=== PATIENT | female | born 1940 | race Caucasian/White ===

== ENCOUNTER 2017-03-21 08:52 | Outpatient (POV) | payer MEDICARE, MEDICAID, SELFPAY | END 2017-03-21 13:49 | disposition home or self-care (01) | PROVIDERS: Visit Provider Podiatrist | DX: E11.42 Type 2 diabetes mellitus with diabetic polyneuropathy (principal); L84 Corns and callosities; B35.1 Tinea unguium | CPT/HCPCS: 11056; 99213; G0127 ==

== ENCOUNTER 2017-06-22 16:00 | Emergency (ER) | payer MEDICARE, MEDICAID, SELFPAY ==
[2017-06-22 16:08] VITALS: BP 180/89; PULSE 103; RESP 26; TEMP 36.7; O2SAT 98; BMI 41.8
--- NOTE | 2017-06-22 16:33 | HMH.EDSOB ---
ED Disposition Clinical Impression: Bronchitis, Dehydration, Hypertension, Diabetes, Cough, Reactive airway disease Disposition: Home, Self-Care Condition on Discharge: Fair Additional Instructions: 1- avoid smoke and smokers. 2- use a vicks humidifier. 3- start po abx, steroid pack and albuterol mdi with a spacer. 4- follow up with Dr mcguire on final CXR report. 5- to return if not better. Prescriptions: levoFLOXacin [Levaquin 250mg tab] 250 mg PO DAILY #7 tab methylPREDNISolone [Medrol] 16 mg PO UD DOSE PK #1 tab Referrals: Amanuel Mcguire MD [Primary Care Provider] - - Critical Care Critical Care Time: No Attestation: On 06/22/17, the high probability of a clinically significant, sudden or life threatening deterioration of the following system(s) required my full and direct attention, intervention and personal management. The time I documented below is in addition to time spent performing reported procedures but includes the following listed in this critical care notation. Medical Decision Making - Tye Inquiry Pt receiving controlled substance: No Tye was queried for this patient: No Vital Signs: 06/22/17 16:08 06/22/17 17:30 06/22/17 17:40 Temperature 98.1 F Temperature Source Oral Pulse Rate 87 87 Pulse Rate [Right Radial] 103 H Respiratory Rate 26 H Blood Pressure [Right Arm] 180/89 Blood Pressure Mean [Right Arm] 119 Blood Pressure Source [Right Arm] Automatic Cuff Blood Pressure Position [Right Arm] Supine 02 Sat by Pulse Oximetry 98 Oxygen Delivery Method Room Air - Lab Data Lab Results 06/22/17 16:45: WBC 11.8 H, RBC 4.39, Hgb 12.6, Hct 39.4, MCV 89.6, MCH 28.7, MCHC 32.0, RDW 12.9, Plt Count 337, MPV 7.6, Neut % (Auto) 87.9 H, Lymph % (Auto) 9.3 L, Petroleum % (Auto) 2.5, Eos % (Auto) 0.1, Baso % (Auto) 0.2, Neut # (Auto) 10.4 H, Lymph # (Auto) 1.1, Petroleum # (Auto) 0.3, Eos # (Auto) 0.0, Baso # (Auto) 0.0, Total Counted 100, Neutrophils % (Manual) 85 H, Band Neutrophils % 1.0, Lymphocytes % (Manual) 9 L, Monocytes % (Manual) 5, Platelet Estimate Normal, RBC Morphology Normal 06/22/17 16:45: Sodium 136, Potassium 4.2, Chloride 99, Carbon Dioxide 26, Anion Gap 15.2 H, BUN 17, Creatinine 0.81, Estimated Creat Clear 33, Estimated GFR 68, Est GFR ( Amer) 83, Glucose 226 H, Calcium 8.6, Total Bilirubin 0.2, AST 21, ALT 40, Alkaline Phosphatase 96, Total Creatine Kinase 90, CK-MB (CK-2) 1.3, CK-MB (CK-2) Rel Index 1.4, Troponin I < 0.02, Total Protein 7.4, Albumin 3.6, Globulin 3.8 H, Albumin/Globulin Ratio 0.9 L 06/22/17 16:45: Lactic Acid 2.7 H 06/22/17 16:45: Influenza Type A Ag Negative, Influenza Type B Ag Negative Result diagrams: 06/22/17 16:45 06/22/17 16:45 Orders (Tests/Meds): ED MEDICATIONS Generic Name Dose Route Start Last Admin Trade Name Freq PRN Reason Stop Dose Admin Famotidine 20 mg 06/22/17 21:00 06/22/17 17:05 Pepcid 20mg/2ml Vial IV 07/22/17 20:59 20 mg BID LAMIN Administration Levofloxacin/Dextrose 750 mg in 150 mls @ 100 mls/hr 06/22/17 17:45 06/22/17 17:47 Levofloxacin 750mg/150ml Premix IV 07/06/17 17:44 100 mls/hr Q24H LAMIN Administration Protocol Sodium Chloride 1,000 mls @ 999 mls/hr 06/22/17 18:15 06/22/17 17:48 Sod Chlor 0.9% 1000ml Bag IV 06/22/17 19:15 999 mls/hr .Q1H1M LAMIN Administration Levalbuterol HCl 0.63 mg 06/22/17 20:00 Xopenex 0.63mg/3ml Neb IH 07/22/17 19:59 QIDRT LAMIN Discontinued Medications Generic Name Dose Route Start Last Admin Trade Name Freq PRN Reason Stop Dose Admin Albuterol/Ipratropium 3 ml 06/22/17 16:37 Duoneb 3ml Neb IH 07/22/17 16:36 Q4HP PRN Shortness Of Breath Dexamethasone Sodium Phosphate 4 mg 06/22/17 16:42 06/22/17 17:12 Decadron 4mg/Ml 1ml Vial IV 06/22/17 16:43 4 mg ONCE ONE Administration Guaifenesin 100 mg 06/22/17 17:02 06/22/17 17:07 Robitussin 200mg/10ml Syrup Udc PO 06/22/17
--- NOTE | 2017-06-22 16:36 | ED_ITS ---
ED Disposition Clinical Impression: Bronchitis, Dehydration, Hypertension, Diabetes, Cough, Reactive airway disease Disposition: Home, Self-Care Condition on Discharge: Fair Additional Instructions: 1- avoid smoke and smokers. 2- use a vicks humidifier. 3- start po abx, steroid pack and albuterol mdi with a spacer. 4- follow up with Dr mcguire on final CXR report. 5- to return if not better. Prescriptions: levoFLOXacin [Levaquin 250mg tab] 250 mg PO DAILY #7 tab methylPREDNISolone [Medrol] 16 mg PO UD DOSE PK #1 tab Referrals: Amanuel Mcguire MD [Primary Care Provider] - - Critical Care Critical Care Time: No Attestation: On 06/22/17, the high probability of a clinically significant, sudden or life threatening deterioration of the following system(s) required my full and direct attention, intervention and personal management. The time I documented below is in addition to time spent performing reported procedures but includes the following listed in this critical care notation. Medical Decision Making - Tye Inquiry Pt receiving controlled substance: No Tye was queried for this patient: No Vital Signs: 06/22/17 16:08 06/22/17 17:30 06/22/17 17:40 Temperature 98.1 F Temperature Source Oral Pulse Rate 87 87 Pulse Rate [Right Radial] 103 H Respiratory Rate 26 H Blood Pressure [Right Arm] 180/89 Blood Pressure Mean [Right Arm] 119 Blood Pressure Source [Right Arm] Automatic Cuff Blood Pressure Position [Right Arm] Supine 02 Sat by Pulse Oximetry 98 Oxygen Delivery Method Room Air - Lab Data Lab Results 06/22/17 16:45: WBC 11.8 H, RBC 4.39, Hgb 12.6, Hct 39.4, MCV 89.6, MCH 28.7, MCHC 32.0, RDW 12.9, Plt Count 337, MPV 7.6, Neut % (Auto) 87.9 H, Lymph % (Auto ) 9.3 L, Gordon % (Auto) 2.5, Eos % (Auto) 0.1, Baso % (Auto) 0.2, Neut # (Auto) 10.4 H, Lymph # (Auto) 1.1, Gordon # (Auto) 0.3, Eos # (Auto) 0.0, Baso # (Auto) 0.0, Total Counted 100, Neutrophils % (Manual) 85 H, Band Neutrophils % 1.0, Lymphocytes % (Manual) 9 L, Monocytes % (Manual) 5, Platelet Estimate Normal, RBC Morphology Normal 06/22/17 16:45: Sodium 136, Potassium 4.2, Chloride 99, Carbon Dioxide 26, Anion Gap 15.2 H, BUN 17, Creatinine 0.81, Estimated Creat Clear 33, Estimated GFR 68, Est GFR ( Amer) 83, Glucose 226 H, Calcium 8.6, Total Bilirubin 0.2, AST 21, ALT 40, Alkaline Phosphatase 96, Total Creatine Kinase 90, CK-MB ( CK-2) 1.3, CK-MB (CK-2) Rel Index 1.4, Troponin I < 0.02, Total Protein 7.4, Albumin 3.6, Globulin 3.8 H, Albumin/Globulin Ratio 0.9 L 06/22/17 16:45: Lactic Acid 2.7 H 06/22/17 16:45: Influenza Type A Ag Negative, Influenza Type B Ag Negative Result diagrams: 06/22/17 16:45 06/22/17 16:45 Orders (Tests/Meds): ED MEDICATIONS Generic Name Dose Route Start Last Admin Trade Name Freq PRN Reason Stop Dose Admin Famotidine 20 mg 06/22/17 21:00 06/22/17 17:05 Pepcid 20mg/2ml Vial IV 07/22/17 20:59 20 mg BID LAMIN Administration Levofloxacin/Dextrose 750 mg in 150 mls @ 100 mls/hr 06/22/17 17:45 06/22/17 17:47 Levofloxacin 750mg/150ml Premix IV 07/06/17 17:44 100 mls/hr Q24H LAMIN Administration Protocol Sodium Chloride 1,000 mls @ 999 mls/hr 06/22/17 18:15 06/22/17 17:48 Sod Chlor 0.9% 1000ml Bag IV 06/22/17 19:15 999 mls/hr .Q1H1M LAMIN Administration Levalbuterol HCl
--- NOTE | 2017-06-22 16:37 | XR_ITS ---
XR chest 2V COMPARISON: PA and lateral chest 07/25/2016 HISTORY: Cough TECHNIQUE: PA and lateral chest FINDINGS: The lung greco are well expanded and appear clear of infiltrate. The cardiac silhouette and vascularity are normal. There are sternal wire sutures and surgical clips from previous bypass procedure. There is a cardiac pacemaker with dual chamber electrodes both in good position. There is generalized osteopenia with mild multilevel degenerative changes of the thoracic spine. There are surgical clips overlying left humeral head and left humeral head is somewhat high riding suggesting rotator cuff pathology. IMPRESSION: Nonacute chest findings
[2017-06-22 17:01] LABS: Basophils % 0.2 % (0.1-2.0); Eosinophils % 0.1 % (0.1-12.0); Hematocrit 39.4 % (37.0-47.0); Hemoglobin 12.6 g/dL (12.2-16.2); Lymphocytes # 1.1 K/mm3 (0.7-4.5); Lymphocytes % 9.3 K/mm3 (10-50); Mean Corpuscular Hemoglobin 28.7 pg (27.0-31.2); Mean Corpuscular Volume 89.6 fl (81-99); Mean Platelet Volume 7.6 fl (7.4-10.4); Monocytes # 0.3 K/mm3 (0.1-1.0); Monocytes % 2.5 % (1.7-9.3); Neutrophils # 10.4 K/mm3 (1.8-7.8); Neutrophils % 87.9 % (37.0-80.0); Platelet Count 337 K/mm3 (142-424); Red Blood Count 4.39 M/mm3 (4.20-5.40); Red Cell Distribution Width 12.9 % (11.5-17.5); White Blood Count 11.8 K/mm3 (4.8-10.8)
[2017-06-22 17:03] LABS: MANUAL DIFFERENTIAL MANUAL DIFFERENTIAL (MANUAL DIFF)
[2017-06-22 17:20] LABS: Lymphocytes % 9 % (10-50); Monocytes % 5 % (2-9); Neutrophils % 85 % (42-76); Platelet Estimate Normal; RBC Morphology Normal; Total Cells Counted 100
[2017-06-22 17:22] LABS: Lactic Acid 2.7 mmol/L (0.4-2.0); Reflex Lactic Add Lactic Reflex
[2017-06-22 17:25] LABS: Alanine Aminotransferase 40 U/L (12-78); Albumin Level 3.6 gm/dL (3.4-5.0); Albumin/Globulin Ratio 0.9 (1.1-1.8); Alkaline Phosphatase 96 U/L (46-116); Anion Gap 15.2 mEq/L (5-15); Aspartate Amino Transferase 21 U/L (15-37); Bilirubin,Total 0.2 mg/dL (0.2-1.0); Blood Urea Nitrogen 17 mg/dL (7-18); CKMB Relative Index 1.4 U/L (0-4.0); Calcium 8.6 mg/dL (8.5-10.1); Carbon Dioxide 26 mmol/L (21.0-32.0); Chloride 99 mmol/L (98-107); Creatine Kinase 90 U/L (26-192); Creatine Kinase MB 1.3 mg/ml (0.0-3.6); Creatinine Clearance Estimated 33 mL/min (0-300); Creatinine,Serum 0.81 mg/dL (0.55-1.02); Estimated Glomerular Filt Rate 68 ml/min (>60); GFR (African American) 83 ML/MIN (>60); Globulin 3.8 gm/dl (1.3-3.2); Glucose 226 mg/dL (74-106); Potassium 4.2 mmoL/L (3.5-5.1); Sodium 136 mmol/L (136-145); Total Protein,Serum 7.4 gm/dL (6.4-8.2); Troponin I < 0.02 ng/ml (0.00-0.06)
[2017-06-22 17:30] VITALS: PULSE 87
[2017-06-22 17:40] VITALS: PULSE 87
[2017-06-22 19:21] VITALS: BP 168/80; PULSE 88; RESP 18; TEMP 36.7; O2SAT 98
== END 2017-06-22 19:25 | disposition home or self-care (01) ==
PROVIDERS: Emergency Provider Emergency Medicine; PCP Family Medicine
DX: J20.9 Acute bronchitis, unspecified (principal); I10 Essential (primary) hypertension; E11.65 Type 2 diabetes mellitus with hyperglycemia; Z79.84 Long term (current) use of oral hypoglycemic drugs; J45.909 Unspecified asthma, uncomplicated; Z95.0 Presence of cardiac pacemaker; I25.10 Atherosclerotic heart disease of native coronary artery without angina pectoris; Z88.0 Allergy status to penicillin; Z88.2 Allergy status to sulfonamides; Z88.8 Allergy status to other drugs, medicaments and biological substances
CPT/HCPCS: 71046; 80053; 82550; 82553; 83605; 84484; 85007; 85025; 87040; 87070; 87077; 87186; 87205; 87275; 87276; 93005; 96365; 96366; 96367; 96375; 99282; J1956

== ENCOUNTER → 2017-07-16 10:15 | Outpatient (CLI) | payer MEDICARE, MEDICAID, SELFPAY ==
--- NOTE | 2017-07-16 10:36 | XR_ITS ---
XR chest 2V HISTORY: ITS.REASON: CHRONIC COUGH ORDERING PHYSICIAN: Amanuel Steinberg MD PATIENT AGE: 76 years COMPARISON: 06/22/2017 FINDINGS: There is been a prior CABG. Bipolar pacemaker is present. Normal heart size. Lungs are clear bilaterally. There are degenerative changes in the left shoulder and thoracic spine. IMPRESSION: No change with no acute finding
== END ==
PROVIDERS: PCP Family Medicine; Visit Provider Family Medicine
DX: R05 Cough (principal)
CPT/HCPCS: 71046

== ENCOUNTER → 2017-07-19 10:10 | Outpatient (POV) | payer MEDICARE, MEDICAID, SELFPAY | PROVIDERS: PCP Family Medicine; Visit Provider Podiatrist | DX: Z00.00 Encounter for general adult medical examination without abnormal findings (principal) ==

== ENCOUNTER → 2017-08-16 11:57 | Outpatient (POV) | payer MEDICARE, MEDICAID, SELFPAY | PROVIDERS: PCP Family Medicine; Visit Provider Podiatrist | DX: Z00.00 Encounter for general adult medical examination without abnormal findings (principal) ==

== ENCOUNTER → 2017-10-30 10:13 | Outpatient (CLI) | payer MEDICARE, MEDICAID, SELFPAY ==
--- NOTE | 2017-10-30 10:29 | XR_ITS ---
XR shoulder RT min 2V, XR shoulder LT min 2V Ordering Physician: Brianna Parikh Patient Age: 76 years: Female HISTORY: ITS.REASON: RT SHOULDR PAIN Previous rotator cuff surgery left shoulder TECHNIQUE: Right shoulder 3 views Left shoulder 3 views COMPARISON :CXR June (2017 partially images the shoulders ====== RIGHT SHOULDER 3 VIEWS Arthritic changes at right shoulder. Roughening at the cap of the greater tuberosity and base of the humeral head likely reflect degenerative, impingement sequela with likely some subchondral insertion erosions I suspect at the posterior humeral head is well. There is a curious ill-defined ossification/calcification projected over the glenohumeral joint. On the AP projections. This is generous in size measuring up to 2.8 cm height. 1.8 cm transverse Difficult to localize on these views I suspect is related to the glenoid or joint capsule.. A transaxillary view may be of benefit to further evaluate. If severe pain MR, or CT to exclude a glenoid abnormality or even fracture be suggested. CT would be appropriate Has there been recent trauma? noting the patient has a pacemaker CT would be appropriate. Moderately pronounced Degenerative changes are seen at the AC joint. [place] right lung is clear. Upper right ribs unremarkable. IMPRESSION I would arthritic changes at the glenohumeral joint. These may account for the prominent 3 cm height 1.6 cm wide vague calcification/ossification projected over the inferior glenohumeral joint. This may reflect the hypertrophic bone arising from glenohumeral joint, with this plain film appearance I cannot exclude a more significant injury or deformity of the glenoid. Consider transaxillary view. If severe shoulder pain would further evaluation with encourage CT,-would provide most definitive evaluation of glenohumeral joint LEFT SHOULDER 3 VIEWS . Evidence of previous rotator cuff repair with 2 metallic anchor seen applied to the proximal humerus towards greater trochanter region. There is very roughened irregular but stable appearance is seen at the top of the greater tuberosity reflecting postsurgical changes and degenerative changes. Mild sclerotic changes seen here. The distal clavicle is eroded or has been resected this long-standing appearance is been present since at least 2014. Glenohumeral degenerative arthritic changes with hypertrophic bony spurring from the inferior aspect of the humeral head more so than glenoid noted. Pacemaker. Upper left ribs and apex clear IMPRESSION. ------- No acute findings. Previous rotator cuff repair tear . Degenerative changes at glenohumeral joint with hypertrophic changes inferior humeral head more so the glenoid Resection distal clavicle towards AC joint. Long-standing since at least 2014.
[2017-10-30 10:33] LABS: Basophils % 0.5 % (0.1-2.0); Eosinophils # 0.1 K/mm3 (0.0-0.4); Eosinophils % 1.9 % (0.1-12.0); Hematocrit 40.1 % (37.0-47.0); Hemoglobin 12.9 g/dL (12.2-16.2); Lymphocytes # 1.5 K/mm3 (0.7-4.5); Lymphocytes % 21.6 K/mm3 (10-50); Mean Corpuscular HGB Conc 32.3 g/dL (31.8-35.4); Mean Corpuscular Hemoglobin 28.4 pg (27.0-31.2); Mean Corpuscular Volume 87.9 fl (81-99); Monocytes # 0.4 K/mm3 (0.1-1.0); Platelet Count 329 K/mm3 (142-424); Red Blood Count 4.56 M/mm3 (4.20-5.40); Red Cell Distribution Width 13.1 % (11.5-17.5); White Blood Count 7.1 K/mm3 (4.8-10.8)
[2017-10-30 11:36] LABS: Alanine Aminotransferase 31 U/L (12-78); Albumin Level 3.5 gm/dL (3.4-5.0); Albumin/Globulin Ratio 1.1 (1.1-1.8); Alkaline Phosphatase 98 U/L (46-116); Anion Gap 13.9 mEq/L (5-15); Aspartate Amino Transferase 16 U/L (15-37); Bilirubin,Total 0.5 mg/dL (0.2-1.0); Blood Urea Nitrogen 14 mg/dL (7-18); Calcium 8.9 mg/dL (8.5-10.1); Carbon Dioxide 27 mmol/L (21.0-32.0); Chloride 103 mmol/L (98-107); Creatinine,Serum 0.81 mg/dL (0.55-1.02); Estimated Glomerular Filt Rate 68 ml/min (>60); GFR (African American) 83 ML/MIN (>60); Globulin 3.3 gm/dl (1.3-3.2); Glucose 157 mg/dL (74-106); Potassium 4.9 mmoL/L (3.5-5.1); Sodium 139 mmol/L (136-145); Thyroid Stimulating Hormone 3.78 uIU/ml (0.358-3.740); Total Protein,Serum 6.8 gm/dL (6.4-8.2)
== END ==
PROVIDERS: Visit Provider Nurse Practitioner Family
DX: R06.02 Shortness of breath (principal); R05 Cough; R07.9 Chest pain, unspecified; M25.512 Pain in left shoulder; M25.511 Pain in right shoulder; Z79.899 Other long term (current) drug therapy
CPT/HCPCS: 36415; 73030; 80053; 83880; 84443; 85025

== ENCOUNTER → 2017-11-13 13:41 | Outpatient (CLI) | payer MEDICARE, MEDICAID, SELFPAY ==
--- NOTE | 2017-11-13 14:55 | CT_ITS ---
CT chest wo con HISTORY: Persistent cough, shortness of air, chest pain on the right ITS.REASON: COUGH,CHEST PAIN,SHORTNESS OF BREATH ORDERING PHYSICIAN: Brianna Parikh PATIENT AGE: 77 years COMPARISON: None Technique: Axial images obtained with sagittal and coronal reformats. All CT scans at the facility use one or more dose reduction, viz: automated exposure control, ma/kV adjustment per patient size (including targeted exams where dose is matched to indication, i.e. head), or iterative reconstruction technique. FINDINGS: There has been a prior median sternotomy/CABG. Cardiac pacemaker is present. Normal heart size. No mediastinal or hilar mass or adenopathy. There are some small mediastinal lymph nodes present. No lobar consolidation or collapse. There are few scattered fibrotic regions. A 4 mm noncalcified nodules present in the left lower lobe posteriorly nonspecific. No effusions or infiltrates. Upper abdominal images show a small hiatal hernia. There are mild degenerative changes in the thoracic spine. IMPRESSION: 1. No acute finding. 2. Scattered fibrotic changes with a nonspecific 4 mm left lower lobe nodule.
[2017-11-13 15:03] VITALS: PULSE 80; PULSE 85
== END ==
PROVIDERS: PCP Family Medicine; Visit Provider Nurse Practitioner Family
DX: R05 Cough (principal); R07.9 Chest pain, unspecified; R06.02 Shortness of breath
CPT/HCPCS: 71250; 94060; 94640

== ENCOUNTER 2018-05-19 09:00 | Outpatient (RCR) | payer MEDICARE, MEDICAID, SELFPAY ==
--- NOTE | 2018-04-03 15:00 | HMH.PTOPEV ---
PT Outpatient Evaluation Rehab PT Outpatient Evaluation Start: 04/03/18 14:49 Freq: Status: Active Protocol: Document 04/03/18 14:49 JACKSON (Rec: 04/03/18 15:00 JACKSON [id number]) Electronically Signed By Federico Craven, PT 04/03/18 14:49 Outpatient Therapy Subjective History Subjective History Pt reports h/o chronic L SH pain since RTC injury ~20-30 yrs ago. Pt reports most recent exacerbation started ~6 months, insidious onset. Pt reports global L SH pain, constant, w/referred pain into L scapular area, and limited ROM reported. Chief Complaint Pain Stiff Swelling Weakness Symptom Type Ache Symptoms Relieved By Nothing Symptoms Aggravated By Physical Activity Lifting Prior Functional Limitations Reaching Lifting Housework Current Functional Limitations Reaching Lifting Housework Symptom Description Constant but Variable Level of pain today (0-10) 8 Pain scale - at its best (0-10) 6 Pain scale - at its worst (0-10) 10 Shoulder/Elbow Eval Shoulder Objective Measurements Palpation Tenderness tenderness shoulder exam standard left tenderness over the bicipital tendon left shoulder exam standard tenderness over the SA bursa shoulder left exam standard Shoulder Palpation Findings Tenderness Trigger Point Muscle Guarding Shoulder Palpation Overall Comment 3/4 Posture Shoulder Posture Sitting Position (L) Rounded (R) Rounded Shoulder Posture Standing Position (L) Rounded (R) Rounded Scapula Posture Sitting Position (L) Protracted (R) Protracted Scapular Posture Standing Position (L) Protracted (R) Protracted Flexibilty Deficits Pectoralis Major Muscle Length (R) Moderate Tightness (L) Moderate Tightness Upper Trapezius Muscle Length (R) Moderate Tightness (L) Moderate Tightness Shoulder ROM Right Shoulder Abduction Active Range of 0-110 Motion (degrees) Shoulder Flexion Active Range of Motion 0-110 (degrees) Query Text: Left Shoulder RO
== END 2018-05-19 09:10 | disposition home or self-care (01) ==
LOC: PT 09:00
PROVIDERS: Visit Provider Nurse Practitioner Family
DX: M25.512 Pain in left shoulder (principal)
CPT/HCPCS: 97010; 97014; 97033; 97035; 97110; 97140; 97163; G0283

== ENCOUNTER → 2018-06-05 10:01 | Outpatient (CLI) | payer MEDICARE, MEDICAID, SELFPAY ==
--- NOTE | 2018-06-05 10:04 | US_ITS ---
US Arterial Ankle Brachial Ind History: ITS.REASON: skin changes skin changes, claudication, hypertension ORDERING PHYSICIAN: Milagro Estrella DPM PATIENT AGE: 77 years TECHNIQUE: Segmental pressures obtained of both right and left leg. These are compared to brachial blood pressure to yield index at each level sampled including summary KASHIF. The data sheets from the procedure are available in PACS FINDINGS Rest study only performed today No prior studies available for comparison. Blood pressures reported are in millimeters mercury. RIGHT LEG KASHIF = .5. RIGHT LEG TBI=.4 Brachial BP: 159 Thigh BP: 147 Calf BP: 121 Ankle PT: 74 Ankle DP : 109 Digit =62 LEFT LEG KASHIF = .6 LEFT LEG TBI= .5 Brachial BPD: 154 Thigh BP: 154 Calf BP: 119 Ankle PT:Unable to locate Ankle DP: 94 Digit = 74 Pulses and waveforms: Depressed pulses and waveforms IMPRESSION: Low ABIs bilaterally consistent with moderate peripheral arterial disease
== END ==
PROVIDERS: PCP Family Medicine; Visit Provider Podiatrist
DX: R09.89 Other specified symptoms and signs involving the circulatory and respiratory systems (principal)
CPT/HCPCS: 93922

== ENCOUNTER → 2019-01-12 14:27 | Outpatient (CLI) | payer MEDICARE, OTHER, SELFPAY ==
--- NOTE | 2019-01-12 14:34 | XR_ITS ---
PROCEDURE: XR LUMBAR SPINE MIN 4V CLINICAL INDICATION: RT LOW BACK PAIN WITH SCIATICA, HIP PAIN Low back pain COMPARISON: No exams were available for comparison FINDINGS: There are postsurgical changes with inter pedicular screws at L3 and L4. Multilevel degenerative disc disease from T12-S1. No acute fracture or dislocation evident. There is generalized osteopenia. Facet arthritic changes are present at L4-L5 and S1 and there is sclerosis of the SI joints inferiorly on both sides. Atherosclerotic calcification involves the abdominal aorta of. Bilateral renal calculi are present measuring up to 8 mm in the mid upper pole on the left and 4 mm in the mid upper pole on the right. IMPRESSION: 1. No acute finding. 2. Postsurgical change at L3-L4 with degenerative changes of the lumbar spine and SI joints. 3. Bilateral nephrolithiasis Dictated by: Ned Lira MD 01/12/2019 16:22 Electronically signed by Ned Lira MD in [place] 01/12/2019 16:22
--- NOTE | 2019-01-12 14:34 | XR_ITS ---
PROCEDURE: XR HIP RT 2-3V W/PELVIS CLINICAL INDICATION: RT LOW BACK PAIN WITH SCIATICA, HIP PAIN Right hip pain COMPARISON: LSWO CT LUMBAR SPINE W/O CONTRAST from 03/07/2016 FINDINGS: There are mild osteoarthritic changes of the right hip. No fracture or dislocation is evident. There is an os acetabulum posteriorly. There is some sclerosis of the SI joints inferiorly of well as degenerative changes in the lumbar spine and lumbosacral junction IMPRESSION: Degenerative changes, no acute finding. Dictated by: Ned Lira MD 01/12/2019 16:18 Electronically signed by Ned Lira MD in [place] 01/12/2019 16:18
== END ==
PROVIDERS: PCP Nurse Practitioner Family; Visit Provider Nurse Practitioner Family
DX: M54.41 Lumbago with sciatica, right side (principal); M25.551 Pain in right hip
CPT/HCPCS: 72110; 73502

== ENCOUNTER → 2019-02-16 13:21 | Outpatient (POV) | payer MEDICARE, OTHER, SELFPAY ==
[2019-02-16 13:38] VITALS: BP 177/83; PULSE 102; RESP 18; O2SAT 98; BMI 41.0
--- NOTE | 2019-02-17 08:49 | HMH.PMCON ---
Assessment and Plan (1) Sacroiliitis Current visit: Yes Status: Chronic Category: Medical Code(s): M46.1 - Sacroiliitis, not elsewhere classified - Assessment and plan all Dx Assessment and Plan for all problems:: We will plan a right SI joint injection for the patient as soon as possible. Patient is in quite a lot of discomfort. I will follow-up with the patient after her injection reassess her symptoms at that time she is been instructed to call the office if she has any issues prior to her next appointment. Dr. Joshi has reviewed this note and agrees with this plan of care. This note was dictated using voice recognition software and may contain errors or omissions HPI - Data of Consult Patient: new to practice Consult date: 02/16/19 Requesting Physician: Misti Moss APRN Primary Care Provider: Amanuel Steinberg MD - Consult Narrative Reason for consult: Sacroiliitis History of present illness: Ms. Ahmadi is a 78 year old female who presents today with a complaint of SI joint pain. Patient has had this pain for several weeks and it is continually getting worse. Starting to affect her daily life. Patient states most the pain is on the right side. She does have a positive SI joint compression test positive Suki test positive Juancarlos's test. She is on anti-inflammatories which have not been that beneficial. Patient states that she would like to explore injective therapy to help with this issue. Patient is continuing a home stretching program. CC: Misti Moss APRN [facility] History I have reviewed the patient's past medical history: Yes Medical History: Reports:: Cancer, Congestive Heart Failure, Coronary Artery Disease, Diabetes Mellitus Type 2, Hypertension, Internal Pacemaker, Lung Disease (nodual on lung, chronic cough/ allergies) Denies:: Diabetes Mellitus Type 1, MRSA, Seizures *Have you ever received a pneumonia vaccine?: Yes *Have you received a flu vaccine this season?: Yes Other Medical History: Reports: Arthritis, Cataracts. Denies: Blood Transfusion Reaction Laterality Cases: Left: Arthroscopy Shoulder, Other, Bilateral: Carpal Tunnel Release Other Surgeries: Yes: No Previous Surgery, CABG, Coronary Stent, Pacemaker Amputation: No Fractures: Yes - *Social History Smoking Status: Never smoker Alcohol Intake: never Substance Use Type: denies use *Occupational Status:: other Housing: house Household Members: other *Travel in the last 8 weeks: None Family Hx:: Diabetes, Hypertension, Hyperlipidemia Review of Systems - Review of Systems ROS General: no recent weight change, no fever, no sleep disturbances Respiratory: no cough, no shortness of air, no recurring pulmonary infections Cardiovascular/Peripheral Vascular: No chest pain, No palpitations, no edema, no shortness of breath. Gastrointestinal: no new onset incontinence, normal bowel movements reported Genitourinary: no new onset incontinence Musculoskeletal: Back pain, SI joint pain on the right side Psychiatric: normal mood/ affect, Neurological: [denies new onset weakness in extremities], [denies new onset balance issues] Meds Home Medications Medication Instructions Recorded Confirmed Type aspirin 81 mg tablet,delayed 81 mg PO ONCE 06/14/17 12/30/18 History release atenolol 50 mg tablet 50 mg PO Q12H 06/14/17 12/30/18 History furosemide 80 mg tablet 80 mg PO DAILY 06/14/17 12/30/18 History B2/Vits A,C,E/Lut/Zeaxanth/Min 1 each PO DAILY 06/22/17 12/30/18 History [Icaps Tablet] albuterol sulfate HFA 90 1 puff INHALATION NEEDED PRN 25 10/01/17 12/30/18 History mcg/actuation aerosol inhaler Days #18 Metoprolol Succinate 25 mg PO DAILY 30 Days #30 01/24/19 Rx tab.er.24h Metoprolol Succinate 25 mg PO DAILY 30 Days #30 01/24/19 Rx tab.er.24h Allergies Allergy/AdvReac Type Severity Reaction Status Date / Time adenosine [ADENOSINE] Allergy Unknown S-ANAPHYLAX Verified 12/30/18 15:35
== END ==
PROVIDERS: PCP Family Medicine; Visit Provider Clinical Nurse Specialist Family Health
DX: M46.1 Sacroiliitis, not elsewhere classified (principal)
CPT/HCPCS: 99202

== ENCOUNTER → 2019-03-09 11:13 | Outpatient (POV) | payer MEDICARE, OTHER, SELFPAY ==
[2019-03-09 11:32] VITALS: BP 177/82; PULSE 100; RESP 18; O2SAT 99; BMI 39.6
--- NOTE | 2019-03-09 12:33 | HMH.PAINSOAP ---
[facility] Pain Management SOAP Note Subjective:: Patient is a pleasant 78-year-old white female who presents to day for follow-up after right SI joint injection. Patient is not as uncomfortable as she was previously. She does still rates her pain 8 out of 10 however this change slightly more radiating into her right knee. Patient has had multiple back surgeries. Patient I discussed epidural injection she is comfortable with moving forward. Patient states that she is in pain management at one point where they wanted to burn her nerves . Patient states that this will never happen because she is worried they will hit her hardware in her back. I discussed epidural injection with her in depth and also provided information in regards to it for her to take home and read. Patient denies any anticoagulation therapy. ROS General: no recent weight change, no fever, no sleep disturbances Respiratory: no cough, no shortness of air, no recurring pulmonary infections Cardiovascular/Peripheral Vascular: No chest pain, No palpitations, no edema, no shortness of breath. Gastrointestinal: no new onset incontinence, normal bowel movements reported Genitourinary: no new onset incontinence Musculoskeletal: Back pain, right leg pain Psychiatric: normal mood/ affect, Neurological: [denies new onset weakness in extremities], [denies new onset balance issues] Objective:: Physical Exam General: Alert and oriented x3, no acute distress, pleasant and cooperative, [on room air] Lungs: Resps E/U, Symmetrical chest expansion, Eyes: PERRL Musculoskeletal: Flexion and extension of lumbar spine somewhat guarded secondary to pain, deep tendon reflexes normal, strength in upper and lower extremities [5/5], [abnormal gait noted] Neurological: speech clear, water filterer equal, no gross sensory deficits Assessment:: Degenerative disc disease lumbar spine with lumbar radiculopathy, post laminectomy syndrome lumbar spine Plan:: We will set her up for an L4-L5 lumbar epidural steroid injection. I believe it would be beneficial given her symptomology. Patient's been instructed to call the office if she has any issues prior to her next appointment. Dr. Joshi has reviewed this note and agrees with this plan of care. This note was dictated using voice recognition software and may contain errors or omissions [facility] History Medical History: Reports:: Cancer (skin), Congestive Heart Failure, Coronary Artery Disease, Diabetes Mellitus Type 2, Hypertension, Internal Pacemaker, Lung Disease (nodual on lung, chronic cough/ allergies) Denies:: Diabetes Mellitus Type 1, MRSA, Seizures *Have you ever received a pneumonia vaccine?: Yes *Have you received a flu vaccine this season?: Yes Other Medical History: Reports: Arthritis, Cataracts, Hypothyroidism. Denies: Blood Transfusion Reaction Laterality Cases: Left: Arthroscopy Shoulder, Other, Bilateral: Carpal Tunnel Release Other Surgeries: Yes: No Previous Surgery, CABG, Cholecystectomy, Coronary Stent, Hernia Repair, Hysterectomy-Total, Pacemaker Amputation: No Fractures: Yes - *Social History Smoking Status: Never smoker Alcohol Intake: never Substance Use Type: denies use *Occupational Status:: other Housing: house Household Members: other *Travel in the last 8 weeks: None Family Hx:: Unable to obtain
--- NOTE | 2019-03-09 12:37 | P.CONS_ITS ---
[facility] Pain Management SOAP Note Subjective:: Patient is a pleasant 78-year-old white female who presents to day for follow-up after right SI joint injection. Patient is not as uncomfortable as she was previously. She does still rates her pain 8 out of 10 however this change slightly more radiating into her right knee. Patient has had multiple back surgeries. Patient I discussed epidural injection she is comfortable with moving forward. Patient states that she is in pain management at one point where they wanted to burn her nerves . Patient states that this will never happen because she is worried they will hit her hardware in her back. I discussed epidural injection with her in depth and also provided information in regards to it for her to take home and read. Patient denies any anticoagulation therapy. ROS General: no recent weight change, no fever, no sleep disturbances Respiratory: no cough, no shortness of air, no recurring pulmonary infections Cardiovascular/Peripheral Vascular: No chest pain, No palpitations, no edema, no shortness of breath. Gastrointestinal: no new onset incontinence, normal bowel movements reported Genitourinary: no new onset incontinence Musculoskeletal: Back pain, right leg pain Psychiatric: normal mood/ affect, Neurological: [denies new onset weakness in extremities], [denies new onset balance issues] Objective:: Physical Exam General: Alert and oriented x3, no acute distress, pleasant and cooperative, [on room air] Lungs: Resps E/U, Symmetrical chest expansion, Eyes: PERRL Musculoskeletal: Flexion and extension of lumbar spine somewhat guarded secondary to pain, deep tendon reflexes normal, strength in upper and lower extremities [5/5], [abnormal gait noted] Neurological: speech clear, 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 I believe it would be beneficial given her symptomology. Patient's been instructed to call the office if she has any issues prior to her next appointment. Dr. Joshi has reviewed this note and agrees with this plan of care. This note was dictated using voice recognition software and may contain errors or omissions [facility] History Medical History: Reports:: Cancer (skin), Congestive Heart Failure, Coronary Artery Disease, Diabetes Mellitus Type 2, Hypertension, Internal Pacemaker, Lung Disease (nodual on lung, chronic cough/ allergies) Denies:: Diabetes Mellitus Type 1, MRSA, Seizures *Have you ever received a pneumonia vaccine?: Yes *Have you received a flu vaccine this season?: Yes Other Medical History: Reports: Arthritis, Cataracts, Hypothyroidism. Denies: Blood Transfusion Reaction Laterality Cases: Left: Arthroscopy Shoulder, Other, Bilateral: Carpal Tunnel Release Other Surgeries: Yes: No Previous Surgery, CABG, Cholecystectomy, Coronary Stent, Hernia Repair, Hysterectomy-Total, Pacemaker Amputation: No Fractures: Yes - *Social History Smoking Status: Never smoker Alcohol Intake: never Substance Use Type: denies use *Occupational Status:: other Housing: house Household Members: other *Travel in the last 8 weeks: None Family Hx:: Unable to obtain
== END ==
PROVIDERS: PCP Family Medicine; Visit Provider Clinical Nurse Specialist Family Health
DX: M51.16 Intervertebral disc disorders with radiculopathy, lumbar region (principal); M96.1 Postlaminectomy syndrome, not elsewhere classified
CPT/HCPCS: 99212

== ENCOUNTER → 2019-04-13 10:23 | Outpatient (POV) | payer MEDICARE, OTHER, SELFPAY ==
[2019-04-13 11:09] VITALS: BP 150/67; PULSE 79; RESP 18; O2SAT 98; BMI 41.0
--- NOTE | 2019-04-13 11:15 | P.CONS_ITS ---
[facility] Pain Management SOAP Note Subjective:: Patient is a pleasant 78-year-old white female who presents today for follow-up after lumbar epidural steroid injection. Patient rates her pain 8 out of 10 mostly in her piriformis muscle and her right knee. Patient states her right knee is on fire. Patient states she has had burning that is worsened since the replacement of her knee. Patient is tried gabapentin however she states that it made her lose her hair . Patient and I discussed potentially Lyrica to help with the burning pain. Since her last visit she fell and broke 2 ribs. She is having pain from this as well. ROS General: no recent weight change, no fever, no sleep disturbances Respiratory: no cough, no shortness of air, no recurring pulmonary infections Cardiovascular/Peripheral Vascular: No chest pain, No palpitations, no edema, no shortness of breath. Gastrointestinal: no new onset incontinence, normal bowel movements reported Genitourinary: no new onset incontinence Musculoskeletal: Right knee pain Psychiatric: normal mood/ affect Neurological: [denies new onset weakness in extremities], [denies new onset balance issues] Objective:: Physical Exam General: Alert and oriented x3, no acute distress, pleasant and cooperative, Lungs: Resps E/U, Symmetrical chest expansion, Eyes: PERRL Musculoskeletal: Flexion and extension of lumbar spine somewhat guarded secondary to pain, deep tendon reflexes normal, strength in upper and lower extremities [5/5], [abnormal gait noted] Neurological: speech clear, 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 nightly for a week and then increase it to twice a day I will see her back in 4 weeks reassess her symptoms at that time she is been instructed to call the office if she has any issues prior to her next appointment. Dr. Joshi has reviewed this note and agrees with this plan of care. This note was dictated using voice recognition software and may contain errors or omissions [facility] History I have reviewed the patient's past medical history: Yes Medical History: Reports:: Cancer (skin), Congestive Heart Failure, Coronary Artery Disease, Diabetes Mellitus Type 2, Hypertension, Internal Pacemaker, Lung Disease (nodual on lung, chronic cough/ allergies) Denies:: Diabetes Mellitus Type 1, MRSA, Seizures *Have you ever received a pneumonia vaccine?: Yes *Have you received a flu vaccine this season?: Yes Other Medical History: Reports: Arthritis, Cataracts, Hypothyroidism. Denies: Blood Transfusion Reaction Laterality Cases: Left: Arthroscopy Shoulder, Other, Bilateral: Carpal Tunnel Release Other Surgeries: Yes: No Previous Surgery, CABG, Cholecystectomy, Coronary Stent, Hernia Repair, Hysterectomy-Total, Pacemaker Amputation: No Fractures: Yes - *Social History Smoking Status: Never smoker Alcohol Intake: never Substance Use Type: denies use *Occupational Status:: other Housing: house Household Members: other *Travel in the last 8 weeks: None Family Hx:: Unable to obtain
== END ==
PROVIDERS: PCP Family Medicine; Visit Provider Clinical Nurse Specialist Family Health
DX: M51.16 Intervertebral disc disorders with radiculopathy, lumbar region (principal); M96.1 Postlaminectomy syndrome, not elsewhere classified; M46.1 Sacroiliitis, not elsewhere classified; G62.9 Polyneuropathy, unspecified
CPT/HCPCS: 99212

== ENCOUNTER → 2019-04-13 14:40 | Outpatient (CLI) | payer MEDICARE, OTHER, SELFPAY ==
--- NOTE | 2019-04-13 14:45 | XR_ITS ---
PROCEDURE: XR RIBS LT MIN 3V W CXR1V CLINICAL INDICATION: MULTIPLE RIB FX Posttraumatic pain, fall with injury and pain with rib fractures noted on previous CT scan COMPARISON: CXR2V XR chest 2V from 06/22/2017 CXR2V XR chest 2V from 07/16/2017 XR CHEST 2V from 03/23/2019 CT CHEST WO CON from 03/24/2019 FINDINGS: Prior CABG with bipolar pacemaker present from left subclavian approach. Borderline cardiomegaly without failure. No evidence of pneumothorax. There are displaced fractures involving the posterior aspect of the left 10th and 11th ribs. The displacement has developed since the previous exam. There has been prior posterior fusion at L3-L4. There is an nondisplaced left 6th rib fracture which appears old IMPRESSION: The left 10th and 11th rib fractures now show some displacement. There is an old left 6th rib fracture. No acute cardiac or pulmonary findings. Dictated by: Ned Lira MD 04/13/2019 16:11 Electronically signed by Ned Lira MD in [place] 04/13/2019 16:11
--- NOTE | 2019-04-13 14:45 | XR_ITS ---
PROCEDURE: XR SHOULDER LT MIN 2V CLINICAL INDICATION: LT SHOULDER PAIN Recent fall with injury and pain COMPARISON: SHOULDCMRT XR shoulder RT min 2V from 10/30/2017 SHOULDCMLT XR shoulder LT min 2V from 10/30/2017 FINDINGS: There are postsurgical changes with 2 anchors along the proximal humerus. Moderate to severe osteoarthritic changes are present at the glenohumeral joint. Postsurgical changes of the distal acromion with severe subacromial stenosis which may indicate rotator cuff tear. The osteoarthritis may be slightly worse compared to the previous study. IMPRESSION: Postsurgical change with osteoarthritis and subacromial stenosis Dictated by: Ned Lira MD 04/13/2019 15:39 Electronically signed by Ned Lira MD in [place] 04/13/2019 15:39
== END ==
PROVIDERS: PCP Family Medicine; Visit Provider Nurse Practitioner Family
DX: S22.42XK Multiple fractures of ribs, left side, subsequent encounter for fracture with nonunion (principal); S49.92XA Unspecified injury of left shoulder and upper arm, initial encounter
CPT/HCPCS: 71101; 73030; 99212

== ENCOUNTER → 2019-05-11 10:28 | Outpatient (POV) | payer MEDICARE, OTHER, SELFPAY ==
[2019-05-11 11:36] VITALS: BP 146/60; PULSE 103; RESP 18; O2SAT 99; BMI 39.2
--- NOTE | 2019-05-11 12:27 | P.CONS_ITS ---
[facility] Pain Management SOAP Note Subjective:: Patient is a pleasant 78-year-old white female who presents today for follow-up. At her last visit we had changed her medication to Lyrica instead of gabapentin. Patient states she took 1 pill which was very helpful she was able to rest well after this. However the patient states them she read the potential side effects of the pill and decided not to take anymore. She also states her daughter told her not to take any more of them. Patient rates her pain today a 5 out of 10 mostly in her right SI area and she has a positive Suki test Juancarlos sign SI joint compression test on the right side. She has radiation of pain into her groin we will set her up for an SI joint injection. ROS General: no recent weight change, no fever, no sleep disturbances Respiratory: no cough, no shortness of air, no recurring pulmonary infections Cardiovascular/Peripheral Vascular: No chest pain, No palpitations, no edema, no shortness of breath. Gastrointestinal: no new onset incontinence, normal bowel movements reported Genitourinary: no new onset incontinence Musculoskeletal: SI joint pain Psychiatric: normal mood/ affect Neurological: [denies new onset weakness in extremities], [denies new onset balance issues] Objective:: Physical Exam General: Alert and oriented x3, no acute distress, pleasant and cooperative, [on room air] Lungs: Resps E/U, Symmetrical chest expansion, Eyes: PERRL Musculoskeletal: Flexion and extension of lumbar spine somewhat guarded secondary to pain, deep tendon reflexes normal, strength in upper and lower extremities [5/5], [abnormal gait noted] Neurological: speech clear, 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 I will follow-up with the patient after her injection reassess her symptoms at that time she has been instructed to call the office if she has any issues prior to her next appointment. Dr. Joshi has reviewed this note and agrees with this plan of care. This note was dictated using voice recognition software and may contain errors or omissions [facility] History I have reviewed the patient's past medical history: Yes Medical History: Reports:: Cancer, Congestive Heart Failure, Coronary Artery Disease, Diabetes Mellitus Type 2, Hypertension, Internal Pacemaker, Lung Disease (nodual on lung, chronic cough/ allergies), Supraventricular Tachycardia Denies:: Diabetes Mellitus Type 1, MRSA, Seizures *Have you ever received a pneumonia vaccine?: Yes *Have you received a flu vaccine this season?: Yes Other Medical History: Reports: Arthritis, Cataracts, Hypothyroidism. Denies: Blood Transfusion Reaction Laterality Cases: Left: Arthroscopy Shoulder, Other, Bilateral: Carpal Tunnel Release Other Surgeries: Yes: No Previous Surgery, Appendectomy, CABG, Cardiac Catheterization, Cholecystectomy, Colonoscopy, Coronary Stent, EGD, Hernia Repair, Hysterectomy-Total, Open Heart Surgery, Pacemaker Amputation: No Fractures: Yes - *Social History Smoking Status: Never smoker Alcohol Intake: never Substance Use Type: denies use *Occupational Status:: other Housing: house Household Members: other *Travel in the last 8 weeks: None Family Hx:: Unable to obtain
== END ==
PROVIDERS: PCP Family Medicine; Visit Provider Clinical Nurse Specialist Family Health
DX: M46.1 Sacroiliitis, not elsewhere classified (principal); M51.16 Intervertebral disc disorders with radiculopathy, lumbar region
CPT/HCPCS: 99212

== ENCOUNTER → 2019-05-20 08:30 | Outpatient (CLI) | payer MEDICARE, OTHER, SELFPAY ==
--- NOTE | 2019-05-20 08:33 | XR_ITS ---
PROCEDURE: XR SHOULDER RT MIN 2V CLINICAL INDICATION: right shoulder pain COMPARISON: SHOULDCMRT XR shoulder RT min 2V from 10/30/2017 SHOULDCMLT XR shoulder LT min 2V from 10/30/2017 XR SHOULDER LT MIN 2V from 04/13/2019 FINDINGS: Are severe osteoarthritic changes of the acromioclavicular joint and glenohumeral joint with subacromial stenosis. No fracture or dislocation. The IMPRESSION: Severe osteoarthritic change with subacromial stenosis. The osteoarthritis has slightly progressed. Dictated by: Ned Lira MD 05/20/2019 16:36 Electronically signed by Ned Lira MD in [place] 05/20/2019 16:36
== END ==
PROVIDERS: PCP Family Medicine; Visit Provider Orthopaedic Surgery
DX: M25.511 Pain in right shoulder (principal)
CPT/HCPCS: 73030

== ENCOUNTER → 2019-06-02 11:19 | Outpatient (CLI) | payer MEDICARE, OTHER, MEDICAID, SELFPAY ==
--- NOTE | 2019-06-02 11:26 | XR_ITS ---
PROCEDURE: XR FOOT WT BEARING LT 3V CLINICAL INDICATION: Foot Pain Burning and pain COMPARISON: XR FOOT WT BEARING RT 3V from 06/02/2019 FINDINGS: Mild hallux valgus with mild osteoarthritic changes of the 1st MTP joint with bunion formation of the distal aspect of the 1st metatarsal. There is minimal prominence of the space between the base of the 1st and 2nd metatarsals. Osteoarthritic changes are present at the talonavicular, navicular cuneiform, and tarsal metatarsal junction with prominent bony hypertrophy along the dorsal aspect of the tarsal metatarsal junction as seen on the lateral view. There is mild pes planus. There is a mildly prominent calcaneal spur. IMPRESSION: Osteoarthritic changes with mild hallux valgus, bunion formation, and mild widening of the 1st intermetatarsal space Dictated by: Ned Lira MD 06/02/2019 12:26 Electronically signed by Ned Lira MD in [place] 06/02/2019 12:26
--- NOTE | 2019-06-02 11:26 | XR_ITS ---
PROCEDURE: XR FOOT WT BEARING RT 3V CLINICAL INDICATION: foot pain Pain and burning COMPARISON: No exams were available for comparison FINDINGS: No fracture or dislocation. No lytic or blastic change. There is normal mineralization. There are mild osteoarthritic changes of the 1st metatarsophalangeal joint with bunion formation along the distal aspect of the 1st metatarsal. Mild osteoarthritis also noted at the talonavicular, navicular cuneiform, and tarsal metatarsal junction. A bony spurs present along the plantar surface of the calcaneus. Other findings:None. IMPRESSION: Osteoarthritic changes Dictated by: Ned Lira MD 06/02/2019 12:24 Electronically signed by Ned Lira MD in [place] 06/02/2019 12:24
[2019-06-02 14:18] LABS: Alanine Aminotransferase 14 U/L (12-78); Albumin Level 3.8 g/dl (3.5-5.0); Albumin/Globulin Ratio 1.5 (1.1-1.8); Alkaline Phosphatase 83 U/L (38-126); Anion Gap 11.5 mEq/L (5-15); Aspartate Amino Transferase 19 U/L (14-36); Bilirubin,Total 0.3 mg/dl (0.2-1.3); Blood Urea Nitrogen 22 mg/dl (7-17); Calcium 9.4 mg/dl (8.4-10.2); Carbon Dioxide 27 mmol/L (22.0-30.0); Chloride 96 mmol/L (98-107); Estimated Glomerular Filt Rate 119 ml/min (>60); GFR (African American) 144 ML/MIN (>60); Globulin 2.6 g/dL (1.3-3.2); Glucose 97 mg/dl (74-100); Potassium 4.5 mmoL/L (3.5-5.1); Sodium 130 mmol/L (136-145); Total Protein,Serum 6.4 g/dl (6.3-8.2)
[2019-06-02 15:50] LABS: Basophils # 0.1 K/mm3 (0-0.2); Basophils % 0.6 % (0.1-2.0); Eosinophils # 0.2 K/mm3 (0.0-0.4); Eosinophils % 1.7 % (0.1-12.0); Hematocrit 36.8 % (37.0-47.0); Hemoglobin 11.6 g/dL (12.2-16.2); Lymphocytes # 1.8 K/mm3 (0.7-4.5); Lymphocytes % 18.5 % (10-50); Mean Corpuscular HGB Conc 31.6 g/dL (31.8-35.4); Mean Corpuscular Hemoglobin 28.5 pg (27.0-31.2); Mean Corpuscular Volume 90.2 fl (81-99); Mean Platelet Volume 9.3 fl (7.4-10.4); Monocytes # 0.5 K/mm3 (0.1-1.0); Monocytes % 5.2 % (1.7-9.3); Neutrophils # 7.3 K/mm3 (1.8-7.8); Platelet Count 335 K/mm3 (142-424); Red Blood Count 4.08 M/mm3 (4.20-5.40); Red Cell Distribution Width 14.6 % (11.5-17.5); White Blood Count 9.9 K/mm3 (4.8-10.8)
[2019-06-04 06:40] LABS: Vitamin D 25 Hydroxy 22.1 ng/mL (30.0-100.0)
== END ==
PROVIDERS: PCP Family Medicine; Visit Provider Podiatrist
DX: I73.9 Peripheral vascular disease, unspecified (principal); R53.83 Other fatigue; E11.42 Type 2 diabetes mellitus with diabetic polyneuropathy; D72.829 Elevated white blood cell count, unspecified; E55.9 Vitamin D deficiency, unspecified
CPT/HCPCS: 36415; 73630; 80053; 82652; 83036; 85025

== ENCOUNTER → 2019-09-16 11:50 | Outpatient (CLI) | payer MEDICARE, OTHER, SELFPAY ==
[2019-09-16 12:46] LABS: Blood Urea Nitrogen 17 mg/dl (7-17); Estimated Glomerular Filt Rate 96 ml/min (>60); GFR (African American) 116 ML/MIN (>60)
== END ==
PROVIDERS: Visit Provider Family Medicine
DX: R41.82 Altered mental status, unspecified (principal)
CPT/HCPCS: 36415; 82565; 84520

== ENCOUNTER → 2019-09-24 09:54 | Outpatient (CLI) | payer MEDICARE, OTHER, SELFPAY ==
--- NOTE | 2019-09-24 10:00 | CT_ITS ---
PROCEDURE: CT HEAD/BRAIN WO/W CON CLINICAL INDICATION: AMS COMPARISON: HEADWO CT head/brain wo con from 01/22/2018 TECHNIQUE: IV Contrast: 100ML OPITRAY 320 Axial images obtained. All CT scans at the facility use one or more dose reduction, viz: automated exposure control, ma/kV adjustment per patient size (including targeted exams where dose is matched to indication, i.e. head), or iterative reconstruction technique. FINDINGS: No midline shift, mass effect, intracranial hemorrhage, hydrocephalus, or extra-axial fluid collection is evident. Following injection of contrast there is excellent vascular opacification and the [id number] appears normal. There is no abnormal vascular enhancement. There are subtle periventricular hypodensities consistent with chronic ischemic white matter changes. The sylvian fissures and cortical sulci are mildly prominent. The calvarium has an unremarkable appearance. The mastoids appear clear bilaterally, the internal auditory canals are normal bilaterally. There is minimal mucoperiosteal thickening in the posterior aspect of the sphenoid sinus. IMPRESSION: Findings of age-appropriate cortical atrophy and mild chronic ischemic white matter changes, no acute intracranial pathology noted Dictated by: Dr. Anton Cantrell MD 09/24/2019 11:[address] Anton Cantrell MD in [place] 09/24/2019 11:27
== END ==
PROVIDERS: PCP Family Medicine; Visit Provider Family Medicine
DX: R41.82 Altered mental status, unspecified (principal)
CPT/HCPCS: 70470; Q9967

== ENCOUNTER → 2019-09-25 12:10 | Outpatient (CLI) | payer MEDICARE, OTHER, SELFPAY ==
--- NOTE | 2019-09-25 12:22 | XR_ITS ---
PROCEDURE: XR RIBS LT MIN 3V W CXR1V CLINICAL INDICATION: LEFT SIDE CHEST PAIN. CLOSED FX OF MULTIPLE LEFT RIBS COMPARISON: CXR2V XR chest 2V from 07/16/2017 XR CHEST 2V from 03/23/2019 CT CHEST WO CON from 03/24/2019 XR RIBS LT MIN 3V W CXR1V from 04/13/2019 FINDINGS: The lung greco are well-expanded and appear clear of infiltrate. Cardiac size is normal and vascularity is normal and there is no pleural fluid. Sternal wire sutures are noted. There is a left-sided cardiac pacemaker with dual chamber electrodes both in good position. Surgical anchors are seen overlying the left humeral head. Left rib films show healed left rib fractures. I see no definite acute left rib fracture and there is no pneumothorax. There is no subcutaneous air. There are metallic brackets and pedicle screws fusing L3 and L4. IMPRESSION: No acute findings. Dictated by: Dr. Anton Cantrell MD 09/25/2019 12:[address] Anton Cantrell MD in [place] 09/25/2019 12:59
[2019-09-25 15:48] LABS: Basophils % 0.4 % (0.1-2.0); Eosinophils # 0.2 K/mm3 (0.0-0.4); Eosinophils % 1.8 % (0.1-12.0); Hematocrit 37.9 % (37.0-47.0); Hemoglobin 12.6 g/dL (12.2-16.2); Lymphocytes % 23.3 % (10-50); Mean Corpuscular HGB Conc 33.4 g/dL (31.8-35.4); Mean Corpuscular Hemoglobin 28.5 pg (27.0-31.2); Mean Corpuscular Volume 85.5 fl (81-99); Mean Platelet Volume 7.5 fl (7.4-10.4); Monocytes # 0.4 K/mm3 (0.1-1.0); Monocytes % 4.6 % (1.7-9.3); Neutrophils # 5.9 K/mm3 (1.8-7.8); Neutrophils % 69.9 % (37.0-80.0); Platelet Count 332 K/mm3 (142-424); Red Blood Count 4.43 M/mm3 (4.20-5.40); Red Cell Distribution Width 13.7 % (11.5-17.5); White Blood Count 8.5 K/mm3 (4.8-10.8)
[2019-09-25 16:15] LABS: D-Dimer 550 ng/mL (0-400)
[2019-09-25 16:16] LABS: Chloride 96 mmol/L (98-107); Sodium 132 mmol/L (136-145)
[2019-09-25 16:17] LABS: Potassium 4.4 mmoL/L (3.5-5.1)
[2019-09-25 16:19] LABS: Alanine Aminotransferase 15 U/L (12-78); Albumin Level 3.9 g/dl (3.5-5.0); Albumin/Globulin Ratio 1.4 (1.1-1.8); Alkaline Phosphatase 95 U/L (38-126); Anion Gap 11.4 mEq/L (5-15); Aspartate Amino Transferase 20 U/L (14-36); Bilirubin,Total 0.6 mg/dl (0.2-1.3); Blood Urea Nitrogen 14 mg/dl (7-17); Calcium 8.8 mg/dl (8.4-10.2); Carbon Dioxide 29 mmol/L (22.0-30.0); Estimated Glomerular Filt Rate 81 ml/min (>60); GFR (African American) 97 ML/MIN (>60); Globulin 2.7 g/dL (1.3-3.2); Glucose 137 mg/dl (74-100); Magnesium 1.2 mg/dl (1.6-2.3); Total Protein,Serum 6.6 g/dl (6.3-8.2)
[2019-09-25 16:33] LABS: Troponin I < 0.01 ng/ml (0.00-0.034)
[2019-09-25 16:50] LABS: Thyroid Stimulating Hormone 1.94 uIU/mL (0.465-4.68)
== END ==
PROVIDERS: PCP Family Medicine; Visit Provider Nurse Practitioner Family
DX: S22.42XG Multiple fractures of ribs, left side, subsequent encounter for fracture with delayed healing (principal); R07.9 Chest pain, unspecified; R42 Dizziness and giddiness; R06.02 Shortness of breath; Z79.899 Other long term (current) drug therapy
CPT/HCPCS: 36415; 71101; 80053; 83735; 84443; 84484; 85025; 85378

== ENCOUNTER → 2019-11-11 12:19 | Outpatient (CLI) | payer MEDICARE, OTHER, SELFPAY ==
--- NOTE | 2019-11-11 12:25 | CT_ITS ---
PROCEDURE: CT ABDOMEN PELVIS WO CON CLINICAL INDICATION: back pain/history of stones Kidney stones, flank pain COMPARISON: No exams were available for comparison TECHNIQUE: Axial images obtained with sagittal and coronal reformats. All CT scans at the facility use one or more dose reduction, viz: automated exposure control, ma/kV adjustment per patient size (including targeted exams where dose is matched to indication, i.e. head), or iterative reconstruction technique. FINDINGS: LOWER THORAX: Cardiac pacemaker device is present. There are coronary artery calcifications. There are post median sternotomy changes. There is a small hiatal hernia ABDOMEN & PELVIS: The liver, spleen, adrenal glands, has an unremarkable appearance. There has been a prior cholecystectomy. There is some calcification noted in the region of the right upper quadrant possibly vascular lateral to the head of the pancreas. Small lymph node is present in the periportal region at 1.1 cm. There are small retroperitoneal lymph nodes. Renal calcifications are present and are felt to be vascular. No definite renal or ureteral calculus is apparent. No hydronephrosis. There is a mild amount of retained colonic feces. No intestinal obstruction or free air. There is given history of prior appendectomy and hysterectomy. No evidence of diverticulitis. There are postsurgical changes of the lumbar spine with prior fusion of L3 and L4 posteriorly. Scattered small nodes are present in the inguinal region. There are osteoarthritic changes of the right hip with subarticular cystic changes with minimal flattening of the right femoral head. There is mild sclerosis of the SI joints on both sides. IMPRESSION: 1. No acute abdominal or pelvic findings. 2. Multiple nonacute/incidental findings as detailed above Dictated b Ned Lira MD 11/12/2019 10:41 Ned Lira MD in [place] 11/12/2019 10:41
== END ==
PROVIDERS: PCP Nurse Practitioner Family; Visit Provider Urology
DX: Z87.442 Personal history of urinary calculi; M54.5 Low back pain
CPT/HCPCS: 74176

== ENCOUNTER → 2020-01-21 16:13 | Outpatient (CLI) | payer MEDICARE, OTHER, SELFPAY ==
[2020-01-21 16:42] LABS: Adenovirus,PCR Not Detected (NotDetected); Bordetella Pertussis Not Detected (NotDetected); Chlamydophila Pneumoniae, PCR Not Detected (NotDetected); Coronavirus 19, PCR Not Detected (NotDetected); Coronavirus 229E Not Detected (NotDetected); Coronavirus NL63 Not Detected (NotDetected); Coronavirus OC43 Not Detected (NotDetected); Coronovirus HKU1,PCR Not Detected (NotDetected); Human Metapneumovirus Not Detected (NotDetected); Influenza A, PCR Not Detected (NotDetected); Influenza AH1, 2009 Not Detected (NotDetected); Influenza AH1, PCR Not Detected (NotDetected); Influenza AH3,PCR Not Detected (NotDetected); Influenza B, PCR Not Detected (NotDetected); Mycoplasma Pneumoniae, PCR Not Detected (NotDetected); Parainfluenza 1, PCR Not Detected (NotDetected); Parainfluenza 2, PCR Not Detected (NotDetected); Parainfluenza 3, PCR Not Detected (NotDetected); Parainfluenza 4, PCR Not Detected (NotDetected); Respiratory Syncytial Virus Not Detected (NotDetected); Rhinovirus/Enterovirus Not Detected (NotDetected)
== END ==
PROVIDERS: PCP Nurse Practitioner Family; Visit Provider Nurse Practitioner Family
DX: Z03.818 Encounter for observation for suspected exposure to other biological agents ruled out (principal)
CPT/HCPCS: 87581; 87633; 87798; U0003

== ENCOUNTER → 2020-07-11 12:51 | Outpatient (CLI) | payer MEDICARE, OTHER, SELFPAY ==
--- NOTE | 2020-07-11 12:54 | US_ITS ---
APPROVED REPORT Exam Type: Ankle to Brachial Index Au Pair: Shona Bradford RCS, RVS Indications Rest Pain: Bilaterally CAD Risk Factors History of PAD: Bilaterally Hyperlipidemia Diabetes Pressures/Indices Right Indices Left Indices Brachial 165.00 mmHg Brachial 160.00 mmHg Low Thigh 172.00 mmHg 1.04 Low Thigh 193.00 mmHg 1.17 Calf 86.00 mmHg 0.52 Calf 127.00 mmHg 0.77 Ankle(PT) 88.00 mmHg 0.53 Ankle(PT) 120.00 mmHg 0.73 Ankle(DP) 99.00 mmHg 0.60 Ankle(DP) 121.00 mmHg 0.73 Digit 71.00 mmHg 0.43 Digit 50.00 mmHg 0.30 Findings RT KASHIF=0.60 LT KASHIF=0.73 RT TPI=0.43 LT KASHIF=0.30 Abnormal indicies Dampened waveforms Moderate bilateral arterial disease Conclusion RT KASHIF=0.60 LT KASHIF=0.73 RT TPI=0.43 LT KASHIF=0.30 Abnormal indicies Dampened waveforms Moderate bilateral arterial disease Electronically signed by : Ned Lira MD 07/11/2020 15:52:16
== END ==
PROVIDERS: PCP Nurse Practitioner Family; Visit Provider Nurse Practitioner Family
DX: M79.662 Pain in left lower leg (principal); M79.661 Pain in right lower leg; I25.10 Atherosclerotic heart disease of native coronary artery without angina pectoris; I73.9 Peripheral vascular disease, unspecified
CPT/HCPCS: 93923

== ENCOUNTER → 2020-08-12 15:29 | Outpatient (CLI) | payer MEDICARE, OTHER, SELFPAY ==
--- NOTE | 2020-08-12 15:35 | XR_ITS ---
PROCEDURE: XR RIBS LT MIN 3V W CXR1V CLINICAL INDICATION: RIB PAIN ON LT SIDE, HX OF FRACTURE OF RIB COMPARISON: CR XR CHEST 2V from 03/23/[address] CHEST WO CON from 03/24/2019 CR XR RIBS LT MIN 3V W CXR1V from 04/13/2019 CR XR RIBS LT MIN 3V W CXR1V from 09/25/2019 FINDINGS: Mild cardiomegaly. Prior CABG. Bipolar pacemaker is present from left subclavian approach. Minimal atelectatic or fibrotic change present in the left lung base. Moderate osteoarthritic changes are present in the glenohumeral joints. Biscoe screws are present in the left humeral head region. Multiple views of the left ribs are obtained. There are old fractures of the left 9th, 10th, and 11th ribs old left 7th and 8th rib fractures also noted. No acute displaced fracture apparent. Postsurgical changes are present in the lumbar spine. IMPRESSION: Old left-sided rib fractures. No acute finding. Dictated by: Ned Lira MD 08/12/2020 15:57 Ned Lira MD in [place] 08/12/2020 15:57
== END ==
PROVIDERS: PCP Nurse Practitioner Family; Visit Provider Nurse Practitioner Family
DX: R07.81 Pleurodynia (principal); Z87.81 Personal history of (healed) traumatic fracture
CPT/HCPCS: 71101

== ENCOUNTER → 2021-01-03 14:54 | Outpatient (CLI) | payer MEDICARE, OTHER, SELFPAY | PROVIDERS: PCP Family Medicine; Visit Provider Nurse Practitioner | DX: Z20.822 Contact with and (suspected) exposure to COVID-19 (principal) | CPT/HCPCS: C9803; U0003; U0005 ==

== ENCOUNTER → 2021-04-10 12:39 | Outpatient (CLI) | payer MEDICARE, OTHER, SELFPAY ==
[2021-04-10 13:50] VITALS: PULSE 92; PULSE 99
== END ==
PROVIDERS: PCP Family Medicine; Visit Provider Family Medicine
DX: R05.3 Chronic cough (principal)
CPT/HCPCS: 94060; 94640; 94727; 94729

== ENCOUNTER → 2021-05-04 13:52 | Outpatient (CLI) | payer MEDICARE, OTHER, MEDICAID, SELFPAY ==
[2021-05-04 13:55] LABS: Adenovirus F 40/41, stool Not Detected (NotDetected); Astrovirus Not Detected (NotDetected); Campylobacter Not Detected (NotDetected); Clostridium Difficile A/B, PCR Not Detected (NotDetected); Cryptosporidium Not Detected (NotDetected); Cyclospora Cayetanesis Not Detected (NotDetected); Entamoeba histolytica Not Detected (NotDetected); Enteroaggregative E coli Not Detected (NotDetected); Enteropathogenic E coli Not Detected (NotDetected); Enterotoxigenic E coli Not Detected (NotDetected); Giardia lamblia Not Detected (NotDetected); Norovirus Not Detected (NotDetected); Plesimonas Shigalloides, PCR Not Detected (NotDetected); Rotavirus A Not Detected (NotDetected); Salmonella, PCR Not Detected (NotDetected); Sapovirus Not Detected (NotDetected); Shiga-like toxin E coli Not Detected (NotDetected); Shigella Enterovasive E coli Not Detected (NotDetected); Vibrio Cholerae Not Detected (NotDetected); Vibrio, PCR Not Detected (NotDetected); Yersinia Entercolitica, PCR Not Detected (NotDetected)
== END ==
PROVIDERS: Visit Provider Family Medicine
DX: R19.7 Diarrhea, unspecified (principal)
CPT/HCPCS: 87045; 87506

== ENCOUNTER → 2021-05-09 09:46 | Outpatient (CLI) | payer MEDICARE, OTHER, MEDICAID, SELFPAY ==
[2021-05-09 11:42] LABS: Blood Urea Nitrogen 19 mg/dl (7-17); Estimated Glomerular Filt Rate 96 ml/min (>60); GFR (African American) 116 ML/MIN (>60)
== END ==
PROVIDERS: PCP Family Medicine; Visit Provider Family Medicine
DX: R10.84 Generalized abdominal pain (principal); R19.7 Diarrhea, unspecified
CPT/HCPCS: 36415; 82565; 84520

== ENCOUNTER → 2021-05-10 09:32 | Outpatient (CLI) | payer MEDICARE, OTHER, MEDICAID, SELFPAY ==
--- NOTE | 2021-05-10 09:37 | CT_ITS ---
FINAL REPORT CLINICAL HISTORY: GENERALIZED ABD PAIN, LOOSE BOWEL MOVEMENTS COMPARISON: 11/11/2019 FINDINGS: CT OF THE ABDOMEN AND PELVIS WITH AND WITHOUT CONTRAST: The patient was injected with IV contrast. Oral contrast was also administered. Axial images were obtained from the lung bases to the pubic symphysis by computed tomography. Precontrast images were also obtained. ABDOMEN: There is mild bibasilar scarring. There is mild left posterior pleural thickening. The heart is normal in size. The liver is normal. The patient is status post cholecystectomy. The spleen is unremarkable. No adrenal masses present. The pancreas is normal. There is a hyperdense small left renal cyst. There is a 16 mm mass in the anterior right mid kidney which shows contrast enhancement most worrisome for a renal neoplasm, likely renal cell carcinoma. The aorta is normal in caliber. There is no free fluid or adenopathy. Note is made of moderate vascular calcification. PELVIS: The appendix is not identified, likely consistent with prior appendectomy. There is a small umbilical hernia containing fat only, stable. The urinary bladder is unremarkable. There is no free fluid or adenopathy identified. There are postoperative changes in the lower lumbar spine. IMPRESSION: Right renal mass most worrisome for renal neoplasm, likely renal cell carcinoma. No acute intra-abdominal abnormality. Reviewed, Interpreted and Dictated by Yazan Ching III, MD Transcribed by Taina Diaz Authenticated by Yazan Ching III, MD on 05/10/2021 12:38:02 PM [facility]
[2021-05-10 10:43] LABS: POC Glucose,Bedside 126 (70-110)
== END ==
PROVIDERS: PCP Family Medicine; Visit Provider Family Medicine
DX: R10.84 Generalized abdominal pain (principal); R19.5 Other fecal abnormalities; R19.7 Diarrhea, unspecified
CPT/HCPCS: 74170; 82962; Q9967

== ENCOUNTER → 2021-05-24 10:07 | Outpatient (CLI) | payer MEDICARE, OTHER, SELFPAY ==
--- NOTE | 2021-05-24 10:11 | XR_ITS ---
FINAL REPORT CLINICAL HISTORY: BILATERAL FOOT PAIN FINDINGS: RIGHT FOOT: Three views of the right foot were obtained. There is no acute fracture or dislocation. There is mild hallux valgus deformity. There are mild degenerative changes. There is a small calcification medial to the head of the 1st metatarsal. There is a chronic calcification adjacent to the 4th metatarsal. There is a plantar calcaneal spur. IMPRESSION: Chronic and degenerative changes as above. Reviewed, Interpreted and Dictated by Yazan Ching III, MD Transcribed by Timothy aMrroquin Authenticated by Yazan Ching III, MD on 05/24/2021 11:39:26 AM [facility]
--- NOTE | 2021-05-24 10:11 | XR_ITS ---
FINAL REPORT CLINICAL HISTORY: BILATERAL FOOT PAIN FINDINGS: LEFT FOOT: Three views of the left foot were obtained. There is no acute fracture or dislocation. There is mild hallux valgus deformity. There are mild degenerative changes. There are calcaneal spurs. IMPRESSION: Chronic and degenerative changes as above. Reviewed, Interpreted and Dictated by Yazan Ching III, MD Transcribed by Timothy Marroquin Authenticated by Yazan Ching III, MD on 05/24/2021 11:39:12 AM [facility]
== END ==
PROVIDERS: PCP Family Medicine; Visit Provider Podiatrist
DX: E11.42 Type 2 diabetes mellitus with diabetic polyneuropathy (principal); M79.672 Pain in left foot; M79.671 Pain in right foot; Z79.84 Long term (current) use of oral hypoglycemic drugs
CPT/HCPCS: 73630

== ENCOUNTER → 2021-07-15 01:13 | Outpatient (REF) | payer MEDICARE, OTHER, SELFPAY ==
[2021-07-15 01:27] LABS: Microscopic, Urine URINE MICROSCOPIC (MICROSCOPIC)
[2021-07-15 01:44] LABS: Appearance,Urine SL CLOUDY (Clear); Bilirubin,Urine Negative (Negative); Blood, Urine 1+ (Negative); Color,Urine YELLOW (Yellow); Glucose,Urine (UA) Negative (Negative); Ketones,Urine Negative (Negative); Leukocyte Esterase,Urine 1+ (Negative); Nitrate,Urine Negative (Negative); Protein,Urine Negative (Negative); Urobilinogen,Urine 0.2 EU/dl (0.2)
[2021-07-15 02:13] LABS: WBC,Urine 20-50 #/hpf (0-3)
== END ==
LOC: LAB.DROPOF 01:13
PROVIDERS: Visit Provider Family Medicine
DX: N39.0 Urinary tract infection, site not specified (principal); B96.20 Unspecified Escherichia coli [E. coli] as the cause of diseases classified elsewhere
CPT/HCPCS: 81001; 87086; 87088; 87186

== ENCOUNTER → 2021-12-18 14:27 | Outpatient (CLI) | payer MEDICARE, OTHER, MEDICAID, SELFPAY ==
--- NOTE | 2021-12-18 14:36 | XR_ITS ---
FINAL REPORT CLINICAL HISTORY: Pt fell x 2 wks ago, pain since in Rt hip FINDINGS: RIGHT HIP Two views of the right hip demonstrate no acute fracture or dislocation. There are severe degenerative changes of the right hip. The visualized bony structures are well aligned. Vascular calcifications are noted. There is no acute soft tissue abnormality. IMPRESSION: There degenerative changes of the right hip without acute bony abnormality. Consider CT or MRI if clinical concern persists. Reviewed, Interpreted and Dictated by Yazan Ching III, MD Transcribed by Suzan Solorio Authenticated and [facility]
--- NOTE | 2021-12-18 14:36 | XR_ITS ---
FINAL REPORT CLINICAL HISTORY: Pt fell x 2 wks ago, pain @ radial head and lateral aspect of forearm FINDINGS: LEFT WRIST Three views demonstrate no acute fracture or dislocation. There are moderate to severe degenerative changes at the radial aspect of the wrist. Bones are osteopenic. The soft tissues are unremarkable. IMPRESSION: Moderate to severe degenerative changes without acute bony abnormality. Reviewed, Interpreted and Dictated by Yazan Ching III, MD Transcribed by Suzan Solorio Authenticated and [facility]
== END ==
PROVIDERS: PCP Nurse Practitioner Family; Visit Provider Nurse Practitioner Family
DX: M25.532 Pain in left wrist (principal); S69.92XA Unspecified injury of left wrist, hand and finger(s), initial encounter; M25.551 Pain in right hip
CPT/HCPCS: 73110; 73502

== ENCOUNTER → 2022-05-24 09:39 | Outpatient (CLI) | payer MEDICARE, OTHER, SELFPAY ==
--- NOTE | 2022-05-24 09:48 | CT_ITS ---
FINAL REPORT TECHNIQUE: Thin section axial images were obtained through the lumbar spine without contrast. Sagittal and coronal reconstruction images were obtained from the axial data. Exam was performed using dose reduction techniques. CLINICAL HISTORY: LOW BACK PAIN COMPARISON: 03/07/2016 FINDINGS: Postoperative changes from posterior fusion of L3-4. There is grade 1 anterior spondylolisthesis of L5 on S1 which is stable. No acute fracture. No acute paraspinous abnormality. L1-2: Broad-based disc osteophyte complex. No central stenosis. Mild bilateral foraminal narrowing. L2-3: Broad-based disc osteophyte complex. Mild canal stenosis. Bilateral foraminal narrowing asymmetric to the left. L3-4: Fused. No canal stenosis. Probable mild bilateral foraminal narrowing. L4-5: Broad-based disc osteophyte complex. No canal stenosis. [id number] bilateral foraminal narrowing. L5-S1: Mild disc osteophyte complex. No canal stenosis. Mild bilateral foraminal narrowing. IMPRESSION: Postsurgical and degenerative changes without acute abnormality. Reviewed, Interpreted and Dictated by Naila Gilmore MD Transcribed by Yareli Wall Authenticated and [facility]
--- NOTE | 2022-05-24 10:04 | US_ITS ---
FINAL REPORT TECHNIQUE: Sonographic images of the thyroid gland were obtained in the longitudinal and transverse planes. CLINICAL HISTORY: hypothyroidism COMPARISON: none FINDINGS: The right lobe measures 1.8 x 3.0 x 1.0 cm. The right lobe is homogeneous. There are no cystic or solid nodules. The left lobe measures 1.3 x 3.2 x 1.2 cm. The left lobe is homogeneous. There are no cystic or solid nodules. The isthmus measures 4 mm. This is normal. IMPRESSION: Unremarkable ultrasound of the thyroid. No cystic or solid nodules. Reviewed, Interpreted and Dictated by Naila Gilmore MD Transcribed by aYreli Wall Authenticated and [facility] [place] [place]
== END ==
PROVIDERS: PCP Family Medicine; Visit Provider Family Medicine
DX: E03.9 Hypothyroidism, unspecified (principal); M54.50 Low back pain, unspecified
CPT/HCPCS: 72131; 76536

== ENCOUNTER → 2022-06-04 12:53 | Outpatient (CLI) | payer MEDICARE, OTHER, SELFPAY ==
--- NOTE | 2022-06-04 12:58 | XR_ITS ---
FINAL REPORT CLINICAL HISTORY: right hip pain FINDINGS: RIGHT HIP Two views of the right hip demonstrate no acute fracture or dislocation. There is advanced degenerative disease with subchondral cysts in the femoral head. There is complete loss of the right hip joint space. IMPRESSION: Advanced degenerative disease with subchondral cysts in the femoral head and complete loss of right hip joint space. Reviewed, Interpreted and Dictated by Naila Gilmore MD Transcribed by Suzan Solorio Authenticated and [facility] [place]
== END ==
PROVIDERS: PCP Family Medicine; Visit Provider Family Medicine
DX: M25.551 Pain in right hip (principal)
CPT/HCPCS: 73502

== ENCOUNTER 2022-06-07 08:43 | Day surgery (SDC) | payer MEDICARE, OTHER, SELFPAY ==
[2022-05-30 13:22] VITALS: BMI 40.8
[2022-06-07 09:02] VITALS: BP 189/83; PULSE 107; RESP 18; TEMP 37.2; O2SAT 95
[2022-06-07 09:27] VITALS: O2SAT 95
--- NOTE | 2022-06-07 09:27 | P.PN_ITS ---
[facility] Disclaimer: The information contained in this section may have been updated after the patient was seen, as this information can be updated by other users. Medical History Bronchitis Chest wall contusion CHF (congestive heart failure) Coronary artery disease Cough GERD (gastroesophageal reflux disease) Headache HTN (hypertension), benign Hx of fall Kidney stones Lung disease Pacemaker PAD (peripheral artery disease) PVD (peripheral vascular disease) Supraventricular tachycardia Type 2 diabetes mellitus without complications Surgical History H/O arthroscopy of shoulder History of appendectomy History of bilateral carpal tunnel release History of cholecystectomy History of hysterectomy Hx of CABG Status post biopsy of kidney Family History Other Diabetes Hyperlipidemia Hypertension Social History Smoking Status: Never smoker second hand exposure: No alcohol intake: never substance use type: denies use current occupational status: retired Travel in the last 8 weeks: None household members: other housing: house lives independently: Yes marital status: education level: high school current occupational exposures/hazards: No caffeine: Yes special seymour needs: No agree to transfusion: No do you feel safe at home: Yes victim of physical abuse: No victim of emotional abuse: No victim of sexual abuse: No would you like helpful sources: No [facility] Anesthesia Checklist Patient Identification Patient Identification: Verbal (Name & ) Structural Data Admitted From: Home Planned Operative Procedure/s: egd Consent for Planned Operative Procedure(s) Verified: Yes Additional verifications Anesthesia Reactions: No Hx Blood Transfusions: Yes Blood Transfusion Reaction: No Airway Assessment C-Spine Mobility Assessed: Yes TMJ Mobility Assessed: Yes Dentition: Edentulous Neurological Assessment Level of Consciousness: Awake, Alert and Appropriate Anesthesia Plan Anesthesia Risk discussed: Yes Anesthesia Plan: Verified ASA Class: III Anesthesia Type: MAC
--- NOTE | 2022-06-07 09:41 | HMH.SCOPE ---
Procedure: Date: 06/07/22 Patient Date of :: 1940 Procedure Performed:: EGD with polypectomy & esophageal dilation Indications:: GERD, Dysphagia Performing Provider:: Fercho Snow MD Referring Provider:: Leidy Farris Sedation:: Propofol Procedure:: The gastroscope was gently passed through the incisoral orifice into the oral cavity and under direct visualization the esophagus was intubated. The endoscope was passed down the esophagus, through the stomach, and into the duodenum. Color, texture, mucosa, and anatomy of the esophagus, stomach, and duodenum were carefully examined with the scope. Findings:: Oropharynx: normal Esophagus: normal,bougie dilation with 56F bougie for treatment of dysphagia EG Junction: intact at 40 cm Cardia: normal Fundus: normal Body: normal Antrum: normal Duodenal bulb: 1 cm adenomatous polyp identified and removed with hot snare Duodenum (second and third portion): normal Impression: Large duodenal polyp Dysphagia treated with bougie dilation Specimens:: Duodenal pooyp Recommendations:: Repeat EGD in 2-3 years, sooner if clinially indicated. Complications:: None Estimated blood obtained (mL): 0
[2022-06-07 09:43] VITALS: BP 135/78; PULSE 105; RESP 15; TEMP 36.6; O2SAT 96
[2022-06-07 09:53] VITALS: BP 127/69; PULSE 99; RESP 17; O2SAT 97
[2022-06-07 10:03] VITALS: BP 117/70; PULSE 107; RESP 16; O2SAT 97
[2022-06-07 10:13] VITALS: BP 123/69; PULSE 109; RESP 16; O2SAT 95
[2022-06-08 09:04] LABS: POC Glucose,Bedside 148 (70-110)
== END 2022-06-07 10:15 | disposition home or self-care (01) ==
PROVIDERS: PCP Family Medicine; Visit Provider Internal Medicine Gastroenterology
PROC: 0DJ08ZZ Inspection of Upper Intestinal Tract, Via Natural or Artificial Opening Endoscopic (ICD-10-PCS; CPT 43235; principal; 2022-06-07 10:00)
DX: K21.9 Gastro-esophageal reflux disease without esophagitis (principal); R13.10 Dysphagia, unspecified; K31.7 Polyp of stomach and duodenum; Z79.899 Other long term (current) drug therapy; E11.9 Type 2 diabetes mellitus without complications
CPT/HCPCS: 43248; 43251; 82962; 88305

== ENCOUNTER → 2022-06-28 10:31 | Outpatient (CLI) | payer MEDICARE, OTHER, SELFPAY ==
--- NOTE | 2022-06-28 10:48 | ECG_ITS ---
APPROVED REPORT Exam: Resting ECG HR:93 bpm ECG Measurements Heart Rate 93 AXES QRSd 90 QRS 92 QT 315 T -70 QTc 366 Conclusion ATRIAL FLUTTER/TACHYCARDIA BORDERLINE RIGHT AXIS DEVIATION [QRS AXIS > 90] ST DEVIATION AND MODERATE T-WAVE ABNORMALITY, CONSIDER LATERAL ISCHEMIA [-0.1+ mV T-WAVE IN I/aVL/V5/V6] ST DEVIATION AND MODERATE T-WAVE ABNORMALITY, CONSIDER INFERIOR ISCHEMIA [-0.1+ mV T-WAVE IN II/aVF] ABNORMAL ECG UNCONFIRMED REPORT Electronically signed by : Tyrone Alonso MD 06/28/2022 16:42:43
--- NOTE | 2022-06-28 11:02 | XR_ITS ---
FINAL REPORT TECHNIQUE: Chest PA & Lateral CLINICAL HISTORY: pre op, SOB/SOA COMPARISON: 08/12/2020 FINDINGS: 2 views of the chest were performed. Sternotomy wires are present. There is a left subclavian pacemaker. There is mild cardiomegaly. The mediastinum is within normal limits. The lungs are clear. There are no pleural effusions. There is no pneumothorax. The bony thorax appears intact. IMPRESSION: No acute cardiopulmonary process. Reviewed, Interpreted and Dictated by Corona Rodrigez MD Transcribed by Larissa Oliveros Authenticated and [facility]
[2022-06-28 11:31] LABS: Basophils # 0.1 K/mm3 (0-0.2); Basophils % 0.7 % (0.1-2.0); Eosinophils # 0.3 K/mm3 (0.0-0.4); Eosinophils % 2.3 % (0.1-12.0); Hematocrit 38.2 % (37.0-47.0); Hemoglobin 12.5 g/dL (12.2-16.2); Lymphocytes # 1.7 K/mm3 (0.7-4.5); Lymphocytes % 15.5 % (10-50); Mean Corpuscular HGB Conc 32.7 g/dL (31.8-35.4); Mean Corpuscular Hemoglobin 28.8 pg (27.0-31.2); Mean Corpuscular Volume 87.9 fl (81-99); Mean Platelet Volume 7.6 fl (7.4-10.4); Monocytes # 0.5 K/mm3 (0.1-1.0); Monocytes % 4.9 % (1.7-9.3); Neutrophils # 8.4 K/mm3 (1.8-7.8); Neutrophils % 76.7 % (37.0-80.0); Platelet Count 357 K/mm3 (142-424); Red Blood Count 4.35 M/mm3 (4.20-5.40); Red Cell Distribution Width 14.8 % (11.5-17.5); White Blood Count 10.9 K/mm3 (4.8-10.8)
[2022-06-28 12:11] LABS: Anion Gap 13.5 mEq/L (5-15); Blood Urea Nitrogen 25 mg/dl (7-17); Calcium 8.7 mg/dl (8.4-10.2); Carbon Dioxide 27 mmol/L (22.0-30.0); Chloride 96 mmol/L (98-107); Estimated Glomerular Filt Rate 80 ml/min (>60); GFR (African American) 97 ML/MIN (>60); Glucose 122 mg/dl (74-100); Potassium 4.5 mmoL/L (3.5-5.1); Sodium 132 mmol/L (136-145)
== END ==
PROVIDERS: PCP Family Medicine; Visit Provider Orthopaedic Surgery
DX: M25.551 Pain in right hip (principal); R00.0 Tachycardia, unspecified; Z01.818 Encounter for other preprocedural examination
CPT/HCPCS: 36415; 71046; 80048; 85025; 93005

== ENCOUNTER → 2022-07-30 14:00 | Outpatient (CLI) | payer MEDICARE, OTHER, SELFPAY ==
[2022-07-30 15:16] LABS: Alanine Aminotransferase 18 U/L (12-78); Albumin/Globulin Ratio 1.4 (1.1-1.8); Alkaline Phosphatase 110 U/L (38-126); Anion Gap 10.9 mEq/L (5-15); Aspartate Amino Transferase 23 U/L (14-36); Bilirubin,Total 0.5 mg/dl (0.2-1.3); Blood Urea Nitrogen 20 mg/dl (7-17); Calcium 8.7 mg/dl (8.4-10.2); Carbon Dioxide 29 mmol/L (22.0-30.0); Chloride 97 mmol/L (98-107); Estimated Glomerular Filt Rate 95 ml/min (>60); GFR (African American) 116 ML/MIN (>60); Globulin 2.9 g/dL (1.3-3.2); Glucose 89 mg/dl (74-100); Potassium 4.9 mmoL/L (3.5-5.1); Sodium 132 mmol/L (136-145); Total Protein,Serum 6.9 g/dl (6.3-8.2)
[2022-07-30 15:47] LABS: Thyroid Stimulating Hormone 7.93 uIU/mL (0.465-4.68)
[2022-07-30 15:54] LABS: Hemoglobin A1C 6.8 % (4.0-6.0)
== END ==
PROVIDERS: PCP Family Medicine; Visit Provider Family Medicine
DX: E11.42 Type 2 diabetes mellitus with diabetic polyneuropathy (principal); R53.83 Other fatigue; E03.9 Hypothyroidism, unspecified; Z79.84 Long term (current) use of oral hypoglycemic drugs
CPT/HCPCS: 36415; 80053; 83036; 84443

== ENCOUNTER 2022-08-20 10:34 | Day surgery (SDC) | payer MEDICARE, OTHER, SELFPAY ==
[2022-07-16 10:55] VITALS: BMI 39.8
[2022-08-17 10:54] VITALS: BMI 39.0
[2022-08-20 10:58] VITALS: BP 187/102; PULSE 89; RESP 18; TEMP 36.3; O2SAT 98
[2022-08-20 11:03] LABS: POC Glucose,Bedside 130 (70-110)
--- NOTE | 2022-08-20 11:42 | P.OP_ITS ---
Date of procedure: 08/20/22 Pre-op Diagnosis:: Right hip osteoarthritis Post-op Diagnosis:: Same Procedure performed:: Right hip injection with arthrogram x-ray guidance for needle placement Surgeon:: Darin España DO Anesthesia: MAC Estimated blood loss (mL): 0 Operative findings:: Severe osteoarthritis right hip Operative note:: Patient is identified preoperatively. Right hip marked with yes my initials transported operative suite. Placed upon the radiolucent bed. Sedation given. Right hip prepped and draped normal sterile fashion. Once prepped and draped final operative timeout performed to identify proper patient procedure and extremity. Everyone involved the case agreed. There were no counter indications beginning. Right hip was identified on the x-ray. There was evidence of severe osteoarthritis of the right hip. Using x-ray proper trajectory of 18-gauge spinal needle was directed into the hip capsule. Contrast was used to inject to confirm placement within the hip capsule. Once confirmed injection of 80 mg D epo-Medrol 3 cc 1% lidocaine plain were injected into the hip capsule. Needle was removed. Band-Aid was placed. Patient tolerated procedure well without complication. Condition: stable Disposition: PACU Complications:: None apparent
[2022-08-20 11:46] VITALS: BP 153/85; PULSE 104; RESP 17; TEMP 36.4; O2SAT 98
--- NOTE | 2022-08-20 11:50 | EXP.ANES.CKL ---
[facility] Disclaimer: The information contained in this section may have been updated after the patient was seen, as this information can be updated by other users. Medical History Bronchitis Chest wall contusion CHF (congestive heart failure) Closed rib fracture Coronary artery disease Cough GERD (gastroesophageal reflux disease) Headache History of pacemaker HTN (hypertension), benign Hx of fall Kidney stones Lung disease Migraine Pacemaker PAD (peripheral artery disease) PVD (peripheral vascular disease) Supraventricular tachycardia Type 2 diabetes mellitus without complications Surgical History H/O arthroscopy of shoulder History of appendectomy History of bilateral carpal tunnel release History of cholecystectomy History of hysterectomy Hx of CABG Status post biopsy of kidney Family History Other Diabetes Hyperlipidemia Hypertension Social History (Updated 08/20/22 @ 11:11 by Viri Cody RN) Smoking Status: Never smoker second hand exposure: No alcohol intake: never substance use type: denies use current occupational status: retired Travel in the last 8 weeks: None household members: other housing: house lives independently: Yes marital status: education level: high school current occupational exposures/hazards: No caffeine: Yes special seymour needs: No agree to transfusion: No do you feel safe at home: Yes victim of physical abuse: No victim of emotional abuse: No victim of sexual abuse: No would you like helpful sources: No [facility] Anesthesia Checklist Patient Identification Patient Identification: Arm Band and Family Structural Data Admitted From: Home Planned Operative Procedure/s: Injection right hip with Arthrogram Consent for Planned Operative Procedure(s) Verified: Yes Verified Documents: Surgical Consent and History and Physical NPO Status Verified Time NPO: 00:00 Additional verifications Patient : No Anesthesia Reactions: No Hx Blood Transfusions: Yes Blood Transfusion Reaction: No Cephalosporin Allergy: No Previous Colonoscopy: Yes Airway Assessment C-Spine Mobility Assessed: Yes TMJ Mobility Assessed: Yes Dentition: Edentulous Neurological Assessment Level of Consciousness: Awake, Alert and Appropriate Hx Seizures: No Numbness or tingling in extremities: No Anesthesia Plan Anesthesia Risk discussed: Yes ASA Class: III Anesthesia Type: MAC Preoperative Comments Pre-Operative Comments: Pacemaker. Cardiac stent. CABG 4 vessel. Type II Diabetes. Hypertension. Advanced age.
[2022-08-20 11:56] VITALS: BP 147/98; PULSE 17; RESP 98; O2SAT 98
--- NOTE | 2022-08-20 12:00 | XR_ITS ---
FINAL REPORT CLINICAL HISTORY: OR right hip injection fluoro time 1.02 FINDINGS: FLUOROSCOPY LESS THAN 1 HOUR HISTORY: Fluoroscopy guided injection. FINDINGS: Fluoroscopic guidance was provided for right hip injection. A single spot film was obtained. 1.02 minutes of fluoroscopy time were used. IMPRESSION: As above. Reviewed, Interpreted and Dictated by Yazan Ching III, MD Transcribed by Yareil Wall Authenticated and . [facility]
[2022-08-20 12:12] VITALS: BP 138/88; PULSE 78; RESP 17; O2SAT 98
== END 2022-08-20 12:15 | disposition home or self-care (01) ==
PROVIDERS: PCP Family Medicine; Visit Provider Orthopaedic Surgery
PROC: (CPT 20610; principal; 2022-08-20 11:00)
DX: M16.11 Unilateral primary osteoarthritis, right hip (principal); M25.551 Pain in right hip; Z79.899 Other long term (current) drug therapy
CPT/HCPCS: 20610; 73502; 76000; 82962; 96374

== ENCOUNTER → 2022-10-29 15:55 | Outpatient (CLI) | payer MEDICARE, OTHER, SELFPAY ==
[2022-10-29 17:08] LABS: Chol/HDL Ratio 2.8 (1-3.5); Cholesterol 146 mg/dl (140-200); HDL Cholesterol 52 mg/dl (40-60); Triglycerides 105 mg/dl (30-150); VLDL Cholesterol 21 mg/dL (0-40)
[2022-10-29 17:19] LABS: Direct LDL Cholesterol 71.09 mg/dL (100-129)
[2022-10-29 17:38] LABS: Thyroid Stimulating Hormone 2.61 uIU/mL (0.465-4.68)
[2022-10-29 18:44] LABS: Hemoglobin A1C 6.8 % (4.0-6.0)
== END ==
PROVIDERS: PCP Nurse Practitioner Family; Visit Provider Nurse Practitioner Family
DX: E03.9 Hypothyroidism, unspecified (principal); I10 Essential (primary) hypertension; Z79.84 Long term (current) use of oral hypoglycemic drugs; E11.42 Type 2 diabetes mellitus with diabetic polyneuropathy
CPT/HCPCS: 80061; 83036; 84443

== ENCOUNTER 2022-12-20 15:47 | Emergency (ER) | payer MEDICARE, OTHER, SELFPAY ==
--- NOTE | 2022-12-20 15:59 | CT_ITS ---
PROCEDURE INFORMATION: Exam: CT Lumbar Spine Without Contrast Exam date and time: 12/20/2022 4:22 PM Age: 82 years old Clinical indication: Low back pain; Prior surgery; Surgery date: 6+ months; Surgery type: Back surgery; Additional info: Flank pain/back pain TECHNIQUE: Imaging protocol: Computed tomography of the lumbar spine without contrast. Radiation optimization: All CT scans at this facility use at least one of these dose optimization techniques: automated exposure control; mA and/or kV adjustment per patient size (includes targeted exams where dose is matched to clinical indication); or iterative reconstruction. REPORTING DATA: Count of CT and Cardiac NM exams in prior 12 months: This patient has received [address] and 0 known cardiac nuclear medicine studies in the 12 months prior to the current study. COMPARISON: CT LUMBAR SPINE WO CON 05/24/2022 9:52 AM FINDINGS: Tubes, catheters and devices: Photon starvation and streaky artifact from surgical hardware slightly obscures the assessment of the surrounding structures. Bones/joints: Diffuse osteopenia. Advanced right hip osteoarthritis. Status post L3-L4 posterior interbody fusion. Transpedicular rods are intact. No hardware-related complication noted. Minimal anterolisthesis of L5 over S1 is unchanged. Otherwise, there is preservation of vertebral alignment. There is preservation of vertebral body heights. No acute fracture. Combination of diffuse disc bulge and facet arthropathy contribute to varying degrees of neural foraminal narrowing at multiple levels more pronounced at L2-L3 and L5-S1 level. Kidneys and ureters: Nonobstructive right nephrolithiasis noted. Soft tissues: Unremarkable. IMPRESSION: 1. No acute fracture. No traumatic subluxation. Multilevel degenerative changes as above. Status post L3-L4 posterior interbody fusion 2. Nonobstructive right nephrolithiasis
--- NOTE | 2022-12-20 15:59 | CT_ITS ---
PROCEDURE INFORMATION: Exam: CT Abdomen And Pelvis Without Contrast Exam date and time: 12/20/2022 4:19 PM Age: 82 years old Clinical indication: Abdominal pain; Generalized; Additional info: Flank pain TECHNIQUE: Imaging protocol: Computed tomography of the abdomen and pelvis without contrast. Radiation optimization: All CT scans at this facility use at least one of these dose optimization techniques: automated exposure control; mA and/or kV adjustment per patient size (includes targeted exams where dose is matched to clinical indication); or iterative reconstruction. REPORTING DATA: Count of CT and Cardiac NM exams in prior 12 months: This patient has received [address] and 0 known cardiac nuclear medicine studies in the 12 months prior to the current study. COMPARISON: CT ABDOMEN WO/W CON 05/10/2021 9:55 AM FINDINGS: Limitations: The absence of intravenous contrast limits the assessment of vascular structures, lesions and lymphadenopathy. Heart: Cardiomegaly attributable to multi cardiac chamber enlargement. Liver: No focal hepatic lesions within the limits of noncontrast examination. Gallbladder and bile ducts: Normal. No calcified stones. No ductal dilation. Pancreas: No peripancreatic fluid stranding. No main pancreatic ductal dilation. Spleen: No splenomegaly. Adrenal glands: The adrenal glands are normal. Kidneys and ureters: No perinephric stranding. Bilateral punctate caliceal calculi. No hydroureteronephrosis on either side. Stomach and bowel: No bowel wall thickening or distention. Appendix: No evidence of appendicitis. Intraperitoneal space: There is no evidence of free intraperitoneal or pelvic fluid. Vasculature: The aorta demonstrates moderate atherosclerotic calcification. Lymph nodes: No lymphadenopathy. Urinary bladder: Urinary bladder is unremarkable. Reproductive: Status post hysterectomy. Bones/joints: For findings in the lumbar spine, please refer to the separately dictated lumbar spine CT report under a separate accession number. Advanced right hip osteoarthritis Soft tissues: Unremarkable. IMPRESSION: No perinephric stranding. Bilateral punctate caliceal calculi. No hydroureteronephrosis on either side.
--- NOTE | 2022-12-20 16:06 | PC.NURSE ---
UA sent to lab
--- NOTE | 2022-12-20 16:07 | HMH.EDGENADL ---
Discharge Plan Disposition Patient Disposition: Home, Self-Care Condition: Good Prescriptions Prescriptions: New cefdinir 300 mg capsule 300 mg PO BID 10 Days Qty: 20 0RF ondansetron 4 mg tablet,disintegrating 4 mg PO Q8H PRN (Reason: nausea and vomiting) 4 Days Qty: 12 0RF fluconazole 150 mg tablet 150 mg PO Q3D Qty: 2 0RF Rx Instructions: You were given your first dose today in the ER (12/20). Please do not take this medication until 12/23/22. No Action aspirin [Adult Low Dose Aspirin] 81 mg tablet,delayed release (DR/EC) 81 mg PO DAILY multivitamin [Daily Multi-Vitamin] Tablet 1 tab PO DAILY metformin 500 mg tablet 500 mg PO BID Qty: 180 0RF potassium chloride 20 mEq tablet extended release 20 meq PO DAILY Qty: 90 0RF furosemide 80 mg tablet 80 mg PO DAILY metoprolol succinate 25 mg tablet extended release 24 hr See Rx Instructions PO BID Rx Instructions: takes 1.5 tabs 37.5mg orally twice a day; albuterol sulfate 90 mcg/actuation HFA aerosol inhaler 2 puff INHALATION NEEDED PRN (Reason: soa) 30 Days Qty: 8.5 5RF pravastatin 10 mg tablet 10 mg PO DAILY Patient Comments: TAKE 1 TABLET BY MOUTH ONCE DAILY FOR CHOLESTEROL apixaban 5 mg tablet 5 mg PO BID Hold Instructions: Resume on 06/10/22. Hold for 3 days losartan 50 mg tablet 75 mg PO DAILY omeprazole 40 mg capsule,delayed release(DR/EC) 40 mg PO BID Qty: 30 3RF fluticasone furoate-vilanterol [Breo Ellipta] 100-25 mcg/dose blister with device 1 inh inhalation DAILY ketoconazole 2 % shampoo 1 applic topical Q2W amitriptyline 50 mg tablet 50 mg PO DAILY levothyroxine 125 mcg tablet 125 mcg PO DAILY nystatin 100,000 unit/gram cream 1 applic topical BID nystatin 100,000 unit/gram powder 1 applic topical DAILY clobetasol 0.05 % solution 1 applic topical DAILY acetaminophen 500 mg tablet 500 mg PO BID PRN (Reason: ALVAREZ) Referrals Follow up/Referrals: Joseph Acuna DO [Primary Care Provider] - See instructions Activity Restrictions/Add. Instructions Additional Instructions/Restrictions: You were evaluated in the emergency department today. Please chart picker your prescriptions at the pharmacy and take them as prescribed. You were given a dose of fluconazole today, so you will not take your first dose of that until 12/23/2022. Follow-up with your primary care provider over the next 3 days. Return to the emergency department for new or worsening symptoms. Clinical Impressions Clinical Impression: Pyelonephritis, Candidiasis of vagina Instructions Patient Instructions: DI for Vaginal Yeast Infection, DI for Urinary Tract Infection (UTI) Discharge ED Provider: [facility] HPI General Chief complaint: Urogenital-Female Stated complaint: Back pain Time Seen by Provider: 12/20/22 15:59 History of Present Illness HPI narrative: This patient is an 82-year-old female with a history of diabetes, CHF, CAD, hypertension, hyperlipidemia, and obesity presenting to the emergency department for evaluation with concern that she may have a kidney infection. She states that for several days now, she has had bilateral flank pain, dysuria, urinary frequency, and urinary urgency. She states that it almost kills her every time she goes to pee because it hurts so bad. She states that she came in today because she could not take any more of the pain at home. Nothing seems to make it better or worse. She denies any fevers, chills, chest pain, shortness of breath, cough, congestion, nausea, vomiting, changes in bowel movements, or other concerns. Related Data Home Medications Medication Instructions Recorded Confirmed pravastatin 10 mg tablet 10 mg PO DAILY Cholesterol 06/02/19 10/29/22 apixaban 5 mg tablet 5 mg PO BID thinner 05/07/22 10/29/22 losartan 50 mg tablet 75 mg PO DAILY htn 05/07/22
[2022-12-20 16:12] LABS: Microscopic, Urine URINE MICROSCOPIC (MICROSCOPIC)
[2022-12-20 16:16] VITALS: BP 157/104; PULSE 98; RESP 16; TEMP 36.7; O2SAT 98; BMI 39.0
[2022-12-20 16:34] LABS: Appearance,Urine CLEAR (Clear); Bilirubin,Urine Negative (Negative); Blood, Urine Negative (Negative); Color,Urine YELLOW (Yellow); Glucose,Urine (UA) Negative (Negative); Ketones,Urine Negative (Negative); Leukocyte Esterase,Urine Negative (Negative); Nitrate,Urine Negative (Negative); PH,Urine 7.5 (5.0-8.5); Protein,Urine 2+ (Negative)
[2022-12-20 16:49] LABS: Alanine Aminotransferase 20 U/L (12-78); Albumin Level 4.2 g/dl (3.5-5.0); Albumin/Globulin Ratio 1.2 (1.1-1.8); Alkaline Phosphatase 103 U/L (38-126); Anion Gap 12.8 mEq/L (5-15); Aspartate Amino Transferase 29 U/L (14-36); Bilirubin,Total 0.2 mg/dl (0.2-1.3); Blood Urea Nitrogen 21 mg/dl (7-17); Calcium 8.7 mg/dl (8.4-10.2); Carbon Dioxide 29 mmol/L (22.0-30.0); Chloride 99 mmol/L (98-107); Creatinine Clearance Estimated 60 mL/min (50-200); Estimated Glomerular Filt Rate 80 ml/min (>60); GFR (African American) 96 ML/MIN (>60); Globulin 3.6 g/dL (1.3-3.2); Glucose 147 mg/dl (74-100); Potassium 4.8 mmoL/L (3.5-5.1); Sodium 136 mmol/L (136-145); Total Protein,Serum 7.8 g/dl (6.3-8.2)
[2022-12-20 16:49] LABS: Bacteria,Urine Trace /lpf; WBC,Urine Occasional #/hpf (0-3)
[2022-12-20 16:57] LABS: Basophils # 0.1 K/mm3 (0-0.2); Basophils % 0.6 % (0.1-2.0); Eosinophils # 0.2 K/mm3 (0.0-0.4); Eosinophils % 1.8 % (0.1-12.0); Hematocrit 38.8 % (37.0-47.0); Hemoglobin 12.2 g/dL (12.2-16.2); Lymphocytes # 1.8 K/mm3 (0.7-4.5); Lymphocytes % 18.2 % (10-50); Mean Corpuscular HGB Conc 31.5 g/dL (31.8-35.4); Mean Platelet Volume 7.9 fl (7.4-10.4); Monocytes # 0.7 K/mm3 (0.1-1.0); Monocytes % 7.2 % (1.7-9.3); Neutrophils # 6.9 K/mm3 (1.8-7.8); Neutrophils % 72.2 % (37.0-80.0); Platelet Count 304 K/mm3 (142-424); Red Blood Count 4.36 M/mm3 (4.20-5.40); Red Cell Distribution Width 14.5 % (11.5-17.5); White Blood Count 9.6 K/mm3 (4.8-10.8)
[2022-12-20 17:01] VITALS: BP 154/64; PULSE 86; O2SAT 97
[2022-12-20 17:31] VITALS: BP 158/62; PULSE 78; O2SAT 99
[2022-12-20 18:01] VITALS: BP 161/72; PULSE 61; O2SAT 98
[2022-12-20 18:31] VITALS: BP 155/79; PULSE 60; O2SAT 100
[2022-12-20 19:02] VITALS: BP 155/79; PULSE 60; RESP 16; TEMP 36.7
== END 2022-12-20 19:03 | disposition home or self-care (01) ==
PROVIDERS: Emergency Provider Emergency Medicine; PCP Internal Medicine
DX: N12 Tubulo-interstitial nephritis, not specified as acute or chronic (principal); B37.31 Acute candidiasis of vulva and vagina; I11.0 Hypertensive heart disease with heart failure; I50.9 Heart failure, unspecified; I25.10 Atherosclerotic heart disease of native coronary artery without angina pectoris; K21.9 Gastro-esophageal reflux disease without esophagitis; E11.51 Type 2 diabetes mellitus with diabetic peripheral angiopathy without gangrene; I47.1 Supraventricular tachycardia; Z95.0 Presence of cardiac pacemaker
CPT/HCPCS: 72131; 74176; 80053; 81001; 85025; 87086; 96365; 96375; 99285; J0131; J0696; J2405

== ENCOUNTER → 2023-01-29 13:34 | Outpatient (CLI) | payer MEDICARE, OTHER, SELFPAY ==
[2023-01-29 15:02] LABS: Hemoglobin A1C 6.6 % (4.0-6.0)
[2023-01-29 15:37] LABS: Free T4 (Free Thyroxine) 1.48 ng/dl (0.78-2.19)
[2023-01-29 15:51] LABS: Thyroid Stimulating Hormone 3.13 uIU/mL (0.465-4.68)
== END ==
PROVIDERS: PCP Nurse Practitioner Family; Visit Provider Nurse Practitioner Family
DX: I10 Essential (primary) hypertension; E11.42 Type 2 diabetes mellitus with diabetic polyneuropathy; Z79.84 Long term (current) use of oral hypoglycemic drugs
CPT/HCPCS: 83036; 84439; 84443

== ENCOUNTER → 2023-02-19 09:36 | Outpatient (CLI) | payer MEDICARE, OTHER, SELFPAY ==
--- NOTE | 2023-02-19 09:41 | XR_ITS ---
FINAL REPORT CLINICAL HISTORY: right hip pain and groin no surgery FINDINGS: Right hip Three views were obtained. There is no acute fracture or dislocation. There are advanced hypertrophic changes of osteoarthritis. There is subchondral sclerosis and degenerative cyst formation. Posterior fusion hardware is seen bridging the L3-4 level. No soft tissue abnormality is identified. IMPRESSION: Advanced changes of osteoarthritis. Reviewed, Interpreted and Dictated by Corona Rodrigez MD Transcribed by Taina Diaz Authenticated and [facility]
== END ==
PROVIDERS: Visit Provider Orthopaedic Surgery
DX: M25.551 Pain in right hip (principal)
CPT/HCPCS: 73502

== ENCOUNTER 2023-03-28 13:00 | Outpatient (RCR) | payer MEDICARE, OTHER, SELFPAY ==
--- NOTE | 2023-03-05 14:17 | HMH.PTOPEV ---
PT Outpatient Evaluation Rehab PT Outpatient Evaluation Start: 03/05/23 12:54 Freq: Status: Active Protocol: Document 03/05/23 12:54 LOPEZSINDI (Rec: 03/05/23 14:17 CARLOS [id number]) E-signed By Verona Keane, PT Outpatient Therapy Subjective History Subjective History Pt is an 82 y/o female who reports chronic right groin pain for ~ 3 years. Pt reports 3 years ago she was playing with grandkids and the next morning she woke up and could barely walk due to pain. Pt reports gradual worsening of pain overtime. Pt reports she had a gel injection in the back of her hip ~3 months ago which helped to ease pain and she plans on getting another injection in about one month during her follow-up visit. Pt had a R hip xray at [facility] on with impression of: There is no acute fracture or dislocation. There are advanced hypertrophic changes of osteoarthritis. There is subchondral sclerosis and degenerative cyst formation. Posterior fusion hardware is seen bridging the L3-4 level. No soft tissue abnormality is identified. Pt reports pain is aggravated by rolling, getting up from a chair, walking, and traversing stairs . Pt reports she has a tub she has to step into and she has difficulty/pain with this. Pt also reports pain/increased time with lower body dressing. Pt reports she sleeps in a recliner because it hurts bad when she lays in her bed. Pt reports intermittent numbness/tingling of the groin area and bilateral feet. Pt reports the groin is tender to touch. Pt reports intermittent sharp grabbing pain in the groin while walking that often lasts 4-5 minutes. Pt also reports chronic bilateral knee pain that kang like fire. Medical History: PACEMAKER, CHF, CAD, Hypertension, Type II Diabetes, PAD, PVD, macular degeneration, lung disease, GERD, hx of back surgery years ago, both knees replaced years ago New diagnosis of cancer in past 12 Yes: kidney cancer 1.5 years months? ago Chief Complaint Pain,Gives out/Unstable Symptom Type Ache,Dull,Numbness,Tingling Symptoms Relieved By Heat Symptoms Aggravated By Standing,Bending/Stooping, Physical Activity,Twisting, Walking,Lifting Prior Functional Limitations None Current Functional Limitations Dressing,Sleeping,Standing, Sitting,Squatting,Walking, Stairs Symptom Description Constant but Variable Level of pain today (0-10) 4 Pain scale - at its best (0-10) 4 Pain scale - at its worst (0-10) 10 Hip/Knee Eval Gait Observation General Gait Pattern Observation Wide Based Gait,Shuffling Step ,Decrease Weight Bear (R), Decrease Stride Lngth (R) Assistive Device Assistive Devices Rolling / Wheeled Walker Palpation Tenderness right Knee Palpation Overall Comment 4/4 TTP hip flexor, adductor mm Hip Palpation Findings Tenderness MMT Hip Flexion Strength Grade 3+ Fair+ Hip Abduction Strength Grade 4- Good- Hip Adduction Strength Grade 4- Good- Knee Extension Strength Grade 5 Normal Knee Flexion Strength Grade 4 Good ROM Hip Flexion w/Knee Extended Active Range 40 of Motion (degrees) Hip Flexion w/Knee Extended Passive 100 Range of Motion (degrees) Hip External Rotation Active Range of 25 Motion (degrees) Hip Internal Rotation Active Range of 15 Motion (degrees) Special Tests Sciatic Nerve Tension Test Negative Left,Negative Right Hip Scouring (Quadrant) Test Positive Right Outpatient Therapy Assessment Impairments Problems/Impairmments Palpation Tenderness,Impaired Range of Motion,Impaired Strength,Impaired Gait Pattern ,Impaired Walking,Impaired Standing,Impaired Sitting, Impaired Dressing,Impaired Shower/Bathing,Impaired Household Care,Impaired Stair Climbing,Impaired Stepping on Uneven Surface,Impaired Squatting,Impaired Balance, Subjective C/O Pain,Impaired Self Care/Self Management Prognosis Rehab Potential Good Clinical Impression Consistent with Diagnosis Yes Short Term Goals Number of Weeks 3 Improve Ability to Dress Self Yes: report ability to perform LE dressing with pain 8/10 or less Decrease Subjective C/O Pain Yes: Improve pain at worst to 8/10 to improve overall QOL Patient to be Ind w/ HEP Yes Long-Term Goals Number of Weeks 6 Decreased Palpation Tenderness Yes: 1-2/4 TTP of the right hip flexors & adductors Increase Range of Motion Yes: Hip IR to 25, ER to 30, flex to at least 60 Increase Strength Yes: RLE MMT to 4-4+/5 grossly Improve Gait Pattern with Assistive Yes: improved gait mechanics Device to decrease fall risk Increase Ability to Walk Yes Improve Ability to Shower/Bathe Self Yes: pt will report ability to step into bath tub with p! 6/ 10 or less Decrease Subjective C/O Pain Yes: Improve pain at worst to 6/10 to improve overall QOL Improve Self Care/Self Management Yes Outpatient Therapy Plan of Care Treatment Plan May Include Therapeutic Exercise Including Home Yes Exercise Program Manual Therapy Techniques Yes Neuromuscular Re-education Yes Therapeutic Activities to Return to Yes Previous Functional/Work Level Gait Training Yes ADL/Self Care Education Yes Dry Needling Yes Thermal Modalities Yes Electrical Stimulation Yes Ultrasound/Phonophoresis Yes Iontophoresis Yes Vasopneumatic Compression Pump Yes Massage Yes Group Therapy for Medicare Yes Eval/Re-Eval Yes Frequency Times per week 2 Duration Number of Weeks 4-6 Addendums This patient is a candidate for social No or vocational rehab? Patient/Guardian verbally acknowledges Yes understanding of treatment program and consents to further treatment? Patient/Guardian verbally acknowledges Yes understanding of diagnosis, prognosis and goals for treatment? Eval Complexity PT Charges 77259 - Moderate Complexity Shoulder/Elbow Eval Shoulder Objective Measurements Elbow Objective Measurements PHYSICIAN CERTIFICATION: I certify the specified therapy services for Paula Ahmadi are required, authorized, and reviewed every 30 days.
== END 2023-03-28 14:00 | disposition home or self-care (01) ==
LOC: PT 13:00
PROVIDERS: PCP Orthopaedic Surgery; Visit Provider Orthopaedic Surgery
DX: M25.551 Pain in right hip (principal)
CPT/HCPCS: 97010; 97110; 97163

== ENCOUNTER 2023-05-02 21:15 | Outpatient (CLI) | payer MEDICARE, OTHER, SELFPAY ==
[2023-05-02 19:21] LABS: Chloride 95 mmol/L (98-107); Potassium 4.1 mmoL/L (3.5-5.1); Sodium 131 mmol/L (136-145)
[2023-05-02 19:24] LABS: Alanine Aminotransferase 21 U/L (12-78); Albumin Level 3.6 g/dl (3.5-5.0); Albumin/Globulin Ratio 1.4 (1.1-1.8); Alkaline Phosphatase 112 U/L (38-126); Anion Gap 10.1 mEq/L (5-15); Aspartate Amino Transferase 26 U/L (14-36); Bilirubin,Total 0.4 mg/dl (0.2-1.3); Blood Urea Nitrogen 25 mg/dl (7-17); Calcium 8.4 mg/dl (8.4-10.2); Carbon Dioxide 30 mmol/L (22.0-30.0); Estimated Glomerular Filt Rate 80 ml/min (>60); GFR (African American) 96 ML/MIN (>60); Globulin 2.6 g/dL (1.3-3.2); Glucose 94 mg/dl (74-100); Total Protein,Serum 6.2 g/dl (6.3-8.2)
== END 2023-05-02 23:59 ==
LOC: LAB.DROPOF 21:16
PROVIDERS: PCP Nurse Practitioner Family; Visit Provider Nurse Practitioner Family
DX: E11.9 Type 2 diabetes mellitus without complications (principal); I50.9 Heart failure, unspecified; R60.0 Localized edema; Z79.84 Long term (current) use of oral hypoglycemic drugs
CPT/HCPCS: 80053; 83036

== ENCOUNTER 2023-05-10 19:41 | Emergency (ER) | payer MEDICARE, OTHER, SELFPAY ==
[2023-05-10 19:43] VITALS: BP 192/88; PULSE 98; RESP 18; TEMP 36.6; O2SAT 99; BMI 42.3
--- NOTE | 2023-05-10 20:12 | ED_ITS ---
Discharge Plan Disposition Patient Disposition: Home, Self-Care Chief Complaint: Weakness Prescriptions Prescriptions: No Action aspirin [Adult Low Dose Aspirin] 81 mg tablet,delayed release (DR/EC) 81 mg PO DAILY multivitamin [Daily Multi-Vitamin] Tablet 1 tab PO DAILY albuterol sulfate 90 mcg/actuation HFA aerosol inhaler 2 puff INHALATION NEEDED PRN (Reason: soa) 30 Days Qty: 8.5 5RF metoprolol succinate 25 mg tablet extended release 24 hr 37.5 mg PO BID amitriptyline 50 mg tablet 50 mg PO DAILY Qty: 90 3RF fluticasone furoate-vilanterol [Breo Ellipta] 100-25 mcg/dose blister with device 1 inh inhalation DAILY Qty: 60 5RF furosemide 80 mg tablet 80 mg PO DAILY Qty: 90 3RF losartan 50 mg tablet 75 mg PO DAILY Qty: 90 3RF metformin 500 mg tablet 500 mg PO BID Qty: 180 3RF omeprazole 40 mg capsule,delayed release(DR/EC) 40 mg PO BID Qty: 180 3RF potassium chloride 20 mEq tablet extended release 20 meq PO DAILY Qty: 90 3RF diclofenac sodium [Voltaren Arthritis Pain] 1 % gel 2 g topical QID PRN (Reason: arthritis pain) Qty: 100 2RF apixaban 5 mg tablet 5 mg PO BID Qty: 180 1RF Hold Instructions: Resume on 06/10/22. Hold for 3 days levothyroxine 125 mcg tablet 125 mcg PO DAILY Qty: 90 1RF pravastatin 10 mg tablet 10 mg PO DAILY Qty: 90 1RF mupirocin 2 % ointment 1 applic topical BID Qty: 15 0RF nystatin 100,000 unit/gram powder See Rx Instructions .ROUTE .COMPLEX Qty: 60 2RF Dose Instruction: APPLY TO AFFECTED AREA DAILY Rx Instructions: APPLY TO AFFECTED AREA DAILY ketoconazole 2 % shampoo 1 applic topical Q2W nystatin 100,000 unit/gram cream 1 applic topical BID clobetasol 0.05 % solution 1 applic topical DAILY ondansetron 4 mg tablet,disintegrating 4 mg PO Q8H PRN (Reason: nausea and vomiting) 4 Days Qty: 12 0RF acetaminophen 500 mg tablet 500 mg PO BID PRN (Reason: ALVAREZ) Referrals Follow up/Referrals: Larisa Banuelos APRN [Primary Care Provider] - See instructions Activity Restrictions/Add. Instructions Additional Instructions/Restrictions: Call your family doctor to establish care for this visit to the emergency department and schedule follow-up within 48 hours to ensure improvement. If you have any worsening of your condition or any other concerning signs or symptoms, return to the emergency department or your primary care doctor for further evaluation. Take medications as prescribed. Clinical Impressions Clinical Impression: Hallucination, Hypertension without cardiac signs or symptoms Discharge ED Provider: Orlando Handley General Adult HPI General Chief complaint: Weakness Stated complaint: dizziness blurry vision Time Seen by Provider: 05/10/23 19:43 Mode of Arrival: Ambulatory Source of Information: Patient Limitations: No Limitations Description of Symptoms (Recalled from ER Triage Doc. by RN): pt has been having hallucinations and weakness since yesterday. pt has had high bp before with same s/s and BP is elevated today History of Present Illness HPI narrative: 82-year-old female history of hypertension, hyperlipidemia, CHF, CAD status post stenting, A-fib on Eliquis, aspirin, with pacemaker in place, type 2 diabetes presenting with hallucinations. Patient states that she is seeing things including fences, trees, fish in her living room, amongst a host of other things. No auditory hallucinations. She states this happens when her blood pressure gets high. No chest pain, shortness of breath, nausea or vomiting, worsening lower extremity swelling. Patient states that she has not taken her m edications today. Related Data Home Medications Medication Instructions Recorded Confirmed acetaminophen 500 mg tablet 500 mg PO BID PRN ALVAREZ 06/04/22 05/02/23 multivitamin (Daily Multi-Vitamin 1 tab PO DAILY Skin condition 07/30/22 05/02/23 tablet) clobetasol 0.05 % scalp solution 1 applic topical DAILY Skin 08/17/22 05/02/23 condition ketoconazole 2 % shampoo 1 applic topical Q2W Skin condition 08/17/22 05/02/23 nystatin 100,000 unit/gram topical 1 applic topical BID Skin condition 08/17/22 05/02/23 cream aspirin 81 mg tablet,delayed 81 mg PO DAILY prevention 10/29/22 05/02/23 release (Adult Low Dose Aspirin) metoprolol succinate 25 mg 37.5 mg PO BID blood pressure 05/02/23 05/02/23 tablet,extended release 24 hr Previous Rx's Medication Instructions Recorded albuterol sulfate 90 mcg/actuation 2 puff inhalation NEEDED PRN 10/29/22 aerosol inhaler soa 30 days #8.5 grams ondansetron 4 mg disintegrating 4 mg PO Q8H PRN nausea and 12/20/22 tablet vomiting 4 days #12 tabs diclofenac sodium 1 % topical gel 2 g topical QID PRN arthritis pain 12/24/22 (Voltaren Arthritis Pain) #100 grams apixaban 5 mg tablet 5 mg PO BID thinner #180 tabs 12/31/22 levothyroxine 125 mcg tablet 125 mcg PO DAILY thyroid #90 tabs 12/31/22 pravastatin 10 mg tablet 10 mg PO DAILY Cholesterol #90 tabs 12/31/22 amitriptyline 50 mg tablet 50 mg PO DAILY #90 tabs 01/29/23 fluticasone furoate 100 1 inh inhalation DAILY Breathing 01/29/23 mcg-vilanterol 25 mcg/dose problems #60 ea inhalation powder (Breo Ellipta) furosemide 80 mg tablet 80 mg PO DAILY #90 tabs 01/29/23 losartan 50 mg tablet 75 mg PO DAILY htn #90 tabs 01/29/23 metformin 500 mg tablet 500 mg PO BID Diabetes #180 tabs 01/29/23 omeprazole 40 mg capsule,delayed 40 mg PO BID #180 caps 01/29/23 release potassium chloride 20 mEq 20 meq PO DAILY Supplement #90 tabs 01/29/23 tablet,extended release mupirocin 2 % topical ointment 1 applic topical BID #15 grams 05/03/23 nystatin 100,000 unit/gram topical See Rx Instructions .Route 05/03/23 powder .COMPLEX #60 grams Allergies Allergy/AdvReac Type Severity Reaction Status Date / Time adenosine [ADENOSINE] Allergy Unknown S-ANAPHYLAX Verified 05/02/23 13:01 IS benzonatate Allergy Unknown Verified 05/02/23 13:01 [From DAYA SMITH] morphine [MORPHINE] Allergy Unknown KNOCKS Verified 05/02/23 13:01 OUT Penicillins [PENICILLINS] Allergy Unknown I-RASH Verified 05/02/23 13:01 Sulfa (Sulfonamide Allergy Unknown I-RASH Verified 05/02/23 13:01 Antibiotics) [SULFA (SULFONAMIDE ANTIBIOTICS)] albuterol Allergy Blurry Verified 05/02/23 13:01 [facility] Disclaimer: The information contained in this section may have been updated after the patient was seen, as this information can be updated by other users. Medical History Bronchitis Candidiasis Candidiasis of vagina Chest wall contusion CHF (congestive heart failure) Closed rib fracture Coronary artery disease Cough Dysphonia Pt was informed to rinse and gargle salt water after using her inhalers. GERD (gastroesophageal reflux disease) Headache History of pacemaker HTN (hypertension), benign Hx of fall Kidney stones Lung disease Migraine Pacemaker PAD (peripheral artery disease) PVD (peripheral vascular disease) Pyelonephritis Supraventricular tachycardia Type 2 diabetes mellitus without complications Surgical History H/O arthroscopy of shoulder History of appendectomy History of bilateral carpal tunnel release History of cholecystectomy History of hysterectomy Hx of CABG Status post biopsy of kidney Family History Other Diabetes Hyperlipidemia Hypertension Social History Smoking Status: Never smoker second hand exposure: No alcohol intake: never substance use type: denies use current occupational status: retired Travel in the last 8 weeks: None household members: other housing: house lives independently: Yes marital status: education level: high school current occupational exposures/hazards: No caffeine: Yes special seymour needs: No agree to transfusion: No do you feel safe at home: Yes victim of physical abuse: No victim of emotional abuse: No victim of sexual abuse: No would you like helpful sources: No ROS Obtained: Yes All systems reviewed & no additional complaints except as documented Physical Exam General General appearance: alert and in no apparent distress Head Head exam: atraumatic and normocephalic Eye Eye exam: Present normal appearance, PERRL and EOMI ENT ENT exam: Present mucous membranes moist Neck Neck exam: Present normal inspection, full ROM and trachea midline Respiratory Respiratory exam: Absent respiratory distress, wheezes, stridor, accessory muscle use or prolonged expiratory phase Cardiovascular Cardiovascular exam: Present normal rhythm Abdominal Exam Abdominal exam: Present soft; Absent distention, tenderness, guarding, rebound or rigidity Extremities Exam Extremities exam: Present edema Neurological Exam Neurological exam: Present alert, oriented X3, CN II-XII intact and normal gait; Absent motor sensory deficit Skin Skin exam: Present warm and dry; Absent diaphoresis or erythema Medical Decision Making Medical Records Medical records reviewed: Yes I reviewed the patient's medical records. Tye Inquiry Pt receiving controlled substance: No Tye was queried for this patient: No Vital Signs: 05/10/23 19:43 05/10/23 21:25 Temperature 97.9 F Temperature Source Oral Pulse Rate [Right Radial] 98 H Respiratory Rate 18 Blood Pressure 145/85 H Blood Pressure [Right Arm] 192/88 H Blood Pressure Mean [Right Arm] 122 02 Sat by Pulse Oximetry 99 Oxygen Delivery Method Room Air Lab Data Lab Results 05/10/23 19:58: WBC 8.6, RBC 4.00 L, Hgb 11.8 L, Hct 34.9 L, MCV 87.2, MCH 29.5, MCHC 33.8, RDW 15.8, Plt Count 312, MPV 7.7, Neut % (Auto) 66.5, Lymph % (Auto) 24.4, [place] % (Auto) 6.7, Eos % (Auto) 1.5, Baso % (Auto) 0.9, Neut # (Auto) 5.7, Lymph # (Auto) 2.1, [place] # (Auto) 0.6, Eos # (Auto) 0.1, Baso # (Auto) 0.1, Sodium 132 L, Potassium 4.8, Chloride 98, Carbon Dioxide 30, Anion Gap 8.8, BUN 17, Creatinine 0.70, Estimated Creat Clear 30, Estimated GFR 80, Est GFR ( Amer) 96, Glucose 115 H, Calcium 8.9, Total Bilirubin 0.3, AST 24, ALT 22, Alkaline Phosphatase 107, Troponin I 0.03, NT-Pro-B Natriuret Pep 758 H, Total Protein 6.8, Albumin 3.8, Globulin 3.0, Albumin/Globulin Ratio 1.3 05/10/23 21:30: Urine Color Yellow, Urine Appearance Clear, Urine pH 7.0, Ur Specific [place] <= 1.005, Urine Protein Trace, Urine Glucose (UA) Negative, Urine Ketones Negative, Urine Blood Negative, Urine Nitrate Negative, Urine Bilirubin Negative, Urine Urobilinogen 0.2, Ur Leukocyte Esterase Negative, Urine RBC None, Urine WBC Occasional, Ur Squamous Epith Cells 5-10, Urine Karli teria None 05/10/23 19:58 05/10/23 19:58 Orders (Tests/Meds): ED MEDICATIONS Discontinued Medications Generic Name Dose Route Start Last Admin Trade Name Serenity PRN Reason Stop Dose Admin Furosemide 40 mg 05/10/23 20:59 05/10/23 21:26 Furosemide 40mg/4ml Vial IV 05/10/23 21:00 40 mg ONCE ONE Administration Labetalol HCl 10 mg 05/10/23 20:59 05/10/23 21:25 Labetalol 20mg/4ml Syringe IV 05/10/23 21:00 10 mg ONCE ONE Administration ORDERS Category Date Time Status Brain Natriuretic Peptide Stat Lab 05/10/23 19:58 Completed Complete Blood Count Auto Diff Stat Lab 05/10/23 19:58 Completed Comprehensive Metabolic Panel Stat Lab 05/10/23 19:58 Completed Troponin I Q3H Lab 05/10/23 23:15 Ordered Troponin I Q3H Lab 05/11/23 02:15 Ordered Troponin I Stat Lab 05/10/23 19:58 Completed Urinalysis and Microscopic Stat Lab 05/10/23 21:30 Completed ECG initial Besson Routine Y 05/10/23 20:22 Completed Medical Decision Narrative: 82-year-old female history of hypertension, hyperlipidemia, CHF, CAD status post stenting, A-fib on Eliquis, aspirin, with pacemaker in place, type 2 diabetes presenting with hallucinations. Patient states that she is seeing things including fences, trees, fish in her living room, amongst a host of other things. No auditory hallucinations. She states this happens when her blood pressure gets high. No chest pain, shortness of breath, nausea or vomiting, worsening lower extremity swelling. Patient states that she has not taken her medications today. History was obtained via conversation with patient. On arrival, patient hemodynamically stable, alert, oriented x4, appropriate, GCS 15, moving all extremities spontaneously, pupils equal and reactive to light. Full physical exam performed and significant for well-appearing woman in no acute distress. Cardiopulmonary exam unremarkable intrathoracically, but she does have 2+ lower extremity pitting edema. Pulses equal and symmetric. Not responding to internal stimuli, does not appear to be responding to anything not physically present in the room. Patient denying current hallucinations. She is hypertensive and mildly tachycardic. Differential includes urinary tract infection, pneumonia, bronchitis, CHF exacerbation, ACS, [place], among others. Patient was given 40 mg IV Lasix for symptomatic management and correction of underlying abnormalities. Workup independently interpreted and significant for nonactionable CBC or chemistry. Nonactionable troponin or BNP. Because patient did not take. See radiology read for full review of final results. Independent interpretation of EKG shows sinus rhythm 73 beats a minute without ST or T wave changes concerning for acute ischemia. [place], QRS, QT intervals within normal limits. On reevaluation, patient still not having hallucinations, blood pressure and heart rate controlled. Given patient presentation, workup, history, this most likely represents symptomatic hypertension. Because patient at baseline without signs or symptoms of clinical decompensation, deemed appropriate for discharge. Results were relayed to patient who voiced understanding and were agreeable to outpatient management and follow up. At the time of discharge the patient was hemodynamically stable, tolerating PO, and mobilizing appropriately. Critical Care Critical Care Time Critical Care Time: No
--- NOTE | 2023-05-10 20:22 | ECG_ITS ---
APPROVED REPORT Exam: Resting ECG HR:88 bpm ECG Measurements Heart Rate 88 AXES QRSd 77 QRS 55 QT 344 T 27 QTc 390 Conclusion ATRIAL FIBRILLATION NONSPECIFIC T-WAVE ABNORMALITY ABNORMAL RHYTHM ECG UNCONFIRMED REPORT Electronically signed by : Tyrone Alonso MD 05/11/2023 21:17:37
[2023-05-10 20:32] LABS: Basophils # 0.1 K/mm3 (0-0.2); Basophils % 0.9 % (0.1-2.0); Eosinophils # 0.1 K/mm3 (0.0-0.4); Eosinophils % 1.5 % (0.1-12.0); Hematocrit 34.9 % (37.0-47.0); Hemoglobin 11.8 g/dL (12.2-16.2); Lymphocytes # 2.1 K/mm3 (0.7-4.5); Lymphocytes % 24.4 % (10-50); Mean Corpuscular HGB Conc 33.8 g/dL (31.8-35.4); Mean Corpuscular Hemoglobin 29.5 pg (27.0-31.2); Mean Corpuscular Volume 87.2 fl (81-99); Mean Platelet Volume 7.7 fl (7.4-10.4); Monocytes # 0.6 K/mm3 (0.1-1.0); Monocytes % 6.7 % (1.7-9.3); Neutrophils # 5.7 K/mm3 (1.8-7.8); Neutrophils % 66.5 % (37.0-80.0); Platelet Count 312 K/mm3 (142-424); Red Cell Distribution Width 15.8 % (11.5-17.5); White Blood Count 8.6 K/mm3 (4.8-10.8)
[2023-05-10 20:40] LABS: Alanine Aminotransferase 22 U/L (12-78); Albumin Level 3.8 g/dl (3.5-5.0); Albumin/Globulin Ratio 1.3 (1.1-1.8); Alkaline Phosphatase 107 U/L (38-126); Anion Gap 8.8 mEq/L (5-15); Aspartate Amino Transferase 24 U/L (14-36); Bilirubin,Total 0.3 mg/dl (0.2-1.3); Blood Urea Nitrogen 17 mg/dl (7-17); Calcium 8.9 mg/dl (8.4-10.2); Carbon Dioxide 30 mmol/L (22.0-30.0); Chloride 98 mmol/L (98-107); Creatinine Clearance Estimated 30 mL/min (50-200); Estimated Glomerular Filt Rate 80 ml/min (>60); GFR (African American) 96 ML/MIN (>60); Glucose 115 mg/dl (74-100); Potassium 4.8 mmoL/L (3.5-5.1); Sodium 132 mmol/L (136-145); Total Protein,Serum 6.8 g/dl (6.3-8.2)
[2023-05-10 20:52] LABS: NT Pro Brain Natriuretic Pep. 758 pg/mL (0-450); Troponin I 0.03 ng/ml (0.00-0.034)
[2023-05-10 21:25] VITALS: BP 145/85
[2023-05-10] MEDS: LABETALOL 20MG/4ML SYRINGE 10 MG IV (21:25)
[2023-05-10] MEDS: FUROSEMIDE 40MG/4ML VIAL 40 MG IV (21:26)
[2023-05-10 22:04] LABS: Microscopic, Urine URINE MICROSCOPIC (MICROSCOPIC)
[2023-05-10 22:07] LABS: Appearance,Urine CLEAR (Clear); Bilirubin,Urine Negative (Negative); Blood, Urine Negative (Negative); Color,Urine YELLOW (Yellow); Glucose,Urine (UA) Negative (Negative); Ketones,Urine Negative (Negative); Leukocyte Esterase,Urine Negative (Negative); Nitrate,Urine Negative (Negative); Protein,Urine TRACE (Negative); Specific Gravity, Urine <= 1.005 (1.005-1.030); Urobilinogen,Urine 0.2 EU/dl (0.2)
[2023-05-10 22:15] LABS: WBC,Urine Occasional #/hpf (0-3)
[2023-05-10 22:28] VITALS: BP 127/61; PULSE 75; RESP 18; TEMP 36.8; O2SAT 97
== END 2023-05-10 22:36 | disposition home or self-care (01) ==
PROVIDERS: Emergency Provider Emergency Medicine; PCP Nurse Practitioner Family
DX: R44.1 Visual hallucinations (principal); I11.0 Hypertensive heart disease with heart failure; I50.9 Heart failure, unspecified; E78.5 Hyperlipidemia, unspecified; I25.10 Atherosclerotic heart disease of native coronary artery without angina pectoris; E11.51 Type 2 diabetes mellitus with diabetic peripheral angiopathy without gangrene; I48.91 Unspecified atrial fibrillation; Z79.82 Long term (current) use of aspirin; Z95.0 Presence of cardiac pacemaker
CPT/HCPCS: 80053; 81001; 83880; 84484; 85025; 93005; 96374; 96375; 99285

== ENCOUNTER 2023-05-13 11:58 | Day surgery (SDC) | payer MEDICARE, OTHER, SELFPAY ==
--- NOTE | 2023-05-13 12:15 | SUR.PREOP ---
PT DOES NOT KNOW NAMES OF MEDICINE SHE TAKES AT HOME, UNABLE TO VERIFY MEDICATIONS AT THIS TIME. sAID DID NOT TAKE ANY MEDICATIONS THIS MORNING. ALSO SAID THAT SHE HAD A TABLESPOON OF PEANUT BUTTER AND 2 OZ OF ORANGE JUICE AT 0530 THIS MORNING.
[2023-05-13 12:18] VITALS: BP 208/93; PULSE 107; RESP 18; TEMP 36.6; O2SAT 98; BMI 38.5
[2023-05-13] MEDS: LACTATED RINGERS 1000ML 1,000 ML 25 ML IV (12:28)
--- NOTE | 2023-05-13 12:40 | SUR.PREOP ---
SPOKE WITH ANESTHESIA PROVIDER, SARINA MAX CRNA, UPDATED ON HIGH BP, ABNORMAL EKG, AND EATING AT 0530 THIS MORNING.VERBALIZED WAS OKAY WITH ALL.
--- NOTE | 2023-05-13 12:53 | P.PNANES_ITS ---
[facility] Disclaimer: The information contained in this section may have been updated after the patient was seen, as this information can be updated by other users. Medical History Bronchitis Candidiasis Candidiasis of vagina Chest wall contusion CHF (congestive heart failure) Closed rib fracture Coronary artery disease Cough Dysphonia GERD (gastroesophageal reflux disease) Headache History of pacemaker HTN (hypertension), benign Hx of fall Kidney stones Lung disease Migraine Pacemaker PAD (peripheral artery disease) PVD (peripheral vascular disease) Pyelonephritis Supraventricular tachycardia Type 2 diabetes mellitus without complications Surgical History H/O arthroscopy of shoulder History of appendectomy History of bilateral carpal tunnel release History of cholecystectomy History of hysterectomy Hx of CABG Status post biopsy of kidney Family History Other Diabetes Hyperlipidemia Hypertension Social History Smoking Status: Never smoker second hand exposure: No alcohol intake: never substance use type: denies use current occupational status: retired Travel in the last 8 weeks: None household members: other housing: house lives independently: Yes marital status: education level: high school current occupational exposures/hazards: No caffeine: Yes special seymour needs: No agree to transfusion: No do you feel safe at home: Yes victim of physical abuse: No victim of emotional abuse: No victim of sexual abuse: No would you like helpful sources: No [facility] Anesthesia Checklist Patient Identification Patient Identification: Arm Band and Verbal (Name & ) Structural Data Admitted From: Home Planned Operative Procedure/s: Hip injection NPO Status Verified Time NPO: 05:30 Additional verifications Anesthesia Reactions: No Hx Blood Transfusions: Yes Blood Transfusion Reaction: No Airway Assessment Mallampati Score:: Class IV C-Spine Mobility Assessed: Yes TMJ Mobility Assessed: Yes Dentition: Edentulous Neurological Assessment Level of Consciousness: Awake Hx Seizures: No Numbness or tingling in extremities: No Anesthesia Plan Anesthesia Risk discussed: Yes Anesthesia Plan: Verified ASA Class: IV Anesthesia Type: General
[2023-05-13] MEDS: LIDOCAINE 1% 20ML MDV 20 ML (13:46)
[2023-05-13] MEDS: TRIAMCINOLONE ACET 40MG/ML VIAL 80 MG (13:47)
[2023-05-13 13:55] VITALS: BP 157/77; PULSE 107; RESP 17; TEMP 36.3; O2SAT 90
--- NOTE | 2023-05-13 13:57 | EXP.OP.NOTE ---
Date of procedure: 05/13/23 Pre-op Diagnosis:: Right side severe osteoarthritis hip Post-op Diagnosis:: Same Procedure performed:: Right hip injection with arthrogram and x-ray guidance for needle placement Surgeon:: Darin España DO [employer] FORMULATOR:: Julian Hernandez Anesthesia: MAC Estimated blood loss (mL): 0 Operative findings:: Severe degenerative end-stage changes of the right femoral head Operative note:: Patient is identified preoperatively. Right hip marked with yes my initials. Transported operative suite placed upon the radiolucent bed given sedation right hip was then prepped and draped normal sterile fashion. Once prepped and draped final operative timeout performed to identify proper patient procedure and extremity. Everyone involved the case agreed there were no counter indications to beginning. X-ray was brought into identify the hip joint. There was evidence of severe end-stage degenerative changes of the right hip joint using x-ray guidance the needle was placed in proper trajectory into the hip capsule arthrogram was performed with contrast to confirm needle placement within the hip capsule and then the hip was injected with 80 mg Kenalog 3 cc 1% lidocaine plain. Needle removed Band-Aid placed patient waken sedation taken recovery in stable condition. Condition: stable Disposition: PACU Complications:: None apparent
[2023-05-13 14:05] VITALS: BP 158/95; PULSE 91; RESP 16; O2SAT 99
--- NOTE | 2023-05-13 14:14 | XR_ITS ---
FINAL REPORT CLINICAL HISTORY: HIP INJECTION IN OR 0.1 fluoro time 2.66mgy FINDINGS: FLUOROSCOPY LESS THAN 1 HOUR HISTORY: Hip pain, right FINDINGS: Fluoroscopic guidance was provided for right hip injection. A single spot film was obtained. 0.1 minutes of fluoroscopy time were used, with a resultant dosage of 2.66 mGy IMPRESSION: As above. Reviewed, Interpreted and Dictated by Yazan Ching III, MD Transcribed by Domenica Seals Authenticated and . [facility]
[2023-05-13 14:15] VITALS: BP 160/83; PULSE 82; RESP 17; O2SAT 96
[2023-05-13 14:25] VITALS: BP 152/76; PULSE 83; RESP 17; O2SAT 97
== END 2023-05-13 14:35 | disposition home or self-care (01) ==
PROVIDERS: PCP Nurse Practitioner Family; Visit Provider Orthopaedic Surgery
PROC: (CPT 20610; principal; 2023-05-13 12:30)
DX: M16.11 Unilateral primary osteoarthritis, right hip (principal)
CPT/HCPCS: 20610; 73502; 76000

== ENCOUNTER 2023-06-27 11:52 | Inpatient (IN) | payer MEDICARE, OTHER, SELFPAY ==
[2023-06-27] VITALS (7 sets, daily range): BP systolic 135–182; BP diastolic 68–105; PULSE 82–111; RESP 18–20; TEMP 36.3–36.7; O2SAT 97–100; BMI 38.4; BMI 42.3
--- NOTE | 2023-06-27 12:14 | XR_ITS ---
FINAL REPORT CLINICAL HISTORY: soa, BL LE swelling COMPARISON: 06/28/2022 FINDINGS: SINGLE-VIEW CHEST There is cardiomegaly with mild pulmonary vascular congestion, worse. The patient is status post median sternotomy. Left subclavian pacer is identified. There is mild right base atelectasis versus pneumonia. There are degenerative changes in the shoulders. There is no pneumothorax. IMPRESSION: Right base atelectasis versus pneumonia. Worsening pulmonary vascular congestion. Reviewed, Interpreted and Dictated by Yazan Ching III, MD Transcribed by Taina Diaz Authenticated and [facility]
--- NOTE | 2023-06-27 12:18 | ED_ITS ---
Discharge Plan Disposition Patient Disposition: Admitted Chief Complaint: Extremity Problem,Nontraumatic Clinical Impressions Clinical Impression: CHF exacerbation, Declining functional status, Multiple falls Discharge ED Provider: Orlando Handley General Adult HPI General Chief complaint: Extremity Problem,Nontraumatic Stated complaint: pain in legs Time Seen by Provider: 06/27/23 12:01 Mode of Arrival: Wheelchair Source of Information: Patient Limitations: Physical Limitations Description of Symptoms (Recalled from ER Triage Doc. by RN): edema and redness to ble. History of Present Illness HPI narrative: This is a an 82-year-old female history of hypertension, hyperlipidemia, type 2 diabetes, CAD, CHF, CABG, A-fib on Eliquis, cholecystectomy, appendectomy, hysterectomy at her daughter presenting with lower extremity swelling. Patient states she would not have come to the emergency department if it was not for her daughter convincing her to come. Patient's daughter came to visit her today, noticed that her lower extremities were red, swollen, weeping. Took her shoes off of her feet and they appeared to have been there for so long that part of the lining on the inside of the shoe remained on her feet. Patient denies fevers, chills, nausea, vomiting, cough, chest pain, shortness of breath, or any other concerns. She sits and sleeps in recliner, so unable to comment on PND or orthopnea. States that she has been taking her medications as prescribed, but may have run out of some of them, including her diuretic. Please note that above description of symptoms, in this electronic medical record under categorization of recalled from ER triage doctor by RN are reflective of an initial nursing assessment, however, is not reflective of my full history and physical exam that was personally taken and clarified. Consequentially, this preceding description of symptoms, which may include the patient's categorized chief complaint in the EMR, do not reflect my personal clinical impression, and the ultimate description of history of present illness and patient stated complaints should be deferred to this section of the note. Unless stated otherwise or congruent with this section of the note, additional signs, symptoms, or incongruence should be interpreted as inaccurate with my clinical impression. Related Data Home Medications Medication Instructions Recorded Confirmed acetaminophen 500 mg tablet 500 mg PO BID PRN ALVAREZ 06/04/22 05/28/23 multivitamin (Daily Multi-Vitamin 1 tab PO DAILY Skin condition 07/30/22 05/28/23 tablet) clobetasol 0.05 % scalp solution 1 applic topical DAILY Skin 08/17/22 05/28/23 condition ketoconazole 2 % shampoo 1 applic topical Q2W Skin condition 08/17/22 05/28/23 nystatin 100,000 unit/gram topical 1 applic topical BID Skin condition 08/17/22 05/28/23 cream aspirin 81 mg tablet,delayed 81 mg PO DAILY prevention 10/29/22 05/28/23 release (Adult Low Dose Aspirin) metoprolol succinate 25 mg 37.5 mg PO BID blood pressure 05/02/23 05/28/23 tablet,extended release 24 hr Previous Rx's Medication Instructions Recorded albuterol sulfate 90 mcg/actuation 2 puff inhalation NEEDED PRN 10/29/22 aerosol inhaler soa 30 days #8.5 grams ondansetron 4 mg disintegrating 4 mg PO Q8H PRN nausea and 12/20/22 tablet vomiting 4 days #12 tabs diclofenac sodium 1 % topical gel 2 g topical QID PRN arthritis pain 12/24/22 (Voltaren Arthritis Pain) #100 grams apixaban 5 mg tablet 5 mg PO BID thinner #180 tabs 12/31/22 levothyroxine 125 mcg tablet 125 mcg PO DAILY thyroid #90 tabs 12/31/22 pravastatin 10 mg tablet 10 mg PO DAILY Cholesterol #90 tabs 12/31/22 amitriptyline 50 mg tablet 50 mg PO DAILY #90 tabs 01/29/23 fluticasone furoate 100 1 inh inhalation DAILY Breathing 01/29/23 mcg-vilanterol 25 mcg/dose problems #60 ea inhalation powder (Breo Ellipta) furosemide 80 mg tablet 80 mg PO DAILY #90 tabs 01/29/23 losartan 50 mg tablet 75 mg (1.5 x 50 mg) PO DAILY htn 01/29/23 #90 tabs metformin 500 mg tablet 500 mg PO BID Diabetes #180 tabs 01/29/23 omeprazole 40 mg capsule,delayed 40 mg PO BID #180 caps 01/29/23 release potassium chloride 20 mEq 20 meq PO DAILY Supplement #90 tabs 01/29/23 tablet,extended release mupirocin 2 % topical ointment 1 applic topical BID #15 grams 05/03/23 nystatin 100,000 unit/gram topical See Rx Instructions .Route 05/03/23 powder .COMPLEX #60 grams Allergies Allergy/AdvReac Type Severity Reaction Status Date / Time adenosine [ADENOSINE] Allergy Unknown S-ANAPHYLAX Verified 06/27/23 10:58 IS benzonatate Allergy Unknown Verified 06/27/23 10:58 [From TESSALON PERLES] morphine [MORPHINE] Allergy Unknown KNOCKS Verified 06/27/23 10:58 OUT Penicillins [PENICILLINS] Allergy Unknown I-RASH Verified 06/27/23 10:58 Sulfa (Sulfonamide Allergy Unknown I-RASH Verified 06/27/23 10:58 Antibiotics) [SULFA (SULFONAMIDE ANTIBIOTICS)] albuterol Allergy Blurry Verified 06/27/23 10:58 Vision PFSH PFS Disclaimer: The information contained in this section may have been updated after the patient was seen, as this information can be updated by other users. Medical History Bronchitis Candidiasis Candidiasis of vagina Chest wall contusion CHF (congestive heart failure) Dr. Martinez Closed rib fracture Coronary artery disease Cough Dysphonia Pt was informed to rinse and gargle salt water after using her inhalers. GERD (gastroesophageal reflux disease) Headache History of pacemaker HTN (hypertension), benign Hx of fall Kidney stones Lung disease Migraine Pacemaker PAD (peripheral artery disease) PVD (peripheral vascular disease) Pyelonephritis Supraventricular tachycardia Type 2 diabetes mellitus without complications Surgical History H/O arthroscopy of shoulder History of appendectomy History of bilateral carpal tunnel release History of cholecystectomy History of hysterectomy Hx of CABG Status post biopsy of kidney Family History Other Diabetes Hyperlipidemia Hypertension Social History Smoking Status: Never smoker second hand exposure: No alcohol intake: never substance use type: denies use current occupational status: retired Travel in the last 8 weeks: None household members: other housing: house lives independently: Yes marital status: education level: high school current occupational exposures/hazards: No caffeine: Yes special seymour needs: No agree to transfusion: No do you feel safe at home: Yes victim of physical abuse: No victim of emotional abuse: No victim of sexual abuse: No would you like helpful sources: No ROS Obtained: Yes All systems reviewed & no additional complaints except as documented Physical Exam General General appearance: alert and in no apparent distress Head Head exam: atraumatic and normocephalic Eye Eye exam: Present normal appearance, PERRL and EOMI ENT ENT exam: Present mucous membranes moist Neck Neck exam: Present normal inspection, full ROM and trachea midline Respiratory Respiratory exam: Present normal lung sounds bilaterally; Absent respiratory distress, wheezes, stridor, accessory muscle use or prolonged expiratory phase Cardiovascular Cardiovascular exam: Present regular rate and irregular rhythm Abdominal Exam Abdominal exam: Present soft; Absent distention, tenderness, guarding, rebound or rigidity Extremities Exam Extremities exam: Present edema (Erythema, chronic skin changes and weeping. No warmth or concern for cellulitis) Neurological Exam Neurological exam: Present alert, oriented X3, CN II-XII intact and normal gait; Absent motor sensory deficit Skin Skin exam: Present warm and dry; Absent diaphoresis or erythema Medical Decision Making Medical Records Medical records reviewed: Yes I reviewed the patient's medical records. Tye Inquiry Pt receiving controlled substance: No Tye was queried for this patient: No Vital Signs: 06/27/23 12:02 06/27/23 12:31 06/27/23 13:01 Temperature 97.4 F L Temperature Source Oral Pulse Rate 97 H 82 Pulse Rate [Right Radial] 102 H Respiratory Rate 20 Blood Pressure 142/78 H 135/93 H Blood Pressure [Right Arm] 182/92 H Blood Pressure Mean [Right Arm] 122 02 Sat by Pulse Oximetry 97 100 99 Oxygen Delivery Method Room Air Room Air 06/27/23 14:00 Temperature Temperature Source Pulse Rate 95 H Pulse Rate [Right Radial] Respiratory Rate Blood Pressure 157/68 H Blood Pressure [Right Arm] Blood Pressure Mean [Right Arm] 02 Sat by Pulse Oximetry 98 Oxygen Delivery Method Room Air Lab Data Lab Results 06/27/23 12:06: WBC 11.7 H, RBC 3.72 L, Hgb 12.4, Hct 35.5 L, MCV 95.4, MCH 33.2 H, MCHC 34.8, RDW 16.1, Plt Count 306, MPV 7.6, Neut % (Auto) 82.6 H, Lymph % (Auto) 11.4, [place] % (Auto) 4.7, Eos % (Auto) 0.8, Baso % (Auto) 0.6, Neut # (Auto) 9.7 H, Lymph # (Auto) 1.3, [place] # (Auto) 0.6, Eos # (Auto) 0.1, Baso # (Auto) 0.1, Sodium 133 L, Potassium 3.6, Chloride 96 L, Carbon Dioxide 33 H, Anion Gap 7.6, BUN 18 H, Creatinine 0.70, Estimated Creat Clear 63, Estimated GFR 80, Est GFR ( Amer) 96, Glucose 152 H, Hemoglobin A1c 7.4 H, Calcium 9.1, Total Bilirubin 0.4, AST 30, ALT 27, Alkaline Phosphatase 125, Troponin I < 0.01, NT-Pro-B Natriuret Pep 747 H, Total Protein 7.3, Albumin 4.2, Globulin 3.1, Albumin/Globulin Ratio 1.4, TSH 4.57, Thyroxine (T4) 11.5 H 06/27/23 12:06 06/27/23 12:06 Orders (Tests/Meds): ED MEDICATIONS Discontinued Medications Generic Name Dose Route Start Last Admin Trade Name Freq PRN Reason Stop Dose Admin Furosemide 40 mg 06/27/23 13:46 06/27/23 14:10 Furosemide 40mg/4ml Vial IV 06/27/23 13:47 40 mg ONCE ONE Administration ORDERS Category Date Time Status CT cervical spine wo con Stat Cat Scan 06/27/23 12:[address] head/brain wo con Stat Cat Scan 06/27/23 12:46 Taken Consult to Case Management [CONS] Routine Cons 06/27/23 13:49 Active XR chest portable Stat Exams 06/27/23 12:14 Completed Brain Natriuretic Peptide Stat Lab 06/27/23 12:06 Completed Complete Blood Count Auto Diff AMLAB Lab 06/28/23 06:00 Ordered Complete Blood Count Auto Diff Stat Lab 06/27/23 12:06 Completed Comprehensive Metabolic Panel AMLAB Lab 06/28/23 06:00 Ordered Comprehensive Metabolic Panel Stat Lab 06/27/23 12:06 Completed Hemoglobin A1C Stat Lab 06/27/23 12:06 Completed Magnesium AMLAB Lab 06/28/23 06:00 Ordered T4 (Thyroxine) Stat Lab 06/27/23 12:06 Completed TSH [Thyroid Stimulating Hormone] Stat Lab 06/27/23 12:06 Completed Troponin I Q3H Lab 06/27/23 15:15 Ordered Troponin I Q3H Lab 06/27/23 18:15 Ordered Troponin I Stat Lab 06/27/23 12:06 Completed Blood Culture Stat Micro 06/27/23 12:08 Received Medical Decision Narrative: This is a an 82-year-old female history of hypertension, hyperlipidemia, type 2 diabetes, CAD, CHF, CABG, A-fib on Eliquis, cholecystectomy, appendectomy, hysterectomy at her daughter presenting with lower extremity swelling. Patient states she would not have come to the emergency department if it was not for her daughter convincing her to come. Patient's daughter came to visit her today, noticed that her lower extremities were red, swollen, weeping. Took her shoes off of her feet and they appeared to have been there for so long that part of the lining on the inside of the shoe remained on her feet. Patient denies fevers, chills, nausea, vomiting, cough, chest pain, shortness of breath, or any other concerns. She sits and sleeps in recliner, so unable to comment on PND or orthopnea. States that she has been taking her medications as prescribed, but may have run out of some of them, including her diuretic. It should be noted that patient is medically noncompliant which is currently complicating care. History was obtained via conversation with patient and daughter who is medical provider. On arrival, patient hemodynamically stable, alert, oriented x4, appropriate, GCS 15, moving all extremities spontaneously, pupils equal and reactive to light. Full physical exam performed and significant for chronically ill-appearing woman in no acute distress. Lungs are clear to auscultation, cardiac exam significant for A-fib without tachycardia. Lower extremities with 2+ pitting edema weeping. Chronic skin changes, no evidence of cellulitis or tenderness. No evidence of wounds on the feet. Differential includes dependent edema, deconditioning, CHF, medication noncompliance, cellulitis, among others. Patient was given 40 mg Lasix IV for symptomatic management and correction of underlying abnormalities. Workup independently interpreted and significant for nonactionable CBC or chemistry. BNP elevated at 750. Chest x-ray with cephalization of vessels and edematous fissure. See radiology read for full review of final results. On reevaluation, patient resting comfortably bed. Lasix administered. Given patient presentation, workup, history, this most likely represents mild CHF exacerbation, chronic deconditioning, multiple falls and functional decline. Hospital medicine was contacted and interactive discussion had, ultimately patient to be admitted for diuresis and rehabilitation. Because patient high risk for clinical decompensation, deemed appropriate for inpatient admission. Results were relayed to patient who voiced understanding and patient was agreeable to inpatient admission and management. Patient was admitted to the hospital for further definitive management. Critical Care Critical Care Time Critical Care Time: No
[2023-06-27 12:24] LABS: Basophils # 0.1 K/mm3 (0-0.2); Basophils % 0.6 % (0.1-2.0); Chloride 96 mmol/L (98-107); Eosinophils # 0.1 K/mm3 (0.0-0.4); Eosinophils % 0.8 % (0.1-12.0); Hematocrit 35.5 % (37.0-47.0); Hemoglobin 12.4 g/dL (12.2-16.2); Lymphocytes # 1.3 K/mm3 (0.7-4.5); Lymphocytes % 11.4 % (10-50); Mean Corpuscular HGB Conc 34.8 g/dL (31.8-35.4); Mean Corpuscular Hemoglobin 33.2 pg (27.0-31.2); Mean Corpuscular Volume 95.4 fl (81-99); Mean Platelet Volume 7.6 fl (7.4-10.4); Monocytes # 0.6 K/mm3 (0.1-1.0); Monocytes % 4.7 % (1.7-9.3); Neutrophils # 9.7 K/mm3 (1.8-7.8); Neutrophils % 82.6 % (37.0-80.0); Platelet Count 306 K/mm3 (142-424); Red Blood Count 3.72 M/mm3 (4.20-5.40); Red Cell Distribution Width 16.1 % (11.5-17.5); White Blood Count 11.7 K/mm3 (4.8-10.8)
[2023-06-27 12:25] LABS: Potassium 3.6 mmoL/L (3.5-5.1); Sodium 133 mmol/L (136-145)
[2023-06-27 12:27] LABS: Alanine Aminotransferase 27 U/L (12-78); Albumin Level 4.2 g/dl (3.5-5.0); Albumin/Globulin Ratio 1.4 (1.1-1.8); Alkaline Phosphatase 125 U/L (38-126); Anion Gap 7.6 mEq/L (5-15); Aspartate Amino Transferase 30 U/L (14-36); Bilirubin,Total 0.4 mg/dl (0.2-1.3); Blood Urea Nitrogen 18 mg/dl (7-17); Carbon Dioxide 33 mmol/L (22.0-30.0); Creatinine Clearance Estimated 63 mL/min (50-200); Estimated Glomerular Filt Rate 80 ml/min (>60); GFR (African American) 96 ML/MIN (>60); Globulin 3.1 g/dL (1.3-3.2); Total Protein,Serum 7.3 g/dl (6.3-8.2)
[2023-06-27 12:28] LABS: Calcium 9.1 mg/dl (8.4-10.2); Glucose 152 mg/dl (74-100)
[2023-06-27 12:37] LABS: NT Pro Brain Natriuretic Pep. 747 pg/mL (0-450)
--- NOTE | 2023-06-27 12:40 | PC.NURSE ---
portable xray at bedside
[2023-06-27 12:45] LABS: T4 (Thyroxine) 11.5 ug/dl (5.53-11.0); Troponin I < 0.01 ng/ml (0.00-0.034)
--- NOTE | 2023-06-27 12:46 | CT_ITS ---
FINAL REPORT CLINICAL HISTORY: fall, struck head, on eliquis COMPARISON: None FINDINGS: Axial CT images of the cervical spine were obtained without contrast. Sagittal and coronal reformatted images were also obtained. This study was performed with techniques to keep radiation doses as low as reasonably achievable (ALARA). Individualized dose reduction techniques using automated exposure control or adjustment of mA and/or kV according to the patient's size were employed. There is no evidence of fracture or dislocation. The bony alignment is normal. Mild and moderate degenerative changes present. There is no evidence of canal stenosis. No paraspinous soft tissue abnormality is seen. Limited images of the upper thorax are unremarkable. IMPRESSION: No fracture or acute bony abnormality identified. Mild and moderate degenerative changes are present with bilateral neural foraminal narrowing at the C5-6 level. Reviewed, Interpreted and Dictated by Yazan Ching III, MD Transcribed by Domenica Seals Authenticated and [facility]
--- NOTE | 2023-06-27 12:46 | CT_ITS ---
FINAL REPORT CLINICAL HISTORY: fall, struck head, on eliquis COMPARISON: 09/24/2019 FINDINGS: Axial images of the head were obtained without contrast. Coronal and sagittal reformatted images were also obtained. This study was performed with techniques to keep radiation doses as low as reasonably achievable (ALARA). Individualized dose reduction techniques using automated exposure control or adjustment of mA and/or kV according to the patient's size were employed. There is generalized age-appropriate atrophy. Periventricular low-attenuation areas are seen consistent with moderate chronic ischemic changes. There is no evidence of intracranial hemorrhage or mass. There is no evidence of acute infarct. There is no evidence of shift of the midline structures. No skull abnormality is seen on the bone window images. IMPRESSION: Atrophy and moderate periventricular chronic ischemic changes. No acute intracranial abnormality identified. Reviewed, Interpreted and Dictated by Yazan Ching III, MD Transcribed by Domenica Seals Authenticated and [facility]
[2023-06-27 12:47] LABS: Hemoglobin A1C 7.4 % (4.0-6.0)
[2023-06-27 12:58] LABS: Thyroid Stimulating Hormone 4.57 uIU/mL (0.465-4.68)
[2023-06-27] MEDS: FUROSEMIDE 40MG/4ML VIAL 40 MG IV ×2 (14:10→17:25)
--- NOTE | 2023-06-27 14:14 | PC.NURSE ---
Admissions notified of admit to room 204 for CHF and Deconditioning to . OBS
--- NOTE | 2023-06-27 14:28 | PC.NURSE ---
report called to Latonya IZAGUIRRE
[2023-06-27 15:52] LABS: Troponin I < 0.01 ng/ml (0.00-0.034)
--- NOTE | 2023-06-27 15:58 | HMH.PHAINT1 ---
Pharmacy Intervention Comments: Patient home medication list verified via outside pharmacy and patient
--- NOTE | 2023-06-27 16:12 | P.HP_ITS ---
History of Present Illness *Admission Date: 06/27/23 *Reason for visit:: leg swelling, falls *History of present illness: Ms. Ahmadi is an 82-year-old female with history of hypertension, hyperlipidemia, diabetes, CAD, CHF, CABG, A-fib on Eliquis. Multiple surgeries in the past per history as well. She presented to the ER with her daughter at the referral of her PCP because of worsening lower extremity swelling. There was some initial concern for cellulitis, heart failure, failure to thrive and worsening debility as patient has been having falls at home and weeping from her legs. She lives by herself and has macular degeneration and has been having a harder time caring for herself. On arrival to the ER, patient is on room air. Does have worsening swelling in her legs and some redness. When her shoes were taken off, they appear to have been on for quite some time and the lining of the inside of the shoe had stuck to her feet. Patient denies fever, chills, nausea, vomiting, diarrhea, chest pain, cough, dizziness or headache. Satting in the mid to high 90s on room air. Sleeps in a recliner. Reports she falls because her hip catches as she has bad arthritis and when this happens her leg gives out. Usually ambulates with a walker. Has no desire to go to a long term and is very adamant to state this multiple times that we cannot make her. I informed her that we do not make people go to nursing homes but we want what is best for her and want her to be safe when she is stable to discharge from the hospital. Son and daughter at bedside. Workup with elevation of BNP and chest imaging showing some volume overload. Medicine was consulted for admission, further dispo planning, diuresis, and therapy eval's. On my evaluation, patient is comfortable in bed. Appears alert and oriented able to make her own decisions at this time. Significant edema in her legs consistent with heart failure and stasis dermatitis. In the setting of normal white count, no fever, no warmth in legs, low concern for cellulitis [facility] Disclaimer: The information contained in this section may have been updated after the patient was seen, as this information can be updated by other users. Medical History Candidiasis of vagina Pyelonephritis Dysphonia Candidiasis Migraine History of pacemaker Supraventricular tachycardia PVD (peripheral vascular disease) PAD (peripheral artery disease) Kidney stones Lung disease Pacemaker HTN (hypertension), benign GERD (gastroesophageal reflux disease) Type 2 diabetes mellitus without complications Coronary artery disease CHF (congestive heart failure) Chest wall contusion Hx of fall Closed rib fracture Headache Cough Bronchitis Surgical History History of cholecystectomy History of appendectomy Status post biopsy of kidney History of hysterectomy Hx of CABG History of bilateral carpal tunnel release H/O arthroscopy of shoulder Family History Diabetes Hyperlipidemia Hypertension Social History Smoking Status: Never smoker second hand exposure: No alcohol intake: never substance use type: denies use current occupational status: retired Travel in the last 8 weeks: None household members: other housing: house lives independently: Yes marital status: education level: high school current occupational exposures/hazards: No caffeine: Yes special seymour needs: No agree to transfusion: No do you feel safe at home: Yes victim of physical abuse: No victim of emotional abuse: No victim of sexual abuse: No would you like helpful sources: No Review of Systems Review of Systems Review of systems (narrative): 14 point review of systems performed, pertinent positives and negatives as per HPI Meds Home Medications and Allergies Home Medications Medication Instructions Recorded Confirmed Type acetaminophen 500 mg tablet 500 mg PO BID PRN Pain 06/04/22 06/27/23 History multivitamin (Daily Multi-Vitamin 1 tab PO DAILY 07/30/22 06/27/23 History tablet) clobetasol 0.05 % scalp solution 1 applic topical DAILY 08/17/22 06/27/23 History ketoconazole 2 % shampoo 1 applic topical Q2W 08/17/22 06/27/23 History albuterol sulfate 90 mcg/actuation 2 puff inhalation NEEDED PRN 10/29/22 06/27/23 Rx aerosol inhaler soa 30 days #8.5 grams aspirin 81 mg tablet,delayed 81 mg PO DAILY 10/29/22 06/27/23 History release (Adult Low Dose Aspirin) levothyroxine 125 mcg tablet 125 mcg PO DAILY thyroid #90 tabs 12/31/22 06/27/23 Rx amitriptyline 50 mg tablet 50 mg PO DAILY #90 tabs 01/29/23 06/27/23 Rx fluticasone furoate 100 1 inh inhalation DAILY Breathing 01/29/23 06/27/23 Rx mcg-vilanterol 25 mcg/dose problems #60 ea inhalation powder (Breo Ellipta) furosemide 80 mg tablet 80 mg PO DAILY #90 tabs 01/29/23 06/27/23 Rx metformin 500 mg tablet 500 mg PO BID Diabetes #180 tabs 01/29/23 06/27/23 Rx potassium chloride 20 mEq 20 meq PO DAILY Supplement #90 tabs 01/29/23 06/27/23 Rx tablet,extended release mupirocin 2 % topical ointment 1 applic topical BID #15 grams 05/03/23 06/27/23 Rx nystatin 100,000 unit/gram topical See Rx Instructions .Route 05/03/23 06/27/23 Rx powder .COMPLEX #60 grams apixaban 5 mg tablet 5 mg PO BID 06/27/23 06/27/23 History diclofenac sodium 1 % topical gel 2 g topical QID PRN Pain 06/27/23 06/27/23 History (Voltaren Arthritis Pain) losartan 50 mg tablet 75 mg PO DAILY 06/27/23 06/27/23 History metoprolol succinate 25 mg 25 mg PO DAILY 06/27/23 06/27/23 History tablet,extended release 24 hr [id number] 100 mcg-lut 1.66 1 tab PO BID 06/27/23 06/27/23 History mg-zeaxanth 0.83 mg tablet,delay rel. (Icaps MV) omeprazole 40 mg capsule,delayed 40 mg PO DAILY 06/27/23 06/27/23 History release ondansetron 4 mg disintegrating 4 mg PO Q8H PRN Nausea 06/27/23 06/27/23 History tablet pravastatin 10 mg tablet 10 mg PO DAILY 06/27/23 06/27/23 History New Prescriptions to Start Prescriptions: Allergies Allergy/AdvReac Type Severity Reaction Status Date / Time adenosine [ADENOSINE] Allergy Unknown S-ANAPHYLAX Verified 06/27/23 10:58 IS benzonatate Allergy Unknown Verified 06/27/23 10:58 [From DAYA SMITH] morphine [MORPHINE] Allergy Unknown KNOCKS Verified 06/27/23 10:58 OUT Penicillins [PENICILLINS] Allergy Unknown I-RASH Verified 06/27/23 10:58 Sulfa (Sulfonamide Allergy Unknown I-RASH Verified 06/27/23 10:58 Antibiotics) [SULFA (SULFONAMIDE ANTIBIOTICS)] albuterol Allergy Blurry Verified 06/27/23 10:58 Vision Exam Data for Last 24 hours Vital signs and Labs for Last 24 Hours: Temp Pulse Resp BP Pulse Ox O2 Del Method 97.4 F L 82 18 177/105 H 97 Room Air 06/27/23 15:06 06/27/23 15:06 06/27/23 15:06 06/27/23 15:06 06/27/23 15:06 06/27/23 15:06 Laboratory Results - last 24 hr 06/27/23 12:06: WBC 11.7 H, RBC 3.72 L, Hgb 12.4, Hct 35.5 L, MCV 95.4, MCH 33.2 H, MCHC 34.8, RDW 16.1, Plt Count 306, MPV 7.6, Neut % (Auto) 82.6 H, Lymph % (Auto) 11.4, [place] % (Auto) 4.7, Eos % (Auto) 0.8, Baso % (Auto) 0.6, Neut # (Auto) 9.7 H, Lymph # (Auto) 1.3, [place] # (Auto) 0.6, Eos # (Auto) 0.1, Baso # (Auto) 0.1, Sodium 133 L, Potassium 3.6, Chloride 96 L, Carbon Dioxide 33 H, Anion Gap 7.6, BUN 18 H, Creatinine 0.70, Estimated Creat Clear 63, Estimated GFR 80, Est GFR ( Amer) 96, Glucose 152 H, Hemoglobin A1c 7.4 H, Calcium 9.1, Total Bilirubin 0.4, AST 30, ALT 27, Alkaline Phosphatase 125, Troponin I < 0.01, NT-Pro-B Natriuret Pep 747 H, Total Protein 7.3, Albumin 4.2, Globulin 3.1, Albumin/Globulin Ratio 1.4, TSH 4.57, Thyroxine (T4) 11.5 H 06/27/23 15:07: Troponin I < 0.01 I & O for Last 24 hours: Intake & Output 06/24/23 06/25/23 06/26/23/21/24 23:59 23:59 23:59 23:59 Output Total 0 / 0 Balance 0 / 0 Weight 98.4 kg Constitutional Constitutional: no acute distress, morbidly obese, chronically ill appearing and cooperative *Routine HEENT Exam Head: Present normocephalic Eye: Present EOMI and PERRL ENT: Present mucous membranes moist *Routine Neck Exam Neck: Present supple; Absent lymphadenopathy *Routine Respiratory Exam Respiratory: Present crackles (Bases); Absent rhonchi or wheezes *Routine Cardiovascular Exam Cardiovascular: Present irregularly irregular *Routine Abdominal Exam Abdominal: Present soft and normoactive bowel sounds; Absent tenderness *Routine Rectal Exam Rectal:: deferred *Routine Genitalia Exam Genitalia:: deferred *Routine Extremities Exam Extremities: Present edema (3+ to knees, stasis dermatitis of legs, no warmth); Absent cyanosis or clubbing *Routine Skin Exam Skin: Present intact and warm; Absent rash Comments: Stasis dermatitis, bruising across the bridge of her nose *Routine Neurological Exam Neurological: Present alert, oriented X3 and moving all extremities; Absent altered mental status Routine Psychiatric Exam Psychiatric: Present normal affect Assessment and Plan *Assessment and plan (1) CHF exacerbation: Status: Acute Category: Medical Code(s): I50.9 - Heart failure, unspecified (2) Afib: Status: Acute Category: Medical Code(s): I48.91 - Unspecified atrial fibrillation (3) Declining functional status: Status: Acute Category: Medical Code(s): R53.81 - Other malaise (4) Multiple falls: Status: Acute Category: Medical Code(s): R29.6 - Repeated falls (5) HLD (hyperlipidemia): Status: Acute Category: Medical Code(s): E78.5 - Hyperlipidemia, unspecified (6) Osteoarthritis (arthritis due to wear and tear of joints): Status: Acute Category: Medical Code(s): M19.90 - Unspecified osteoarthritis, unspecified site (7) Hypertension: Status: Acute Qualifiers: Hypertension type: unspecified Qualified Code(s): I10 - Essential (primary) hypertension Category: Medical Code(s): I10 - Essential (primary) hypertension (8) Type 2 diabetes mellitus with diabetic polyneuropathy, without long-term current use of insulin: Status: Acute Category: Medical Code(s): E11.42 - Type 2 diabetes mellitus with diabetic polyneuropathy (9) BMI greater than 40: Status: Acute Category: Medical (10) Hypothyroid: Status: Acute Category: Medical Code(s): E03.9 - Hypothyroidism, unspecified (11) CHF (congestive heart failure): Problem Comment: Dr. Martinez Status: Acute Category: Medical Code(s): I50.9 - Heart failure, unspecified Plan Ms. Ahmadi is an 82-year-old female with multiple comorbidities. Lives alone and has macular degeneration. Presents with concern for CHF exacerbation. Discussed case with ER physician, request admission for therapy eval, diuresis, further management for safe dispo planning. Medicine agreed to admit. Received dose of Lasix in the ER, minimal urine output so far. Will diurese again. PureWick placed. Monitor overnight and have therapy evaluate in the morning. Problems addressed as follows: History of CABG CAD CHF Hypertension Atrial fibrillation -Patient reports history of CHF, unclear if it is diastolic or systolic. Will obtain echocardiogram. -And volume overload and CHF exacerbation on admission. BNP elevated over 700. Signs of volume overload on chest imaging with cephalization on personal review and prominent fissures -Lasix 40 in the ER administered, will give second dose of Lasix 40 mg IV. Monitor for urine output, strict I's and O's. Goal -1 to 2 L in the next 24 hours. - Continue home metoprolol succinate 25 mg daily and close and 75 mg daily for hypertension. -On Lasix 80 mg [place] home, need to [facility] to [facility] - Low concern for CKD given normal creatinine of 0.7 and BUN of 18. Anticipate good response to diuretics. -Continue Eliquis during admission for DVT prophylaxis and A-fib. Will have further ongoing discussion given patient's falling at home, risk for intracranial hemorrhage or bleed with her falls. Concern risk outweighs benefit at this time. May benefit from transitioning to low-dose aspirin daily as monotherapy. Currently on aspirin 81 mg daily. Diabetes: Well-controlled with A1c of 7.4. Continue Samina 500 mg twice daily along with fingersticks ACHS and sliding scale insulin. continue meds for chronic conditions as follows: Hypothyroid: Continue levothyroxine 125 mcg daily. TSH 4.5, T4 11 Continue metoprolol succinate 25 mg daily and losartan 75 mg daily for hypertension Continue pantoprazole 40 mg nightly for GERD Continue pravastatin 10 mg daily for hyperlipidemia Continue amitriptyline 50 mg daily for mood Morbid obesity complicates all aspects of her care History of arthritis with bilateral knee replacements. Significant arthritis in right hip. Impacts her mobility, leads to falls. PT and OT evaluating. Wound care consult to evaluate lymphedema DNR Cardiac diet Jessi
--- NOTE | 2023-06-27 16:33 | ECG_ITS ---
APPROVED REPORT Exam: Resting ECG HR:91 bpm ECG Measurements Heart Rate 91 AXES QRSd 94 QRS 45 QT 366 T -78 QTc [address] DEVIATION AND MODERATE T-WAVE ABNORMALITY, CONSIDER LATERAL ISCHEMIA [-0.1+ mV T-WAVE IN I/aVL/V5/V6] ST DEVIATION AND MODERATE T-WAVE ABNORMALITY, CONSIDER INFERIOR ISCHEMIA [-0.1+ mV T-WAVE IN II/aVF] ABNORMAL ECG UNCONFIRMED REPORT Electronically signed by : Tyrone Alonso MD 06/27/2023 20:31:33
[2023-06-27] MEDS: METFORMIN 500MG TABLET 500 MG PO (17:26)
[2023-06-27 17:36] LABS: POC Glucose,Bedside 131 (70-110)
--- NOTE | 2023-06-27 18:42 | PC.NURSE ---
Patient new admit from the ER with CHF and weakness
[2023-06-27 19:30] LABS: Troponin I < 0.01 ng/ml (0.00-0.034)
[2023-06-27] MEDS: humaLOG 100 UNITS/ML 3ML VIAL (SSI) SQ (20:13)
[2023-06-27] MEDS: APIXABAN 5MG TABLET 5 MG PO (20:13)
[2023-06-27] MEDS: PANTOPRAZOLE 40MG TABLET 40 MG PO (20:14)
[2023-06-27] MEDS: ACETAMINOPHEN 500MG TAB 650 MG PO (20:15)
[2023-06-27 20:26] LABS: POC Glucose,Bedside 200 (70-110)
[2023-06-28] VITALS (7 sets, daily range): BP systolic 126–164; BP diastolic 65–95; PULSE 80–105; RESP 16–18; TEMP 36.7–37.1; O2SAT 96–98; BMI 42.3
--- NOTE | 2023-06-28 03:27 | PC.NURSE ---
patient complains of restless leg syndrome. WAS MEDICATED WITH TYLENOL 650 MG PO FOR LEGS ACHIONG EARLY IN THIS SHIFT. AFIB ON TELE. VITAL SIGNS STABLE.
[2023-06-28 06:13] LABS: Basophils # 0.1 K/mm3 (0-0.2); Basophils % 0.6 % (0.1-2.0); Eosinophils # 0.1 K/mm3 (0.0-0.4); Lymphocytes # 1.3 K/mm3 (0.7-4.5); Lymphocytes % 15.5 % (10-50); Mean Corpuscular HGB Conc 31.8 g/dL (31.8-35.4); Mean Corpuscular Volume 94.4 fl (81-99); Mean Platelet Volume 7.6 fl (7.4-10.4); Monocytes # 0.6 K/mm3 (0.1-1.0); Monocytes % 6.5 % (1.7-9.3); Neutrophils # 6.6 K/mm3 (1.8-7.8); Neutrophils % 76.5 % (37.0-80.0); Platelet Count 302 K/mm3 (142-424); Red Cell Distribution Width 16.1 % (11.5-17.5); White Blood Count 8.7 K/mm3 (4.8-10.8)
[2023-06-28 06:17] LABS: Albumin Level 3.3 g/dl (3.5-5.0); Albumin/Globulin Ratio 1.2 (1.1-1.8); Alkaline Phosphatase 90 U/L (38-126); Bilirubin,Total 0.6 mg/dl (0.2-1.3); Blood Urea Nitrogen 15 mg/dl (7-17); Calcium 8.4 mg/dl (8.4-10.2); Chloride 97 mmol/L (98-107); Creatinine Clearance Estimated 29 mL/min (50-200); Estimated Glomerular Filt Rate 80 ml/min (>60); GFR (African American) 96 ML/MIN (>60); Globulin 2.8 g/dL (1.3-3.2); Glucose 135 mg/dl (74-100); Magnesium 1.5 mg/dl (1.6-2.3); Potassium 3.3 mmoL/L (3.5-5.1); Sodium 134 mmol/L (136-145); Total Protein,Serum 6.1 g/dl (6.3-8.2)
[2023-06-28 06:18] LABS: Alanine Aminotransferase 20 U/L (12-78); Aspartate Amino Transferase 21 U/L (14-36)
[2023-06-28 06:22] LABS: Hemoglobin 10.8 g/dL (12.2-16.2)
[2023-06-28 06:23] LABS: Anion Gap 7.3 mEq/L (5-15); Carbon Dioxide 33 mmol/L (22.0-30.0)
[2023-06-28] MEDS: LEVOTHYROXINE 125MCG (0.125MG) TAB 125 MCG PO (06:23)
[2023-06-28] MEDS: humaLOG 100 UNITS/ML 3ML VIAL (SSI) SQ ×3 (06:23→20:26)
[2023-06-28 06:28] LABS: POC Glucose,Bedside 160 (70-110)
--- NOTE | 2023-06-28 06:37 | PC.NURSE ---
NEEDS SOMETHING FOR RESTLESS LEGS. BLOOD SUGARS THIS SHIFT 200 AND 160 REQUIRING 2 UNITS SLIDING SCALE EACH TIME. VITAL SIGNS STABLE. AFEBRILE. 97% 02 SAT ON ROOM AIR. . NO RESP DISTRESS.
[2023-06-28] MEDS: AMITRIPTYLINE 50MG TABLET 50 MG PO (08:11)
[2023-06-28] MEDS: METOPROLOL SUCCINATE XL 25MG TABLET 25 MG PO (08:11)
[2023-06-28] MEDS: PRAVASTATIN 20MG TAB 10 MG PO (08:12)
[2023-06-28] MEDS: IRBESARTAN 75MG TABLET 112.5 MG PO (08:12)
[2023-06-28] MEDS: METFORMIN 500MG TABLET 500 MG PO ×2 (08:13→16:32)
[2023-06-28] MEDS: MAGNESIUM OXIDE 400MG TABLET 400 MG PO (08:16)
[2023-06-28] MEDS: APIXABAN 5MG TABLET 5 MG PO ×2 (08:16→20:26)
[2023-06-28] MEDS: FUROSEMIDE 40MG/4ML VIAL 40 MG IV ×2 (08:17→16:33)
--- NOTE | 2023-06-28 09:18 | SW/DCPLANNER ---
Addendum entered by [facility] 07/01/23 12:24: Mitzi diop/ [facility] stated this patient has been approved SNF level of care. Addendum entered by [facility] 07/01/23 09:11: Mitzi diop/ [facility] is able to start a precert on this patient. I will update vicente, and other facilities. Addendum entered by [facility] 07/01/23 08:19: Updated information has been faxed to [facility] and [facility]. Addendum entered by [facility] 07/01/23 07:39: Per Anaya w/ [facility]: DON will review referral this AM. Addendum entered by Kamilah Valladares RN 06/28/23 17:06: Notified that patient does not have out of network benefits by Antonio this afternoon. Spoke with patient and daughter at bedside and [facility] I faxed referrals and notified Mina that I would be sending referral. She stated that she could possibly start auth today, but I have not heard back from her. Will continue to follow over the weekend. Addendum entered by Kamilah Valladares RN 06/28/23 11:56: Antonio is calling and daughter and plans to come see patient today. Addendum entered by Maddy Westport 06/28/23 10:26: Antonio stated that he is currently reviewing referral. Original Note: I received a consult on this patient regarding discharge planning. Patient does reside at home alone and has been having falls at home. PT/OT evaluated this patient and recommended SNF level at time of discharge. Patient is agreeable to placement and prefers [facility]. Patient stated that she went to [facility] in the past and liked it. I will send information to Mary/Antonio diop/ [facility] this AM. I will continue to follow up w/ MD vicente and [facility]. Discharge date is unknown at this time.
[2023-06-28] MEDS: MAGNESIUM SULFATE IN WATER 2 GM/50 ML PIGGYBACK IV (09:24)
--- NOTE | 2023-06-28 09:38 | HMH.PTEV ---
Physical Therapy Evaluation Rehab PT IP Evaluation Start: 06/27/23 13:52 Freq: ONCE Status: Active Protocol: Document 06/28/23 09:32 [facility] (Rec: 06/28/23 09:38 WING [id number]) Subjective/History History History Per H&P: Ms. Ahmadi is an 82-year-old female with history of hypertension, hyperlipidemia, diabetes, CAD, CHF, CABG, A- fib on Eliquis. Multiple surgeries in the past per history as well. She presented to the ER with her daughter at the referral of her PCP because of worsening lower extremity swelling. There was some initial concern for cellulitis, heart failure , failure to thrive and worsening debility as patient has been having falls at home and weeping from her legs. She lives by herself and has macular degeneration and has been having a harder time caring for herself. On arrival to the ER, patient is on room air. Does have worsening swelling in her legs and some redness. When her shoes were taken off, they appear to have been on for quite some time and the lining of the inside of the shoe had stuck to her feet. Patient denies fever, chills, nausea, vomiting, diarrhea, chest pain , cough, dizziness or headache . Satting in the mid to high 90s on room air. Sleeps in a recliner. Reports she falls because her hip catches as she has bad arthritis and when this happens her leg gives out . Usually ambulates with a walker. Has no desire to go to a long-term and is very adamant to state this multiple times that we cannot make her . I informed her that we do not make people go to nursing homes but we want what is best for her and want her to be safe when she is stable to discharge from the hospital. Son and daughter at bedside. Workup with elevation of BNP and chest imaging showing some volume overload. Medicine was consulted for admission, further dispo planning, diuresis, and therapy eval's. Subjective Subjective PLOF per pt report: Lives alone in a duplex. IND with ADLs and functional mobility with use of rollator. Driving prior to admission. [address] home . Multiple falls in last month (~10). New diagnosis of cancer in past 12 No months? Rehab PT IP Eval Objective Appearance Patient Behavior Appropriate,Cooperative Patient Orientation Person,Place,Birthday Difficulty following instructions none Speech Pattern Clear Ambulation Observation IP General Gait Pattern Observation Wide Based Gait Ambulation Distance (feet) 20 Ambulation Assistive Device Rolling Walker Ambulation Ability Contact Guard/Hand Hold Balance Ability to Arise Unable Sitting Balance Steady, safe Standing Balance Steady, wide stance Transfers Bed Transfer Ability Moderate x 1 (50% assist) Chair Transfer Ability Minimal x 1 (25% assist) Sit to Stand Bed Transfer Ability Minimal x 1 (25% assist) Rehab PT IP prob,goals,plan Problems Date of Evaluation: 06/28/23 PT IP Problems Bed Mobility,Transfers,Gait, Balance,Self care,Safety Rehab Potential Rehab Potential Good Equipment Needs Assistive Devices Rolling / Wheeled Walker Plan PT Intervention Plan Bed Mobility,Transfers,Gait, Balance,Safety,Therapeutic Exercise Other Intervention Plan 1-2 times PT Plan Frequency Daily Duration LOS Discharge Goals Bed Transfer Ability Minimal x 1 (25% assist) Sit to Stand Chair Transfer Ability Contact Guard/Hand Hold Ambulation Assistive Device Rolling Walker Ambulation Distance (feet) 30 Discharge Plan PT Discharge Plan Pt not safe to return home at this time d/t current level of functional mobility and frequent falls at home. PT recommending short-term rehabilitation stay upon d/c from [facility]. Pt would benefit from skilled PT while at [facility] to prevent further functional decline and maximize safety with mobility. Eval Complexity Eval Charge Codes 03618 - Moderate Complexity PHYSICIAN CERTIFICATION: I certify the specified therapy services for Paula Ahmadi are required, authorized, and reviewed every 30 days.
--- NOTE | 2023-06-28 09:39 | HMH.OTEV ---
OT Inpatient Evaluation Rehab OT IP Evaluation Start: 06/27/23 13:52 Freq: ONCE Status: Active Protocol: Document 06/28/23 09:32 [facility] (Rec: 06/28/23 09:39 [facility] [id number]) Rehab OT IP Assessment Subjective History Pt oriented x 3 on arrival. Pt agreeable to engage in therapy evaluation. Pt admitted on 06/27/23 due to legs swelling, CHF, and deconditioning. History and Physical: Ms. Ahmadi is an 82-year-old female with history of hypertension, hyperlipidemia, diabetes, CAD, CHF, CABG, A- fib on Eliquis. Multiple surgeries in the past per history as well. She presented to the ER with her daughter at the referral of her PCP because of worsening lower extremity swelling. There was some initial concern for cellulitis, heart failure , failure to thrive and worsening debility as patient has been having falls at home and weeping from her legs. She lives by herself and has macular degeneration and has been having a harder time caring for herself. On arrival to the ER, patient is on room air. Does have worsening swelling in her legs and some redness. When her shoes were taken off, they appear to have been on for quite some time and the lining of the inside of the shoe had stuck to her feet. Patient denies fever, chills, nausea, vomiting, diarrhea, chest pain , cough, dizziness or headache . Satting in the mid to high 90s on room air. Sleeps in a recliner. Reports she falls because her hip catches as she has bad arthritis and when this happens her leg gives out . Usually ambulates with a walker. Has no desire to go to a prison and is very adamant to state this multiple times that we cannot make her . I informed her that we do not make people go to nursing homes but we want what is best for her and want her to be safe when she is stable to discharge from the hospital. Son and daughter at bedside. Workup with elevation of BNP and chest imaging showing some volume overload. Medicine was consulted for admission, further dispo planning, diuresis, and therapy eval's. Subjective I am able to do for myself. Prior to being in the hospital , pt claims she was independent with all ADLs and IADLs. She still drove. Pt uses a rolling walker during functional mobility tasks. Pt has had 8-10 falls within the past week. Objective Patient Orientation Person,Place,Birthday Right Upper Extremity Gross ROM WFL Left Upper Extremity Gross ROM WFL Transfer Training Sit/Stand Transfer Assist Level Minimal x 1 (25% assist) Chair Transfer Ability Minimal x 1 (25% assist) Chair Transfer Technique Sit to/from Ambulatory Chair Transfer Assistive Devices Rolling Walker Lower Body Dressing Ability Unable/dependent Rehab OT IP prob,goals,plan Problems Date of Evaluation: 06/28/23 OT IP Problems Bed Mobility,Transfers,Balance ,Self care,Safety Rehab Potential Rehab Potential Good Equipment Needs Assistive Devices Rolling / Wheeled Walker Plan OT intervention Plan Bed Mobility,Transfers,Balance ,Self care,Safety,Therapeutic Exercise OT Plan Frequency Daily Duration LOS Discharge Goals Bed Mobility Ability Assistance x1 Sit to Stand Chair Transfer Ability Contact Guard/Hand Hold Chair Transfer Ability Contact Guard/Hand Hold Chair Transfer Technique Sit to/from Ambulatory Chair Transfer Assistive Devices Rolling Walker Feeding Ability Assist with Tray Set Up Lower Body Dressing Ability Moderate Assistance Upper Body Dressing Ability Standby Assistance Bathing Ability Moderate Assistance Overall Commode/Toilet Transfer Ability Moderate Assistance Commode/Toilet Transfer Technique Sit to/from Ambulatory Commode/Toilet Transfer Assistive Grab Bars Devices Oral Care Assist Minimal Assistance Decrease in Endurance Yes Discharge Plan OT Discharge Plan Pt will continue to be seen for OT services while at [facility]. Pt would benefit most from short term rehab at [facility] following hospital stay. Continued skilled therapy is important in order for patient to improve strength, safety, endurance, ADL independence, and functional transfers to reach PLOF. Eval Complexity Eval Charge Codes 39554 - Moderate Complexity PHYSICIAN CERTIFICATION: I certify the specified therapy services for Paula Ahmadi are required, authorized, and reviewed every 30 days.
--- NOTE | 2023-06-28 10:14 | HMH.PTWOUND ---
Rehab Inpt Wound Evaluation Rehab IP Wound Evaluation Start: 06/27/23 13:49 Freq: ONCE Status: Active Protocol: Document 06/28/23 10:06 KATELYN (Rec: 06/28/23 10:14 KATELYN [id number]) Rehab PT Wound Assessment Subjective Subjective 82 yowf adm to [facility] with CHF and deconditioning. SHe has PMH of hypertension, hyperlipidemia, diabetes, CAD, CHF, CABG, A-fib on Eliquis. She reports she lives alone, is independent with all mobility using her RW, and still drives despite stating that she can not see due to her macular degeneration. She presented with B LE redness, swelling, and a possible wound on her L heel upon admission. Plan/Recommendation Comment No open sores noted at this time, once cleansed L lateral heel has no wound to note at this time. Composite dressing placed on L heel to prevent pressure at this time. B LE cojntinue to show 2+ pitting edema in the lower legs with erythema, but no open sores or weeping noted. Current treatment is appropriate and no dressing needed to control edema at this time. Eval Complexity Eval Charge Codes [id number] - Low Complexity PHYSICIAN CERTIFICATION: I certify the specified therapy services for Paula Ahmadi are required, authorized, and reviewed every 30 days.
[2023-06-28 12:00] LABS: POC Glucose,Bedside 134 (70-110)
--- NOTE | 2023-06-28 15:10 | P.PN_ITS ---
Subjective *Date: 06/28/23 *Time: 15:10 Interval history: Patient feeling better this week. Agreeable to rehab for period of time. Improvement in swelling in legs. Complaining of some cramping in legs. Tolerating p.o. intake. Stable on room air. Responding to diuresis. Medical Exam Vital signs and Labs for Last 24 Hours: Vital Signs Temp Pulse Pulse Resp BP Pulse Ox O2 Del Method 06/28/23 12:00 95 H 06/28/23 11:00 Room Air 06/28/23 09:00 Room Air 06/28/23 08:00 Room Air 06/28/23 08:00 105 H 06/28/23 08:00 98.6 F 103 H 18 164/95 H 96 Room Air 06/28/23 06:40 Room Air 06/28/23 04:54 Room Air 06/28/23 04:00 94 H 06/28/23 04:00 98.1 F 93 H 16 160/88 H 97 Room Air 06/28/23 03:00 Room Air 06/28/23 01:00 Room Air 06/28/23 00:00 93 H 06/28/23 00:00 98.7 F 102 H 18 155/76 H 97 Room Air 06/27/23 23:00 Room Air 06/27/23 21:00 Room Air 06/27/23 20:00 101 H 06/27/23 20:00 98 Room Air 06/27/23 20:00 98.1 F 111 H 18 164/76 H 98 Room Air Intake and Output 06/27/23 06/28/23 06/28/23 23:59 07:59 15:59 Intake Total 240 / 480 240 / 720 480 / 720 Output Total 1200 / 1200 0 / 0 Balance -960 / -720 240 / 720 480 / 720 Intake: Intake, Oral Amount 240 / 480 240 / 720 480 / 720 Output: Output, Urine Amount 1200 / 1200 0 / 0 Other: Number of Unmeasured Voids 0 1 Weight 97.795 kg 97.79 kg Patient Weight 06/28/23 23:59 Weight 97.79 kg Laboratory Results - last 24 hr 06/27/23 15:07: Troponin I < 0.01 06/27/23 17:24: POC Glucose 131 H 06/27/23 18:25: Troponin I < 0.01 06/27/23 20:12: POC Glucose 200 H 06/28/23 05:37: WBC 8.7 D, RBC 3.60 L, Hgb 10.8 L D, Hct 34.0 L, MCV 94.4, MCH 30.0, MCHC 31.8, RDW 16.1, Plt Count 302, MPV 7.6, Neut % (Auto) 76.5, Lymph % (Auto) 15.5, [place] % (Auto) 6.5, Eos % (Auto) 1.0, Baso % (Auto) 0.6, Neut # (Auto) 6.6, Lymph # (Auto) 1.3, [place] # (Auto) 0.6, Eos # (Auto) 0.1, Baso # (Auto) 0.1, Sodium 134 L, Potassium 3.3 L, Chloride 97 L, Carbon Dioxide 33 H, Anion Gap 7.3, BUN 15, Creatinine 0.70, Estimated Creat Clear 29, Estimated GFR 80, Est GFR ( Amer) 96, Glucose 135 H, Calcium 8.4, Magnesium 1.5 L, Total Bilirubin 0.6, AST 21 D, ALT 20 D, Alkaline Phosphatase 90, Total Protein 6.1 L, Albumin 3.3 L D, Globulin 2.8, Albumin/Globulin Ratio 1.2 06/28/23 06:21: POC Glucose 160 H 06/28/23 11:53: POC Glucose 134 H I & O for Labs for Last 24 Hours: Intake & Output 06/25/23 06/26/23 06/27/23 06/28/23 23:59 23:59 23:59 23:59 Intake Total 240 / 480 720 / 720 Output Total 1200 / 1200 0 / 0 Balance -960 / -720 720 / 720 Weight 98.4 kg 97.79 kg Constitutional: Present no acute distress, morbidly obese, chronically ill appearing and cooperative Head: Present atraumatic and normocephalic ENT: Present normal exam Neck: Present normal inspection Respiratory: Present crackles (bases) and normal respiratory effort; Absent rhonchi or wheezes Comment:: Irregularly irregular, rate controlled GI: Present soft and normal bowel sounds; Absent distention or tenderness Extremities: Present normal inspection, full ROM and edema (1+ BLE) Skin: Present intact and erythema (Stasis dermatitis of the legs. No warmth) Neuro: Present Grossly Intact, alert, awake, oriented x 3 and moves all extremities Assessment and Plan *Assessment and plan (1) CHF exacerbation: Status: Chronic Qualifiers: Heart failure type: diastolic Qualified Code(s): I50.33 - Acute on chronic diastolic (congestive) heart failure Category: Medical Code(s): I50.9 - Heart failure, unspecified (2) Afib: Status: Acute Category: Medical Code(s): I48.91 - Unspecified atrial fibrillation (3) Declining functional status: Status: Acute Category: Medical Code(s): R53.81 - Other malaise (4) Multiple falls: Status: Acute Category: Medical Code(s): R29.6 - Repeated falls (5) HLD (hyperlipidemia): Status: Acute Category: Medical Code(s): E78.5 - Hyperlipidemia, unspecified (6) Osteoarthritis (arthritis due to wear and tear of joints): Status: Acute Category: Medical Code(s): M19.90 - Unspecified osteoarthritis, unspecified site (7) Hypertension: Status: Acute Qualifiers: Hypertension type: unspecified Qualified Code(s): I10 - Essential (primary) hypertension Category: Medical Code(s): I10 - Essential (primary) hypertension (8) Type 2 diabetes mellitus with diabetic polyneuropathy, without long-term current use of insulin: Status: Acute Category: Medical Code(s): E11.42 - Type 2 diabetes mellitus with diabetic polyneuropathy (9) BMI greater than 40: Status: Acute Category: Medical (10) Hypothyroid: Status: Acute Category: Medical Code(s): E03.9 - Hypothyroidism, unspecified Plan Ms. Ahmadi is an 82-year-old female with multiple comorbidities. Lives alone and has macular degeneration. Presents with concern for CHF exacerbation. Discussed case with ER physician, request admission for therapy eval, diuresis, further management for safe dispo planning. Medicine agreed to admit. Responding to diuresis. Edema better this morning. Needs placement. Anticipate discharge the beginning of the week. On room air. Problems addressed as follows: History of CABG CAD Acute on chronic heart failure with preserved ejection fraction Hypertension Atrial fibrillation -Patient reports history of CHF, unclear if it is diastolic or systolic. Echo obtained, preliminary read shows elevated RVSP concerning for diastolic failure. EF preserved. Awaiting formal read --700 cc since admission. Will continue Lasix 40 mg IV daily with additional dose this afternoon; strict I's and O's. Goal -1 to 2 L in the next 24 hours. - Continue home metoprolol succinate 25 mg daily and close and 75 mg daily for hypertension. -Kidney function stable, monitoring with diuresis. BUN 15, creatinine 0.7. Potassium magnesium low however, potassium 3.3 and magnesium 1.5, replacing today both oral and IV -Continue Eliquis during admission for DVT prophylaxis and A-fib. Will have further ongoing discussion given patient's falling at home, risk for intracranial hemorrhage or bleed with her falls. Concern risk outweighs benefit at this time. May benefit from transitioning to low-dose aspirin daily as monotherapy. Currently on aspirin 81 mg daily. -CBC, CMP, magnesium ordered for the morning Diabetes: Well-controlled with A1c of 7.4. Continue metformin 500 mg twice daily along with fingersticks ACHS and sliding scale insulin. continue meds for chronic conditions as follows: Hypothyroid: Continue levothyroxine 125 mcg daily. Continue metoprolol succinate 25 mg daily and losartan 75 mg daily for hypertension Continue pantoprazole 40 mg nightly for GERD Continue pravastatin 10 mg daily for hyperlipidemia Continue amitriptyline 50 mg daily for mood Morbid obesity complicates all aspects of her care History of arthritis with bilateral knee replacements. Significant arthritis in right hip. Impacts her mobility, leads to falls. PT and OT evaluating, recommend placement. Case management assisting with placement. Wound care consulted, assisting with legs. No significant wounds at this time. Given improvement in edema, no Unna boots. DNR Cardiac diet C[place]eligio
--- NOTE | 2023-06-28 16:15 | CA_ITS ---
APPROVED REPORT EXAM: Comprehensive 2D, Doppler, and color-flow Echocardiogram Drum Tender: [place] CRT Ht: 5 ft 0 in Wt: 216lbs BSA: 1.93 BP: 177/106 mmHg Indications: Congestive Heart Failure, Atrial Fibrillation, Peripheral Edema, CAD, Hyperlipidemia, Hypertension/HDD, CABG, PACEMAKER, Falls 2D Dimensions LA Volume 80.80 mL LA Volume Index 40.80 mL/m2 (M/F) 16-34 M-Mode Dimensions RVDd 2.50 cm (0.9-2.6) LA Diam 4.84 cm (1.9-4.0) LVDd 5.53 cm (3.5-5.7) LVDs 3.93 cm (3.5-5.7) IVSd 1.61 cm (0.6-1.1) PWd 0.57 cm (0.6-1.1) EF (Teich) 55.10% FS 28.90% EDV (Teich) 149.30 mL TAPSE 1.11 (<1.7) ESV (Teich) 67.10 mL LV Diastology E Decel Time 210 (160-240 msec) E/A Ratio 3.47 LAT A' 9.50 cm/s Aortic Valve AI PHT 396.00 ms AO Peak GR. 7.80 mmHg Mitral Valve MV E Max Nolan. 124.0 (40-130 cm/s) MV A Velocity 36.0 (40-130 cm/s) E/A Ratio 3.47 MV PHT 62.0 ms Pulmonary Valve PV Peak Velocity 111.0 (50-150 cm/s) Tricuspid Valve TR P. Velocity 291.00 cm/s RAP Estimate 10.00 mmHg RVSP 44.00 mmHg Left Ventricle The left ventricle is normal size. The left ventricular systolic function is normal. The left ventricular ejection fraction is within the normal range. There is increased LV wall thickness. There is normal LV segmental wall motion. Diastolic function is indeterminate. LVEF is 55%. Right Ventricle Right ventricle is mild to moderately dilated. Right ventricle is mildly hypokinetic. Atria Left atrium is severely dilated. Right atrium is severely dilated. There is no Doppler evidence of interatrial shunt. Aortic Valve The aortic valve is mildly thickened. Mild aortic regurgitation. There is no aortic valvular stenosis. Mitral Valve The mitral valve leaflets are mildly thickened. No evidence of mitral valve stenosis. Mild to moderate mitral regurgitation. Tricuspid Valve The tricuspid valve leaflets are thin and pliable. Moderate to severe tricuspid regurgitation. RVSP is 45-50 mmHg. Pulmonic Valve The pulmonary valve is normal in structure. Mild pulmonic regurgitation. Great Vessels The aortic root is normal in size. The ascending aorta is normal in size. The IVC is dilated and collapses < 50% with respirophasic variation. The RA pressure is estimated at 15 mmHg. Pericardium There is no pericardial effusion. Other Information Study Quality: Technically Difficult Conclusion Technically difficult study due to poor acoustic windows. Normal LV systolic function. Mild to moderate RV dilation with mild reduction in RV function. Mild AI. Mild to moderate MR. Moderate to severe TR. Elevated RVSP 45-50 mmHg. Electronically signed by : Camelia Thomas MD 07/01/2023 21:55:08
[2023-06-28 16:43] LABS: POC Glucose,Bedside 154 (70-110)
[2023-06-28] MEDS: FLUTICASONE/SALMETEROL 250/50MCG DISKUS 1 PUFF IH (18:26)
--- NOTE | 2023-06-28 18:26 | PC.NURSE ---
AOX4, TOLERATING ROOM AIR WELL. SAT UP TO CHAIR FOR MOST OF SHIFT.
[2023-06-28] MEDS: PANTOPRAZOLE 40MG TABLET 40 MG PO (20:26)
[2023-06-28 20:28] LABS: POC Glucose,Bedside 163 (70-110)
[2023-06-29] VITALS (7 sets, daily range): BP systolic 141–150; BP diastolic 63–85; PULSE 90–110; RESP 16–18; TEMP 36.4–36.9; O2SAT 96–98; BMI 42.4
[2023-06-29] MEDS: ACETAMINOPHEN 500MG TAB 650 MG PO (04:30)
[2023-06-29 05:52] LABS: POC Glucose,Bedside 132 (70-110)
[2023-06-29] MEDS: FLUTICASONE/SALMETEROL 250/50MCG DISKUS 1 PUFF IH ×2 (05:59→18:14)
[2023-06-29] MEDS: LEVOTHYROXINE 125MCG (0.125MG) TAB 125 MCG PO (06:01)
[2023-06-29 07:31] LABS: Basophils # 0.1 K/mm3 (0-0.2); Basophils % 0.5 % (0.1-2.0); Eosinophils # 0.1 K/mm3 (0.0-0.4); Hematocrit 33.4 % (37.0-47.0); Hemoglobin 10.5 g/dL (12.2-16.2); Lymphocytes # 1.8 K/mm3 (0.7-4.5); Lymphocytes % 16.9 % (10-50); Mean Corpuscular HGB Conc 31.5 g/dL (31.8-35.4); Mean Corpuscular Hemoglobin 29.8 pg (27.0-31.2); Mean Corpuscular Volume 94.5 fl (81-99); Mean Platelet Volume 8.1 fl (7.4-10.4); Monocytes # 0.7 K/mm3 (0.1-1.0); Monocytes % 6.8 % (1.7-9.3); Neutrophils # 7.9 K/mm3 (1.8-7.8); Neutrophils % 74.8 % (37.0-80.0); Platelet Count 305 K/mm3 (142-424); Red Blood Count 3.53 M/mm3 (4.20-5.40); White Blood Count 10.5 K/mm3 (4.8-10.8)
[2023-06-29 07:41] LABS: Alanine Aminotransferase 20 U/L (12-78); Albumin Level 3.3 g/dl (3.5-5.0); Albumin/Globulin Ratio 1.2 (1.1-1.8); Alkaline Phosphatase 110 U/L (38-126); Anion Gap 5.8 mEq/L (5-15); Aspartate Amino Transferase 25 U/L (14-36); Bilirubin,Total 0.5 mg/dl (0.2-1.3); Blood Urea Nitrogen 19 mg/dl (7-17); Calcium 8.5 mg/dl (8.4-10.2); Carbon Dioxide 32 mmol/L (22.0-30.0); Chloride 95 mmol/L (98-107); Creatinine Clearance Estimated 29 mL/min (50-200); Estimated Glomerular Filt Rate 95 ml/min (>60); GFR (African American) 115 ML/MIN (>60); Globulin 2.7 g/dL (1.3-3.2); Glucose 132 mg/dl (74-100); Magnesium 1.8 mg/dl (1.6-2.3); Potassium 3.8 mmoL/L (3.5-5.1); Sodium 129 mmol/L (136-145)
[2023-06-29] MEDS: AMITRIPTYLINE 50MG TABLET 50 MG PO (08:08)
[2023-06-29] MEDS: APIXABAN 5MG TABLET 5 MG PO ×2 (08:08→20:45)
[2023-06-29] MEDS: METOPROLOL SUCCINATE XL 25MG TABLET 25 MG PO (08:08)
[2023-06-29] MEDS: PRAVASTATIN 20MG TAB 10 MG PO (08:09)
[2023-06-29] MEDS: IRBESARTAN 75MG TABLET 112.5 MG PO (08:09)
[2023-06-29] MEDS: METFORMIN 500MG TABLET 500 MG PO ×2 (08:09→16:48)
[2023-06-29] MEDS: MAGNESIUM OXIDE 400MG TABLET 400 MG PO (08:10)
[2023-06-29] MEDS: FUROSEMIDE 40MG/4ML VIAL 40 MG IV (08:12)
--- NOTE | 2023-06-29 09:16 | ECG_ITS ---
APPROVED REPORT Exam: Resting ECG HR:105 bpm ECG Measurements Heart Rate 105 AXES QRSd 93 QRS 39 QT 333 T 0 QTc 394 Conclusion ATRIAL FIBRILLATION WITH RAPID VENTRICULAR RESPONSE WITH ABERRANT CONDUCTION OR VENTRICULAR PREMATURE COMPLEXES NONSPECIFIC ST & T-WAVE ABNORMALITY ABNORMAL RHYTHM ECG UNCONFIRMED REPORT Electronically signed by : Tyrone Alonso MD 06/29/2023 17:49:44
[2023-06-29 09:59] LABS: Troponin I < 0.01 ng/ml (0.00-0.034)
[2023-06-29 11:46] LABS: POC Glucose,Bedside 145 (70-110)
--- NOTE | 2023-06-29 13:37 | P.PN_ITS ---
Subjective *Date: 06/29/23 *Time: 13:37 Interval history: seen at bedside, denied any acute events overnight, complains of some chest discomfort Exam Data for Last 24 hours Vital signs and Labs for Last 24 Hours: Temp Pulse Resp BP Pulse Ox O2 Del Method 98.4 F 106 H 17 147/74 H 97 Room Air 06/29/23 12:00 06/29/23 12:00 06/29/23 12:00 06/29/23 12:00 06/29/23 12:00 06/29/23 12:00 Laboratory Results - last 24 hr 06/28/23 16:29: POC Glucose 154 H 06/28/23 20:21: POC Glucose 163 H 06/29/23 05:45: POC Glucose 132 H 06/29/23 06:30: WBC 10.5, RBC 3.53 L, Hgb 10.5 L, Hct 33.4 L, MCV 94.5, MCH 29.8, MCHC 31.5 L, RDW 16.0, Plt Count 305, MPV 8.1, Neut % (Auto) 74.8, Lymph % (Auto) 16.9, [place] % (Auto) 6.8, Eos % (Auto) 1.0, Baso % (Auto) 0.5, Neut # (Auto) 7.9 H, Lymph # (Auto) 1.8, [place] # (Auto) 0.7, Eos # (Auto) 0.1, Baso # (Auto) 0.1, Sodium 129 L, Potassium 3.8, Chloride 95 L, Carbon Dioxide 32 H, Anion Gap 5.8, BUN 19 H D, Creatinine 0.60, Estimated Creat Clear 29, Estimated GFR 95, Est GFR ( Amer) 115, Glucose 132 H, Calcium 8.5, Magnesium 1.8 D , Total Bilirubin 0.5, AST 25, ALT 20, Alkaline Phosphatase 110, Total Protein 6.0 L, Albumin 3.3 L, Globulin 2.7, Albumin/Globulin Ratio 1.2 06/29/23 09:24: Troponin I < 0.01 06/29/23 11:36: POC Glucose 145 H I & O for Last 24 hours: Intake & Output 06/26/23 06/27/23 06/28/23 06/29/23 23:59 23:59 23:59 23:59 Intake Total 240 / 480 990 / 1230 1100 / 1100 Output Total 1200 / 1200 0 / 0 800 / 800 Balance -960 / -720 990 / 1230 300 / 300 Weight 98.4 kg 97.79 kg 98.033 kg Constitutional Constitutional: no acute distress *Routine HEENT Exam Head: Present normocephalic Eye: Present EOMI and PERRL ENT: Present mucous membranes moist *Routine Neck Exam Neck: Present supple; Absent lymphadenopathy *Routine Respiratory Exam Respiratory: Present CTA bilaterally *Routine Cardiovascular Exam Cardiovascular: Present RRR *Routine Abdominal Exam Abdominal: Present soft and normoactive bowel sounds; Absent tenderness *Routine Extremities Exam Extremities: Absent cyanosis, clubbing or edema *Routine Skin Exam Skin: Present warm; Absent rash *Routine Neurological Exam Neurological: Present alert and oriented X3 Assessment and Plan *Assessment and plan (1) CHF exacerbation: Status: Chronic Qualifiers: Heart failure type: diastolic Qualified Code(s): I50.33 - Acute on chronic diastolic (congestive) heart failure Category: Medical Code(s): I50.9 - Heart failure, unspecified (2) Afib: Status: Acute Category: Medical Code(s): I48.91 - Unspecified atrial fibrillation (3) Declining functional status: Status: Acute Category: Medical Code(s): R53.81 - Other malaise (4) Multiple falls: Status: Acute Category: Medical Code(s): R29.6 - Repeated falls (5) HLD (hyperlipidemia): Status: Acute Category: Medical Code(s): E78.5 - Hyperlipidemia, unspecified (6) Osteoarthritis (arthritis due to wear and tear of joints): Status: Acute Category: Medical Code(s): M19.90 - Unspecified osteoarthritis, unspecified site (7) Hypertension: Status: Acute Qualifiers: Hypertension type: unspecified Qualified Code(s): I10 - Essential (primary) hypertension Category: Medical Code(s): I10 - Essential (primary) hypertension (8) Type 2 diabetes mellitus with diabetic polyneuropathy, without long-term cu rrent use of insulin: Status: Acute Category: Medical Code(s): E11.42 - Type 2 diabetes mellitus with diabetic polyneuropathy (9) BMI greater than 40: Status: Acute Category: Medical (10) Hypothyroid: Status: Acute Category: Medical Code(s): E03.9 - Hypothyroidism, unspecified Plan Ms. Ahmadi is an 82-year-old female with multiple comorbidities. Lives alone and has macular degeneration. Presents with concern for CHF exacerbation. Discussed case with ER physician, request admission for therapy eval, diuresis, further management for safe dispo planning. Medicine agreed to admit. Responding to diuresis. Edema better this morning. Needs placement. Anticipate discharge the beginning of the week. On room air. Problems addressed as follows: History of CABG CAD Acute on chronic heart failure with preserved ejection fraction Hypertension Atrial fibrillation -Patient reports history of CHF, unclear if it is diastolic or systolic. Echo obtained, pending results strict I's and O's. Goal -1 to 2 L in the next 24 hours. - Continue home metoprolol succinate 25 mg daily -Continue Eliquis for A-fib. - on aspirin 81 mg daily. Diabetes: Well-controlled with A1c of 7.4. Continue metformin 500 mg twice daily along with fingersticks ACHS and sliding scale insulin. continue meds for chronic conditions as follows: Hypothyroid: Continue levothyroxine 125 mcg daily. Continue metoprolol succinate 25 mg daily and losartan 75 mg daily for hypertension Continue pantoprazole 40 mg nightly for GERD Continue pravastatin 10 mg daily for hyperlipidemia Continue amitriptyline 50 mg daily for mood Morbid obesity complicates all aspects of her care DNR Cardiac diet Eliquis pending placement
[2023-06-29 15:52] LABS: Troponin I < 0.01 ng/ml (0.00-0.034)
[2023-06-29 16:59] LABS: POC Glucose,Bedside 153 (70-110)
--- NOTE | 2023-06-29 17:14 | PC.NURSE ---
pt c/o chest discomfort at beginning of shift. ekg was obtained which showed afib rvr. dr ross was made aware and came to assess patient. pt had no other complaints. she is adamant that she does not want dr tabor from cardiology to care for her while she is admitted at [facility]. pt is aox4, sat up to chair for most of shift. tolerating room air well.
[2023-06-29] MEDS: IBUPROFEN 400 MG TABLET 200 MG PO (19:39)
[2023-06-29] MEDS: ACETAMINOPHEN 325MG TAB 650 MG PO (20:44)
[2023-06-29] MEDS: PANTOPRAZOLE 40MG TABLET 40 MG PO (20:45)
[2023-06-29 21:46] LABS: POC Glucose,Bedside 148 (70-110)
[2023-06-30] VITALS: BP 147/84; PULSE 102; PULSE 90; RESP 18; TEMP 36.7; O2SAT 98
--- NOTE | 2023-06-30 03:47 | PC.NURSE ---
Pt is alert and oriented x4, and currently tolerating RA well. Pt has not required insulin coverage this shift thus far. Pt C/O of severe pain and was treated per MAR. Pt has slept well since tylenol was given and has had no complaints. pt daughter told nurse that pt is falling alot at home. Alarm set to bed and education given to pt about requesting for help with needs.
[2023-06-30 04:00] VITALS: BP 146/85; PULSE 106; PULSE 90; RESP 18; TEMP 36.7; O2SAT 98; BMI 41.8
[2023-06-30 05:19] LABS: POC Glucose,Bedside 149 (70-110)
[2023-06-30] MEDS: FLUTICASONE/SALMETEROL 250/50MCG DISKUS 1 PUFF IH ×2 (06:10→19:22)
[2023-06-30] MEDS: LEVOTHYROXINE 125MCG (0.125MG) TAB 125 MCG PO (06:37)
[2023-06-30] MEDS: METFORMIN 500MG TABLET 500 MG PO ×2 (06:37→16:30)
[2023-06-30 07:50] LABS: Alanine Aminotransferase 19 U/L (12-78); Albumin Level 3.3 g/dl (3.5-5.0); Albumin/Globulin Ratio 1.1 (1.1-1.8); Alkaline Phosphatase 100 U/L (38-126); Anion Gap 6.2 mEq/L (5-15); Aspartate Amino Transferase 24 U/L (14-36); Bilirubin,Total 0.8 mg/dl (0.2-1.3); Blood Urea Nitrogen 20 mg/dl (7-17); Calcium 8.7 mg/dl (8.4-10.2); Carbon Dioxide 33 mmol/L (22.0-30.0); Chloride 95 mmol/L (98-107); Creatinine Clearance Estimated 29 mL/min (50-200); Estimated Glomerular Filt Rate 80 ml/min (>60); GFR (African American) 96 ML/MIN (>60); Globulin 2.9 g/dL (1.3-3.2); Glucose 139 mg/dl (74-100); Potassium 4.2 mmoL/L (3.5-5.1); Sodium 130 mmol/L (136-145); Total Protein,Serum 6.2 g/dl (6.3-8.2)
[2023-06-30 08:00] VITALS: BP 174/94; PULSE 110; PULSE 90; RESP 18; TEMP 36.7; O2SAT 98
[2023-06-30] MEDS: ACETAMINOPHEN 325MG TAB 650 MG PO ×2 (08:18→16:30)
[2023-06-30] MEDS: METOPROLOL SUCCINATE XL 25MG TABLET 25 MG PO (08:18)
[2023-06-30] MEDS: PRAVASTATIN 20MG TAB 10 MG PO (08:18)
[2023-06-30] MEDS: AMITRIPTYLINE 50MG TABLET 50 MG PO (08:19)
[2023-06-30] MEDS: MAGNESIUM OXIDE 400MG TABLET 400 MG PO (08:19)
[2023-06-30] MEDS: APIXABAN 5MG TABLET 5 MG PO ×2 (08:19→20:40)
[2023-06-30] MEDS: IRBESARTAN 75MG TABLET 112.5 MG PO (08:19)
[2023-06-30] MEDS: FUROSEMIDE 40MG/4ML VIAL 40 MG IV (08:20)
--- NOTE | 2023-06-30 10:55 | EXP.PN ---
Subjective *Date: 06/30/23 *Time: 10:55 Interval history: seen at bedside, denied any acute events overnight, complains of some chest discomfort Exam Data for Last 24 hours Vital signs and Labs for Last 24 Hours: Temp Pulse Resp BP Pulse Ox O2 Del Method 98.1 F 90 18 174/94 H 98 Room Air 06/30/23 08:00 06/30/23 08:00 06/30/23 08:00 06/30/23 08:00 06/30/23 08:00 06/30/23 09:00 Laboratory Results - last 24 hr 06/29/23 11:36: POC Glucose 145 H 06/29/23 15:11: Troponin I < 0.01 06/29/23 16:48: POC Glucose 153 H 06/29/23 20:44: POC Glucose 148 H 06/30/23 05:08: POC Glucose 149 H 06/30/23 06:25: Sodium 130 L, Potassium 4.2, Chloride 95 L, Carbon Dioxide 33 H, Anion Gap 6.2, BUN 20 H, Creatinine 0.70, Estimated Creat Clear 29, Estimated GFR 80, Est GFR ( Amer) 96, Glucose 139 H, Calcium 8.7, Total Bilirubin 0.8, AST 24, ALT 19, Alkaline Phosphatase 100, Total Protein 6.2 L, Albumin 3.3 L, Globulin 2.9, Albumin/Globulin Ratio 1.1 I & O for Last 24 hours: Intake & Output 06/27/23 06/28/23 06/29/23 06/30/23 23:59 23:59 23:59 23:59 Intake Total 240 / 480 990 / 1230 1370 / 1490 570 / 570 Output Total 1200 / 1200 0 / 0 800 / 800 Balance -960 / -720 990 / 1230 570 / 690 570 / 570 Weight 98.4 kg 97.79 kg 98.033 kg 96.797 kg Microbiology Reports for the Last 24 Hours: Microbiology 06/27/23 12:06 Blood Blood Culture - Preliminary 06/27/23 12:08 Blood Blood Culture - Preliminary Constitutional Constitutional: no acute distress *Routine HEENT Exam Head: Present normocephalic Eye: Present EOMI and PERRL ENT: Present mucous membranes moist *Routine Neck Exam Neck: Present supple; Absent lymphadenopathy *Routine Respiratory Exam Respiratory: Present CTA bilaterally *Routine Cardiovascular Exam Cardiovascular: Present RRR *Routine Abdominal Exam Abdominal: Present soft and normoactive bowel sounds; Absent tenderness *Routine Extremities Exam Extremities: Absent cyanosis, clubbing or edema *Routine Skin Exam Skin: Present warm; Absent rash *Routine Neurological Exam Neurological: Present alert and oriented X3 Assessment and Plan *Assessment and plan (1) CHF exacerbation: Status: Chronic Qualifiers: Heart failure type: diastolic Qualified Code(s): I50.33 - Acute on chronic diastolic (congestive) heart failure Category: Medical Code(s): I50.9 - Heart failure, unspecified (2) Afib: Status: Acute Category: Medical Code(s): I48.91 - Unspecified atrial fibrillation (3) Declining functional status: Status: Acute Category: Medical Code(s): R53.81 - Other malaise (4) Multiple falls: Status: Acute Category: Medical Code(s): R29.6 - Repeated falls (5) HLD (hyperlipidemia): Status: Acute Category: Medical Code(s): E78.5 - Hyperlipidemia, unspecified (6) Osteoarthritis (arthritis due to wear and tear of joints): Status: Acute Category: Medical Code(s): M19.90 - Unspecified osteoarthritis, unspecified site (7) Hypertension: Status: Acute Qualifiers: Hypertension type: unspecified Qualified Code(s): I10 - Essential (primary) hypertension Category: Medical Code(s): I10 - Essential (primary) hypertension (8) Type 2 diabetes mellitus with diabetic polyneuropathy, without long-term current use of insulin: Status: Acute Category: Medical Code(s): E11.42 - Type 2 diabetes mellitus with diabetic polyneuropathy (9) BMI greater than 40: Status: Acute Category: Medical (10) Hypothyroid: Status: Acute Category: Medical Code(s): E03.9 - Hypothyroidism, unspecified Plan Ms. Ahmadi is an 82-year-old female with multiple comorbidities. Lives alone and has macular degeneration. Presents with concern for CHF exacerbation. Discussed case with ER physician, request admission for therapy eval, diuresis, further management for safe dispo planning. Medicine agreed to admit. Responding to diuresis. Edema better this morning. Needs placement. Anticipate discharge the beginning of the week. On room air. Problems addressed as follows: History of CABG CAD Acute on chronic heart failure with preserved ejection fraction Hypertension Atrial fibrillation - Patient reports history of CHF, unclear if it is diastolic or systolic. Echo obtained, pending results strict I's and O's. Goal -1 to 2 L in the next 24 hours. - Continue home metoprolol succinate 25 mg daily - Continue Eliquis for A-fib. - on aspirin 81 mg daily. Diabetes: Well-controlled with A1c of 7.4. Continue metformin 500 mg twice daily along with fingersticks ACHS and sliding scale insulin. continue meds for chronic conditions as follows: Hypothyroid: Continue levothyroxine 125 mcg daily. Continue metoprolol succinate 25 mg daily and losartan 75 mg daily for hypertension Continue pantoprazole 40 mg nightly for GERD Continue pravastatin 10 mg daily for hyperlipidemia Continue amitriptyline 50 mg daily for mood Morbid obesity complicates all aspects of her care DNR Cardiac diet Jessi STAPLES/CLIFTON on board, awaiting placement
[2023-06-30 12:00] VITALS: BP 153/80; PULSE 100; PULSE 112; RESP 17; TEMP 36.9; O2SAT 96
[2023-06-30 12:00] LABS: POC Glucose,Bedside 141 (70-110)
[2023-06-30 12:21] LABS: Magnesium 1.7 mg/dl (1.6-2.3)
[2023-06-30 16:00] VITALS: BP 148/57; PULSE 100; PULSE 103; RESP 18; O2SAT 98
[2023-06-30] MEDS: humaLOG 100 UNITS/ML 3ML VIAL (SSI) SQ ×2 (16:33→20:39)
[2023-06-30 17:14] LABS: POC Glucose,Bedside 195 (70-110)
[2023-06-30 20:00] VITALS: BP 140/68; PULSE 102; PULSE 110; RESP 18; TEMP 36.6; O2SAT 97
[2023-06-30] MEDS: PANTOPRAZOLE 40MG TABLET 40 MG PO (20:40)
[2023-06-30 20:51] LABS: POC Glucose,Bedside 175 (70-110)
[2023-07-01] VITALS: BP 152/90; PULSE 100; PULSE 108; RESP 18; TEMP 36.9; O2SAT 97
--- NOTE | 2023-07-01 03:36 | PC.NURSE ---
Pt is alert and oriented x4 and currently tolerating RA well. Pt has denied pain this shift and remains a fall risk with alarm set. Pt has open area to left back side of heel this nurse dressed heel with foam dressing and applied heel protector and elevated heels. Pt has multiple blisters on lower extremities in various stages of healing some of which are actively seeping. Pt has slept well for the later part of the shift and denies needs.
[2023-07-01 04:00] VITALS: BP 160/79; PULSE 106; PULSE 110; RESP 24; TEMP 36.8; O2SAT 96; BMI 41.7
[2023-07-01 05:04] LABS: POC Glucose,Bedside 144 (70-110)
[2023-07-01] MEDS: FLUTICASONE/SALMETEROL 250/50MCG DISKUS 1 PUFF IH (06:15)
[2023-07-01] MEDS: LEVOTHYROXINE 125MCG (0.125MG) TAB 125 MCG PO (06:26)
[2023-07-01] MEDS: METFORMIN 500MG TABLET 500 MG PO (06:32)
[2023-07-01 06:48] LABS: Basophils # 0.1 K/mm3 (0-0.2); Basophils % 0.5 % (0.1-2.0); Eosinophils # 0.1 K/mm3 (0.0-0.4); Eosinophils % 1.2 % (0.1-12.0); Hematocrit 33.7 % (37.0-47.0); Hemoglobin 10.8 g/dL (12.2-16.2); Lymphocytes # 1.5 K/mm3 (0.7-4.5); Lymphocytes % 14.3 % (10-50); Mean Corpuscular HGB Conc 32.1 g/dL (31.8-35.4); Mean Corpuscular Hemoglobin 30.3 pg (27.0-31.2); Mean Corpuscular Volume 94.2 fl (81-99); Mean Platelet Volume 7.9 fl (7.4-10.4); Monocytes # 0.6 K/mm3 (0.1-1.0); Monocytes % 5.4 % (1.7-9.3); Neutrophils # 8.3 K/mm3 (1.8-7.8); Neutrophils % 78.5 % (37.0-80.0); Platelet Count 331 K/mm3 (142-424); Red Blood Count 3.58 M/mm3 (4.20-5.40); Red Cell Distribution Width 15.7 % (11.5-17.5); White Blood Count 10.6 K/mm3 (4.8-10.8)
[2023-07-01 07:03] LABS: Alanine Aminotransferase 23 U/L (12-78); Albumin Level 3.4 g/dl (3.5-5.0); Albumin/Globulin Ratio 1.1 (1.1-1.8); Alkaline Phosphatase 96 U/L (38-126); Anion Gap 7.3 mEq/L (5-15); Aspartate Amino Transferase 26 U/L (14-36); Bilirubin,Total 0.7 mg/dl (0.2-1.3); Blood Urea Nitrogen 19 mg/dl (7-17); Calcium 8.9 mg/dl (8.4-10.2); Carbon Dioxide 32 mmol/L (22.0-30.0); Chloride 95 mmol/L (98-107); Creatinine Clearance Estimated 29 mL/min (50-200); Estimated Glomerular Filt Rate 80 ml/min (>60); GFR (African American) 96 ML/MIN (>60); Globulin 3.1 g/dL (1.3-3.2); Glucose 136 mg/dl (74-100); Potassium 4.3 mmoL/L (3.5-5.1); Sodium 130 mmol/L (136-145); Total Protein,Serum 6.5 g/dl (6.3-8.2)
[2023-07-01 08:00] VITALS: BP 148/80; PULSE 113; PULSE 121; RESP 16; TEMP 36.7; O2SAT 96; O2SAT 98
[2023-07-01] MEDS: METOPROLOL SUCCINATE XL 25MG TABLET 25 MG PO (09:12)
[2023-07-01] MEDS: AMITRIPTYLINE 50MG TABLET 50 MG PO (09:12)
[2023-07-01] MEDS: APIXABAN 5MG TABLET 5 MG PO (09:13)
[2023-07-01] MEDS: PRAVASTATIN 20MG TAB 10 MG PO (09:13)
[2023-07-01] MEDS: IRBESARTAN 75MG TABLET 112.5 MG PO (09:15)
[2023-07-01] MEDS: MAGNESIUM OXIDE 400MG TABLET 400 MG PO (09:17)
[2023-07-01] MEDS: FUROSEMIDE 80 MG TABLET PO (11:51)
[2023-07-01 12:00] VITALS: BP 137/73; PULSE 103; PULSE 110; RESP 18; TEMP 36.6; O2SAT 98
[2023-07-01 12:04] LABS: POC Glucose,Bedside 121 (70-110)
--- NOTE | 2023-07-01 12:48 | P.DS_ITS ---
General Admission date:: 06/27/23 Discharge date: 07/01/23 HPI HPI HPI: Ms. Ahmadi is an 82-year-old female with history of hypertension, hyperlipidemia, diabetes, CAD, CHF, CABG, A-fib on Eliquis. Multiple surgeries in the past per history as well. She presented to the ER with her daughter at the referral of her PCP because of worsening lower extremity swelling. There was some initial concern for cellulitis, heart failure, failure to thrive and worsening debility as patient has been having falls at home and weeping from her legs. She lives by herself and has macular degeneration and has been having a harder time caring for herself. On arrival to the ER, patient is on room air. Does have worsening swelling in her legs and some redness. When her shoes were taken off, they appear to have been on for quite some time and the lining of the inside of the shoe had stuck to her feet. Patient denies fever, chills, nausea, vomiting, diarrhea, chest pain, cough, dizziness or headache. Satting in the mid to high 90s on room air. Sleeps in a recliner. Reports she falls because her hip catches as she has bad arthritis and when this happens her leg gives out. Usually ambulates with a walker. Has no desire to go to a retirement and is very adamant to state this multiple times that we cannot make her. I informed her that we do not make people go to nursing homes but we want what is best for her and want her to be safe when she is stable to discharge from the hospital. Son and daughter at bedside. Workup with elevation of BNP and chest imaging showing some volume overload. Medicine was consulted for admission, further dispo planning, diuresis, and therapy eval's. On my evaluation, patient is comfortable in bed. Appears alert and oriented able to make her own decisions at this time. Significant edema in her legs consistent with heart failure and stasis dermatitis. In the setting of normal white count, no fever, no warmth in legs, low concern for cellulitis Hospital Course Hospital Course Hospital Course: Ms. Ahmadi is an 82-year-old female with multiple comorbidities. Lives alone and has macular degeneration. Presents with concern for CHF exacerbation. Discussed case with ER physician, request admission for therapy eval, diuresis, further management for safe dispo planning. Medicine agreed to admit. Responding to diuresis. Edema better during admission. Evaluated by therapy, recommend placement. Stable for discharge to [facility]. Problems addressed as follows: History of CABG CAD Acute on chronic heart failure with preserved ejection fraction Hypertension Atrial fibrillation - Patient reports history of CHF, unclear if it is diastolic or systolic. Echo obtained, preliminary with preserved EF. Suspect diastolic dysfunction. Diuresed daily. Responding well to Lasix IV. Edema improving. Will resume Lasix 80 mg oral once daily at discharge. Continue home metoprolol succinate 25 mg daily, Eliquis for A-fib, and aspirin 81 mg daily. Given response to diuresis, clinical stability, stable on room air, stable to discharge for critical access hospital management as an outpatient. Diabetes: Well-controlled with A1c of 7.4. Continue metformin 500 mg twice daily. continue meds for chronic conditions as follows: Hypothyroid: Continue levothyroxine 125 mcg daily. Continue metoprolol succinate 25 mg daily and losartan 75 mg daily for hypertension Continue pantoprazole 40 mg nightly for GERD Continue pravastatin 10 mg daily for hyperlipidemia Continue amitriptyline 50 mg daily for mood Morbid obesity complicates all aspects of her care Stable for discharge to rehab. Exam Data for Last 24 hours Vital signs and Labs for Last 24 Hours: Temp Pulse Resp BP Pulse Ox O2 Del Method 97.8 F 103 H 18 137/73 98 Room Air 07/01/23 12:00 07/01/23 12:00 07/01/23 12:00 07/01/23 12:00 07/01/23 12:00 07/01/23 12:00 Laboratory Results - last 24 hr 06/30/23 16:31: POC Glucose 195 H 06/30/23 20:38: POC Glucose 175 H 07/01/23 04:57: POC Glucose 144 H 07/01/23 05:39: WBC 10.6, RBC 3.58 L, Hgb 10.8 L, Hct 33.7 L, MCV 94.2, MCH 30.3, MCHC 32.1, RDW 15.7, Plt Count 331, MPV 7.9, Neut % (Auto) 78.5, Lymph % (Auto) 14.3, [place] % (Auto) 5.4, Eos % (Auto) 1.2, Baso % (Auto) 0.5, Neut # (Auto) 8.3 H, Lymph # (Auto) 1.5, [place] # (Auto) 0.6, Eos # (Auto) 0.1, Baso # (Auto) 0.1, Sodium 130 L, Potassium 4.3, Chloride 95 L, Carbon Dioxide 32 H, Anion Gap 7.3, BUN 19 H, Creatinine 0.70, Estimated Creat Clear 29, Estimated GFR 80, Est GFR ( Amer) 96, Glucose 136 H, Calcium 8.9, Total Bilirubin 0.7, AST 26, ALT 23, Alkaline Phosphatase 96, Total Protein 6.5, Albumin 3.4 L, Globulin 3.1, Albumin/Globulin Ratio 1.1 07/01/23 11:56: POC Glucose 121 H I & O for Last 24 hours: Intake & Output 06/28/23 06/29/23 06/30/23 07/01/23 23:59 23:59 23:59 23:59 Intake Total 990 / 1230 1370 / 1490 1440 / 1560 895 / 895 Output Total 0 / 0 800 / 800 0 / 0 0 / 0 Balance 990 / 1230 570 / 690 1440 / 1560 895 / 895 Weight 97.79 kg 98.033 kg 96.797 kg 96.332 kg Microbiology Reports for the Last 24 Hours: Microbiology 06/27/23 12:06 Blood Blood Culture - Preliminary 06/27/23 12:08 Blood Blood Culture - Preliminary Constitutional Constitutional: no acute distress, morbidly obese, chronically ill appearing and cooperative *Routine HEENT Exam Head: Present normocephalic Eye: Present EOMI and PERRL ENT: Present mucous membranes moist *Routine Neck Exam Neck: Present supple; Absent lymphadenopathy *Routine Respiratory Exam Respiratory: Present CTA bilaterally; Absent rhonchi, wheezes or crackles *Routine Cardiovascular Exam Cardiovascular: Present irregularly irregular *Routine Abdominal Exam Abdominal: Present soft and normoactive bowel sounds; Absent tenderness *Routine Rectal Exam Patient deferred: visual exam *Routine Exam Patient deferred: external exam *Routine Extremities Exam Extremities: Present edema (1+ edema to knees); Absent cyanosis or clubbing Comments: chronic stasis dermatitis *Routine Skin Exam Skin: Present intact, erythema (bilateral shins, dermatitis on legs) and warm; Absent rash *Routine Neurological Exam Neurological: Present alert, oriented X3 and moving all extremities; Absent altered mental status Results Data Completed and Pending Labs on day of discharge: Labs from last 24 hours 07/01/23 07/01/23 07/01/23 11:56 05:39 04:57 WBC 10.6 RBC 3.58 L Hgb 10.8 L Hct 33.7 L MCV 94.2 MCH 30.3 MCHC 32.1 RDW 15.7 Plt Count 331 MPV 7.9 Neut % (Auto) 78.5 Lymph % (Auto) 14.3 [place] % (Auto) 5.4 Eos % (Auto) 1.2 Baso % (Auto) 0.5 Neut # (Auto) 8.3 H Lymph # (Auto) 1.5 [place] # (Auto) 0.6 Eos # (Auto) 0.1 Baso # (Auto) 0.1 Sodium 130 L Potassium 4.3 Chloride 95 L Carbon Dioxide 32 H Anion Gap 7.3 BUN 19 H Creatinine 0.70 Estimated Creat Clear 29 Estimated GFR 80 Est GFR ( Amer) 96 Glucose 136 H POC Glucose 121 H 144 H Calcium 8.9 Total Bilirubin 0.7 AST 26 ALT 23 Alkaline Phosphatase 96 Total Protein 6.5 Albumin 3.4 L Globulin 3.1 Albumin/Globulin Ratio 1.1 06/30/23 06/30/23 20:38 16:31 WBC RBC Hgb Hct MCV MCH MCHC RDW Plt Count MPV Neut % (Auto) Lymph % (Auto) [place] % (Auto) Eos % (Auto) Baso % (Auto) Neut # (Auto) Lymph # (Auto) [place] # (Auto) Eos # (Auto) Baso # (Auto) Sodium Potassium Chloride Carbon Dioxide Anion Gap BUN Creatinine Estimated Creat Clear Estimated GFR Est GFR ( Amer) Glucose POC Glucose 175 H 195 H Calcium Total Bilirubin AST ALT Alkaline Phosphatase Total Protein Albumin Globulin Albumin/Globulin Ratio Preliminary micro results at discharge 06/27/23 12:06 Blood Culture - Preliminary Blood 06/27/23 12:08 Blood Culture - Preliminary Blood DS: Diagnosis Discharge Diagnosis (1) CHF exacerbation: Status: Chronic Code(s): I50.9 - Heart failure, unspecified Qualifiers: Heart failure type: diastolic Qualified Code(s): I50.33 - Acute on chronic diastolic (congestive) heart failure (2) Afib: Status: Acute Code(s): I48.91 - Unspecified atrial fibrillation (3) Declining functional status: Status: Acute Code(s): R53.81 - Other malaise (4) Multiple falls: Status: Acute Code(s): R29.6 - Repeated falls (5) HLD (hyperlipidemia): Status: Acute Code(s): E78.5 - Hyperlipidemia, unspecified (6) Osteoarthritis (arthritis due to wear and tear of joints): Status: Acute Code(s): M19.90 - Unspecified osteoarthritis, unspecified site (7) Hypertension: Status: Acute Code(s): I10 - Essential (primary) hypertension Qualifiers: Hypertension type: unspecified Qualified Code(s): I10 - Essential (primary) hypertension (8) Type 2 diabetes mellitus with diabetic polyneuropathy, without long-term current use of insulin: Status: Acute Code(s): E11.42 - Type 2 diabetes mellitus with diabetic polyneuropathy (9) BMI greater than 40: Status: Acute (10) Hypothyroid: Status: Acute Code(s): E03.9 - Hypothyroidism, unspecified Meds Home Medications and Allergies Home Medications Medication Instructions Recorded Confirmed Type acetaminophen 500 mg tablet 500 mg PO BID PRN Pain 06/04/22 06/28/23 History multivitamin (Daily Multi-Vitamin 1 tab PO DAILY 07/30/22 06/28/23 History tablet) clobetasol 0.05 % scalp solution 1 applic topical DAILY 08/17/22 06/28/23 History ketoconazole 2 % shampoo 1 applic topical Q2W 08/17/22 06/28/23 History albuterol sulfate 90 mcg/actuation 2 puff inhalation NEEDED PRN 10/29/22 06/28/23 Rx aerosol inhaler soa 30 days #8.5 grams aspirin 81 mg tablet,delayed 81 mg PO DAILY 10/29/22 06/28/23 History release (Adult Low Dose Aspirin) levothyroxine 125 mcg tablet 125 mcg PO DAILY thyroid #90 tabs 12/31/22 06/28/23 Rx amitriptyline 50 mg tablet 50 mg PO DAILY #90 tabs 01/29/23 06/28/23 Rx fluticasone furoate 100 1 inh inhalation DAILY Breathing 01/29/23 06/28/23 Rx mcg-vilanterol 25 mcg/dose problems #60 ea inhalation powder (Breo Ellipta) furosemide 80 mg tablet 80 mg PO DAILY #90 tabs 01/29/23 06/28/23 Rx metformin 500 mg tablet 500 mg PO BID Diabetes #180 tabs 01/29/23 06/28/23 Rx potassium chloride 20 mEq 20 meq PO DAILY Supplement #90 tabs 01/29/23 06/28/23 Rx tablet,extended release mupirocin 2 % topical ointment 1 applic topical BID #15 grams 05/03/23 06/28/23 Rx nystatin 100,000 unit/gram topical See Rx Instructions .Route 05/03/23 06/28/23 Rx powder .COMPLEX #60 grams apixaban 5 mg tablet 5 mg PO BID 06/27/23 06/28/23 History diclofenac sodium 1 % topical gel 2 g topical QID PRN Pain 06/27/23 06/28/23 History (Voltaren Arthritis Pain) losartan 50 mg tablet 75 mg PO DAILY 06/27/23 06/28/23 History metoprolol succinate 25 mg 25 mg PO DAILY 06/27/23 06/28/23 History tablet,extended release 24 hr [id number] 100 mcg-lut 1.66 1 tab PO BID 06/27/23 06/28/23 History mg-zeaxanth 0.83 mg tablet,delay rel. (Icaps MV) omeprazole 40 mg capsule,delayed 40 mg PO DAILY 06/27/23 06/28/23 History release ondansetron 4 mg disintegrating 4 mg PO Q8H PRN Nausea 06/27/23 06/28/23 History tablet pravastatin 10 mg tablet 10 mg PO DAILY 06/27/23 06/28/23 History magnesium oxide 400 mg (241.3 mg 400 mg PO DAILY #0 tabs 07/01/23 Rx magnesium) tablet New Prescriptions to Start Prescriptions: Allergies Allergy/AdvReac Type Severity Reaction Status Date / Time adenosine [ADENOSINE] Allergy Unknown S-ANAPHYLAX Verified 06/27/23 10:58 IS benzonatate Allergy Unknown Verified 06/27/23 10:58 [From [facility] SMITH] morphine [MORPHINE] Allergy Unknown KNOCKS Verified 06/27/23 10:58 OUT Penicillins [PENICILLINS] Allergy Unknown I-RASH Verified 06/27/23 10:58 Sulfa (Sulfonamide Allergy Unknown I-RASH Verified 06/27/23 10:58 Antibiotics) [SULFA (SULFONAMIDE ANTIBIOTICS)] albuterol Allergy Blurry Verified 06/27/23 10:58 Vision Discharge Plan Disposition Patient Disposition: Xfer SNF Condition: Good Discharge Order Discharge Orders: Discharge Order (Routine); Ordered 07/01/23 Ordered By: lBaine Lepe Follow up Plan Follow up with: Larisa Banuelos APRN [Primary Care Provider] - Enter time for follow up Prescriptions/Medication Reconciliation: New magnesium oxide 400 mg (241.3 mg magnesium) Tablet 400 mg PO DAILY Qty: 0 0RF Continued aspirin [Adult Low Dose Aspirin] 81 mg tablet,delayed release (DR/EC) 81 mg PO DAILY multivitamin [Daily Multi-Vitamin] Tablet 1 tab PO DAILY albuterol sulfate 90 mcg/actuation HFA aerosol inhaler 2 puff INHALATION NEEDED PRN (Reason: soa) 30 Days Qty: 8.5 5RF amitriptyline 50 mg tablet 50 mg PO DAILY Qty: 90 3RF fluticasone furoate-vilanterol [Breo Ellipta] 100-25 mcg/dose blister with device 1 inh inhalation DAILY Qty: 60 5RF furosemide 80 mg tablet 80 mg PO DAILY Qty: 90 3RF metformin 500 mg tablet 500 mg PO BID Qty: 180 3RF potassium chloride 20 mEq tablet extended release 20 meq PO DAILY Qty: 90 3RF levothyroxine 125 mcg tablet 125 mcg PO DAILY Qty: 90 1RF mupirocin 2 % ointment 1 applic topical BID Qty: 15 0RF nystatin 100,000 unit/gram powder See Rx Instructions .ROUTE .COMPLEX Qty: 60 2RF Dose Instruction: APPLY TO AFFECTED AREA DAILY Rx Instructions: APPLY TO AFFECTED AREA DAILY ketoconazole 2 % shampoo 1 applic topical Q2W clobetasol 0.05 % solution 1 applic topical DAILY acetaminophen 500 mg tablet 500 mg PO BID PRN (Reason: Pain) metoprolol succinate 25 mg tablet extended release 24 hr 25 mg PO DAILY omeprazole 40 mg capsule,delayed release(DR/EC) 40 mg PO DAILY pravastatin 10 mg tablet 10 mg PO DAILY apixaban 5 mg tablet 5 mg PO BID Icaps MV 100-1.66-0.83 mcg-mg-mg Tablet,Delayed Release (Dr/Ec) 1 tab PO BID losartan 50 mg tablet 75 mg PO DAILY ondansetron 4 mg tablet,disintegrating 4 mg PO Q8H PRN (Reason: Nausea) diclofenac sodium [Voltaren Arthritis Pain] 1 % gel 2 g topical QID PRN (Reason: Pain) Problem Reconciliation Problems Reviewed?: Yes Patient Discharge Instructions ACTIVITY: Continue current activity and Up with assistance DIET: continue same diet Patient Instructions: DI for Heart Failure, How to Prevent Falls Providers Primary Care Provider: Larisa Banuelos Admit Provider: Blaine Lepe Attending Provider: Blaine Lepe
== END 2023-07-01 15:32 | DRG 291 ==
LOC: ER 12:12 → 2ND 14:20
PROVIDERS: Internal Medicine; Admitting Provider Internal Medicine Adolescent Medicine; Emergency Provider Emergency Medicine; PCP Nurse Practitioner Family; Visit Provider Internal Medicine Adolescent Medicine
DX: I11.0 Hypertensive heart disease with heart failure (principal); I50.33 Acute on chronic diastolic (congestive) heart failure; I48.91 Unspecified atrial fibrillation; R29.6 Repeated falls; E78.5 Hyperlipidemia, unspecified; M19.90 Unspecified osteoarthritis, unspecified site; E11.42 Type 2 diabetes mellitus with diabetic polyneuropathy; E03.9 Hypothyroidism, unspecified; E11.51 Type 2 diabetes mellitus with diabetic peripheral angiopathy without gangrene; Z95.0 Presence of cardiac pacemaker; K21.9 Gastro-esophageal reflux disease without esophagitis; Z96.653 Presence of artificial knee joint, bilateral; M16.11 Unilateral primary osteoarthritis, right hip; Z66 Do not resuscitate; E66.01 Morbid (severe) obesity due to excess calories
CPT/HCPCS: 36415; 70450; 71045; 72125; 80053; 82962; 83036; 83735; 83880; 84436; 84443; 84484; 85025; 87040; 93005; 93306; 94640; 97110; 97116; 97162; 97166; 97530; 99285; J3475

== ENCOUNTER 2023-08-06 14:51 | Inpatient (IN) | payer MEDICARE, OTHER, SELFPAY ==
[2023-08-06 14:53] VITALS: BP 215/115; PULSE 127; RESP 24; TEMP 36.9; O2SAT 96; BMI 41.8
--- NOTE | 2023-08-06 14:54 | ED_ITS ---
<Statement entered by Mary Nunez MD - 08/06/23 23:11> I was consulted by the KENJI, and we discussed the complexity of the problems being addressed. I approved the treatment and management plan for this patient's care in the emergency department, thus performing a substantive portion of the medical decision making. Mary Nunez MD, CECE, FACEP Discharge Plan Disposition Patient Disposition: Admitted Condition: Fair Prescriptions Prescriptions: No Action aspirin [Adult Low Dose Aspirin] 81 mg tablet,delayed release (DR/EC) 81 mg PO DAILY multivitamin [Daily Multi-Vitamin] Tablet 1 tab PO DAILY albuterol sulfate 90 mcg/actuation HFA aerosol inhaler 2 puff INHALATION NEEDED PRN (Reason: soa) 30 Days Qty: 8.5 5RF amitriptyline 50 mg tablet 50 mg PO DAILY Qty: 90 3RF fluticasone furoate-vilanterol [Breo Ellipta] 100-25 mcg/dose blister with device 1 inh inhalation DAILY Qty: 60 5RF furosemide 80 mg tablet 80 mg PO DAILY Qty: 90 3RF metformin 500 mg tablet 500 mg PO BID Qty: 180 3RF potassium chloride 20 mEq tablet extended release 20 meq PO DAILY Qty: 90 3RF levothyroxine 125 mcg tablet 125 mcg PO DAILY Qty: 90 1RF mupirocin 2 % ointment 1 applic topical BID Qty: 15 0RF nystatin 100,000 unit/gram powder See Rx Instructions .ROUTE .COMPLEX Qty: 60 2RF Dose Instruction: APPLY TO AFFECTED AREA DAILY Rx Instructions: APPLY TO AFFECTED AREA DAILY ketoconazole 2 % shampoo 1 applic topical Q2W clobetasol 0.05 % solution 1 applic topical DAILY acetaminophen 500 mg tablet 500 mg PO BID PRN (Reason: Pain) metoprolol succinate 25 mg tablet extended release 24 hr 25 mg PO DAILY omeprazole 40 mg capsule,delayed release(DR/EC) 40 mg PO DAILY pravastatin 10 mg tablet 10 mg PO DAILY apixaban 5 mg tablet 5 mg PO BID Icaps MV 100-1.66-0.83 mcg-mg-mg Tablet,Delayed Release (Dr/Ec) 1 tab PO BID losartan 50 mg tablet 75 mg PO DAILY ondansetron 4 mg tablet,disintegrating 4 mg PO Q8H PRN (Reason: Nausea) diclofenac sodium [Voltaren Arthritis Pain] 1 % gel 2 g topical QID PRN (Reason: Pain) magnesium oxide 400 mg (241.3 mg magnesium) Tablet 400 mg PO DAILY Qty: 0 0RF Referrals Follow up/Referrals: Larisa Banuelos APRN [Primary Care Provider] - See instructions Clinical Impressions Clinical Impression: Atrial fibrillation with rapid ventricular response, Elevated troponin I level, Volume overload Discharge ED Provider: Mary Nunez General Adult HPI <GABINO Herr - Last Filed: 08/06/23 16:30> General Chief complaint: Arrhythmia/Palpitations Stated complaint: high BP, pain in legs, soa Time Seen by Provider: 08/06/23 14:54 History of Present Illness HPI narrative: Patient presents for evaluation of elevated blood pressure shortness of breath on exertion and bilateral lower extremity pain. Patient has a past medical history of atherosclerotic cardiovascular disease status post coronary artery bypass graft, atrial fibrillation on chronic anticoagulation with apixaban and metoprolol, CHF with preserved EF on 80 of Lasix a day hypothyroidism, hypertension on losartan, type 2 diabetes mellitus metformin. Patient gives a several week history of increasing shortness of breath with exertion, a blood pressure that is been significantly elevated but she is not sure how long. Patient tells me that she cannot tell when her heart rate is fast. Patient presented with a heart rate greater than 120 sustained on arrival. Patient denies chest pain fever chills hemoptysis hematochezia melena nausea vomit diarrhea. Related Data Home Medications Medication Instructions Recorded Confirmed acetaminophen 500 mg tablet 500 mg PO BID PRN Pain 06/04/22 06/28/23 multivitamin (Daily Multi-Vitamin 1 tab PO DAILY 07/30/22 06/28/23 tablet) clobetasol 0.05 % scalp solution 1 applic topical DAILY 08/17/22 06/28/23 ketoconazole 2 % shampoo 1 applic topical Q2W 08/17/22 06/28/23 aspirin 81 mg tablet,delayed 81 mg PO DAILY 10/29/22 06/28/23 release (Adult Low Dose Aspirin) apixaban 5 mg tablet 5 mg PO BID 06/27/23 06/28/23 diclofenac sodium 1 % topical gel 2 g topical QID PRN Pain 06/27/23 06/28/23 (Voltaren Arthritis Pain) losartan 50 mg tablet 75 mg PO DAILY 06/27/23 06/28/23 metoprolol succinate 25 mg 25 mg PO DAILY 06/27/23 06/28/23 tablet,extended release 24 hr [id number] 100 mcg-lut 1.66 1 tab PO BID 06/27/23 06/28/23 mg-zeaxanth 0.83 mg tablet,delay rel. (Icaps MV) omeprazole 40 mg capsule,delayed 40 mg PO DAILY 06/27/23 06/28/23 release ondansetron 4 mg disintegrating 4 mg PO Q8H PRN Nausea 06/27/23 06/28/23 tablet pravastatin 10 mg tablet 10 mg PO DAILY 06/27/23 06/28/23 Previous Rx's Medication Instructions Recorded albuterol sulfate 90 mcg/actuation 2 puff inhalation NEEDED PRN 10/29/22 aerosol inhaler soa 30 days #8.5 grams levothyroxine 125 mcg tablet 125 mcg PO DAILY thyroid #90 tabs 12/31/22 amitriptyline 50 mg tablet 50 mg PO DAILY #90 tabs 01/29/23 fluticasone furoate 100 1 inh inhalation DAILY Breathing 01/29/23 mcg-vilanterol 25 mcg/dose problems #60 ea inhalation powder (Breo Ellipta) furosemide 80 mg tablet 80 mg PO DAILY #90 tabs 01/29/23 metformin 500 mg tablet 500 mg PO BID Diabetes #180 tabs 01/29/23 potassium chloride 20 mEq 20 meq PO DAILY Supplement #90 tabs 01/29/23 tablet,extended release mupirocin 2 % topical ointment 1 applic topical BID #15 grams 05/03/23 nystatin 100,000 unit/gram topical See Rx Instructions .Route 05/03/23 powder .COMPLEX #60 grams magnesium oxide 400 mg (241.3 mg 400 mg PO DAILY #0 tabs 07/01/23 magnesium) tablet Allergies Allergy/AdvReac Type Severity Reaction Status Date / Time adenosine [ADENOSINE] Allergy Unknown S-ANAPHYLAX Verified 06/27/23 10:58 IS benzonatate Allergy Unknown Verified 06/27/23 10:58 [From TESANABELA SMITH] morphine [MORPHINE] Allergy Unknown KNOCKS Verified 06/27/23 10:58 OUT Penicillins [PENICILLINS] Allergy Unknown I-RASH Verified 06/27/23 10:58 Sulfa (Sulfonamide Allergy Unknown I-RASH Verified 06/27/23 10:58 Antibiotics) [SULFA (SULFONAMIDE ANTIBIOTICS)] albuterol Allergy Blurry Verified 06/27/23 10:58 Vision [facility] <GABINO Herr - Last Filed: 08/06/23 16:30> [facility] Disclaimer: The information contained in this section may have been updated after the patient was seen, as this information can be updated by other users. Medical History Candidiasis of vagina Pyelonephritis Dysphonia Candidiasis Migraine History of pacemaker Supraventricular tachycardia PVD (peripheral vascular disease) PAD (peripheral artery disease) Kidney stones Lung disease Pacemaker HTN (hypertension), benign GERD (gastroesophageal reflux disease) Type 2 diabetes mellitus without complications Coronary artery disease CHF (congestive heart failure) Chest wall contusion Hx of fall Closed rib fracture Headache Cough Bronchitis Surgical History History of cholecystectomy History of appendectomy Status post biopsy of kidney History of hysterectomy Hx of CABG History of bilateral carpal tunnel release H/O arthroscopy of shoulder Family History Diabetes Hyperlipidemia Hypertension Social History Smoking Status: Never smoker second hand exposure: No alcohol intake: never substance use type: denies use current occupational status: retired Travel in the last 8 weeks: None household members: other housing: house lives independently: Yes marital status: education level: high school current occupational exposures/hazards: No caffeine: Yes special seymour needs: No agree to transfusion: No do you feel safe at home: Yes victim of physical abuse: No victim of emotional abuse: No victim of sexual abuse: No would you like helpful sources: No <GABINO Herr - Last Filed: 08/06/23 16:30> ROS Obtained: Yes Systems reviewed as appropriate & no additional complaints except as documented Physical Exam <GABINO Herr - Last Filed: 08/06/23 16:30> General General appearance: alert and in no apparent distress Head Head exam: atraumatic and normal inspection Eye Eye exam: Present normal appearance and EOMI ENT ENT exam: Present normal exam, normal oropharynx and mucous membranes moist Neck Neck exam: Present normal inspection and full ROM Chest Chest inspection: Present normal inspection and symmetric chest wall rise Respiratory Respiratory exam: Present normal lung sounds bilaterally; Absent respiratory distress, wheezes or accessory muscle use Cardiovascular Cardiovascular exam: Present irregular rhythm (Irregularly irregular rapid rate and rhythm) Abdominal Exam Abdominal exam: Present soft (Obese but soft) and normal bowel sounds; Absent tenderness, guarding or rebound Extremities Exam Extremities exam: Present normal inspection, full ROM and edema (Tense 3+ pitting edema bilateral lower extremities to the level of the thighs. Palpation is tender.) Back Exam Back exam: Present normal inspection and full ROM; Absent tenderness Neurological Exam Neurological exam: Present alert, oriented X3 and CN II-XII intact Psychiatric Psychiatric exam: Present normal affect and normal mood Skin Skin exam: Present warm, dry and normal color Medical Decision Making <GABINO Herr - Last Filed: 08/06/23 16:30> Medical Records Medical records reviewed: Yes I reviewed the patient's medical records. Tye Inquiry Pt receiving controlled substance: No Vital Signs: 08/06/23 14:53 08/06/23 15:31 08/06/23 15:56 Temperature 98.4 F Temperature Source Oral Pulse Rate 94 H 99 H Pulse Rate [Right] 127 H Respiratory Rate 24 15 20 Blood Pressure 156/63 H 139/61 Blood Pressure [Right Arm] 215/115 H Blood Pressure Mean [Right Arm] 148 02 Sat by Pulse Oximetry 96 95 98 Oxygen Delivery Method Room Air Room Air Room Air Lab Data Lab results reviewed: Yes I reviewed the patient's lab results. Lab Results 08/06/23 15:04: WBC 9.0, RBC 3.38 L, Hgb 10.6 L, Hct 31.9 L, MCV 94.5, MCH 31.2, MCHC 33.0, RDW 15.4, Plt Count 346, MPV 8.0, Neut % (Auto) 70.4, Lymph % (Auto) 21.4, [place] % (Auto) 5.5, Eos % (Auto) 2.2, Baso % (Auto) 0.6, Neut # (Auto) 6.3, Lymph # (Auto) 1.9, [place] # (Auto) 0.5, Eos # (Auto) 0.2, Baso # (Auto) 0.1, PT 10.7, INR 0.99, D-Dimer 0.76 H, Sodium 134 L, Potassium 5.0, Chloride 104, Carbon Dioxide 26, Anion Gap 9.0, BUN 11, Creatinine 0.50 L, Estimated Creat Clear 30, Estimated GFR 118, Est GFR ( Amer) 142, Glucose 120 H, Calcium 9.4, Magnesium 1.4 L, Total Bilirubin 1.0, AST 46 H, ALT 26, Alkaline Phosphatase 89, Troponin I 0.02, NT-Pro-B Natriuret Pep 1120 H, Total Protein 7.0, Albumin 4.0, Globulin 3.0, Albumin/Globulin Ratio 1.3, TSH 3.35 08/06/23 15:09: VBG pH 7.46 H, VBG pCO2 31.9 L, VBG pO2 123.5 H, VBG HCO3 22.2 L , VBG Total CO2 23.2, VBG O2 Saturation 98.5 H, VBG Base Excess -1.6, VBG Lactic Acid 2.7 H 08/06/23 15:04 08/06/23 15:04 Orders (Tests/Meds): ED MEDICATIONS Generic Name Dose Route Start Last Admin Trade Name Freq PRN Reason Stop Dose Admin Bumetanide 1 mg 08/07/23 09:00 Bumetanide 1mg/4ml Vial IV 09/06/23 08:59 BIDL LAMIN Discontinued Medications Generic Name Dose Route Start Last Admin Trade Name Freq PRN Reason Stop Dose Admin Bumetanide 1 mg 08/06/23 15:05 08/06/23 15:18 Bumetanide 1mg/4ml Vial IV 08/06/23 15:06 1 mg ONCE ONE Administration Metoprolol Tartrate 5 mg 08/06/23 15:05 08/06/23 15:19 Metoprolol Tartrate 5mg/5ml Vial IV 08/06/23 15:06 5 mg ONCE ONE Administration ORDERS Category Date Time Status Cardiology Consult [Consult to Cardiology] [CONS] Cons 08/06/23 16:12 Active Routine Chest XR -- portable [XR chest portable] Stat Exams 08/06/23 15:08 Taken BNP [NT Pro Brain Natriuretic Pep.] Stat Lab 08/06/23 15:04 Completed CBC w/Auto Diff [Complete Blood Count Auto Diff] Stat Lab 08/06/23 15:04 Completed CMP [Comprehensive Metabolic Panel] Stat Lab 08/06/23 15:04 Completed Complete Blood Count Auto Diff AMLAB Lab 08/07/23 06:00 Ordered Comprehensive Metabolic Panel AMLAB Lab 08/07/23 06:00 Ordered D-Dimer Stat Lab 08/06/23 15:04 Completed Full Resp Panel w/COVID ([facility]) Routine Lab 08/06/23 15:09 Ordered INR [Prothrombin Time INR] Stat Lab 08/06/23 15:04 Completed Lactic Acid Stat Lab 08/06/23 15:09 Ordered Magnesium AMLAB Lab 08/07/23 06:00 Ordered Magnesium Stat Lab 08/06/23 15:04 Completed TSH [Thyroid Stimulating Hormone] Stat Lab 08/06/23 15:04 Completed Trop I [Troponin I] Stat Lab 08/06/23 15:04 Completed Troponin I Q3H Lab 08/06/23 18:15 Ordered Troponin I Q3H Lab 08/06/23 21:15 Ordered UA [Urinalysis and Microscopic] Stat Lab 08/06/23 15:09 Ordered VBG [Venous Blood Gas] Stat RT 08/06/23 15:09 Completed Medical Decision Narrative: In summary patient is a 82-year-old female who presents to the emergency department for evaluation of dyspnea, elevated blood pressure and bilateral lower extremity pain. Patient is hypertensive on arrival with a systolic blood pressure of 215 and a heart rate of 127 but satting at 96% on room air with respiratory rate of 20 upon arrival, and afebrile. Physical exam is remarkable for a rapid irregularly irregular rate and rhythm that appears to be atrial fibrillation with rapid ventricular response on the bedside monitor, clear breath sounds with no increased work of breathing and a normal oxygen saturation. Patient has tense bilateral lower extremity 3+ pitting edema without evidence of cellulitis or skin breaks.. Differential diagnosis includes atrial fibrillation with rapid ventricular response versus CHF exacerbation versus ACS versus PE etc. Initial workup will be conducted with twelve-lead EKG hematologic labs plain film chest x-ray full respiratory panel. Initial interventions include milligram of Bumex, 5 mg metoprolol IV push x 3 doses over 15 minutes as needed with possibility of initiation of Cardizem drip if refractory. Initial workup reviewed by me shows an elevated NT proBNP, troponin initially of 0.02, my informal interpretation of her plain film chest x-ray shows no evidence of volume overload but does show cardiomegaly, and the remainder of her hematologic labs are nonactionable. I had an interactive discussion with the patient regarding her wishes and she is agreeable for admission here also had interactive discussion with hospital medicine about patient management. Hospital medicine was agreeable for admission for further evaluation and care. <Mary Nunez MD - Last Filed: 08/06/23 15:10> Vital Signs: 08/06/23 14:53 08/06/23 15:31 08/06/23 15:56 Temperature 98.4 F Temperature Source Oral Pulse Rate 94 H 99 H Pulse Rate [Right] 127 H Respiratory Rate 24 15 20 Blood Pressure 156/63 H 139/61 Blood Pressure [Right Arm] 215/115 H Blood Pressure Mean [Right Arm] 148 02 Sat by Pulse Oximetry 96 95 98 Oxygen Delivery Method Room Air Room Air Room Air Lab Data Lab Results 08/06/23 15:04: WBC 9.0, RBC 3.38 L, Hgb 10.6 L, Hct 31.9 L, MCV 94.5, MCH 31.2, MCHC 33.0, RDW 15.4, Plt Count 346, MPV 8.0, Neut % (Auto) 70.4, Lymph % (Auto) 21.4, [place] % (Auto) 5.5, Eos % (Auto) 2.2, Baso % (Auto) 0.6, Neut # (Auto) 6.3, Lymph # (Auto) 1.9, [place] # (Auto) 0.5, Eos # (Auto) 0.2, Baso # (Auto) 0.1, PT 10.7, INR 0.99, D-Dimer 0.76 H, Sodium 134 L, Potassium 5.0, Chloride 104, Carbon Dioxide 26, Anion Gap 9.0, BUN 11, Creatinine 0.50 L, Estimated Creat Clear 30, Estimated GFR 118, Est GFR ( Amer) 142, Glucose 120 H, Calcium 9.4, Magnesium 1.4 L, Total Bilirubin 1.0, AST 46 H, ALT 26, Alkaline Phosphatase 89, Troponin I 0.02, NT-Pro-B Natriuret Pep 1120 H, Total Protein 7.0, Albumin 4.0, Globulin 3.0, Albumin/Globulin Ratio 1.3, TSH 3.35 08/06/23 15:09: VBG pH 7.46 H, VBG pCO2 31.9 L, VBG pO2 123.5 H, VBG HCO3 22.2 L , VBG Total CO2 23.2, VBG O2 Saturation 98.5 H, VBG Base Excess -1.6, VBG Lactic Acid 2.7 H Orders (Tests/Meds): ED MEDICATIONS Generic Name Dose Route Start Last Admin Trade Name Freq PRN Reason Stop Dose Admin Bumetanide 1 mg 08/07/23 09:00 Bumetanide 1mg/4ml Vial IV 09/06/23 08:59 BIDL LAMIN Discontinued Medications Generic Name Dose Route Start Last Admin Trade Name Freq PRN Reason Stop Dose Admin Bumetanide 1 mg 08/06/23 15:05 08/06/23 15:18 Bumetanide 1mg/4ml Vial IV 08/06/23 15:06 1 mg ONCE ONE Administration Metoprolol Tartrate 5 mg 08/06/23 15:05 08/06/23 15:19 Metoprolol Tartrate 5mg/5ml Vial IV 08/06/23 15:06 5 mg ONCE ONE Administration ORDERS Category Date Time Status Cardiology Consult [Consult to Cardiology] [CONS] Cons 08/06/23 16:12 Active Routine Chest XR -- portable [XR chest portable] Stat Exams 08/06/23 15:08 Taken BNP [NT Pro Brain Natriuretic Pep.] Stat Lab 08/06/23 15:04 Completed CBC w/Auto Diff [Complete Blood Count Auto Diff] Stat Lab 08/06/23 15:04 Completed CMP [Comprehensive Metabolic Panel] Stat Lab 08/06/23 15:04 Completed Complete Blood Count Auto Diff AMLAB Lab 08/07/23 06:00 Ordered Comprehensive Metabolic Panel AMLAB Lab 08/07/23 06:00 Ordered D-Dimer Stat Lab 08/06/23 15:04 Completed Full Resp Panel w/COVID ([facility]) Routine Lab 08/06/23 15:09 Ordered INR [Prothrombin Time INR] Stat Lab 08/06/23 15:04 Completed Lactic Acid Stat Lab 08/06/23 15:09 Ordered Magnesium AMLAB Lab 08/07/23 06:00 Ordered Magnesium Stat Lab 08/06/23 15:04 Completed TSH [Thyroid Stimulating Hormone] Stat Lab 08/06/23 15:04 Completed Trop I [Troponin I] Stat Lab 08/06/23 15:04 Completed Troponin I Q3H Lab 08/06/23 18:15 Ordered Troponin I Q3H Lab 08/06/23 21:15 Ordered UA [Urinalysis and Microscopic] Stat Lab 08/06/23 15:09 Ordered VBG [Venous Blood Gas] Stat RT 08/06/23 15:09 Completed ECG Data Tracing #1: I reviewed this ECG and interpreted as documented below: Ventricular rate of 127 atrial fibrillation with rapid ventricular response no significant ST elevations or depressions to suggest acute ischemia there is a normal axis no other significant conduction abnormalities no Critical Care <GABINO Herr - Last Filed: 08/06/23 16:30> Critical Care Time Critical Care Time: No
--- NOTE | 2023-08-06 15:03 | ECG_ITS ---
APPROVED REPORT Exam: Resting ECG HR:127 bpm ECG Measurements Heart Rate 127 AXES QRSd 80 QRS 75 QT 286 T -44 QTc 361 Conclusion ATRIAL FIBRILLATION WITH RAPID VENTRICULAR RESPONSE NONSPECIFIC ST & T-WAVE ABNORMALITY ABNORMAL ECG UNCONFIRMED REPORT Electronically signed by : Blaine Nunez, 08/06/2023 23:13:50
--- NOTE | 2023-08-06 15:08 | XR_ITS ---
FINAL REPORT CLINICAL HISTORY: Shortness of breath, atrial fibrillation with rapid ventricula COMPARISON: 06/27/2023 FINDINGS: No acute pulmonary opacity is present. There is no evidence of effusion or pneumothorax. Status post CABG. Left-sided pacer is present. Mild cardiomegaly, stable. IMPRESSION: No acute findings. Reviewed, Interpreted and Dictated by Kayla Lewis MD Transcribed by Yareli Wall Authenticated and . [facility]
[2023-08-06] MEDS: BUMETANIDE 1MG/4ML VIAL 1 MG IV (15:18)
--- NOTE | 2023-08-06 15:18 | PC.NURSE ---
RAD at BS
[2023-08-06] MEDS: METOPROLOL TARTRATE 5MG/5ML VIAL 5 MG IV (15:19)
[2023-08-06 15:23] LABS: Basophils # 0.1 K/mm3 (0-0.2); Basophils % 0.6 % (0.1-2.0); Eosinophils # 0.2 K/mm3 (0.0-0.4); Eosinophils % 2.2 % (0.1-12.0); Hematocrit 31.9 % (37.0-47.0); Hemoglobin 10.6 g/dL (12.2-16.2); Lymphocytes # 1.9 K/mm3 (0.7-4.5); Lymphocytes % 21.4 % (10-50); Mean Corpuscular Hemoglobin 31.2 pg (27.0-31.2); Mean Corpuscular Volume 94.5 fl (81-99); Monocytes # 0.5 K/mm3 (0.1-1.0); Monocytes % 5.5 % (1.7-9.3); Neutrophils # 6.3 K/mm3 (1.8-7.8); Neutrophils % 70.4 % (37.0-80.0); Platelet Count 346 K/mm3 (142-424); Red Blood Count 3.38 M/mm3 (4.20-5.40); Red Cell Distribution Width 15.4 % (11.5-17.5)
[2023-08-06 15:24] LABS: VBG Base Excess -1.6 mmol/L (-2.4-2.3); VBG HCO3 22.2 mmol/L (23-30); VBG Oxygen Saturation 98.5 % (50-70); VBG PCO2 31.9 mmol/L (35-51); VBG PH 7.46 mmol/L (7.31-7.41); VBG PO2 123.5 mmol/L (28-40); VBG Total CO2 23.2 mmol/L (23-27)
[2023-08-06 15:25] LABS: Chloride 104 mmol/L (98-107)
[2023-08-06 15:26] LABS: Lactate Venous 2.7 mmol/L (0.4-2.0)
[2023-08-06 15:28] LABS: Alanine Aminotransferase 26 U/L (12-78); Albumin/Globulin Ratio 1.3 (1.1-1.8); Alkaline Phosphatase 89 U/L (38-126); Aspartate Amino Transferase 46 U/L (14-36); Blood Urea Nitrogen 11 mg/dl (7-17); Carbon Dioxide 26 mmol/L (22.0-30.0); Creatinine Clearance Estimated 30 mL/min (50-200); Estimated Glomerular Filt Rate 118 ml/min (>60); GFR (African American) 142 ML/MIN (>60)
[2023-08-06 15:29] LABS: Calcium 9.4 mg/dl (8.4-10.2); Glucose 120 mg/dl (74-100); INR 0.99 (0.9-1.1); Prothrombin Time 10.7 seconds (10.1-12.5)
[2023-08-06 15:31] VITALS: BP 156/63; PULSE 94; RESP 15; O2SAT 95
[2023-08-06 15:32] LABS: Sodium 134 mmol/L (136-145)
[2023-08-06 15:37] LABS: D-Dimer 0.76 ug/mL (0.0-0.5)
[2023-08-06 15:38] LABS: Magnesium 1.4 mg/dl (1.6-2.3)
[2023-08-06 15:41] LABS: Troponin I 0.02 ng/ml (0.00-0.034)
[2023-08-06 15:48] LABS: NT Pro Brain Natriuretic Pep. 1120 pg/mL (0-450)
[2023-08-06 15:56] VITALS: BP 139/61; PULSE 99; RESP 20; O2SAT 98
[2023-08-06 16:00] LABS: Thyroid Stimulating Hormone 3.35 uIU/mL (0.465-4.68)
--- NOTE | 2023-08-06 16:08 | PC.NURSE ---
NEDA VELAZCO SPEAKING WITH DR VAUGHN
--- NOTE | 2023-08-06 16:18 | P.HP_ITS ---
History of Present Illness *Admission Date: 08/06/23 *Reason for visit:: Swelling in legs, shortness of breath. *History of present illness: Ms. Ahmadi is an 82-year-old female with history of hypertension, hyperlipidemia, diabetes, CAD, CHF, CABG, A-fib on Eliquis. Multiple surgeries in the past per history as well. She presented to the ER with her daughter due to worsening lower extremity swelling and shortness of breath. Was seen a month ago for similar presentation. Was at rehab for 3 weeks and has been home for about a week. States she has been tolerant with her medications, taking her diuretics and rate controlling medications. On arrival to the ER however she was found to be hypertensive, tachycardic in A-fib with RVR, and frankly volume overloaded with significant edema in her lower extremities. She denied chest pain at that time, fever, chills, syncope, confusion, weakness. Labs in the ER show elevated BNP of 1120, higher than last visit. Initial blood pressure 215/105. She was given a dose of Bumex. Labs showed normal kidney function. Necessitating admi ssion for treatment of A-fib with RVR and volume overload/acute on chronic heart failure exacerbation. On arrival to the floor, patient is stable on room air. Adamant that she will see cardiology but refuses to see Dr. Kirkland. Has not been telling her family but occasionally will have some chest discomfort in her left chest near her pacemaker while at rest. Does not have any pain today. This been going on for some time over the past few months. Gets help with her medications from her daughter. Is adamant that she complies with her regimen. Participated with therapy while at rehab. Refuses to go back however she does not like being in nursing homes. [facility] Disclaimer: The information contained in this section may have been updated after the patient was seen, as this information can be updated by other users. Medical History Candidiasis of vagina Pyelonephritis Dysphonia Candidiasis Migraine History of pacemaker Supraventricular tachycardia PVD (peripheral vascular disease) PAD (peripheral artery disease) Kidney stones Lung disease Pacemaker HTN (hypertension), benign GERD (gastroesophageal reflux disease) Type 2 diabetes mellitus without complications Coronary artery disease CHF (congestive heart failure) Chest wall contusion Hx of fall Closed rib fracture Headache Cough Bronchitis Surgical History History of cholecystectomy History of appendectomy Status post biopsy of kidney History of hysterectomy Hx of CABG History of bilateral carpal tunnel release H/O arthroscopy of shoulder Family History Other Diabetes Hyperlipidemia Hypertension Social History Smoking Status: Never smoker second hand exposure: No alcohol intake: never substance use type: denies use current occupational status: retired Travel in the last 8 weeks: None household members: other housing: house lives independently: Yes marital status: education level: high school current occupational exposures/hazards: No caffeine: Yes special seymour needs: No agree to transfusion: No do you feel safe at home: Yes victim of physical abuse: No victim of emotional abuse: No victim of sexual abuse: No would you like helpful sources: No Review of Systems Review of Systems Review of systems (narrative): 14 point review of systems performed, pertinent positives and negatives as per HPI Meds Home Medications and Allergies Home Medications Medication Instructions Recorded Confirmed Type acetaminophen 500 mg tablet 500 mg PO BID PRN Pain 06/04/22 06/28/23 History multivitamin (Daily Multi-Vitamin 1 tab PO DAILY 07/30/22 06/28/23 History tablet) clobetasol 0.05 % scalp solution 1 applic topical DAILY 08/17/22 06/28/23 History ketoconazole 2 % shampoo 1 applic topical Q2W 08/17/22 06/28/23 History albuterol sulfate 90 mcg/actuation 2 puff inhalation NEEDED PRN 10/29/22 Rx aerosol inhaler soa 30 days #8.5 grams aspirin 81 mg tablet,delayed 81 mg PO DAILY 10/29/22 06/28/23 History release (Adult Low Dose Aspirin) levothyroxine 125 mcg tablet 125 mcg PO DAILY thyroid #90 tabs 12/31/22 06/28/23 Rx amitriptyline 50 mg tablet 50 mg PO DAILY #90 tabs 01/29/23 06/28/23 Rx fluticasone furoate 100 1 inh inhalation DAILY Breathing 01/29/23 06/28/23 Rx mcg-vilanterol 25 mcg/dose problems #60 ea inhalation powder (Breo Ellipta) furosemide 80 mg tablet 80 mg PO DAILY #90 tabs 01/29/23 06/28/23 Rx metformin 500 mg tablet 500 mg PO BID Diabetes #180 tabs 01/29/23 06/28/23 Rx potassium chloride 20 mEq 20 meq PO DAILY Supplement #90 tabs 01/29/23 06/28/23 Rx tablet,extended release mupirocin 2 % topical ointment 1 applic topical BID #15 grams 05/03/23 06/28/23 Rx nystatin 100,000 unit/gram topical See Rx Instructions .Route 05/03/23 06/28/23 Rx powder .COMPLEX #60 grams apixaban 5 mg tablet 5 mg PO BID 06/27/23 06/28/23 History diclofenac sodium 1 % topical gel 2 g topical QID PRN Pain 06/27/23 06/28/23 History (Voltaren Arthritis Pain) losartan 50 mg tablet 75 mg PO DAILY 06/27/23 06/28/23 History metoprolol succinate 25 mg 25 mg PO DAILY 06/27/23 06/28/23 History tablet,extended release 24 hr [id number] 100 mcg-lut 1.66 1 tab PO BID 06/27/23 06/28/23 History mg-zeaxanth 0.83 mg tablet,delay rel. (Icaps MV) omeprazole 40 mg capsule,delayed 40 mg PO DAILY 06/27/23 06/28/23 History release ondansetron 4 mg disintegrating 4 mg PO Q8H PRN Nausea 06/27/23 06/28/23 History tablet pravastatin 10 mg tablet 10 mg PO DAILY 06/27/23 06/28/23 History magnesium oxide 400 mg (241.3 mg 400 mg PO DAILY #0 tabs 07/01/23 Rx magnesium) tablet New Prescriptions to Start Prescriptions: Allergies Allergy/AdvReac Type Severity Reaction Status Date / Time adenosine [ADENOSINE] Allergy Unknown S-ANAPHYLAX Verified 06/27/23 10:58 IS benzonatate Allergy Unknown Verified 06/27/23 10:58 [From DAYA SMITH] morphine [MORPHINE] Allergy Unknown KNOCKS Verified 06/27/23 10:58 OUT Penicillins [PENICILLINS] Allergy Unknown I-RASH Verified 06/27/23 10:58 Sulfa (Sulfonamide Allergy Unknown I-RASH Verified 06/27/23 10:58 Antibiotics) [SULFA (SULFONAMIDE ANTIBIOTICS)] albuterol Allergy Blurry Verified 06/27/23 10:58 Vision Exam Data for Last 24 hours Vital signs and Labs for Last 24 Hours: Temp Pulse Resp BP Pulse Ox O2 Del Method 98.4 F 99 H 20 139/61 98 Room Air 08/06/23 14:53 08/06/23 15:56 08/06/23 15:56 08/06/23 15:56 08/06/23 15:56 08/06/23 15:56 Laboratory Results - last 24 hr 08/06/23 15:04: WBC 9.0, RBC 3.38 L, Hgb 10.6 L, Hct 31.9 L, MCV 94.5, MCH 31.2, MCHC 33.0, RDW 15.4, Plt Count 346, MPV 8.0, Neut % (Auto) 70.4, Lymph % (Auto) 21.4, [place] % (Auto) 5.5, Eos % (Auto) 2.2, Baso % (Auto) 0.6, Neut # (Auto) 6.3, Lymph # (Auto) 1.9, [place] # (Auto) 0.5, Eos # (Auto) 0.2, Baso # (Auto) 0.1, PT 10.7, INR 0.99, D-Dimer 0.76 H, Sodium 134 L, Potassium 5.0, Chloride 104, Carbon Dioxide 26, Anion Gap 9.0, BUN 11, Creatinine 0.50 L, Estimated Creat Clear 30, Estimated GFR 118, Est GFR ( Amer) 142, Glucose 120 H, Calcium 9.4, Magnesium 1.4 L, Total Bilirubin 1.0, AST 46 H, ALT 26, Alkaline Phosphatase 89, Troponin I 0.02, NT-Pro-B Natriuret Pep 1120 H, Total Protein 7.0, Albumin 4.0, Globulin 3.0, Albumin/Globulin Ratio 1.3, TSH 3.35 08/06/23 15:09: VBG pH 7.46 H, VBG pCO2 31.9 L, VBG pO2 123.5 H, VBG HCO3 22.2 L , VBG Total CO2 23.2, VBG O2 Saturation 98.5 H, VBG Base Excess -1.6, VBG Lactic Acid 2.7 H I & O for Last 24 hours: Intake & Output 08/03/23 08/04/23 08/05/23 08/06/23 23:59 23:59 23:59 23:59 Weight 97.069 kg Constitutional Constitutional: no acute distress, morbidly obese, chronically ill appearing and cooperative *Routine HEENT Exam Head: Present normocephalic Eye: Present EOMI and PERRL ENT: Present mucous membranes moist *Routine Neck Exam Neck: Present supple; Absent lymphadenopathy *Routine Respiratory Exam Respiratory: Present crackles (Minimal, bases); Absent rhonchi or wheezes *Routine Cardiovascular Exam Cardiovascular: Present tachycardia and irregularly irregular *Routine Abdominal Exam Abdominal: Present soft and normoactive bowel sounds; Absent tenderness *Routine Rectal Exam Rectal:: deferred *Routine Genitalia Exam Genitalia:: deferred *Routine Extremities Exam Extremities: Present edema (3+ to knees, stasis dermatitis of legs, no warmth); Absent cyanosis or clubbing *Routine Skin Exam Skin: Present intact and warm; Absent rash Comments: Stasis dermatitis *Routine Neurological Exam Neurological: Present alert, oriented X3 and moving all extremities; Absent altered mental status Routine Psychiatric Exam Psychiatric: Present normal affect Assessment and Plan *Assessment and plan (1) CHF exacerbation: Status: Chronic Qualifiers: Heart failure type: diastolic Qualified Code(s): I50.33 - Acute on chronic diastolic (congestive) heart failure Category: Medical Code(s): I50.9 - Heart failure, unspecified (2) Afib: Status: Acute Qualifiers: Atrial fibrillation type: longstanding persistent Qualified Code(s): I48.11 - Longstanding persistent atrial fibrillation Category: Medical Code(s): I48.91 - Unspecified atrial fibrillation (3) Declining functional status: Status: Acute Category: Medical Code(s): R53.81 - Other malaise (4) Multiple falls: Status: Acute Category: Medical Code(s): R29.6 - Repeated falls (5) HLD (hyperlipidemia): Status: Acute Category: Medical Code(s): E78.5 - Hyperlipidemia, unspecified (6) Osteoarthritis (arthritis due to wear and tear of joints): Status: Acute Category: Medical Code(s): M19.90 - Unspecified osteoarthritis, unspecified site (7) Hypertension: Status: Acute Qualifiers: Hypertension type: unspecified Qualified Code(s): I10 - Essential (primary) hypertension Category: Medical Code(s): I10 - Essential (primary) hypertension (8) Type 2 diabetes mellitus with diabetic polyneuropathy, without long-term current use of insulin: Status: Acute Category: Medical Code(s): E11.42 - Type 2 diabetes mellitus with diabetic polyneuropathy (9) BMI greater than 40: Status: Acute Category: Medical (10) Hypothyroid: Status: Acute Category: Medical Code(s): E03.9 - Hypothyroidism, unspecified Plan Ms. Ahmadi is an 82-year-old female with multiple comorbidities. Lives alone and has macular degeneration. Presents with concern for CHF exacerbation and A-fib with RVR. Frankly volume overloaded with worsening edema. On room air. Discussed case with ER physician, request admission for therapy eval, diuresis, further management for safe dispo planning. Medicine agreed to admit. Received dose of Bumex in the ER. Necessitating inpatient management. Problems addressed as follows: History of CABG CAD CHF Hypertension Atrial fibrillation -Findings consistent with acute on chronic heart failure with preserved ejection fraction. Echocardiogram obtained 1 month ago, EF preserved, has diastolic dysfunction. -Continue diuresis with Bumex 1 mg IV twice daily. Goal -1 to 2 L a day -BNP elevated at 1120, strict I's and O's -Cardiology consulted, appreciate their assistance in care - Chest x-ray personally reviewed, presence of cardiomegaly and cephalization of pulmonary vasculature. Sternotomy wires in place from previous CABG. - Low concern for CKD given normal creatinine of 0.5 and BUN of 11. Anticipate good response to diuretics. - Continue Eliquis during admission for DVT prophylaxis and A-fib. Will have further ongoing discussion given patient's falling at home, risk for intracranial hemorrhage or bleed with her falls. Concern risk outweighs benefit at this time. May benefit from transitioning to low-dose aspirin daily as monotherapy. Currently on aspirin 81 mg daily. Diabetes: Well-controlled with A1c of 7.4 1 month ago. Continue metformin 500 mg twice daily along with fingersticks ACHS and sliding scale insulin. continue meds for chronic conditions as follows: Hypothyroid: Continue levothyroxine 125 mcg daily. TSH 4.5, T4 11 Transition to irbesartan 75 daily. Given its longer half-life, should control blood pressure more consistently. Increase metoprolol succinate to 50 mg daily. Continue pantoprazole 40 mg nightly for GERD Continue pravastatin 10 mg daily for hyperlipidemia Continue amitriptyline 50 mg daily for mood Morbid obesity complicates all aspects of her care History of arthritis with bilateral knee replacements. Significant arthritis in right hip. Impacts her mobility, leads to falls. PT and OT evaluating. DNR Cardiac diet Jessi
--- NOTE | 2023-08-06 16:37 | PC.NURSE ---
[facility]N [facility] NOTIFIED OF ADMISSION
[2023-08-06 17:00] VITALS: BP 147/79; PULSE 100; RESP 18; TEMP 36.6; O2SAT 97
--- NOTE | 2023-08-06 17:03 | PC.NURSE ---
Pt arrived to the floor at this time via wheelchair
[2023-08-06] MEDS: METOPROLOL TARTRATE 50MG TABLET 25 MG PO (17:40)
[2023-08-06 18:05] VITALS: BP 142/79; PULSE 85; RESP 18; TEMP 36.7; O2SAT 97; BMI 42.0
[2023-08-06] MEDS: MAGNESIUM SULFATE IN WATER 2 GM/50 ML PIGGYBACK IV (18:39)
[2023-08-06 18:48] LABS: Lactic Acid 0.9 mmol/L (0.7-2.1)
--- NOTE | 2023-08-06 18:53 | PC.NURSE ---
A&OX4. TOLERATING RA WELL. HAS HAD NO C/O SINCE ARRIVAL TO FLOOR. TO BATHROOM WITH STANDBY ASSIST AND ROLLING WALKER. STILL NEEDS A URINE SAMPLE, PT AWARE. +2 PITTING EDEMA TO BLE, AND SORE PEELING SKIN NOTED TO LEFT HEEL. NO OTHER NEEDS AT THIS TIME, VSS. PT CONTINUES TO BE IN AFIB.
[2023-08-06 19:10] LABS: Troponin I < 0.01 ng/ml (0.00-0.034)
[2023-08-06 19:13] LABS: Adenovirus,PCR Not Detected (NotDetected); Coronavirus 19, PCR Not Detected (NotDetected); Coronavirus 229E Not Detected (NotDetected); Coronavirus NL63 Not Detected (NotDetected); Coronavirus OC43 Not Detected (NotDetected); Coronovirus HKU1,PCR Not Detected (NotDetected); Human Metapneumovirus Not Detected (NotDetected); Influenza A, PCR Not Detected (NotDetected); Influenza AH1, 2009 Not Detected (NotDetected); Influenza AH1, PCR Not Detected (NotDetected); Influenza AH3,PCR Not Detected (NotDetected); Influenza B, PCR Not Detected (NotDetected); Parainfluenza 1, PCR Not Detected (NotDetected); Parainfluenza 2, PCR Not Detected (NotDetected); Parainfluenza 3, PCR Not Detected (NotDetected); Parainfluenza 4, PCR Not Detected (NotDetected); Respiratory Syncytial Virus Not Detected (NotDetected); Rhinovirus/Enterovirus Not Detected (NotDetected)
[2023-08-06 19:28] LABS: Reflex Lactic Add Lactic Reflex
[2023-08-06 20:00] VITALS: BP 160/93; PULSE 84; PULSE 86; RESP 20; TEMP 36.8; O2SAT 97
[2023-08-06] MEDS: PANTOPRAZOLE 40MG TABLET 40 MG PO (21:14)
[2023-08-06] MEDS: APIXABAN 5MG TABLET 5 MG PO (21:14)
[2023-08-06 21:46] LABS: Troponin I < 0.01 ng/ml (0.00-0.034)
[2023-08-06] MEDS: NYSTATIN TOPICAL POWDER 30GM TP (23:22)
[2023-08-06 23:42] LABS: POC Glucose,Bedside 139 (70-110)
[2023-08-07] VITALS (7 sets, daily range): BP systolic 135–164; BP diastolic 69–83; PULSE 68–100; RESP 16–20; TEMP 36.6–36.9; O2SAT 95–98; BMI 42.5
[2023-08-07] MEDS: ACETAMINOPHEN 325MG TAB 650 MG PO ×2 (03:20→21:01)
[2023-08-07] MEDS: METFORMIN 500MG TABLET 500 MG PO ×2 (06:32→17:21)
[2023-08-07 06:36] LABS: Basophils % 0.6 % (0.1-2.0); Eosinophils # 0.1 K/mm3 (0.0-0.4); Eosinophils % 1.8 % (0.1-12.0); Hematocrit 30.7 % (37.0-47.0); Hemoglobin 9.9 g/dL (12.2-16.2); Lymphocytes # 1.6 K/mm3 (0.7-4.5); Lymphocytes % 20.4 % (10-50); Mean Corpuscular HGB Conc 32.2 g/dL (31.8-35.4); Mean Corpuscular Hemoglobin 30.8 pg (27.0-31.2); Mean Corpuscular Volume 95.6 fl (81-99); Mean Platelet Volume 7.5 fl (7.4-10.4); Monocytes # 0.5 K/mm3 (0.1-1.0); Monocytes % 5.9 % (1.7-9.3); Neutrophils # 5.6 K/mm3 (1.8-7.8); Neutrophils % 71.4 % (37.0-80.0); Platelet Count 316 K/mm3 (142-424); Red Blood Count 3.22 M/mm3 (4.20-5.40); Red Cell Distribution Width 15.5 % (11.5-17.5); White Blood Count 7.9 K/mm3 (4.8-10.8)
[2023-08-07 06:45] LABS: Alanine Aminotransferase 19 U/L (12-78); Albumin Level 3.4 g/dl (3.5-5.0); Albumin/Globulin Ratio 1.3 (1.1-1.8); Alkaline Phosphatase 91 U/L (38-126); Anion Gap 7.2 mEq/L (5-15); Aspartate Amino Transferase 23 U/L (14-36); Bilirubin,Total 0.5 mg/dl (0.2-1.3); Blood Urea Nitrogen 12 mg/dl (7-17); Calcium 8.8 mg/dl (8.4-10.2); Carbon Dioxide 27 mmol/L (22.0-30.0); Chloride 102 mmol/L (98-107); Creatinine Clearance Estimated 29 mL/min (50-200); Estimated Glomerular Filt Rate 68 ml/min (>60); GFR (African American) 83 ML/MIN (>60); Globulin 2.7 g/dL (1.3-3.2); Glucose 132 mg/dl (74-100); Magnesium 1.8 mg/dl (1.6-2.3); Potassium 4.2 mmoL/L (3.5-5.1); Sodium 132 mmol/L (136-145); Total Protein,Serum 6.1 g/dl (6.3-8.2)
[2023-08-07 06:49] LABS: POC Glucose,Bedside 127 (70-110)
--- NOTE | 2023-08-07 07:36 | HMH.PHAINT1 ---
Pharmacy Intervention Comments: home medication list verified using list from outpatient pharmacy
--- NOTE | 2023-08-07 07:39 | HMH.PTEV ---
Physical Therapy Evaluation Rehab PT IP Evaluation Start: 08/06/23 18:17 Freq: ONCE Status: Active Protocol: Document 08/07/23 07:31 WING (Rec: 08/07/23 07:39 WING Desktop) Subjective/History History History Per H&P: Ms. Ahmadi is an 82-year-old female with history of hypertension, hyperlipidemia, diabetes, CAD, CHF, CABG, A- fib on Eliquis. Multiple surgeries in the past per history as well. She presented to the ER with her daughter due to worsening lower extremity swelling and shortness of breath. Was seen a month ago for similar presentation. Was at rehab for 3 weeks and has been home for about a week. States she has been tolerant with her medications, taking her diuretics and rate controlling medications. On arrival to the ER however she was found to be hypertensive, tachycardic in A-fib with RVR, and frankly volume overloaded with significant edema in her lower extremities. She denied chest pain at that time , fever, chills, syncope, confusion, weakness. Labs in the ER show elevated BNP of 1120, higher than last visit. Initial blood pressure 215/ 105. She was given a dose of Bumex. Labs showed normal kidney function. Necessitating admission for treatment of A-fib with RVR and volume overload/acute on chronic heart failure exacerbation. Subjective Subjective PLOF per pt report: Lives alone in a duplex. There are steps to enter/in home but pt reports she does not have to navigate those steps. Pt received rehab for ~3 weeks and has been home for 1 week with . Pt was IND with ADLs, IADLs, and functional mobility using rollator and RW . Pt can drive short distances . Pt also owns a lift chair, canes, and a w/c. New diagnosis of cancer in past 12 No months? Rehab PT IP Eval Objective Appearance Patient Behavior Appropriate,Cooperative Patient Orientation Person,Place,Situation Difficulty following instructions none Speech Pattern Clear Ambulation Patient Able to Ambulate Yes Ambulation Observation IP General Gait Pattern Observation Wide Based Gait Ambulation Distance (feet) 15 Ambulation Assistive Device Rolling Walker Ambulation Ability Supervision/Stand by,Contact Guard/Hand Hold Balance Ability to Arise Able, uses arms to help Sitting Balance Steady, safe Standing Balance Steady, wide stance Transfers Sit to Stand Chair Transfer Ability Supervision/Stand by MMT All Extremities PT MMT WFL Rehab PT IP prob,goals,plan Problems Date of Evaluation: 08/07/23 PT IP Problems Bed Mobility,Transfers,Gait, Balance,Self care,Safety Rehab Potential Rehab Potential Good Equipment Needs Assistive Devices Rolling / Wheeled Walker Plan PT Intervention Plan Bed Mobility,Transfers,Gait, Balance,Self care,Safety, Therapeutic Exercise Other Intervention Plan 1-2 times PT Plan Frequency Daily Duration LOS Discharge Goals Bed Transfer Ability Supervision/Stand by Sit to Stand Chair Transfer Ability Independent Ambulation Assistive Device Rolling Walker Ambulation Distance (feet) 30 Discharge Plan PT Discharge Plan Initial PT evaluation performed. Pt presents below baseline in strength, gait, and transfers. Pt was SUP-CGA for mobility using rollator. Pt safe to d/c home with PT services when deemed medically necessary. Pt would benefit from skilled acute care PT to address deficits and prevent further functional decline while at [facility]. Eval Complexity Eval Charge Codes 43981 - Moderate Complexity PHYSICIAN CERTIFICATION: I certify the specified therapy services for Paula Ahmadi are required, authorized, and reviewed every 30 days.
[2023-08-07] MEDS: METOPROLOL SUCCINATE XL 50MG TABLET 50 MG PO (08:20)
[2023-08-07] MEDS: APIXABAN 5MG TABLET 5 MG PO ×2 (08:20→21:01)
[2023-08-07] MEDS: LEVOTHYROXINE 125MCG (0.125MG) TAB 125 MCG PO (08:20)
[2023-08-07] MEDS: ASPIRIN EC 81MG TABLET 81 MG PO (08:20)
[2023-08-07] MEDS: PRAVASTATIN 20MG TAB 10 MG PO (08:21)
[2023-08-07] MEDS: IRBESARTAN 75MG TABLET 75 MG PO (08:21)
[2023-08-07] MEDS: AMITRIPTYLINE 50MG TABLET 50 MG PO (08:26)
[2023-08-07] MEDS: NYSTATIN TOPICAL POWDER 30GM TP ×4 (08:29→21:01)
--- NOTE | 2023-08-07 09:08 | HMH.OTEV ---
OT Inpatient Evaluation Rehab OT IP Evaluation Start: 08/06/23 18:17 Freq: ONCE Status: Active Protocol: Document 08/07/23 09:03 DOMINGABRUCE (Rec: 08/07/23 09:08 [email or web address] [id number]) Rehab OT IP Assessment Subjective History Ms. Ahmadi is an 82-year-old female with history of hypertension, hyperlipidemia, diabetes, CAD, CHF, CABG, A- fib on Eliquis. Multiple surgeries in the past per history as well. She presented to the ER with her daughter due to worsening lower extremity swelling and shortness of breath. Was seen a month ago for similar presentation. Was at rehab for 3 weeks and has been home for about a week. States she has been tolerant with her medications, taking her diuretics and rate controlling medications. On arrival to the ER however she was found to be hypertensive, tachycardic in A-fib with RVR, and frankly volume overloaded with significant edema in her lower extremities. She denied chest pain at that time , fever, chills, syncope, confusion, weakness. Labs in the ER show elevated BNP of 1120, higher than last visit. Initial blood pressure 215/ 105. She was given a dose of Bumex. Labs showed normal kidney function. Necessitating admission for treatment of A-fib with RVR and volume overload/acute on chronic heart failure exacerbation. On arrival to the floor, patient is stable on room air. Adamant that she will see cardiology but refuses to see Dr. Kirkland. Has not been telling her family but occasionally will have some chest discomfort in her left chest near her pacemaker while at rest. Does not have any pain today. This been going on for some time over the past few months. Gets help with her medications from her daughter. Is adamant that she complies with her regimen. Participated with therapy while at rehab. Refuses to go back however she does not like being in nursing homes. Patient lives alone in 1 story home with ramp to enter. Patient completed all ADLs and fx'l mobility independently. Used a rollator to ambulate. Subjective I want to go back home. Patient required Mod A x2 to complete sit->stand from recliner with usage of rollator. Patient completed functional mobility within the room with usage of rollator with MIn A X2 due to pain in LE. Patient maneuver ~50ft within room with need RB at the end. Left Patient sittiing upright in chair with needs met. Objective Patient Orientation Person,Time,Name,Age,Birthday, Year Right Upper Extremity Gross ROM WFL Left Upper Extremity Gross ROM WFL Transfer Training Sit/Stand/Pivot Transfer Assist Level Moderate x 2 (50% assist) Chair Transfer Ability Moderate x 2 (50% assist) Chair Transfer Technique Sit to/from Ambulatory Chair Transfer Assistive Devices Rolling Walker Rehab OT IP prob,goals,plan Problems Date of Evaluation: 08/07/23 OT IP Problems Bed Mobility,Transfers,Balance ,Self care,Safety Rehab Potential Rehab Potential Good Equipment Needs Assistive Devices Rolling / Wheeled Walker Plan OT intervention Plan Bed Mobility,Transfers,Balance ,Self care,Safety,Therapeutic Exercise OT Plan Frequency Daily Duration LOS Discharge Goals Bed Mobility Ability Assistance x1 Sit to Stand Chair Transfer Ability Moderate x 1 (50% assist) Chair Transfer Ability Moderate x 1 (50% assist) Chair Transfer Technique Sit to/from Ambulatory Discharge Plan OT Discharge Plan Recommend placement. HOwever patient stated that she wants to return home and not go to placement. Patient required increase assistance during OT initial evaluation to perform transfers vs PT. If patient decides to return home, recommending living with dtr, 29/10 supervision with hx of falling and HH services. Continue IP OT services while here at [facility]. Eval Complexity Eval Charge Codes 00036 - Low Complexity PHYSICIAN CERTIFICATION: I certify the specified therapy services for Paula Ahmadi are required, authorized, and reviewed every 30 days.
[2023-08-07] MEDS: BUMETANIDE 1MG/4ML VIAL 1 MG IV ×2 (11:13→17:21)
[2023-08-07 11:49] LABS: POC Glucose,Bedside 128 (70-110)
[2023-08-07 12:47] LABS: Microscopic, Urine URINE MICROSCOPIC (MICROSCOPIC)
[2023-08-07 12:48] LABS: Appearance,Urine CLEAR (Clear); Bilirubin,Urine Negative (Negative); Blood, Urine Negative (Negative); Color,Urine YELLOW (Yellow); Glucose,Urine (UA) Negative (Negative); Ketones,Urine Negative (Negative); Leukocyte Esterase,Urine TRACE (Negative); Nitrate,Urine Negative (Negative); Protein,Urine Negative (Negative); Specific Gravity, Urine 1.015 (1.005-1.030); Urobilinogen,Urine 0.2 EU/dl (0.2)
--- NOTE | 2023-08-07 13:00 | HMH.OTEV ---
OT Inpatient Evaluation Rehab OT IP Evaluation Start: 08/06/23 18:17 Freq: ONCE Status: Active Protocol: Document 08/07/23 09:03 DOMINGABRUCE (Rec: 08/07/23 09:08 DOMINGABRUCE [id number]) Rehab OT IP Assessment Subjective History Ms. Ahmadi is an 82-year-old female with history of hypertension, hyperlipidemia, diabetes, CAD, CHF, CABG, A- fib on Eliquis. Multiple surgeries in the past per history as well. She presented to the ER with her daughter due to worsening lower extremity swelling and shortness of breath. Was seen a month ago for similar presentation. Was at rehab for 3 weeks and has been home for about a week. States she has been tolerant with her medications, taking her diuretics and rate controlling medications. On arrival to the ER however she was found to be hypertensive, tachycardic in A-fib with RVR, and frankly volume overloaded with significant edema in her lower extremities. She denied chest pain at that time , fever, chills, syncope, confusion, weakness. Labs in the ER show elevated BNP of 1120, higher than last visit. Initial blood pressure 215/ 105. She was given a dose of Bumex. Labs showed normal kidney function. Necessitating admission for treatment of A-fib with RVR and volume overload/acute on chronic heart failure exacerbation. On arrival to the floor, patient is stable on room air. Adamant that she will see cardiology but refuses to see Dr. Kirkland. Has not been telling her family but occasionally will have some chest discomfort in her left chest near her pacemaker while at rest. Does not have any pain today. This been going on for some time over the past few months. Gets help with her medications from her daughter. Is adamant that she complies with her regimen. Participated with therapy while at rehab. Refuses to go back however she does not like being in nursing homes. Patient lives alone in 1 story home with ramp to enter. Patient completed all ADLs and fx'l mobility independently. Used a rollator to ambulate. Subjective I want to go back home. Patient required Mod A x2 to complete sit->stand from recliner with usage of rollator. Patient completed functional mobility within the room with usage of rollator with MIn A X2 due to pain in LE. Patient maneuver ~50ft within room with need RB at the end. Left Patient sittiing upright in chair with needs met. Objective Patient Orientation Person,Time,Name,Age,Birthday, Year Right Upper Extremity Gross ROM WFL Left Upper Extremity Gross ROM WFL Transfer Training Sit/Stand/Pivot Transfer Assist Level Moderate x 2 (50% assist) Chair Transfer Ability Moderate x 2 (50% assist) Chair Transfer Technique Sit to/from Ambulatory Chair Transfer Assistive Devices Rolling Walker Rehab OT IP prob,goals,plan Problems Date of Evaluation: 08/07/23 OT IP Problems Bed Mobility,Transfers,Balance ,Self care,Safety Rehab Potential Rehab Potential Good Equipment Needs Assistive Devices Rolling / Wheeled Walker Plan OT intervention Plan Bed Mobility,Transfers,Balance ,Self care,Safety,Therapeutic Exercise OT Plan Frequency Daily Duration LOS Discharge Goals Bed Mobility Ability Assistance x1 Sit to Stand Chair Transfer Ability Moderate x 1 (50% assist) Chair Transfer Ability Moderate x 1 (50% assist) Chair Transfer Technique Sit to/from Ambulatory Discharge Plan OT Discharge Plan Recommend placement. HOwever patient stated that she wants to return home and not go to placement. Patient required increase assistance during OT initial evaluation to perform transfers vs PT. If patient decides to return home, recommending living with dtr, 29/10 supervision with hx of falling and HH services. Continue IP OT services while here at [facility]. Eval Complexity Eval Charge Codes 14933 - Low Complexity PHYSICIAN CERTIFICATION: I certify the specified therapy services for Paula Ahmadi are required, authorized, and reviewed every 30 days.
[2023-08-07 13:15] LABS: WBC,Urine Occasional #/hpf (0-3)
[2023-08-07 13:16] LABS: Bacteria,Urine Trace /lpf
--- NOTE | 2023-08-07 13:50 | P.CONCA_ITS ---
History of Present Illness History of Present Illness Consult date: 08/07/23 Requesting physician: George Oseguera Consult reason: congestive heart failure and shortness of breath Chief complaint: SOA, edema History of present illness: This is an 82-year-old white female who presented to the emergency department with complaints of bilateral lower extremity edema and shortness of breath. She has a past medical history of coronary artery disease status post CABG, hypertension, hyperlipidemia, diabetes, paroxysmal atrial fibrillation on Eliquis and status post permanent pacemaker placement. The patient states that she has been having shortness of breath for quite some time but it significantly worsened in the last few days. She states her bilateral lower extremity edema worsened as well. She was admitted approximately 1 month ago for similar presentation. She was at rehab for 3 weeks and then has been home for about a week. She states that since being home for the last week she has noticed worsening in her lower extremity edema and shortness of breath especially with exertion. She denies any chest pain or pressure. She states that she is unable to lie flat due to her shortness of breath. She denies any fever, chills, nausea, vomiting, diarrhea or PND. Upon arrival to the emergency department the patient was found to be hypertensive, tachycardic in A-fib with RVR and fluid overloaded. The patient was treated with IV Bumex in the emergency department and was then started on scheduled IV Bumex. This morning she states that her lower extremity edema has significantly improved. She states that her shortness of breath has improved as well. She still currently denies any chest pain or pressure. Of note, she does see a machine long goods helper in [facility] by the name of Dr. Martinez and she wants to continue cardiology care with her primary machine long goods helper when she is discharged from the hospital. [facility] Disclaimer: The information contained in this section may have been updated after the patient was seen, as this information can be updated by other users. Medical History (Updated 08/07/23 @ 13:55 by Donita Rodgers APRN) Diabetes Hypertension HLD (hyperlipidemia) Afib Atrial fibrillation with rapid ventricular response Volume overload Acute on chronic heart failure with preserved ejection fraction (HFpEF) Candidiasis of vagina Pyelonephritis Dysphonia Candidiasis Migraine History of pacemaker Supraventricular tachycardia PVD (peripheral vascular disease) PAD (peripheral artery disease) Kidney stones Lung disease Pacemaker HTN (hypertension), benign GERD (gastroesophageal reflux disease) Type 2 diabetes mellitus without complications Coronary artery disease CHF (congestive heart failure) Chest wall contusion Hx of fall Closed rib fracture Headache Cough Bronchitis Surgical History History of cholecystectomy History of appendectomy Status post biopsy of kidney History of hysterectomy Hx of CABG History of bilateral carpal tunnel release H/O arthroscopy of shoulder Family History Other Diabetes Hyperlipidemia Hypertension Social History Smoking Status: Never smoker second hand exposure: No alcohol intake: never substance use type: denies use current occupational status: retired Travel in the last 8 weeks: None household members: other housing: house lives independently: Yes marital status: education level: high school current occupational exposures/hazards: No caffeine: Yes special seymour needs: No agree to transfusion: No do you feel safe at home: Yes victim of physical abuse: No victim of emotional abuse: No victim of sexual abuse: No would you like helpful sources: No Review of Systems Review of Systems Review of systems:: pertinent systems reviewed and negative unless documented below Constitutional Constitutional: Reports system reviewed and no additional complaints, except as documented, Reports fatigue and Reports lethargy Eyes Eyes: Reports system reviewed and no additional complaints, except as documented ENT Ears, Nose, Mouth, and Throat: Reports system reviewed and no additional complaints, except as documented *Cardiovascular Cardiovascular: Reports system reviewed and no additional complaints, except as documented, Denies chest pain, Reports dyspnea, Reports dyspnea on exertion, Reports edema, Reports leg edema and Reports pedal edema *Respiratory Respiratory: Reports system reviewed and no additional complaints, except as documented, Reports dyspnea and Reports dyspnea on exertion *Gastrointestinal Gastrointestinal: Reports system reviewed and no additional complaints, except as documented *Genitourinary Genitourinary: Reports system reviewed and no additional complaints, except as documented *Musculoskeletal Musculoskeletal: Reports system reviewed and no additional complaints, except as documented Integumentary/Breasts Skin/Breast: Reports system reviewed and no additional complaints, except as documented *Neurologic Neurologic: Reports system reviewed and no additional complaints, except as documented Psychiatric Psychiatric: Reports system reviewed and no additional complaints, except as documented Endocrine Endocrine: Reports system reviewed and no additional complaints, except as documented and Reports fatigue Hematologic/Lymphatic Hematologic/Lymphatic: Reports system reviewed and no additional complaints, except as documented Allergic/Immunologic Allergic/Immunologic: Reports system reviewed and no additional complaints, except as documented Exam Data for Last 24 hours Vital signs and Labs for Last 24 Hours: Temp Pulse Resp BP Pulse Ox O2 Del Method 98.4 F 95 H 19 164/76 H 98 Room Air 08/07/23 12:00 08/07/23 12:00 08/07/23 12:00 08/07/23 12:00 08/07/23 12:00 08/07/23 12:45 Laboratory Results - last 24 hr 08/06/23 12:41: Urine Color Yellow, Urine Appearance Clear, Urine pH 6.0, Ur Specific [place] 1.015, Urine Protein Negative, Urine Glucose (UA) Negative, Urine Ketones Negative, Urine Blood Negative, Urine Nitrate Negative, Urine Bilirubin Negative, Urine Urobilinogen 0.2, Ur Leukocyte Esterase Trace, Urine RBC None, Urine WBC Occasional, Ur Squamous Epith Cells 10-20, Urine Bacteria Trace 08/06/23 15:04: WBC 9.0, RBC 3.38 L, Hgb 10.6 L, Hct 31.9 L, MCV 94.5, MCH 31.2, MCHC 33.0, RDW 15.4, Plt Count 346, MPV 8.0, Neut % (Auto) 70.4, Lymph % (Auto) 21.4, [place] % (Auto) 5.5, Eos % (Auto) 2.2, Baso % (Auto) 0.6, Neut # (Auto) 6.3, Lymph # (Auto) 1.9, [place] # (Auto) 0.5, Eos # (Auto) 0.2, Baso # (Auto) 0.1, PT 10.7, INR 0.99, D-Dimer 0.76 H, Sodium 134 L, Potassium 5.0, Chloride 104, Carbon Dioxide 26, Anion Gap 9.0, BUN 11, Creatinine 0.50 L, Estimated Creat Clear 30, Estimated GFR 118, Est GFR ( Amer) 142, Glucose 120 H, Calcium 9.4, Magnesium 1.4 L, Total Bilirubin 1.0, AST 46 H, ALT 26, Alkaline Phosphatase 89, Troponin I 0.02, NT-Pro-B Natriuret Pep 1120 H, Total Protein 7.0, Albumin 4.0, Globulin 3.0, Albumin/Globulin Ratio 1.3, TSH 3.35 08/06/23 15:09: VBG pH 7.46 H, VBG pCO2 31.9 L, VBG pO2 123.5 H, VBG HCO3 22.2 L , VBG Total CO2 23.2, VBG O2 Saturation 98.5 H, VBG Base Excess -1.6, VBG Lactic Acid 2.7 H 08/06/23 15:17: Chlamy pneumoniae PCR TNP, Adenovirus (PCR) Not detected, B. pertussis DNA (PCR) TNP, Coronavirus OC43 (PCR) Not detected, Coronavirus HKU1 (PCR) Not detected, Coronavirus 229E (PCR) Not detected, SARS-CoV-2 (PCR) Not detected, Coronavirus NL63 (PCR) Not detected, Human Metapneumovir PCR Not detected, Influenza A (H1) PCR Not detected, Influ A (H1N1/09) PCR Not detected, Influenza A (H3) PCR Not detected, Influenza Type A (PCR) Not detected, Influenza Type B (PCR) Not detected, M. pneumoniae (PCR) TNP, Parainfluenza 1 (PCR) Not detected, Parainfluenza 2 (PCR) Not detected, Parainfluenza 3 (PCR) Not detected, Parainfluenza 4 (PCR) Not detected, RSV (PCR) Not detected, Entero/Rhino (PCR) Not detected 08/06/23 18:27: Lactate 0.9, Troponin I < 0.01 08/06/23 21:14: Troponin I < 0.01 08/06/23 23:32: POC Glucose 139 H 08/07/23 05:47: WBC 7.9, RBC 3.22 L, Hgb 9.9 L, Hct 30.7 L, MCV 95.6, MCH 30.8, MCHC 32.2, RDW 15.5, Plt Count 316, MPV 7.5, Neut % (Auto) 71.4, Lymph % (Auto) 20.4, [place] % (Auto) 5.9, Eos % (Auto) 1.8, Baso % (Auto) 0.6, Neut # (Auto) 5.6, Lymph # (Auto) 1.6, [place] # (Auto) 0.5, Eos # (Auto) 0.1, Baso # (Auto) 0.0, Sodium 132 L, Potassium 4.2, Chloride 102, Carbon Dioxide 27, Anion Gap 7.2, BUN 12, Creatinine 0.80 D, Estimated Creat Clear 29, Estimated GFR 68, Est GFR ( Amer) 83 D, Glucose 132 H, Calcium 8.8, Magnesium 1.8 D, Total Bilirubin 0.5, AST 23 D, ALT 19 D, Alkaline Phosphatase 91, Total Protein 6.1 L, Albumin 3.4 L D, Globulin 2.7, Albumin/Globulin Ratio 1.3 08/07/23 06:34: POC Glucose 127 H 08/07/23 11:43: POC Glucose 128 H I & O for Last 24 hours: Intake & Output 08/04/23 08/05/23 08/06/23 08/07/23 23:59 23:59 23:59 23:59 Intake Total 540 / 590 770 / 770 Output Total 0 / 0 0 / 0 Balance 540 / 590 770 / 770 Weight 215 lb 1.998 oz 216 lb 6.139 oz Constitutional Constitutional: no acute distress and morbidly obese *Routine HEENT Exam Head: Present normocephalic and atraumatic ENT: Present mucous membranes moist *Routine Neck Exam Neck: Present supple, full ROM and normal carotid upstroke; Absent JVD, carotid bruit or lymphadenopathy *Routine Respiratory Exam Respiratory: Present CTA bilaterally, normal respiratory effort, able to speak in complete sentences and symmetric chest movement *Routine Cardiovascular Exam Cardiovascular: Present Normal S1, Normal S2, murmur and irregularly irregular; Absent gallop *Routine Abdominal Exam Abdominal: Present soft and normoactive bowel sounds; Absent tenderness, distended or organomegaly *Routine Extremities Exam Extremities: Present edema (2+ BLE edema), full ROM, pulses intact and normal capillary refill; Absent cyanosis or clubbing *Routine Skin Exam Skin: Present intact and warm; Absent erythema *Routine Neurological Exam Neurological: Present alert, oriented X3 and CN II-XII intact; Absent sensory deficit or motor deficit Routine Psychiatric Exam Psychiatric: Present normal affect Meds Home Medications and Allergies Home Medications Medication Instructions Recorded Confirmed Type acetaminophen 500 mg tablet 500 mg PO BID PRN Pain 06/04/22 08/06/23 History multivitamin (Daily Multi-Vitamin 1 tab PO DAILY 07/30/22 08/06/23 History tablet) aspirin 81 mg tablet,delayed 81 mg PO DAILY 10/29/22 08/06/23 History release (Adult Low Dose Aspirin) levothyroxine 125 mcg tablet 125 mcg PO DAILY thyroid #90 tabs 12/31/22 08/06/23 Rx amitriptyline 50 mg tablet 50 mg PO DAILY #90 tabs 01/29/23 08/06/23 Rx fluticasone furoate 100 1 inh inhalation DAILY Breathing 01/29/23 08/06/23 Rx mcg-vilanterol 25 mcg/dose problems #60 ea inhalation powder (Breo Ellipta) furosemide 80 mg tablet 80 mg PO DAILY #90 tabs 01/29/23 08/06/23 Rx metformin 500 mg tablet 500 mg PO BID Diabetes #180 tabs 01/29/23 08/06/23 Rx potassium chloride 20 mEq 20 meq PO DAILY Supplement #90 tabs 01/29/23 08/06/23 Rx tablet,extended release apixaban 5 mg tablet 5 mg PO BID 06/27/23 08/06/23 History losartan 50 mg tablet 75 mg PO DAILY 06/27/23 08/06/23 History metoprolol succinate 25 mg 25 mg PO DAILY 06/27/23 08/06/23 History tablet,extended release 24 hr [id number] 100 mcg-lut 1.66 1 tab PO BID 06/27/23 08/06/23 History mg-zeaxanth 0.83 mg tablet,delay rel. (Icaps MV) omeprazole 40 mg capsule,delayed 40 mg PO DAILY 06/27/23 08/06/23 History release pravastatin 10 mg tablet 10 mg PO DAILY 06/27/23 08/06/23 History magnesium oxide 400 mg (241.3 mg 400 mg PO DAILY #0 tabs 07/01/23 08/06/23 Rx magnesium) tablet albuterol sulfate 90 mcg/actuation 1 puff inhalation NEEDED PRN 08/07/23 08/07/23 History aerosol inhaler Shortness Of Breath New Prescriptions to Start Prescriptions: Allergies Allergy/AdvReac Type Severity Reaction Status Date / Time adenosine [ADENOSINE] Allergy Unknown S-ANAPHYLAX Verified 06/27/23 10:58 IS benzonatate Allergy Unknown Verified 06/27/23 10:58 [From DAYA SMITH] morphine [MORPHINE] Allergy Unknown KNOCKS Verified 06/27/23 10:58 OUT Penicillins [PENICILLINS] Allergy Unknown I-RASH Verified 06/27/23 10:58 Sulfa (Sulfonamide Allergy Unknown I-RASH Verified 06/27/23 10:58 Antibiotics) [SULFA (SULFONAMIDE ANTIBIOTICS)] albuterol Allergy Blurry Verified 06/27/23 10:58 Vision Assessment and Plan *Assessment and plan (1) Acute on chronic heart failure with preserved ejection fraction (HFpEF): Status: Acute Category: Medical Code(s): I50.33 - Acute on chronic diastolic (congestive) heart failure (2) Atrial fibrillation with rapid ventricular response: Status: Acute Category: Medical Code(s): I48.91 - Unspecified atrial fibrillation (3) Coronary artery disease: Status: Acute Qualifiers: Associated angina: without angina Coronary Disease-Associated Artery/Lesion type: [place] artery [place] vs. transplanted heart: [place] heart Qualified Code(s): I25.10 - Atherosclerotic heart disease of [place] coronary artery without angina pectoris Category: Medical Code(s): I25.10 - Atherosclerotic heart disease of [place] coronary artery without angina pectoris (4) HLD (hyperlipidemia): Status: Acute Qualifiers: Hyperlipidemia type: mixed hyperlipidemia Qualified Code(s): E78.2 - Mixed hyperlipidemia Category: Medical Code(s): E78.5 - Hyperlipidemia, unspecified (5) Hypertension: Status: Acute Qualifiers: Hypertension type: unspecified Qualified Code(s): I10 - Essential ( primary) hypertension Category: Medical Code(s): I10 - Essential (primary) hypertension (6) Diabetes: Status: Acute Qualifiers: Diabetes mellitus complication detail: with polyneuropathy Diabetes mellitus complication status: with neurologic complications Diabetes mellitus custodial insulin use: without custodial use Diabetes mellitus type: type 2 Qualified Code(s): E11.42 - Type 2 diabetes mellitus with diabetic polyneuropathy Category: Medical Code(s): E11.9 - Type 2 diabetes mellitus without complications Plan Plan: 1. The patient was admitted to the hospital for an acute exacerbation of chronic HFpEF. The patient is on Bumex 1 mg IV twice daily for continued diuresis. The patient will need to be diuresed with IV Lasix until she has seen a bump in her creatinine to around 1.5-1.7. Will continue IV Bumex at this time. 2. Once the patient has been adequately diuresed with IV Lasix we will consider switching home dose of oral Lasix over to oral torsemide. But this will not be done until she has been adequately diuresed with IV Lasix. 3. Recent echocardiogram in June 2023 shows a normal ejection fraction. She does have mild to moderate MR, mild AI and moderate to severe TR with an RVSP of 45 to 50 mmHg. 4. The patient has ruled out for an NC. No plans for invasive left cardiac catheterization at this time. However, on an outpatient basis she would benefit from an ischemic evaluation due to her repeat exacerbations of her HFpEF. 5. Coronary artery disease is present she does have a history of CABG. As mentioned above she would benefit from an outpatient ischemic evaluation once she is discharged from the hospital. 6. Her blood pressure is well-controlled. 7. Her LDL goal is less than 55. Will get a lipid panel in the morning. She is on a statin. 8. The patient is diabetic. She will need aggressive control of her diabetes. Will defer management of this to the hospitalist. 9. Continue irbesartan for her HFpEF. 10. Consider starting Farxiga once she is euvolemic for HFpEF. 11. The patient was in A-fib with RVR upon admission to the hospital. She is now rate controlled. Her Toprol has been increased to 50 mg p.o. daily for suppression of her atrial fibrillation. 12. She is on Eliquis for long-term anticoagulation. She denies any bleeding. 13. She is status post permanent pacemaker placement. This is followed by remote monitoring at the [facility]. 14. The patient does see cardiology at the [place] [facility]. She wishes to continue her cardiology follow-up at the [place] [facility] once she is discharged from the hospital. 15. Further recommendations will be made pending the patient's response to treatment. Thank you for the opportunity to help participate in the care of this patient. All recommendations and orders are per Dr. Thomas.
--- NOTE | 2023-08-07 14:10 | HMH.PTWOUND ---
Rehab Inpt Wound Evaluation Rehab IP Wound Evaluation Start: 08/07/23 10:28 Freq: ONCE Status: Active Protocol: Document 08/07/23 14:00 KATELYN (Rec: 08/07/23 14:10 PHORNE [id number]) Rehab PT Wound Assessment Subjective Subjective 82 yowf adm to [facility] with a-fib and RVR. She has PMH of hypertension, hyperlipidemia, diabetes, CAD, CHF, CABG, A- fib on Eliquis, PAD, PVD. She presents with a Left posterior heel wound upon admission. Wound Left Posterior Heel Wound Type Pressure Ulcer Is This a Chronic Wound Yes Wound Staging Stage II Query Text:Stage I - Unbroken, red skin, no blanching. Stage II - Skin broken, superficial skin loss involving epidermis alone or also dermis. Partial loss of skin layers. Stage III - Pressure area involves epidermis, dermis and subcutaneous tissue, full thickness skin loss. Stage IV - Pressure area involves epidermis, subcutaneous tissue, bone and other supportive tissue. Full thickness skin loss with extensive destruction of underlying tissue and structures. Wound Length (cm) 0.5 Wound Width (cm) 1.0 Wound Depth (cm) 0.2 Wound Bed Appearance Coffey Wound Margins Description Well Defined Surrounding Tissue Appearance Coffey Wound Drainage Description Serous Drainage Amount Scant Wound Topical Solution/Irrigant Saline Irrigant Primary Dressing Composite Comment betadine with bordered foam secondary. Wound Debridement Method Gauze,Mechanical Wound Debridement Amount of Tissue Minimal Removed Dressing Change Patient Tolerance Tolerated Well Plan/Recommendation Comment Currently no need for sharp excisional debridement in the presence of significant PAD and DM. Her wound is clean and should steadily improve with appropriate dressings. Eval Complexity Eval Charge Codes 52060 - High Complexity Rojas-Lynn Wound Assessment Tool Assessment Wound size 1=Length x Width <4 sq cm Wound depth 2=Partial thickness skin loss involving epidermis &/or dermis Wound edges 2=Distinct, outline clearly visible, attached, even with wound base Wound undermining 1=None present Necrotic tissue type 2=White/ortiz non-viable tissue &/or non-adherent yellow slough Necrotic tissue amount 2=<25% of wound bed covered Exudate type 4=Serous: thin, watery, clear Exudate amount 2=Scant, wound moist but no observable exudate Skin color surrounding wound 1=[place]offe[place] or normal for ethnic group Peripheral tissue edema 1=No swelling or edema Peripheral tissue induration 1=None present Granulation tissue 4=[place], &/or dull, dusky red & /or fills < or = 25% of wound Epithelialization 4=25% to < 50% wound covered Wound assessment total score 27 PHYSICIAN CERTIFICATION: I certify the specified therapy services for Paula Ahmadi are required, authorized, and reviewed every 30 days.
--- NOTE | 2023-08-07 15:15 | P.PN_ITS ---
Subjective *Date: 08/07/23 *Time: 15:15 Interval history: patient is seen at bedside, denied CP, has complains of SOB on exertion, no reports of fevers or chills Exam Data for Last 24 hours Vital signs and Labs for Last 24 Hours: Temp Pulse Resp BP Pulse Ox O2 Del Method 98.4 F 95 H 19 164/76 H 98 Room Air 08/07/23 12:00 08/07/23 12:00 08/07/23 12:00 08/07/23 12:00 08/07/23 12:00 08/07/23 15:00 Laboratory Results - last 24 hr 08/06/23 12:41: Urine Color Yellow, Urine Appearance Clear, Urine pH 6.0, Ur Specific [place] 1.015, Urine Protein Negative, Urine Glucose (UA) Negative, Urine Ketones Negative, Urine Blood Negative, Urine Nitrate Negative, Urine Bilirubin Negative, Urine Urobilinogen 0.2, Ur Leukocyte Esterase Trace, Urine RBC None, Urine WBC Occasional, Ur Squamous Epith Cells 10-20, Urine Bacteria Trace 08/06/23 15:04: WBC 9.0, RBC 3.38 L, Hgb 10.6 L, Hct 31.9 L, MCV 94.5, MCH 31.2, MCHC 33.0, RDW 15.4, Plt Count 346, MPV 8.0, Neut % (Auto) 70.4, Lymph % (Auto) 21.4, [place] % (Auto) 5.5, Eos % (Auto) 2.2, Baso % (Auto) 0.6, Neut # (Auto) 6.3, Lymph # (Auto) 1.9, [place] # (Auto) 0.5, Eos # (Auto) 0.2, Baso # (Auto) 0.1, PT 10.7, INR 0.99, D-Dimer 0.76 H, Sodium 134 L, Potassium 5.0, Chloride 104, Carbon Dioxide 26, Anion Gap 9.0, BUN 11, Creatinine 0.50 L, Estimated Creat Clear 30, Estimated GFR 118, Est GFR ( Amer) 142, Glucose 120 H, Calcium 9.4, Magnesium 1.4 L, Total Bilirubin 1.0, AST 46 H, ALT 26, Alkaline Phosphatase 89, Troponin I 0.02, NT-Pro-B Natriuret Pep 1120 H, Total Protein 7.0, Albumin 4.0, Globulin 3.0, Albumin/Globulin Ratio 1.3, TSH 3.35 08/06/23 15:09: VBG pH 7.46 H, VBG pCO2 31.9 L, VBG pO2 123.5 H, VBG HCO3 22.2 L , VBG Total CO2 23.2, VBG O2 Saturation 98.5 H, VBG Base Excess -1.6, VBG Lactic Acid 2.7 H 08/06/23 15:17: Chlamy pneumoniae PCR TNP, Adenovirus (PCR) Not detected, B. pertussis DNA (PCR) TNP, Coronavirus OC43 (PCR) Not detected, Coronavirus HKU1 (PCR) Not detected, Coronavirus 229E (PCR) Not detected, SARS-CoV-2 (PCR) Not detected, Coronavirus NL63 (PCR) Not detected, Human Metapneumovir PCR Not de tected, Influenza A (H1) PCR Not detected, Influ A (H1N1/09) PCR Not detected, Influenza A (H3) PCR Not detected, Influenza Type A (PCR) Not detected, Influenza Type B (PCR) Not detected, M. pneumoniae (PCR) TNP, Parainfluenza 1 (PCR) Not detected, Parainfluenza 2 (PCR) Not detected, Parainfluenza 3 (PCR) Not detected, Parainfluenza 4 (PCR) Not detected, RSV (PCR) Not detected, Entero/Rhino (PCR) Not detected 08/06/23 18:27: Lactate 0.9, Troponin I < 0.01 08/06/23 21:14: Troponin I < 0.01 08/06/23 23:32: POC Glucose 139 H 08/07/23 05:47: WBC 7.9, RBC 3.22 L, Hgb 9.9 L, Hct 30.7 L, MCV 95.6, MCH 30.8, MCHC 32.2, RDW 15.5, Plt Count 316, MPV 7.5, Neut % (Auto) 71.4, Lymph % (Auto) 20.4, [place] % (Auto) 5.9, Eos % (Auto) 1.8, Baso % (Auto) 0.6, Neut # (Auto) 5.6, Lymph # (Auto) 1.6, [place] # (Auto) 0.5, Eos # (Auto) 0.1, Baso # (Auto) 0.0, Sodium 132 L, Potassium 4.2, Chloride 102, Carbon Dioxide 27, Anion Gap 7.2, BUN 12, Creatinine 0.80 D, Estimated Creat Clear 29, Estimated GFR 68, Est GFR ( Amer) 83 D, Glucose 132 H, Calcium 8.8, Magnesium 1.8 D, Total Bilirubin 0.5, AST 23 D, ALT 19 D, Alkaline Phosphatase 91, Total Protein 6.1 L, Albumin 3.4 L D, Globulin 2.7, Albumin/Globulin Ratio 1.3 08/07/23 06:34: POC Glucose 127 H 08/07/23 11:43: POC Glucose 128 H I & O for Last 24 hours: Intake & Output 08/04/23 08/05/23 08/06/23 08/07/23 23:59 23:59 23:59 23:59 Intake Total 540 / 590 770 / 770 Output Total 0 / 0 0 / 0 Balance 540 / 590 770 / 770 Weight 97.579 kg 98.15 kg Constitutional Constitutional: no acute distress *Routine HEENT Exam Head: Present normocephalic Eye: Present EOMI and PERRL ENT: Present mucous membranes moist *Routine Neck Exam Neck: Present supple; Absent lymphadenopathy *Routine Respiratory Exam Respiratory: Present CTA bilaterally *Routine Cardiovascular Exam Cardiovascular: Present RRR *Routine Abdominal Exam Abdominal: Present soft and normoactive bowel sounds; Absent tenderness *Routine Extremities Exam Extremities: Absent cyanosis, clubbing or edema *Routine Skin Exam Skin: Present warm; Absent rash *Routine Neurological Exam Neurological: Present alert and oriented X3 Assessment and Plan *Assessment and plan (1) CHF exacerbation: Status: Chronic Qualifiers: Heart failure type: diastolic Qualified Code(s): I50.33 - Acute on chronic diastolic (congestive) heart failure Category: Medical Code(s): I50.9 - Heart failure, unspecified (2) Afib: Status: Acute Qualifiers: Atrial fibrillation type: longstanding persistent Qualified Code(s): I48.11 - Longstanding persistent atrial fibrillation Category: Medical Code(s): I48.91 - Unspecified atrial fibrillation (3) Declining functional status: Status: Acute Category: Medical Code(s): R53.81 - Other malaise (4) Multiple falls: Status: Acute Category: Medical Code(s): R29.6 - Repeated falls (5) HLD (hyperlipidemia): Status: Acute Qualifiers: Hyperlipidemia type: mixed hyperlipidemia Qualified Code(s): E78.2 - Mixed hyperlipidemia Category: Medical Code(s): E78.5 - Hyperlipidemia, unspecified (6) Osteoarthritis (arthritis due to wear and tear of joints): Status: Acute Category: Medical Code(s): M19.90 - Unspecified osteoarthritis, unspecified site (7) Hypertension: Status: Acute Qualifiers: Hypertension type: unspecified Qualified Code(s): I10 - Essential (primary) hypertension Category: Medical Code(s): I10 - Essential (primary) hypertension (8) Type 2 diabetes mellitus with diabetic polyneuropathy, without long-term current use of insulin: Status: Acute Category: Medical Code(s): E11.42 - Type 2 diabetes mellitus with diabetic polyneuropathy (9) BMI greater than 40: Status: Acute Category: Medical (10) Hypothyroid: Status: Acute Category: Medical Code(s): E03.9 - Hypothyroidism, unspecified Plan Ms. Ahmadi is an 82-year-old female with multiple comorbidities. Lives alone and has macular degeneration. Presents with concern for CHF exacerbation and A-fib with RVR. Frankly volume overloaded with worsening edema. On room air. Discussed case with ER physician, request admission for therapy eval, diuresis, further management for safe dispo planning. Medicine agreed to admit. Received dose of Bumex in the ER. Necessitating inpatient management. Problems addressed as follows: History of CABG CAD CHF Hypertension Atrial fibrillation -Findings consistent with acute on chronic heart failure with preserved ejection fraction. Echocardiogram obtained 1 month ago, EF preserved, has diastolic dysfunction. -Continue diuresis with Bumex 1 mg IV twice daily. Goal -1 to 2 L a day -BNP elevated at 1120, strict I's and O's -Cardiology consulted, appreciate their assistance in care - Chest x-ray personally reviewed, presence of cardiomegaly and cephalization of pulmonary vasculature. Sternotomy wires in place from previous CABG. - Low concern for CKD given normal creatinine of 0.5 and BUN of 11. Anticipate good response to diuretics. - Continue Eliquis during admission for DVT prophylaxis and A-fib. Will have further ongoing discussion given patient's falling at home, risk for intracranial hemorrhage or bleed with her falls. Concern risk outweighs benefit at this time. May benefit from transitioning to low-dose aspirin daily as monotherapy. Currently on aspirin 81 mg daily. Diabetes: Well-controlled with A1c of 7.4 1 month ago. Continue metformin 500 mg twice daily along with fingersticks ACHS and sliding scale insulin. continue meds for chronic conditions as follows: Hypothyroid: Continue levothyroxine 125 mcg daily. TSH 4.5, T4 11 Transition to irbesartan 75 daily. Given its longer half-life, should control blood pressure more consistently. Increase metoprolol succinate to 50 mg daily. Continue pantoprazole 40 mg nightly for GERD Continue pravastatin 10 mg daily for hyperlipidemia Continue amitriptyline 50 mg daily for mood Morbid obesity complicates all aspects of her care History of arthritis with bilateral knee replacements. Significant arthritis in right hip. Impacts her mobility, leads to falls. PT and OT evaluating. DNR Cardiac diet Eliquis plan to continue diuresis with Bumex, discussed with cardiology, closely monitor BMP, CBC
[2023-08-07 16:11] LABS: POC Glucose,Bedside 152 (70-110)
--- NOTE | 2023-08-07 16:57 | PC.NURSE ---
PT IS SITTING UP IN THE CHAIR. ALERT AND ORIENTED X4. EATING AND DRINKING WELL. PT HAS TOLERATED SITTING UP IN THE CHAIR FOR SEVERAL HOURS THIS SHIFT. AFIB ON TELEMETRY. 2+ EDEMA NOTED TO BLE. THICK DRY SKIN NOTED TO THE LEFT HEEL WITH DRESSING. ABDOMEN SOFT/NON TENDER WITH ACTIVE BOWEL SOUNDS. AMBULATES TO THE BATHROOM WITH ROLLING WALKER AND 1 ASSIST. WILL CONTINUE TO MONITOR.
--- NOTE | 2023-08-07 19:34 | PC.NURSE ---
Patient refused a bath
[2023-08-07] MEDS: PANTOPRAZOLE 40MG TABLET 40 MG PO (21:01)
[2023-08-07 21:13] LABS: POC Glucose,Bedside 127 (70-110)
[2023-08-08] VITALS (9 sets, daily range): BP systolic 122–167; BP diastolic 65–101; PULSE 68–120; RESP 16–20; TEMP 36.5–36.8; O2SAT 97–99; BMI 42.4
--- NOTE | 2023-08-08 05:18 | PC.NURSE ---
Patient has had a great night. Has slept through most of it. Has been up to void and has done well walking with no issues with balance. Patient feels confident that she can go home. no other issues through the night
[2023-08-08 06:09] LABS: Basophils # 0.1 K/mm3 (0-0.2); Basophils % 0.7 % (0.1-2.0); Eosinophils # 0.2 K/mm3 (0.0-0.4); Eosinophils % 2.9 % (0.1-12.0); Hematocrit 30.6 % (37.0-47.0); Hemoglobin 9.9 g/dL (12.2-16.2); Lymphocytes # 1.4 K/mm3 (0.7-4.5); Lymphocytes % 20.5 % (10-50); Mean Corpuscular HGB Conc 32.3 g/dL (31.8-35.4); Mean Corpuscular Hemoglobin 30.5 pg (27.0-31.2); Mean Corpuscular Volume 94.4 fl (81-99); Mean Platelet Volume 7.4 fl (7.4-10.4); Monocytes # 0.4 K/mm3 (0.1-1.0); Monocytes % 6.4 % (1.7-9.3); Neutrophils # 4.8 K/mm3 (1.8-7.8); Neutrophils % 69.6 % (37.0-80.0); Platelet Count 298 K/mm3 (142-424); Red Blood Count 3.24 M/mm3 (4.20-5.40); Red Cell Distribution Width 15.6 % (11.5-17.5); White Blood Count 6.9 K/mm3 (4.8-10.8)
[2023-08-08 06:16] LABS: Blood Urea Nitrogen 12 mg/dl (7-17); Calcium 8.8 mg/dl (8.4-10.2); Carbon Dioxide 30 mmol/L (22.0-30.0); Chloride 101 mmol/L (98-107); Cholesterol 141 mg/dl (140-200); Creatinine Clearance Estimated 29 mL/min (50-200); Estimated Glomerular Filt Rate 80 ml/min (>60); GFR (African American) 96 ML/MIN (>60); Glucose 117 mg/dl (74-100); HDL Cholesterol 47 mg/dl (40-60); Sodium 132 mmol/L (136-145); Triglycerides 124 mg/dl (30-150); VLDL Cholesterol 25 mg/dL (0-40)
[2023-08-08 06:23] LABS: POC Glucose,Bedside 131 (70-110)
[2023-08-08] MEDS: LEVOTHYROXINE 125MCG (0.125MG) TAB 125 MCG PO (06:32)
[2023-08-08] MEDS: METFORMIN 500MG TABLET 500 MG PO ×2 (06:32→16:14)
[2023-08-08] MEDS: BUMETANIDE 1MG/4ML VIAL 1 MG IV (08:03)
[2023-08-08] MEDS: ASPIRIN EC 81MG TABLET 81 MG PO (08:03)
[2023-08-08] MEDS: IRBESARTAN 75MG TABLET 75 MG PO (08:03)
[2023-08-08] MEDS: PRAVASTATIN 20MG TAB 10 MG PO (08:03)
[2023-08-08] MEDS: NYSTATIN TOPICAL POWDER 30GM TP ×4 (08:03→20:36)
[2023-08-08] MEDS: METOPROLOL SUCCINATE XL 50MG TABLET 50 MG PO (08:04)
[2023-08-08] MEDS: APIXABAN 5MG TABLET 5 MG PO ×2 (08:04→20:37)
[2023-08-08] MEDS: AMITRIPTYLINE 50MG TABLET 50 MG PO (08:04)
--- NOTE | 2023-08-08 08:27 | SW/DCPLANNER ---
Addendum entered by Maddy Hinds 08/09/23 13:38: Maryjo Valencia stated that services will resume next week. Addendum entered by Maddy Hinds 08/09/23 11:12: Patient will discharge home today. I will fax updated information to Maryjo diop/ Erik. Original Note: This patient is currently established w/ [facility] services. I will continue to follow up w/ Maryjo at [facility] until patient is ready for discharge. Discharge date is unknown at this time.
[2023-08-08 10:17] LABS: POC Glucose,Bedside 110 (70-110)
[2023-08-08] MEDS: BUMETANIDE 10 MG in 0.9 % SODIUM CHLORIDE 60 ML IV ×2 (12:47→22:00)
--- NOTE | 2023-08-08 13:42 | EXP.CARD.PN ---
Subjective Subjective Date: 08/08/23 Time: 09:30 Principal diagnosis: acute on chronic HFpEF Interval history: This is an 82-year-old white female presented to the emergency department with complaints of lower extremity edema and shortness of breath. The patient is being treated for an acute on chronic exacerbation of HFpEF. SheHas been diuresed with IV Lasix. She has had improvement in her shortness of breath and lower extremity edema but still states that her legs are edematous. She states that her legs usually have no evidence of edema at all. She denies any chest pain or pressure. She denies any fever, chills, nausea, vomiting or diarrhea. She still has associated orthopnea with her shortness of breath. Exam Data for Last 24 hours Vital signs and Labs for Last 24 Hours: Temp Pulse Resp BP Pulse Ox O2 Del Method 98.2 F 94 H 18 146/72 H 98 Room Air 08/08/23 11:48 08/08/23 11:48 08/08/23 11:48 08/08/23 11:48 08/08/23 07:44 08/08/23 12:37 Laboratory Results - last 24 hr 08/07/23 16:02: POC Glucose 152 H 08/07/23 21:04: POC Glucose 127 H 08/08/23 05:42: WBC 6.9, RBC 3.24 L, Hgb 9.9 L, Hct 30.6 L, MCV 94.4, MCH 30.5, MCHC 32.3, RDW 15.6, Plt Count 298, MPV 7.4, Neut % (Auto) 69.6, Lymph % (Auto) 20.5, [place] % (Auto) 6.4, Eos % (Auto) 2.9, Baso % (Auto) 0.7, Neut # (Auto) 4.8, Lymph # (Auto) 1.4, [place] # (Auto) 0.4, Eos # (Auto) 0.2, Baso # (Auto) 0.1, Sodium 132 L, Potassium 4.0, Chloride 101, Carbon Dioxide 30, Anion Gap 5.0, BUN 12, Creatinine 0.70, Estimated Creat Clear 29, Estimated GFR 80, Est GFR ( Amer) 96, Glucose 117 H, Calcium 8.8, Triglycerides 124, Cholesterol 141, LDL Cholesterol Direct 70.50 L, VLDL Cholesterol 25, HDL Cholesterol 47, Cholesterol/HDL Ratio 3.0 08/08/23 06:07: POC Glucose 131 H 08/08/23 10:06: POC Glucose 110 Temp Pulse Resp BP Pulse Ox O2 Del Method 98.4 F 95 H 19 164/76 H 98 Room Air 08/07/23 12:00 08/07/23 12:00 08/07/23 12:00 08/07/23 12:00 08/07/23 12:00 08/07/23 12:45 Laboratory Results - last 24 hr 08/06/23 12:41: Urine Color Yellow, Urine Appearance Clear, Urine pH 6.0, Ur Specific [place] 1.015, Urine Protein Negative, Urine Glucose (UA) Negative, Urine Ketones Negative, Urine Blood Negative, Urine Nitrate Negative, Urine Bilirubin Negative, Urine Urobilinogen 0.2, Ur Leukocyte Esterase Trace, Urine RBC None, Urine WBC Occasional, Ur Squamous Epith Cells 10-20, Urine Bacteria Trace 08/06/23 15:04: WBC 9.0, RBC 3.38 L, Hgb 10.6 L, Hct 31.9 L, MCV 94.5, MCH 31.2, MCHC 33.0, RDW 15.4, Plt Count 346, MPV 8.0, Neut % (Auto) 70.4, Lymph % (Auto) 21.4, [place] % (Auto) 5.5, Eos % (Auto) 2.2, Baso % (Auto) 0.6, Neut # (Auto) 6.3, Lymph # (Auto) 1.9, [place] # (Auto) 0.5, Eos # (Auto) 0.2, Baso # (Auto) 0.1, PT 10.7, INR 0.99, D-Dimer 0.76 H, Sodium 134 L, Potassium 5.0, Chloride 104, Carbon Dioxide 26, Anion Gap 9.0, BUN 11, Creatinine 0.50 L, Estimated Creat Clear 30, Estimated GFR 118, Est GFR ( Amer) 142, Glucose 120 H, Calcium 9.4, Magnesium 1.4 L, Total Bilirubin 1.0, AST 46 H, ALT 26, Alkaline Phosphatase 89, Troponin I 0.02, NT-Pro-B Natriuret Pep 1120 H, Total Protein 7.0, Albumin 4.0, Globulin 3.0, Albumin/Globulin Ratio 1.3, TSH 3.35 08/06/23 15:09: VBG pH 7.46 H, VBG pCO2 31.9 L, VBG pO2 123.5 H, VBG HCO3 22.2 L, VBG Total CO2 23.2, VBG O2 Saturation 98.5 H, VBG Base Excess -1.6, VBG Lactic Acid 2.7 H 08/06/23 15:17: Chlamy pneumoniae PCR TNP, Adenovirus (PCR) Not detected, B. pertussis DNA (PCR) TNP, Coronavirus OC43 (PCR) Not detected, Coronavirus HKU1 (PCR) Not detected, Coronavirus 229E (PCR) Not detected, SARS-CoV-2 (PCR) Not detected, Coronavirus NL63 (PCR) Not detected, Human Metapneumovir PCR Not detected, Influenza A (H1) PCR Not detected, Influ A (H1N1/09) PCR Not detected, Influenza A (H3) PCR Not detected, Influenza Type A (PCR) Not detected, Influenza Type B (PCR) Not detected, M. pneumoniae (PCR) TNP, Parainfluenza 1 (PCR) Not detected, Parainfluenza 2 (PCR) Not detected, Parainfluenza 3 (PCR) Not detected, Parainfluenza 4 (PCR) Not detected, RSV (PCR) Not detected, Entero/Rhino (PCR) Not detected 08/06/23 18:27: Lactate 0.9, Troponin I < 0.01 08/06/23 21:14: Troponin I < 0.01 08/06/23 23:32: POC Glucose 139 H 08/07/23 05:47: WBC 7.9, RBC 3.22 L, Hgb 9.9 L, Hct 30.7 L, MCV 95.6, MCH 30.8, MCHC 32.2, RDW 15.5, Plt Count 316, MPV 7.5, Neut % (Auto) 71.4, Lymph % (Auto) 20.4, [place] % (Auto) 5.9, Eos % (Auto) 1.8, Baso % (Auto) 0.6, Neut # (Auto) 5.6, Lymph # (Auto) 1.6, [place] # (Auto) 0.5, Eos # (Auto) 0.1, Baso # (Auto) 0.0, Sodium 132 L, Potassium 4.2, Chloride 102, Carbon Dioxide 27, Anion Gap 7.2, BUN 12, Creatinine 0.80 D, Estimated Creat Clear 29, Estimated GFR 68, Est GFR ( Amer) 83 D, Glucose 132 H, Calcium 8.8, Magnesium 1.8 D, Total Bilirubin 0.5, AST 23 D, ALT 19 D, Alkaline Phosphatase 91, Total Protein 6.1 L, Albumin 3.4 L D, Globulin 2.7, Albumin/Globulin Ratio 1.3 08/07/23 06:34: POC Glucose 127 H 08/07/23 11:43: POC Glucose 128 H I & O for Last 24 hours: Intake & Output 08/05/23 08/06/23 08/07/23 08/08/23 23:59 23:59 23:59 23:59 Intake Total 540 / 590 1130 / 1130 360 / 360 Output Total 0 / 0 1200 / 1200 400 / 400 Balance 540 / 590 -70 / -70 -40 / -40 Weight 215 lb 1.998 oz 216 lb 6.139 oz 216 lb 4.375 oz Intake & Output 08/04/23 08/05/23 08/06/23 08/07/23 23:59 23:59 23:59 23:59 Intake Total 540 / 590 770 / 770 Output Total 0 / 0 0 / 0 Balance 540 / 590 770 / 770 Weight 215 lb 1.998 oz 216 lb 6.139 oz Narrative: Telemetry strip shows atrial fibrillation with a rate of 94 to 105 bpm. Constitutional Constitutional: no acute distress and morbidly obese *Routine HEENT Exam Head: Present normocephalic and atraumatic ENT: Present mucous membranes moist *Routine Neck Exam Neck: Present supple, full ROM and normal carotid upstroke; Absent JVD, carotid bruit or lymphadenopathy *Routine Respiratory Exam Respiratory: Present CTA bilaterally, normal respiratory effort, able to speak in complete sentences and symmetric chest movement *Routine Cardiovascular Exam Cardiovascular: Present Normal S1, Normal S2, murmur, tachycardia and irregularly irregular; Absent gallop *Routine Abdominal Exam Abdominal: Present soft and normoactive bowel sounds; Absent tenderness, distended or organomegaly *Routine Extremities Exam Extremities: Present edema (2+ BLE edema), full ROM, pulses intact and normal capillary refill; Absent cyanosis or clubbing *Routine Skin Exam Skin: Present intact and warm; Absent erythema *Routine Neurological Exam Neurological: Present alert, oriented X3 and CN II-XII intact; Absent sensory deficit or motor deficit Routine Psychiatric Exam Psychiatric: Present normal affect Progress Note: A&P Assessment and plan (1) Acute on chronic heart failure with preserved ejection fraction (HFpEF): Status: Acute (2) Atrial fibrillation with rapid ventricular response: Status: Acute (3) Coronary artery disease: Status: Acute (4) Hypertension: Status: Acute (5) HLD (hyperlipidemia): Status: Acute (6) Osteoarthritis (arthritis due to wear and tear of joints): Status: Acute (7) Type 2 diabetes mellitus with diabetic polyneuropathy, without long-term current use of insulin: Status: Acute (8) BMI greater than 40: Status: Acute (9) Hypothyroid: Status: Acute Assessment and Plan Assessment and Plan for All Diagnoses:: Plan: 1. The patient was admitted to the hospital with an acute exacerbation of her chronic HFpEF. The patient has been getting IV Bumex for diuresis. She did not have a significant urine output overnight and she actually had a positive fluid balance. We are going to switch her Bumex over to a Bumex drip at 1 mg/h for continued diuresis. 2. Once the patient has been adequately diuresed with the IV Bumex we will switch her over to oral torsemide prior to discharge home. 3. The patient has a normal ejection fraction. 4. The patient denies any chest pain or pressure. She ruled out for an NE. No plans for invasive left cardiac catheterization at this time. Her coronary artery disease is likely stable. 5. The patient would benefit from an outpatient ischemic evaluation when she is discharged from the hospital. 6. The patient is slightly tachycardic today and remains in atrial fibrillation. Will start her on verapamil 60 mg every 6 hours for rate control. 7. The patient is on long-term anticoagulation with Eliquis. She denies any bleeding. 8. Her blood pressure is slightly elevated this morning. The verapamil will help to increase her blood pressure as well. 9. Her LDL goal is less than 55. Her LDL is 70. She is on a statin. 10. Continue irbesartan for her HFpEF. 11. The patient is diabetic. She will need aggressive control of her diabetes. Will defer this to the hospitalist. 12. When she is euvolemic we will consider starting Farxiga. 13. She is status post permanent pacemaker placement. She has remote monitoring at [facility]. 14. Further recommendations will be made pending the patient's response to treatment. Thank you for the opportunity to participate in the care of this patient. All recommendations and orders are per Dr. Thomas.
--- NOTE | 2023-08-08 15:11 | PC.NURSE ---
Pt. is aox4, up with walker, on RA, tele afib, 20g L H, HAS a pacemaker, pt and ot seeing patient.
[2023-08-08] MEDS: [UNRECOGNIZED DRUG - OTHER] 40 MG PO ×2 (16:14→22:00)
[2023-08-08 16:30] LABS: POC Glucose,Bedside 158 (70-110)
--- NOTE | 2023-08-08 17:14 | EXP.PN ---
Subjective *Date: 08/08/23 *Time: 17:14 Interval history: patient is seen at bedside, denied CP, has complains of SOB on exertion, no reports of fevers or chills Exam Data for Last 24 hours Vital signs and Labs for Last 24 Hours: Temp Pulse Resp BP Pulse Ox O2 Del Method 97.7 F 93 H 20 122/76 98 Room Air 08/08/23 16:00 08/08/23 16:00 08/08/23 16:00 08/08/23 16:00 08/08/23 16:00 08/08/23 16:00 Laboratory Results - last 24 hr 08/07/23 21:04: POC Glucose 127 H 08/08/23 05:42: WBC 6.9, RBC 3.24 L, Hgb 9.9 L, Hct 30.6 L, MCV 94.4, MCH 30.5, MCHC 32.3, RDW 15.6, Plt Count 298, MPV 7.4, Neut % (Auto) 69.6, Lymph % (Auto) 20.5, Mcpherson % (Auto) 6.4, Eos % (Auto) 2.9, Baso % (Auto) 0.7, Neut # (Auto) 4.8, Lymph # (Auto) 1.4, Mcpherson # (Auto) 0.4, Eos # (Auto) 0.2, Baso # (Auto) 0.1, Sodium 132 L, Potassium 4.0, Chloride 101, Carbon Dioxide 30, Anion Gap 5.0, BUN 12, Creatinine 0.70, Estimated Creat Clear 29, Estimated GFR 80, Est GFR ( Amer) 96, Glucose 117 H, Calcium 8.8, Triglycerides 124, Cholesterol 141, LDL Cholesterol Direct 70.50 L, VLDL Cholesterol 25, HDL Cholesterol 47, Cholesterol/HDL Ratio 3.0 08/08/23 06:07: POC Glucose 131 H 08/08/23 10:06: POC Glucose 110 08/08/23 16:09: POC Glucose 158 H I & O for Last 24 hours: Intake & Output 08/05/23 08/06/23 08/07/23 08/08/23 23:59 23:59 23:59 23:59 Intake Total 540 / 590 1130 / 1130 720 / 720 Output Total 0 / 0 1200 / 1200 1100 / 1100 Balance 540 / 590 -70 / -70 -380 / -380 Weight 97.579 kg 98.15 kg 98.1 kg Constitutional Constitutional: no acute distress *Routine HEENT Exam Head: Present normocephalic Eye: Present EOMI and PERRL ENT: Present mucous membranes moist *Routine Neck Exam Neck: Present supple; Absent lymphadenopathy *Routine Respiratory Exam Respiratory: Present CTA bilaterally *Routine Cardiovascular Exam Cardiovascular: Present RRR *Routine Abdominal Exam Abdominal: Present soft and normoactive bowel sounds; Absent tenderness *Routine Extremities Exam Extremities: Absent cyanosis, clubbing or edema *Routine Skin Exam Skin: Present warm; Absent rash *Routine Neurological Exam Neurological: Present alert and oriented X3 Assessment and Plan *Assessment and plan (1) CHF exacerbation: Status: Chronic Qualifiers: Heart failure type: diastolic Qualified Code(s): I50.33 - Acute on chronic diastolic (congestive) heart failure Category: Medical Code(s): I50.9 - Heart failure, unspecified (2) Afib: Status: Acute Qualifiers: Atrial fibrillation type: longstanding persistent Qualified Code(s): I48.11 - Longstanding persistent atrial fibrillation Category: Medical Code(s): I48.91 - Unspecified atrial fibrillation (3) Declining functional status: Status: Acute Category: Medical Code(s): R53.81 - Other malaise (4) Multiple falls: Status: Acute Category: Medical Code(s): R29.6 - Repeated falls (5) HLD (hyperlipidemia): Status: Acute Qualifiers: Hyperlipidemia type: mixed hyperlipidemia Qualified Code(s): E78.2 - Mixed hyperlipidemia Category: Medical Code(s): E78.5 - Hyperlipidemia, unspecified (6) Osteoarthritis (arthritis due to wear and tear of joints): Status: Acute Category: Medical Code(s): M19.90 - Unspecified osteoarthritis, unspecified site (7) Hypertension: Status: Acute Qualifiers: Hypertension type: unspecified Qualified Code(s): I10 - Essential (primary) hypertension Category: Medical Code(s): I10 - Essential (primary) hypertension (8) Type 2 diabetes mellitus with diabetic polyneuropathy, without long-term current use of insulin: Status: Acute Category: Medical Code(s): E11.42 - Type 2 diabetes mellitus with diabetic polyneuropathy (9) BMI greater than 40: Status: Acute Category: Medical (10) Hypothyroid: Status: Acute Category: Medical Code(s): E03.9 - Hypothyroidism, unspecified Plan Ms. Ahmadi is an 82-year-old female with multiple comorbidities. Lives alone and has macular degeneration. Presents with concern for CHF exacerbation and A-fib with RVR. Frankly volume overloaded with worsening edema. On room air. Discussed case with ER physician, request admission for therapy eval, diuresis, further management for safe dispo planning. Medicine agreed to admit. Received dose of Bumex in the ER. Necessitating inpatient management. Problems addressed as follows: History of CABG CAD CHF Hypertension Atrial fibrillation -Findings consistent with acute on chronic heart failure with preserved ejection fraction. Echocardiogram obtained 1 month ago, EF preserved, has diastolic dysfunction. -Continue diuresis with Bumex dripo -BNP elevated at 1120, strict I's and O's -Cardiology consulted, appreciate their assistance in care - Chest x-ray personally reviewed, presence of cardiomegaly and cephalization of pulmonary vasculature. Sternotomy wires in place from previous CABG. - Low concern for CKD given normal creatinine of 0.5 and BUN of 11. Anticipate good response to diuretics. - Continue Eliquis during admission for DVT prophylaxis and A-fib. Will have further ongoing discussion given patient's falling at home, risk for intracranial hemorrhage or bleed with her falls. Concern risk outweighs benefit at this time. May benefit from transitioning to low-dose aspirin daily as monotherapy. Currently on aspirin 81 mg daily. Diabetes: Well-controlled with A1c of 7.4 1 month ago. Continue metformin 500 mg twice daily along with fingersticks ACHS and sliding scale insulin. continue meds for chronic conditions as follows: Hypothyroid: Continue levothyroxine 125 mcg daily. TSH 4.5, T4 11 Transition to irbesartan 75 daily. Given its longer half-life, should control blood pressure more consistently. Increase metoprolol succinate to 50 mg daily. Continue pantoprazole 40 mg nightly for GERD Continue pravastatin 10 mg daily for hyperlipidemia Continue amitriptyline 50 mg daily for mood Morbid obesity complicates all aspects of her care History of arthritis with bilateral knee replacements. Significant arthritis in right hip. Impacts her mobility, leads to falls. PT and OT evaluating. DNR Cardiac diet Eliquis plan discussed with cardiology, closely monitor BMP, CBC, started on Bumex drip
[2023-08-08 19:48] LABS: POC Glucose,Bedside 164 (70-110)
[2023-08-08] MEDS: PANTOPRAZOLE 40MG TABLET 40 MG PO (20:38)
[2023-08-08] MEDS: ACETAMINOPHEN 325MG TAB 650 MG PO (22:00)
[2023-08-09] VITALS: PULSE 90
[2023-08-09 04:00] VITALS: BP 143/72; PULSE 89; PULSE 90; RESP 16; TEMP 36.6; O2SAT 98; BMI 42.4
[2023-08-09] MEDS: [UNRECOGNIZED DRUG - OTHER] 40 MG PO ×2 (05:50→10:11)
[2023-08-09] MEDS: LEVOTHYROXINE 125MCG (0.125MG) TAB 125 MCG PO (06:03)
[2023-08-09 06:05] LABS: Basophils # 0.1 K/mm3 (0-0.2); Basophils % 0.8 % (0.1-2.0); Eosinophils # 0.2 K/mm3 (0.0-0.4); Eosinophils % 2.9 % (0.1-12.0); Hematocrit 33.6 % (37.0-47.0); Lymphocytes # 1.5 K/mm3 (0.7-4.5); Mean Corpuscular HGB Conc 32.4 g/dL (31.8-35.4); Mean Corpuscular Hemoglobin 30.4 pg (27.0-31.2); Mean Corpuscular Volume 93.9 fl (81-99); Mean Platelet Volume 7.8 fl (7.4-10.4); Monocytes # 0.5 K/mm3 (0.1-1.0); Monocytes % 6.8 % (1.7-9.3); Neutrophils % 69.5 % (37.0-80.0); Platelet Count 351 K/mm3 (142-424); Red Blood Count 3.58 M/mm3 (4.20-5.40); Red Cell Distribution Width 15.6 % (11.5-17.5); White Blood Count 7.2 K/mm3 (4.8-10.8)
[2023-08-09 06:13] LABS: Anion Gap 8.6 mEq/L (5-15); Blood Urea Nitrogen 15 mg/dl (7-17); Calcium 8.7 mg/dl (8.4-10.2); Carbon Dioxide 35 mmol/L (22.0-30.0); Chloride 94 mmol/L (98-107); Creatinine Clearance Estimated 29 mL/min (50-200); Estimated Glomerular Filt Rate 60 ml/min (>60); GFR (African American) 72 ML/MIN (>60); Glucose 107 mg/dl (74-100); Potassium 3.6 mmoL/L (3.5-5.1); Sodium 134 mmol/L (136-145)
[2023-08-09] MEDS: METFORMIN 500MG TABLET 500 MG PO (06:33)
[2023-08-09 07:05] LABS: POC Glucose,Bedside 115 (70-110)
[2023-08-09] MEDS: APIXABAN 5MG TABLET 5 MG PO (07:23)
[2023-08-09] MEDS: METOPROLOL SUCCINATE XL 50MG TABLET 50 MG PO (07:23)
[2023-08-09] MEDS: AMITRIPTYLINE 50MG TABLET 50 MG PO (07:23)
[2023-08-09] MEDS: IRBESARTAN 75MG TABLET 75 MG PO (07:23)
[2023-08-09] MEDS: ASPIRIN EC 81MG TABLET 81 MG PO (07:23)
[2023-08-09] MEDS: NYSTATIN TOPICAL POWDER 30GM TP (07:25)
[2023-08-09] MEDS: PRAVASTATIN 20MG TAB 10 MG PO (07:25)
[2023-08-09 08:00] VITALS: BP 145/64; PULSE 90; PULSE 98; RESP 20; TEMP 36.5; O2SAT 97
[2023-08-09] MEDS: BUMETANIDE 10 MG in 0.9 % SODIUM CHLORIDE 60 ML IV (09:04)
--- OUTSIDE RECORDS SUMMARY | 2023-08-09 09:47 | XMS_ITS ---
Author Name Michael Rivera Address [address] [place] [id number] Organization Unknown Address [address] [place] [id number] ALLERGIES AND ADVERSE REACTIONS No information ASSESSMENT No information CHIEF COMPLAINT No information Medications Date Medication Dosage Dosageunit Startdate Stopdate Active Dispens e Refills Ndccode Isprescription Srcstatus 05/02 00:00 :00 Acetaminoph en 500 MG Capsule null null 1 Taking 01/19 00:00 :00 Acetaminoph en 500 MG Capsule null null 1 Taking 12/18 00:00 :00 Acetaminoph en 500 MG Capsule null null 1 Taking 09/13 00:00 :00 Acetaminoph en 500 MG Capsule null null 1 Taking 07/26 00:00 :00 Acetaminoph en 500 MG Capsule null null 1 Taking 07/03 00:00 :00 Acetaminoph en 500 MG Capsule null null 1 Taking 05/16 00:00 :00 Acetaminoph en 500 MG Capsule null null 1 Taking 05/02 00:00 :00 Acetaminoph en 500 MG Capsule null null 1 Taking 04/03 00:00 :00 Acetaminoph en 500 MG Capsule null null 1 Taking 02/03 00:00 :00 Acetaminoph en 500 MG Capsule null null 1 Taking 08/12 00:00 :00 Acetaminoph en 500 MG Capsule null null 1 Taking 06/28 00:00 :00 Acetaminoph en 500 MG Capsule null null 1 Taking 02/03 00:00 :00 Acetaminoph en 500 MG Capsule null null 1 Taking 01/20 00:00 :00 Acetaminoph en 500 MG Capsule null null 1 Taking 10/14 00:00 :00 Acetaminoph en 500 MG Capsule null null 1 Taking 09/24 00:00 :00 Acetaminoph en 500 MG Capsule null null 1 Taking 09/08 00:00 :00 Acetaminoph en 500 MG Capsule null null 1 Taking 06/14 00:00 :00 Acetaminoph en 500 MG Capsule null null 1 Taking 04/13 00:00 :00 Acetaminoph en 500 MG Capsule null null 1 Taking 05/02 00:00 :00 Aspirin 81 MG null null 1 90 4 P Taking 01/19 00:00 :00 Aspirin 81 MG null null 1 90 4 P Taking 12/18 00:00 :00 Aspirin 81 MG null null 1 90 4 P Taking 09/13 00:00 :00 Aspirin 81 MG null null 1 90 4 P Taking 07/26 00:00 :00 Aspirin 81 MG null null 1 90 4 P Taking 07/03 00:00 :00 Aspirin 81 MG null null 1 90 4 P Taking 05/16 00:00 :00 Aspirin 81 MG null null 1 90 4 P Taking 05/02 00:00 :00 Aspirin 81 MG null null 1 90 4 P Taking 04/03 00:00 :00 Aspirin 81 MG null null 1 90 4 P Taking 02/03 00:00 :00 Aspirin 81 MG null null 1 90 4 P Taking 08/12 00:00 :00 Aspirin 81 MG null null 1 90 4 P Taking 06/28 00:00 :00 Aspirin 81 MG null null 1 90 4 P Taking 02/03 00:00 :00 Aspirin 81 MG null null 1 90 4 P Taking 01/20 00:00 :00 Aspirin 81 MG null null 1 90 4 P Taking 10/14 00:00 :00 Aspirin 81 MG null null 1 90 4 P Taking 09/24 00:00 :00 Aspirin 81 MG null null 1 90 4 P Taking 09/08 00:00 :00 Aspirin 81 MG null null 1 90 4 P Taking 06/14 00:00 :00 Aspirin 81 MG null null 1 90 4 P Taking 04/13 00:00 :00 Aspirin 81 MG null null 1 90 4 P Taking 03/19 00:00 :00 Aspirin 81 MG null null 1 90 4 P Taking 03/14 00:00 :00 Aspirin 81 MG null null 1 90 4 P Taking 02/06 00:00 :00 Aspirin 81 MG null null 1 90 4 P Taking 01/12 00:00 :00 Aspirin 81 MG null null 1 90 4 P Taking 01/07 00:00 :00 Aspirin 81 MG null null 1 90 4 P Taking 12/30 00:00 :00 Aspirin 81 MG null null 1 90 4 P Taking 11/12 00:00 :00 Aspirin 81 MG null null 1 90 4 P Taking 11/04 00:00 :00 Aspirin 81 MG null null 1 90 4 P Taking 09/16 00:00 :00 Aspirin 81 MG null null 1 90 4 P Taking 08/11 00:00 :00 Aspirin 81 MG null null 1 90 4 P Taking 06/20 00:00 :00 Aspirin 81 MG null null 1 90 4 P Taking 05/19 00:00 :00 Aspirin 81 MG null null 1 90 4 P Taking 05/05 00:00 :00 Aspirin 81 MG null null 1 90 4 P Taking 04/23 00:00 :00 Aspirin 81 MG null null 1 90 4 P Taking 03/26 00:00 :00 Aspirin 81 MG null null 1 90 4 P Taking 02/04 00:00 :00 Aspirin 81 MG null null 1 90 4 P Taking 01/24 00:00 :00 Aspirin 81 MG null null 1 90 4 P Taking 12/25 00:00 :00 Aspirin 81 MG null null 1 90 4 P Taking 12/18 00:00 :00 Aspirin 81 MG null null 1 90 4 P Taking 12/11 00:00 :00 Aspirin 81 MG null null 1 90 4 P Taking 10/29 00:00 :00 Aspirin 81 MG null null 1 90 4 P Taking 09/09 00:00 :00 Aspirin 81 MG null null 1 90 4 P Start 09/06 00:00 :00 Aspirin 81 MG null null 1 90 4 Continue 07/16 00:00 :00 Aspirin 81 MG null null 1 118 0 P Taking 07/02 00:00 :00 Aspirin 81 MG null null 1 118 0 P Taking 06/25 00:00 :00 Aspirin 81 MG null null 1 118 0 P Taking 06/18 00:00 :00 Aspirin 81 MG null null 1 118 0 P Taking 02/13 00:00 :00 Aspirin 81 MG null null 1 118 0 P Taking 02/13 00:00 :00 Aspirin 500MG tablet null null 1 60 Tab 5 86177071 810 P Taking 02/06 00:00 :00 Aspirin 81 MG null null 1 118 0 P Taking 02/06 00:00 :00 Aspirin 500MG tablet null null 1 60 Tab 5 89963243 810 P Taking 12/26 00:00 :00 Aspirin 81 MG null null 1 118 0 P Taking 12/26 00:00 :00 Aspirin 500MG tablet null null 1 60 Tab 5 [id number] 810 P Taking 10/03 00:00 :00 Aspirin 81 MG null null 1 118 0 P Taking 10/03 00:00 :00 Aspirin 500MG tablet null null 1 60 Tab 5 [id number] 810 P Taking 08/30 00:00 :00 Aspirin 500MG tablet null null 1 60 Tab 5 [id number] 810 P Start 03/13 00:00 :00 Aspirin 500MG tablet null null 1 60 Tab 2 [id number] 810 P Start 02/20 00:00 :00 Aspirin 81 MG null null 1 118 0 P Taking 12/21 00:00 :00 Aspirin 81 MG null null 1 118 0 P Start 12/07 00:00 :00 Aspirin 500MG null null 1 60 2 P Start 11/04 00:00 :00 Aspirin 500MG null null 1 60 1 P Start 10/11 00:00 :00 Aspirin 500MG Tablet Chewable null null 1 60 Tab 0 94872452 810 P Start 07/25 00:00 :00 Aspirin 500MG Tablet Chewable null null 1 60 Tab 5 [id number] 810 P Taking 06/13 00:00 :00 Aspirin 500MG Tablet Chewable null null 1 60 Tab 5 [id number] 810 P Taking 02/11 00:00 :00 Aspirin 500MG Tablet Chewable null null 1 60 Tab 5 [id number] 810 P Taking 02/09 00:00 :00 Aspirin 500MG Tablet Chewable null null 1 60 Tab 5 [id number] 810 P Start 01/05 00:00 :00 Aspirin 81 MG Tablet Chewable null null 1 92553887 468 Taking 10/20 00:00 :00 Aspirin 81 MG Tablet Chewable null null 1 32127144 468 Taking 07/21 00:00 :00 Aspirin 81 MG Tablet Chewable null null 1 35492391 468 Taking 06/04 00:00 :00 Aspirin 81 MG Tablet Chewable null null 1 30372950 468 Taking 04/13 00:00 :00 Aspirin 81 MG Tablet Chewable null null 1 [id number] 468 Taking 03/17 00:00 :00 Aspirin 81 MG Tablet Chewable null null 1 81796925 468 Taking 01/19 00:00 :00 Aspirin 81 MG Tablet Chewable null null 1 73861762 468 Taking 01/15 00:00 :00 Aspirin 81 MG Tablet Chewable null null 1 74493433 468 Taking 01/08 00:00 :00 Aspirin 81 MG Tablet Chewable null null 1 82545334 468 Taking 12/22 00:00 :00 Aspirin 81 MG Tablet Chewable null null 1 30 00758130 468 Taking 10/14 00:00 :00 Aspirin 81 MG Tablet Chewable null null 1 30 73952576 468 Taking 08/26 00:00 :00 Aspirin 81 MG Tablet Chewable null null 1 30 37182972 468 Taking 08/12 00:00 :00 Aspirin 81 MG Tablet Chewable null null 1 30 79711876 468 Taking 07/15 00:00 :00 Aspirin 81 MG Tablet Chewable null null 1 30 48069995 468 Taking 05/26 00:00 :00 Aspirin 81 MG Tablet Chewable null null 1 30 12035368 468 P Taking 01/27 00:00 :00 Aspirin 81 MG Tablet Chewable null null 1 30 24438701 468 Taking 12/09 00:00 :00 Aspirin 81 MG Tablet Chewable null null 1 30 85168966 468 Taking 12/06 00:00 :00 Aspirin 81 MG Tablet Chewable null null 1 30 84909757 468 Taking 12/02 00:00 :00 Aspirin 81 MG Tablet Chewable null null 1 30 [id number] 468 P Taking 12/26 00:00 :00 Atenolol 50 MG null null 0 60 5 P Discontinu ed 10/03 00:00 :00 Atenolol 50 MG null null 1 60 5 P Taking 05/07 00:00 :00 Atenolol 50 MG null null 1 60 5 P Start 02/20 00:00 :00 Atenolol 50 MG null null 1 60 5 P Taking 07/31 00:00 :00 Atenolol 50 MG null null 1 60 5 P Start 07/25 00:00 :00 Atenolol 50MG Tablet null null 1 60 5 6808920 2 201 Taking 06/13 00:00 :00 Atenolol 50MG Tablet null null 1 60 5 3435003 2 201 Taking 02/11 00:00 :00 Atenolol 50MG Tablet null null 1 60 5 [id number] 2 201 Taking 01/05 00:00 :00 Atenolol 50MG Tablet null null 1 60 5 [id number] 2 201 Taking 10/20 00:00 :00 Atenolol 50MG Tablet null null 1 60 5 6188395 2 201 Taking 07/21 00:00 :00 Atenolol 50MG Tablet null null 1 60 5 5026082 2 201 Taking 06/04 00:00 :00 Atenolol 50MG Tablet null null 1 60 5 1246088 2 201 Taking 04/13 00:00 :00 Atenolol 50MG Tablet null null 1 60 5 [id number] 2 201 Taking 03/17 00:00 :00 Atenolol 50MG Tablet null null 1 60 5 8791880 2 201 Taking 01/19 00:00 :00 Atenolol 50MG Tablet null null 1 60 5 2174621 2 201 Taking 01/15 00:00 :00 Atenolol 50MG Tablet null null 1 60 5 8564700 2 201 Taking 01/13 00:00 :00 Atenolol 50MG Tablet null null 1 60 5 1306853 2 201 Continue 01/13 00:00 :00 Atenolol 50MG Tablet null null 1 60 5 6882112 2 201 Continue 01/11 00:00 :00 Atenolol 50MG Tablet null null 1 30 2 0571442 2 201 Continue 01/08 00:00 :00 Atenolol 50MG Tablet null null 1 0207311 2 201 Taking 12/22 00:00 :00 Atenolol 50MG Tablet null null 1 90 Tablet 3 08204 062 201 Taking 10/14 00:00 :00 Atenolol 50MG Tablet null null 1 90 Tablet 3 12219 062 201 Taking 09/02 00:00 :00 Atenolol 50MG Tablet null null 1 90 Tablet 3 87481 062 201 Start 08/26 00:00 :00 Atenolol 50MG Tablet null null 1 90 Tablet 2 Taking 08/12 00:00 :00 Atenolol 50MG Tablet null null 1 90 Tablet 2 Taking 07/15 00:00 :00 Atenolol 50MG Tablet null null 1 90 Tablet 2 Taking 06/17 00:00 :00 Atenolol 50MG Tablet null null 1 90 Tablet 2 P Start 05/26 00:00 :00 Atenolol 50 MG Tablet null null 1 30 9729017 5 201 P Taking 01/27 00:00 :00 Atenolol 50 MG Tablet null null 1 30 9767652 5 201 Taking 12/09 00:00 :00 Atenolol 50 MG Tablet null null 1 30 6163955 5 201 Taking 12/06 00:00 :00 Atenolol 50 MG Tablet null null 1 30 5692397 5 201 Taking 12/02 00:00 :00 Atenolol 50 MG Tablet null null 1 30 6081856 5 201 P Taking 05/02 00:00 :00 Breo Ellipta 100-25 MCG/INH Aerosol Powder Breath Activated null null 1 1 Inhaler 1 98290588 910 Taking 01/19 00:00 :00 Breo Ellipta 100-25 MCG/INH Aerosol Powder Breath Activated null null 1 1 Inhaler 1 26590117 910 Taking 12/18 00:00 :00 Breo Ellipta 100-25 MCG/INH Aerosol Powder Breath Activated null null 1 1 Inhaler 1 [id number] 910 Taking 09/13 00:00 :00 Breo Ellipta 100-25 MCG/INH Aerosol Powder Breath Activated null null 1 1 Inhaler 1 39363890 910 Taking 07/26 00:00 :00 Breo Ellipta 100-25 MCG/INH Aerosol Powder Breath Activated null null 1 1 Inhaler 1 [id number] 910 Taking 07/03 00:00 :00 Breo Ellipta 100-25 MCG/INH Aerosol Powder Breath Activated null null 1 1 Inhaler 1 96582436 910 Taking 05/16 00:00 :00 Breo Ellipta 100-25 MCG/INH Aerosol Powder Breath Activated null null 1 1 Inhaler 1 [id number] 910 Taking 05/02 00:00 :00 Breo Ellipta 100-25 MCG/INH Aerosol Powder Breath Activated null null 1 1 Inhaler 1 12970528 910 Taking 04/03 00:00 :00 Breo Ellipta 100-25 MCG/INH Aerosol Powder Breath Activated null null 1 1 Inhaler 1 [id number] 910 Taking 02/03 00:00 :00 Breo Ellipta 100-25 MCG/INH Aerosol Powder Breath Activated null null 1 1 Inhaler 1 [id number] 910 Taking 08/12 00:00 :00 Breo Ellipta 100-25 MCG/INH Aerosol Powder Breath Activated null null 1 1 Inhaler 1 [id number] 910 Taking 07/05 00:00 :00 Breo Ellipta 100-25 MCG/INH Aerosol Powder Breath Activated null null 1 1 Inhaler 1 95132821 910 Continue 06/28 00:00 :00 Breo Ellipta 100-25 MCG/INH Aerosol Powder Breath Activated null null 1 1 Inhaler 1 68857882 910 Not Taking 02/03 00:00 :00 Breo Ellipta 100-25 MCG/INH Aerosol Powder Breath Activated null null 1 1 Inhaler 1 [id number] 910 Taking 01/20 00:00 :00 Breo Ellipta 100-25 MCG/INH Aerosol Powder Breath Activated null null 1 1 Inhaler 1 49413363 910 Taking 10/14 00:00 :00 Breo Ellipta 100-25 MCG/INH Aerosol Powder Breath Activated null null 1 1 Inhaler 1 [id number] 910 Taking 09/24 00:00 :00 Breo Ellipta 100-25 MCG/INH Aerosol Powder Breath Activated null null 1 1 Inhaler 1 33471875 910 Taking 09/08 00:00 :00 Breo Ellipta 100-25 MCG/INH Aerosol Powder Breath Activated null null 1 1 Inhaler 1 [id number] 910 Taking 06/14 00:00 :00 Breo Ellipta 100-25 MCG/INH Aerosol Powder Breath Activated null null 1 1 Inhaler 1 [id number] 910 Taking 04/13 00:00 :00 Breo Ellipta 100-25 MCG/INH Aerosol Powder Breath Activated null null 1 1 Inhaler 1 [id number] 910 Taking 03/19 00:00 :00 Breo Ellipta 100-25 MCG/INH Aerosol Powder Breath Activated null null 1 1 Inhaler 1 [id number] 910 Taking 03/14 00:00 :00 Breo Ellipta 100-25 MCG/INH Aerosol Powder Breath Activated null null 1 1 Inhaler 1 54354935 0 Taking 02/06 00:00 :00 Breo Ellipta 100-25 MCG/INH Aerosol Powder Breath Activated null null 1 1 Inhaler 1 76892558 910 Taking 01/12 00:00 :00 Breo Ellipta 100-25 MCG/INH Aerosol Powder Breath Activated null null 1 1 Inhaler 1 84371800 910 Taking 01/07 00:00 :00 Breo Ellipta 100-25 MCG/INH Aerosol Powder Breath Activated null null 1 1 Inhaler 1 50593525 910 Taking 12/30 00:00 :00 Breo Ellipta 100-25 MCG/INH Aerosol Powder Breath Activated null null 1 1 Inhaler 1 79914757 910 Taking 11/12 00:00 :00 Breo Ellipta 100-25 MCG/INH Aerosol Powder Breath Activated null null 1 1 Inhaler 1 34481027 910 Taking 11/04 00:00 :00 Breo Ellipta 100-25 MCG/INH Aerosol Powder Breath Activated null null 1 1 Inhaler 1 63151360 910 Taking 09/16 00:00 :00 Breo Ellipta 100-25 MCG/INH Aerosol Powder Breath Activated null null 1 1 Inhaler 1 [id number] 910 Taking 08/11 00:00 :00 Breo Ellipta 100-25 MCG/INH Aerosol Powder Breath Activated null null 1 1 Inhaler 1 59413513 910 Taking 06/20 00:00 :00 Breo Ellipta 100-25 MCG/INH Aerosol Powder Breath Activated null null 1 1 Inhaler 1 54850173 910 Taking 05/19 00:00 :00 Breo Ellipta 100-25 MCG/INH Aerosol Powder Breath Activated null null 1 1 Inhaler 1 01873021 910 Taking 05/05 00:00 :00 Breo Ellipta 100-25 MCG/INH Aerosol Powder Breath Activated null null 1 1 Inhaler 1 60901016 910 Taking 04/23 00:00 :00 Breo Ellipta 100-25 MCG/INH Aerosol Powder Breath Activated null null 1 1 Inhaler 1 [id number] 910 Taking 03/26 00:00 :00 Breo Ellipta 100-25 MCG/INH Aerosol Powder Breath Activated null null 1 1 Inhaler 1 [id number] 910 Taking 03/07 00:00 :00 Breo Ellipta 100-25 MCG/INH Aerosol Powder Breath Activated null null 1 1 Inhaler 1 69024367 910 Refill 02/04 00:00 :00 Breo Ellipta 100-25 MCG/INH Aerosol Powder Breath Activated 12/11/2017 00:00:00 null 1 1 0 91848541 910 P Taking 01/24 00:00 :00 Breo Ellipta 100-25 MCG/INH Aerosol Powder Breath Activated 12/11/2017 00:00:00 null 1 1 0 71832525 910 P Taking 12/25 00:00 :00 Breo Ellipta 100-25 MCG/INH Aerosol Powder Breath Activated 12/11/2017 00:00:00 null 1 1 0 [id number] 910 P Taking 12/18 00:00 :00 Breo Ellipta 100-25 MCG/INH Aerosol Powder Breath Activated 12/11/2017 00:00:00 null 1 1 0 [id number] 910 P Taking 12/11 00:00 :00 Breo Ellipta 100-25 MCG/INH Aerosol Powder Breath Activated 12/11/2017 00:00:00 null 1 1 0 [id number] 910 P Start 05/19 00:00 :00 Carvedilol 25 MG Tablet 12/26/2016 00:00:00 null 1 180 1 33991718 601 P Not Taking 05/19 00:00 :00 Carvedilol 25 MG Tablet null null 1 90523 729 601 Not Taking 05/05 00:00 :00 Carvedilol 25 MG Tablet 12/26/2016 00:00:00 null 1 180 1 03069903 601 P Not Taking 05/05 00:00 :00 Carvedilol 25 MG Tablet null null 1 73715 729 601 Not Taking 04/23 00:00 :00 Carvedilol 25 MG Tablet 12/26/2016 00:00:00 null 1 180 1 41518706 601 P Not Taking 04/23 00:00 :00 Carvedilol 25 MG Tablet null null 1 17612 729 601 Not Taking 03/26 00:00 :00 Carvedilol 25 MG Tablet 12/26/2016 00:00:00 null 1 180 1 19834503 601 P Not Taking 03/26 00:00 :00 Carvedilol 25 MG Tablet null null 1 36879 729 601 Not Taking 02/04 00:00 :00 Carvedilol 25 MG Tablet 12/26/2016 00:00:00 null 1 180 1 36040844 601 P Not Taking 02/04 00:00 :00 Carvedilol 25 MG Tablet null null 1 56339 729 601 Not Taking 01/24 00:00 :00 Carvedilol 25 MG Tablet 12/26/2016 00:00:00 null 1 180 1 93221263 601 P Not Taking 01/24 00:00 :00 Carvedilol 25 MG Tablet null null 1 92131 729 601 Not Taking 12/25 00:00 :00 Carvedilol 25 MG Tablet 12/26/2016 00:00:00 null 1 180 1 03061371 601 P Not Taking 12/25 00:00 :00 Carvedilol 25 MG Tablet null null 1 20503 729 601 Not Taking 12/18 00:00 :00 Carvedilol 25 MG Tablet 12/26/2016 00:00:00 null 1 180 1 03143714 601 P Not Taking 12/18 00:00 :00 Carvedilol 25 MG Tablet null null 1 64148 729 601 Not Taking 12/11 00:00 :00 Carvedilol 25 MG Tablet 12/26/2016 00:00:00 null 1 180 1 08827414 601 P Not Taking 12/11 00:00 :00 Carvedilol 25 MG Tablet null null 1 21101 729 601 Not Taking 10/29 00:00 :00 Carvedilol 25 MG Tablet 12/26/2016 00:00:00 null 1 180 1 72532844 601 P Not Taking 10/29 00:00 :00 Carvedilol 25 MG Tablet null null 1 83887 729 601 Not Taking 07/16 00:00 :00 Carvedilol 25 MG Tablet 12/26/2016 00:00:00 null 1 180 1 21926830 601 P Not Taking 07/16 00:00 :00 Carvedilol 25 MG Tablet null null 1 50182 729 601 Not Taking 07/02 00:00 :00 Carvedilol 25 MG Tablet 12/26/2016 00:00:00 null 1 180 1 20136437 601 P Not Taking 07/02 00:00 :00 Carvedilol 25 MG Tablet null null 1 29021 729 601 Not Taking 06/25 00:00 :00 Carvedilol 25 MG Tablet 12/26/2016 00:00:00 null 1 180 1 42762594 601 P Not Taking 06/25 00:00 :00 Carvedilol 25 MG Tablet null null 1 99459 729 601 Not Taking 06/18 00:00 :00 Carvedilol 25 MG Tablet 12/26/2016 00:00:00 null 1 180 1 97240661 601 P Not Taking 06/18 00:00 :00 Carvedilol 25 MG Tablet null null 1 16702 729 601 Not Taking 02/13 00:00 :00 Carvedilol 25 MG Tablet 12/26/2016 00:00:00 null 1 180 1 19219424 601 P Not Taking 02/13 00:00 :00 Carvedilol 25 MG Tablet null null 1 67924 729 601 Not Taking 02/06 00:00 :00 Carvedilol 25 MG Tablet 12/26/2016 00:00:00 null 1 180 1 84360250 601 P Not Taking 02/06 00:00 :00 Carvedilol 25 MG Tablet null null 1 76271 729 601 Not Taking 12/26 00:00 :00 Carvedilol 25 MG Tablet 12/26/2016 00:00:00 null 1 180 1 86609876 601 P Start 12/26 00:00 :00 Carvedilol 25 MG Tablet null null 1 03650 729 601 Taking 05/19 00:00 :00 Cefdinir 300 MG Capsule 10/29/2017 00:00:00 null 1 20 0 86838033 006 P Not Taking 05/05 00:00 :00 Cefdinir 300 MG Capsule 10/29/2017 00:00:00 null 1 20 0 [id number] 006 P Not Taking 04/23 00:00 :00 Cefdinir 300 MG Capsule 10/29/2017 00:00:00 null 1 20 0 82052939 006 P Not Taking 03/26 00:00 :00 Cefdinir 300 MG Capsule 10/29/2017 00:00:00 null 1 20 0 68416134 006 P Not Taking 02/04 00:00 :00 Cefdinir 300 MG Capsule 10/29/2017 00:00:00 null 1 20 0 67183401 006 P Not Taking 01/24 00:00 :00 Cefdinir 300 MG Capsule 10/29/2017 00:00:00 null 1 20 0 56302956 006 P Not Taking 12/25 00:00 :00 Cefdinir 300 MG Capsule 10/29/2017 00:00:00 null 1 20 0 29653641 006 P Not Taking 12/18 00:00 :00 Cefdinir 300 MG Capsule 10/29/2017 00:00:00 null 1 20 0 90452370 006 P Not Taking 12/11 00:00 :00 Cefdinir 300 MG Capsule 10/29/2017 00:00:00 null 1 20 0 40014385 006 P Not Taking 10/29 00:00 :00 Cefdinir 300 MG Capsule 10/29/2017 00:00:00 null 1 20 0 61973917 006 P Start 05/02 00:00 :00 Centrum Silver - Tablet null null 1 66940120 758 Taking 01/19 00:00 :00 Centrum Silver - Tablet null null 1 02693209 758 Taking 12/18 00:00 :00 Centrum Silver - Tablet null null 1 98239995 758 Taking 09/13 00:00 :00 Centrum Silver - Tablet null null 1 08584520 758 Taking 07/26 00:00 :00 Centrum Silver - Tablet null null 1 48685520 758 Taking 07/03 00:00 :00 Centrum Silver - Tablet null null 1 43226099 758 Taking 05/16 00:00 :00 Centrum Silver - Tablet null null 1 49381739 758 Taking 05/02 00:00 :00 Centrum Silver - Tablet null null 1 66861224 758 Taking 04/03 00:00 :00 Centrum Silver - Tablet null null 1 88181632 758 Taking 02/03 00:00 :00 Centrum Silver - Tablet null null 1 91023784 758 Taking 08/12 00:00 :00 Centrum Silver - Tablet null null 1 58653484 758 Taking 05/19 00:00 :00 Clarithromy mateus 500 MG Tablet 04/23/2018 00:00:00 null 1 20 0 62651421 721 P Not Taking 05/05 00:00 :00 Clarithromy mateus 500 MG Tablet 04/23/2018 00:00:00 null 1 20 0 08923444 721 P Not Taking 04/23 00:00 :00 Clarithromy mateus 500 MG Tablet 04/23/2018 00:00:00 null 1 20 0 27264037 721 P Start 12/09 00:00 :00 Clindamycin HCl 150 MG Capsule null 3 00:00:00 0 40 0 60751650 101 Taking 12/06 00:00 :00 Clindamycin HCl 150 MG Capsule null 3 00:00:00 0 40 0 10834801 101 Start 05/02 00:00 :00 cloNIDine HCl 0.1 MG Tablet 06/20/2018 00:00:00 null 1 30 47629337 710 P Taking 01/19 00:00 :00 cloNIDine HCl 0.1 MG Tablet 06/20/2018 00:00:00 null 1 30 71658997 710 P Taking 12/18 00:00 :00 cloNIDine HCl 0.1 MG Tablet 06/20/2018 00:00:00 null 1 30 00107149 710 P Taking 09/13 00:00 :00 cloNIDine HCl 0.1 MG Tablet 06/20/2018 00:00:00 null 1 30 16192796 710 P Taking 07/26 00:00 :00 cloNIDine HCl 0.1 MG Tablet 06/20/2018 00:00:00 null 1 30 87898810 710 P Taking 07/03 00:00 :00 cloNIDine HCl 0.1 MG Tablet 06/20/2018 00:00:00 null 1 30 94994733 710 P Taking 05/16 00:00 :00 cloNIDine HCl 0.1 MG Tablet 06/20/2018 00:00:00 null 1 30 64995442 710 P Taking 05/02 00:00 :00 cloNIDine HCl 0.1 MG Tablet 06/20/2018 00:00:00 null 1 30 87272065 710 P Taking 04/03 00:00 :00 cloNIDine HCl 0.1 MG Tablet 06/20/2018 00:00:00 null 1 30 59285601 710 P Taking 02/03 00:00 :00 cloNIDine HCl 0.1 MG Tablet 06/20/2018 00:00:00 null 1 30 03154852 710 P Taking 08/12 00:00 :00 cloNIDine HCl 0.1 MG Tablet 06/20/2018 00:00:00 null 1 30 58321722 710 P Taking 06/28 00:00 :00 cloNIDine HCl 0.1 MG Tablet 06/20/2018 00:00:00 null 1 30 [id number] 710 P Taking 02/03 00:00 :00 cloNIDine HCl 0.1 MG Tablet 06/20/2018 00:00:00 null 1 30 00340385 710 P Taking 01/20 00:00 :00 cloNIDine HCl 0.1 MG Tablet 06/20/2018 00:00:00 null 1 30 31700445 710 P Taking 10/14 00:00 :00 cloNIDine HCl 0.1 MG Tablet 06/20/2018 00:00:00 null 1 30 25836823 710 P Taking 09/24 00:00 :00 cloNIDine HCl 0.1 MG Tablet 06/20/2018 00:00:00 null 1 30 87420215 710 P Taking 09/08 00:00 :00 cloNIDine HCl 0.1 MG Tablet 06/20/2018 00:00:00 null 1 30 [id number] 710 P Taking 06/14 00:00 :00 cloNIDine HCl 0.1 MG Tablet 06/20/2018 00:00:00 null 1 30 [id number] 710 P Taking 04/13 00:00 :00 cloNIDine HCl 0.1 MG Tablet 06/20/2018 00:00:00 null 1 30 70492756 710 P Taking 03/19 00:00 :00 cloNIDine HCl 0.1 MG Tablet 06/20/2018 00:00:00 null 1 30 80308192 710 P Taking 03/14 00:00 :00 cloNIDine HCl 0.1 MG Tablet 06/20/2018 00:00:00 null 1 30 63369738 710 P Taking 02/06 00:00 :00 cloNIDine HCl 0.1 MG Tablet 06/20/2018 00:00:00 null 1 30 03403173 710 P Taking 01/12 00:00 :00 cloNIDine HCl 0.1 MG Tablet 06/20/2018 00:00:00 null 1 30 53423551 710 P Taking 01/07 00:00 :00 cloNIDine HCl 0.1 MG Tablet 06/20/2018 00:00:00 null 1 30 93094485 710 P Taking 12/30 00:00 :00 cloNIDine HCl 0.1 MG Tablet 06/20/2018 00:00:00 null 1 30 89522159 710 P Taking 11/12 00:00 :00 cloNIDine HCl 0.1 MG Tablet 06/20/2018 00:00:00 null 1 30 [id number] 710 P Taking 11/04 00:00 :00 cloNIDine HCl 0.1 MG Tablet 06/20/2018 00:00:00 null 1 30 [id number] 710 P Taking 09/16 00:00 :00 cloNIDine HCl 0.1 MG Tablet 06/20/2018 00:00:00 null 1 30 [id number] 710 P Taking 08/11 00:00 :00 cloNIDine HCl 0.1 MG Tablet 06/20/2018 00:00:00 null 1 30 [id number] 710 P Taking 06/20 00:00 :00 cloNIDine HCl 0.1 MG Tablet 06/20/2018 00:00:00 null 1 30 [id number] 710 P Start 08/11 00:00 :00 Cyclobenzap rine HCl 10 MG Tablet 02/06/2017 00:00:00 null 0 30 Tablet 0 [id number] 750 Discontinu ed 06/20 00:00 :00 Cyclobenzap rine HCl 10 MG Tablet 02/06/2017 00:00:00 null 1 30 Tablet 0 [id number] 750 Not Taking 05/19 00:00 :00 Cyclobenzap rine HCl 10 MG Tablet 02/06/2017 00:00:00 null 1 30 Tablet 0 [id number] 750 Not Taking 05/05 00:00 :00 Cyclobenzap rine HCl 10 MG Tablet 02/06/2017 00:00:00 null 1 30 Tablet 0 [id number] 750 Not Taking 04/23 00:00 :00 Cyclobenzap rine HCl 10 MG Tablet 02/06/2017 00:00:00 null 1 30 Tablet 0 [id number] 750 Not Taking 03/26 00:00 :00 Cyclobenzap rine HCl 10 MG Tablet 02/06/2017 00:00:00 null 1 30 Tablet 0 [id number] 750 Not Taking 02/04 00:00 :00 Cyclobenzap rine HCl 10 MG Tablet 02/06/2017 00:00:00 null 1 30 Tablet 0 [id number] 750 Not Taking 01/24 00:00 :00 Cyclobenzap rine HCl 10 MG Tablet 02/06/2017 00:00:00 null 1 30 Tablet 0 [id number] 750 Not Taking 12/25 00:00 :00 Cyclobenzap rine HCl 10 MG Tablet 02/06/2017 00:00:00 null 1 30 Tablet 0 [id number] 750 Not Taking 12/18 00:00 :00 Cyclobenzap rine HCl 10 MG Tablet 02/06/2017 00:00:00 null 1 30 Tablet 0 [id number] 750 Not Taking 12/11 00:00 :00 Cyclobenzap rine HCl 10 MG Tablet 02/06/2017 00:00:00 null 1 30 Tablet 0 [id number] 750 Not Taking 10/29 00:00 :00 Cyclobenzap rine HCl 10 MG Tablet 02/06/2017 00:00:00 null 1 30 Tablet 0 [id number] 750 Taking 09/06 00:00 :00 Cyclobenzap rine HCl 10 MG Tablet 02/06/2017 00:00:00 null 1 30 Tablet 0 [id number] 750 Continue 07/16 00:00 :00 Cyclobenzap rine HCl 10 MG Tablet 02/06/2017 00:00:00 null 1 30 Tablet 0 [id number] 750 P Taking 07/02 00:00 :00 Cyclobenzap rine HCl 10 MG Tablet 02/06/2017 00:00:00 null 1 30 Tablet 0 62068853 750 P Taking 06/25 00:00 :00 Cyclobenzap rine HCl 10 MG Tablet 02/06/2017 00:00:00 null 1 30 Tablet 0 04580364 750 P Taking 06/18 00:00 :00 Cyclobenzap rine HCl 10 MG Tablet 02/06/2017 00:00:00 null 1 30 Tablet 0 05041516 750 P Taking 02/13 00:00 :00 Cyclobenzap rine HCl 10 MG Tablet 02/06/2017 00:00:00 null 1 30 Tablet 0 [id number] 750 P Taking 02/06 00:00 :00 Cyclobenzap rine HCl 10 MG Tablet 02/06/2017 00:00:00 null 1 30 Tablet 0 [id number] 750 P Start 01/08 00:00 :00 Ecotrin Low Strength 81 MG Tablet Delayed Release null null 0 93710994 427 Discontinu ed 12/22 00:00 :00 Ecotrin Low Strength 81 MG Tablet Delayed Release null null 1 30 55300574 427 Taking 10/14 00:00 :00 Ecotrin Low Strength 81 MG Tablet Delayed Release null null 1 30 86225104 427 Taking 08/26 00:00 :00 Ecotrin Low Strength 81 MG Tablet Delayed Release null null 1 30 83770193 427 Taking 08/12 00:00 :00 Ecotrin Low Strength 81 MG Tablet Delayed Release null null 1 30 75504139 427 Taking 07/15 00:00 :00 Ecotrin Low Strength 81 MG Tablet Delayed Release null null 1 30 85019558 427 Taking 05/26 00:00 :00 Ecotrin Low Strength 81 MG Tablet Delayed Release null null 1 30 38209642 427 P Taking 01/27 00:00 :00 Ecotrin Low Strength 81 MG Tablet Delayed Release null null 1 30 21131762 427 Taking 12/09 00:00 :00 Ecotrin Low Strength 81 MG Tablet Delayed Release null null 1 30 71189606 427 Taking 12/06 00:00 :00 Ecotrin Low Strength 81 MG Tablet Delayed Release null null 1 30 53464666 427 Taking 12/02 00:00 :00 Ecotrin Low Strength 81 MG Tablet Delayed Release null null 1 30 18733463 427 P Taking 07/07 00:00 :00 Eliquis 5 MG Tablet null null 1 180 Tablet 1 44806150 421 Start 07/07 00:00 :00 Eliquis 5 MG Tablet null null 0 180 Tablet 1 71211762 421 Stop 05/02 00:00 :00 Eliquis 5 MG Tablet null null 1 180 Tablet 1 60353736 421 Taking 03/26 00:00 :00 Eliquis 5 MG Tablet null null 1 180 Tablet 1 51798314 421 Start 03/26 00:00 :00 Eliquis 5 MG Tablet null null 0 180 Tablet 1 53065626 421 Stop 01/19 00:00 :00 Eliquis 5 MG Tablet null null 1 180 Tablet 1 71057786 421 Taking 12/18 00:00 :00 Eliquis 5 MG Tablet null null 1 180 Tablet 1 10342655 421 Taking 11/26 00:00 :00 Eliquis 5 MG Tablet null null 1 180 Tablet 1 96503983 421 Start 11/26 00:00 :00 Eliquis 2.5 MG Tablet null null 0 79811156 321 Stop 09/13 00:00 :00 Eliquis 2.5 MG Tablet 09/09/2019 00:00:00 null 1 [id number] 321 Taking 07/26 00:00 :00 Eliquis 2.5 MG Tablet 09/09/2019 00:00:00 null 1 [id number] 321 Taking 07/03 00:00 :00 Eliquis 2.5 MG Tablet 09/09/2019 00:00:00 null 1 [id number] 321 Taking 05/16 00:00 :00 Eliquis 2.5 MG Tablet 09/09/2019 00:00:00 null 1 [id number] 321 Taking 05/02 00:00 :00 Eliquis 2.5 MG Tablet 09/09/2019 00:00:00 null 1 [id number] 321 Taking 04/03 00:00 :00 Eliquis 2.5 MG Tablet 09/09/2019 00:00:00 null 1 [id number] 321 Taking 02/03 00:00 :00 Eliquis 2.5 MG Tablet 09/09/2019 00:00:00 null 1 [id number] 321 Taking 08/12 00:00 :00 Eliquis 2.5 MG Tablet 09/09/2019 00:00:00 null 1 [id number] 321 Taking 06/28 00:00 :00 Eliquis 2.5 MG Tablet 09/09/2019 00:00:00 null 1 [id number] 321 Taking 02/03 00:00 :00 Eliquis 2.5 MG Tablet 09/09/2019 00:00:00 null 1 [id number] 321 Taking 01/20 00:00 :00 Eliquis 2.5 MG Tablet 09/09/2019 00:00:00 null 1 [id number] 321 Taking 10/14 00:00 :00 Eliquis 2.5 MG Tablet 09/09/2019 00:00:00 null 1 [id number] 321 Taking 09/24 00:00 :00 Eliquis 2.5 MG Tablet 09/09/2019 00:00:00 null 1 [id number] 321 Taking 09/08 00:00 :00 Eliquis 2.5 MG Tablet 09/09/2019 00:00:00 null 1 [id number] 321 Taking 07/26 00:00 :00 Euthyrox 100 MCG Tablet null null 1 90 Tablet 1 70855 010 030 Taking 07/03 00:00 :00 Euthyrox 100 MCG Tablet null null 1 90 Tablet 1 92426 010 030 Taking 05/16 00:00 :00 Euthyrox 100 MCG Tablet null null 1 90 Tablet 1 11412 010 030 Taking 05/02 00:00 :00 Euthyrox 100 MCG Tablet null null 1 90 Tablet 1 19253 010 030 Taking 04/03 00:00 :00 Euthyrox 100 MCG Tablet null null 1 90 Tablet 1 12065 010 030 Taking 02/03 00:00 :00 Euthyrox 100 MCG Tablet null null 1 90 Tablet 1 40534 010 030 Taking 01/19 00:00 :00 Euthyrox 100 MCG Tablet null null 1 90 Tablet 1 39522 010 030 Start 08/12 00:00 :00 Euthyrox 100 MCG Tablet null null 1 90 Unspecifi ed 1 71042967 030 P Taking 06/28 00:00 :00 Euthyrox 100 MCG Tablet null null 1 90 Unspecifi ed 1 68972673 030 P Taking 05/02 00:00 :00 Fluticasone Propionate 50 MCG/ACT Suspension 09/16/2018 00:00:00 null 1 1 2 08452006 099 P Not Taking 01/19 00:00 :00 Fluticasone Propionate 50 MCG/ACT Suspension 09/16/2018 00:00:00 null 1 1 2 21871583 099 P Not Taking 12/18 00:00 :00 Fluticasone Propionate 50 MCG/ACT Suspension 09/16/2018 00:00:00 null 1 1 2 [id number] 099 P Not Taking 09/13 00:00 :00 Fluticasone Propionate 50 MCG/ACT Suspension 09/16/2018 00:00:00 null 1 1 2 38129587 099 P Not Taking 07/26 00:00 :00 Fluticasone Propionate 50 MCG/ACT Suspension 09/16/2018 00:00:00 null 1 1 2 01819790 099 P Not Taking 07/03 00:00 :00 Fluticasone Propionate 50 MCG/ACT Suspension 09/16/2018 00:00:00 null 1 1 2 [id number] 099 P Not Taking 05/16 00:00 :00 Fluticasone Propionate 50 MCG/ACT Suspension 09/16/2018 00:00:00 null 1 1 2 21562112 099 P Not Taking 05/02 00:00 :00 Fluticasone Propionate 50 MCG/ACT Suspension 09/16/2018 00:00:00 null 1 1 2 [id number] 099 P Not Taking 04/03 00:00 :00 Fluticasone Propionate 50 MCG/ACT Suspension 09/16/2018 00:00:00 null 1 1 2 [id number] 099 P Not Taking 02/03 00:00 :00 Fluticasone Propionate 50 MCG/ACT Suspension 09/16/2018 00:00:00 null 1 1 2 61038158 099 P Not Taking 08/12 00:00 :00 Fluticasone Propionate 50 MCG/ACT Suspension 09/16/2018 00:00:00 null 1 1 2 [id number] 099 P Not Taking 06/28 00:00 :00 Fluticasone Propionate 50 MCG/ACT Suspension 09/16/2018 00:00:00 null 1 1 2 [id number] 099 P Not Taking 02/03 00:00 :00 Fluticasone Propionate 50 MCG/ACT Suspension 09/16/2018 00:00:00 null 1 1 2 [id number] 099 P Taking 01/20 00:00 :00 Fluticasone Propionate 50 MCG/ACT Suspension 09/16/2018 00:00:00 null 1 1 2 [id number] 099 P Taking 10/14 00:00 :00 Fluticasone Propionate 50 MCG/ACT Suspension 09/16/2018 00:00:00 null 1 1 2 [id number] 099 P Taking 09/24 00:00 :00 Fluticasone Propionate 50 MCG/ACT Suspension 09/16/2018 00:00:00 null 1 1 2 [id number] 099 P Taking 09/08 00:00 :00 Fluticasone Propionate 50 MCG/ACT Suspension 09/16/2018 00:00:00 null 1 1 2 [id number] 099 P Taking 06/14 00:00 :00 Fluticasone Propionate 50 MCG/ACT Suspension 09/16/2018 00:00:00 null 1 1 2 [id number] 099 P Refill 06/14 00:00 :00 Fluticasone Propionate 50 MCG/ACT Suspension 09/16/2018 00:00:00 null 1 1 2 12714030 099 P Taking 04/13 00:00 :00 Fluticasone Propionate 50 MCG/ACT Suspension 09/16/2018 00:00:00 null 1 1 2 [id number] 099 P Taking 03/19 00:00 :00 Fluticasone Propionate 50 MCG/ACT Suspension 09/16/2018 00:00:00 null 1 1 2 [id number] 099 P Taking 03/14 00:00 :00 Fluticasone Propionate 50 MCG/ACT Suspension 09/16/2018 00:00:00 null 1 1 2 [id number] 099 P Taking 02/06 00:00 :00 Fluticasone Propionate 50 MCG/ACT Suspension 09/16/2018 00:00:00 null 1 1 2 [id number] 099 P Taking 01/12 00:00 :00 Fluticasone Propionate 50 MCG/ACT Suspension 09/16/2018 00:00:00 null 1 1 2 [id number] 099 P Taking 01/07 00:00 :00 Fluticasone Propionate 50 MCG/ACT Suspension 09/16/2018 00:00:00 null 1 1 2 22603535 099 P Taking 12/30 00:00 :00 Fluticasone Propionate 50 MCG/ACT Suspension 09/16/2018 00:00:00 null 1 1 2 [id number] 099 P Taking 11/12 00:00 :00 Fluticasone Propionate 50 MCG/ACT Suspension 09/16/2018 00:00:00 null 1 1 2 06164507 099 P Taking 11/04 00:00 :00 Fluticasone Propionate 50 MCG/ACT Suspension 09/16/2018 00:00:00 null 1 1 2 [id number] 099 P Taking 09/16 00:00 :00 Fluticasone Propionate 50 MCG/ACT Suspension 09/16/2018 00:00:00 null 1 1 2 98811710 099 P Start 05/02 00:00 :00 Furosemide 80 MG Tablet null null 1 90 Tablet 3 435 91879 350 Taking 03/26 00:00 :00 Furosemide 80 MG Tablet null null 1 90 Tablet 3 435 69950 350 Start 03/26 00:00 :00 Furosemide null null 0 90 Tablet 3 435 57479 350 Stop 01/19 00:00 :00 Furosemide 80 MG Tablet null null 1 90 3 50569 040 350 Taking 12/18 00:00 :00 Furosemide 80 MG Tablet null null 1 90 3 50726 040 350 Taking 09/13 00:00 :00 Furosemide 80 MG Tablet null null 1 90 3 10535 040 350 Taking 07/26 00:00 :00 Furosemide 80 MG Tablet null null 1 90 3 94576 040 350 Taking 07/03 00:00 :00 Furosemide 80 MG Tablet null null 1 90 3 11951 040 350 Taking 05/16 00:00 :00 Furosemide 80 MG Tablet null null 1 90 3 82804 040 350 Taking 05/02 00:00 :00 Furosemide 80 MG Tablet null null 1 90 3 89359 040 350 Taking 04/03 00:00 :00 Furosemide 80 MG Tablet null null 1 90 3 84131 040 350 Taking 02/03 00:00 :00 Furosemide 80 MG Tablet null null 1 90 3 94422 040 350 Taking 01/30 00:00 :00 Furosemide 80 MG Tablet null null 1 90 3 42845 040 350 Continue 08/12 00:00 :00 Furosemide 80 MG Tablet null null 1 90 3 28926 040 350 Taking 06/28 00:00 :00 Furosemide 80 MG Tablet null null 1 90 3 71939 040 350 Taking 02/03 00:00 :00 Furosemide 80 MG Tablet null null 1 90 3 43627 040 350 Taking 01/20 00:00 :00 Furosemide 80 MG Tablet null null 1 90 3 86790 040 350 Taking 11/09 00:00 :00 Furosemide 80 MG Tablet null null 1 90 3 84334 040 350 Refill 10/14 00:00 :00 Furosemide 80 MG Tablet null null 1 30 5 26420 040 350 P Taking 09/24 00:00 :00 Furosemide 80 MG Tablet null null 1 30 5 49830 040 350 P Taking 09/08 00:00 :00 Furosemide 80 MG Tablet null null 1 30 5 10913 040 350 P Taking 06/14 00:00 :00 Furosemide 80 MG Tablet null null 1 30 5 97989 040 350 P Taking 05/18 00:00 :00 Furosemide 80 MG Tablet null null 1 30 5 59479 040 350 P Refill 04/13 00:00 :00 Furosemide 80 MG Tablet null null 1 30 4 13033 040 350 Taking 03/19 00:00 :00 Furosemide 80 MG Tablet null null 1 30 4 91424 040 350 Taking 03/14 00:00 :00 Furosemide 80 MG Tablet null null 1 30 4 02016 040 350 Taking 02/06 00:00 :00 Furosemide 80 MG Tablet null null 1 30 4 36886 040 350 Taking 01/28 00:00 :00 Furosemide 80 MG Tablet null null 1 30 4 76837 040 350 Refill 01/12 00:00 :00 Furosemide 80 MG Tablet null null 1 30 0 84813 040 350 Taking 01/07 00:00 :00 Furosemide 80 MG Tablet null null 1 30 0 62722 040 350 Taking 12/30 00:00 :00 Furosemide 80 MG Tablet null null 1 30 0 71052 040 350 Taking 12/20 00:00 :00 Furosemide 80 MG Tablet null null 1 30 0 46012 040 350 Refill 11/12 00:00 :00 Furosemide 80 MG Tablet null null 1 30 Capsule 2 98437051 605 P Taking 11/04 00:00 :00 Furosemide 80 MG Tablet null null 1 30 Capsule 2 76982643 605 P Taking 09/16 00:00 :00 Furosemide 80 MG Tablet null null 1 30 Capsule 2 02569714 605 P Taking 08/11 00:00 :00 Furosemide 80 MG Tablet null null 1 30 Capsule 2 76115506 605 P Taking 06/20 00:00 :00 Furosemide 80 MG Tablet null null 1 30 Capsule 2 57290671 605 P Taking 05/19 00:00 :00 Furosemide 80 MG Tablet null null 1 30 Capsule 2 84661365 605 P Taking 05/05 00:00 :00 Furosemide 80 MG Tablet null null 1 30 Capsule 2 92735455 605 P Taking 04/23 00:00 :00 Furosemide 80 MG Tablet null null 1 30 Capsule 2 27209468 605 P Taking 03/26 00:00 :00 Furosemide 80 MG Tablet null null 1 30 Capsule 2 03377088 605 P Taking 02/04 00:00 :00 Furosemide 80 MG Tablet null null 1 30 Capsule 2 75052138 605 P Taking 01/24 00:00 :00 Furosemide 80 MG Tablet null null 1 30 Capsule 2 03367568 605 P Refill 01/24 00:00 :00 Furosemide 80 MG Tablet null null 1 30 Capsule 5 34695002 605 Taking 12/25 00:00 :00 Furosemide 80 MG Tablet null null 1 30 Capsule 5 23225249 605 Taking 12/18 00:00 :00 Furosemide 80 MG Tablet null null 1 30 Capsule 5 81212083 605 Taking 12/11 00:00 :00 Furosemide 80 MG Tablet null null 1 30 Capsule 5 25675361 605 Taking 10/29 00:00 :00 Furosemide 80 MG Tablet null null 1 30 Capsule 5 97817011 605 Taking 09/06 00:00 :00 Furosemide 80 MG Tablet null null 1 30 Capsule 5 26139102 605 Continue 07/16 00:00 :00 Furosemide 80 MG Tablet null null 1 30 Capsule 5 04415311 605 P Taking 07/02 00:00 :00 Furosemide 80 MG Tablet null null 1 30 Capsule 5 56028760 605 P Taking 06/25 00:00 :00 Furosemide 80 MG Tablet null null 1 30 Capsule 5 07020540 605 P Taking 06/18 00:00 :00 Furosemide 80 MG Tablet null null 1 30 Capsule 5 52041109 605 P Taking 03/16 00:00 :00 Furosemide 80 MG Tablet null null 1 30 Capsule 5 24477966 605 P Start 02/13 00:00 :00 Furosemide 80 MG null null 1 30 5 P Taking 02/06 00:00 :00 Furosemide 80 MG null null 1 30 5 P Taking 12/26 00:00 :00 Furosemide 80 MG null null 1 30 5 P Taking 10/18 00:00 :00 Furosemide 80 MG null null 1 30 5 P Start 10/03 00:00 :00 Furosemide 80 MG null null 1 30 5 P Taking 02/20 00:00 :00 Furosemide 80 MG null null 1 30 5 P Taking 07/31 00:00 :00 Furosemide 80 MG null null 1 30 5 P Start 07/25 00:00 :00 Furosemide 80 MG null null 1 30 4 P Taking 06/13 00:00 :00 Furosemide 80 MG null null 1 30 4 P Taking 02/11 00:00 :00 Furosemide 80 MG null null 1 30 4 P Taking 01/05 00:00 :00 Furosemide 80 MG null null 1 30 4 P Taking 10/20 00:00 :00 Furosemide 80 MG null null 1 30 4 P Taking 10/18 00:00 :00 Furosemide 80 MG null null 1 30 4 P Start 07/21 00:00 :00 Furosemide 80 MG Tablet null null 1 37728 430 125 P Taking 06/04 00:00 :00 Furosemide 80 MG Tablet null null 1 13636 430 125 P Taking 04/13 00:00 :00 Furosemide 80 MG Tablet null null 1 66589 430 125 P Taking 03/17 00:00 :00 Furosemide 80 MG Tablet null null 1 75255 430 125 P Taking 01/19 00:00 :00 Furosemide 80 MG Tablet null null 1 48434 430 125 P Taking 01/15 00:00 :00 Furosemide 80 MG Tablet null null 1 00096 430 125 P Taking 01/08 00:00 :00 Furosemide 80 MG Tablet null null 1 36944 430 125 P Taking 12/22 00:00 :00 Furosemide 80 MG Tablet null null 1 30 2 38308 430 125 P Taking 10/27 00:00 :00 Furosemide 80 MG Tablet null null 1 30 2 85509 430 125 P Start 10/27 00:00 :00 Furosemide 80 MG Tablet null null 1 30 81136 430 125 Start 10/14 00:00 :00 Furosemide 80 MG Tablet null null 1 30 19600 430 125 Taking 08/26 00:00 :00 Furosemide 80 MG Tablet null null 1 30 19895 430 125 Taking 08/12 00:00 :00 Furosemide 80 MG Tablet null null 1 30 67465 430 125 Taking 07/15 00:00 :00 Furosemide 80 MG Tablet null null 1 30 90128 430 125 Taking 05/26 00:00 :00 Furosemide 80 MG Tablet null null 1 30 00861 430 125 P Taking 01/27 00:00 :00 Furosemide 80 MG Tablet null null 1 30 06386 430 125 Taking 12/09 00:00 :00 Furosemide 80 MG Tablet null null 1 30 55291 430 125 Taking 12/06 00:00 :00 Furosemide 80 MG Tablet null null 1 30 90498 430 125 Taking 12/02 00:00 :00 Furosemide 80 MG Tablet null null 1 30 12259 430 125 P Taking 05/02 00:00 :00 Gabapentin 600 MG Tablet 03/26/2022 00:00:00 null 1 60 Tablet 1 02202119 002 Taking 03/26 00:00 :00 Gabapentin 600 MG Tablet 03/26/2022 00:00:00 null 1 60 Tablet 1 59416455 002 Start 03/26 00:00 :00 Gabapentin 600 MG Tablet null null 0 60 Tablet 1 167 80947 002 Stop 02/22 00:00 :00 Gabapentin 600 MG Tablet 02/22/2022 00:00:00 null 1 60 Tablet 1 00630241 002 Start 02/22 00:00 :00 Gabapentin 600 MG Tablet null null 0 60 0 68906 017 705 Stop 02/21 00:00 :00 Gabapentin 600 MG Tablet 11/05/2021 00:00:00 null 1 60 Tablet 1 12377772 705 Unknown Status 01/19 00:00 :00 Gabapentin 600 MG Tablet 11/05/2021 00:00:00 null 1 60 Tablet 1 33665415 705 Taking 01/19 00:00 :00 Gabapentin 600 MG Tablet 01/08/2022 00:00:00 null 1 60 0 19242639 705 Taking 01/08 00:00 :00 Gabapentin 600 MG Tablet 01/08/2022 00:00:00 null 1 60 0 56445089 705 Continue 01/08 00:00 :00 Gabapentin 600 MG Tablet 11/05/2021 00:00:00 null 1 60 Tablet 1 62860738 705 Continue 12/18 00:00 :00 Gabapentin 600 MG Tablet 11/05/2021 00:00:00 null 1 60 Tablet 1 88587466 705 Taking 11/05 00:00 :00 Gabapentin 600 MG Tablet 11/05/2021 00:00:00 null 1 60 Tablet 1 58597050 705 Start 11/05 00:00 :00 Gabapentin 600 MG Tablet null null 0 60 Tablet 0 002 86035 611 Stop 11/04 00:00 :00 Gabapentin 600 MG Tablet 11/04/2021 00:00:00 null 1 60 0 93400973 611 P Refill 11/03 00:00 :00 Gabapentin 600 MG Tablet 09/13/2021 00:00:00 null 1 60 Tablet 0 96891819 611 Continue 09/13 00:00 :00 Gabapentin 600 MG Tablet 09/13/2021 00:00:00 null 1 60 Tablet 0 88129389 611 P Start 09/13 00:00 :00 Gabapentin 600 MG Tablet null null 1 33191 263 611 Not Taking 07/26 00:00 :00 Gabapentin 300MG Capsule null null 1 60 Capsule 2 18880680 999 Not Taking 07/03 00:00 :00 Gabapentin 300MG Capsule null null 1 60 Capsule 2 68015772 999 Not Taking 05/16 00:00 :00 Gabapentin 300MG Capsule null null 1 60 Capsule 2 95146510 999 Not Taking 05/02 00:00 :00 Gabapentin 300MG Capsule null null 1 60 Capsule 2 29876873 999 Not Taking 04/03 00:00 :00 Gabapentin 300MG Capsule null null 1 60 Capsule 2 81997736 999 Not Taking 02/03 00:00 :00 Gabapentin 300MG Capsule null null 1 60 Capsule 2 99275540 999 Not Taking 08/12 00:00 :00 Gabapentin 300MG Capsule null null 1 60 Capsule 2 90457517 999 Not Taking 06/28 00:00 :00 Gabapentin 300MG Capsule null null 1 60 Capsule 2 06797143 999 Not Taking 02/03 00:00 :00 Gabapentin 300MG Capsule null null 1 60 Capsule 2 50918462 999 Taking 01/20 00:00 :00 Gabapentin 300MG Capsule null null 1 60 Capsule 2 87482173 999 Taking 10/14 00:00 :00 Gabapentin 300MG Capsule null null 1 60 Capsule 2 85378244 999 Taking 09/24 00:00 :00 Gabapentin 300MG Capsule null null 1 60 Capsule 2 32026699 999 Taking 09/08 00:00 :00 Gabapentin 300MG Capsule null null 1 60 Capsule 2 44513824 999 Taking 06/14 00:00 :00 Gabapentin 300MG Capsule null null 1 60 Capsule 2 15303775 999 Taking 04/13 00:00 :00 Gabapentin 300MG Capsule null null 1 60 Capsule 2 76673871 999 Taking 03/19 00:00 :00 Gabapentin 300MG Capsule null null 1 60 Capsule 2 94576929 999 Taking 03/14 00:00 :00 Gabapentin 300MG Capsule null null 1 60 Capsule 2 65500328 999 Taking 02/06 00:00 :00 Gabapentin 300MG Capsule null null 1 60 Capsule 2 57365535 999 Taking 01/12 00:00 :00 Gabapentin 300MG Capsule null null 1 60 Capsule 2 28181693 999 Taking 01/07 00:00 :00 Gabapentin 300MG Capsule null null 1 60 Capsule 2 67530704 999 Taking 12/30 00:00 :00 Gabapentin 300MG Capsule null null 1 60 Capsule 2 07367871 999 Taking 11/12 00:00 :00 Gabapentin 300MG Capsule null null 1 60 Capsule 2 23716243 999 Taking 11/04 00:00 :00 Gabapentin 300MG Capsule null null 1 60 Capsule 2 54202681 999 Taking 09/16 00:00 :00 Gabapentin 300MG Capsule null null 1 60 Capsule 2 53128475 999 Taking 08/11 00:00 :00 Gabapentin 300MG Capsule null null 1 60 Capsule 2 44596892 999 Taking 07/09 00:00 :00 Gabapentin 300MG Capsule null null 1 60 Capsule 2 74331292 999 Refill 06/22 00:00 :00 Gabapentin 300 MG Capsule null null 1 60 0 09971 064 505 P Refill 06/22 00:00 :00 Gabapentin 300 MG null null 1 60 0 Refill 06/20 00:00 :00 Gabapentin 300MG Capsule null null 1 60 Capsule 3 81630062 999 Taking 05/19 00:00 :00 Gabapentin 300MG Capsule null null 1 60 Capsule 3 31885355 999 Taking 05/05 00:00 :00 Gabapentin 300MG Capsule null null 1 60 Capsule 3 37989616 999 Taking 04/23 00:00 :00 Gabapentin 300MG Capsule null null 1 60 Capsule 3 17394896 999 Taking 03/26 00:00 :00 Gabapentin 300MG Capsule null null 1 60 Capsule 3 77855905 999 Taking 02/05 00:00 :00 Gabapentin 300MG Capsule null null 1 60 Capsule 3 26572413 999 Refill 02/04 00:00 :00 Gabapentin 300MG Capsule null null 1 60 Capsule 2 28224100 310 P Taking 01/24 00:00 :00 Gabapentin 300MG Capsule null null 1 60 Capsule 2 99163430 310 P Taking 12/25 00:00 :00 Gabapentin 300MG Capsule null null 1 60 Capsule 2 59765311 310 P Taking 12/18 00:00 :00 Gabapentin 300MG Capsule null null 1 60 Capsule 2 22143739 310 P Taking 12/11 00:00 :00 Gabapentin 300MG Capsule null null 1 60 Capsule 2 29406012 310 P Taking 10/29 00:00 :00 Gabapentin 300MG Capsule null null 1 60 Capsule 2 70406722 310 P Taking 10/28 00:00 :00 Gabapentin 300MG Capsule null null 1 60 Capsule 2 09064951 310 P Start 09/06 00:00 :00 Gabapentin 300MG Capsule null null 1 60 Capsule 38528129 310 Continue 08/20 00:00 :00 Gabapentin 300MG Capsule null null 1 60 Capsule 1 01379704 310 P Start 07/17 00:00 :00 Gabapentin 300MG Capsule null null 1 60 Capsule 0 36898954 305 P Start 07/16 00:00 :00 Gabapentin 300MG Capsule null null 1 60 Capsule 2 64107578 250 P Taking 07/02 00:00 :00 Gabapentin 300MG Capsule null null 1 60 Capsule 2 48038368 250 P Taking 06/25 00:00 :00 Gabapentin 300MG Capsule null null 1 60 Capsule 2 81664760 250 P Taking 06/18 00:00 :00 Gabapentin 300MG Capsule null null 1 60 Capsule 2 36537530 250 P Taking 03/19 00:00 :00 Gabapentin 300MG Capsule null null 1 60 Capsule 2 53627252 250 P Start 09/18 00:00 :00 Gabapentin 300 MG null null 1 60 5 P Start 07/21 00:00 :00 Gabapentin 300MG Capsule null null 1 60 Capsule 2 14571764 305 P Taking 06/04 00:00 :00 Gabapentin 300MG Capsule null null 1 60 Capsule 2 34718314 305 P Taking 06/01 00:00 :00 Gabapentin 300MG Capsule null null 1 60 Capsule 2 37026553 305 P Start 06/13 00:00 :00 hydrALAZINE HCl 25 MG Tablet null null 0 48159574 001 Discontinu ed 02/11 00:00 :00 hydrALAZINE HCl 25 MG Tablet null null 1 47570302 001 Not Taking 01/05 00:00 :00 hydrALAZINE HCl 25 MG Tablet null null 1 50185133 001 Not Taking 10/20 00:00 :00 hydrALAZINE HCl 25 MG Tablet null null 1 52285232 001 Not Taking 07/21 00:00 :00 hydrALAZINE HCl 25 MG Tablet null null 1 48070521 001 Taking 06/04 00:00 :00 hydrALAZINE HCl 25 MG Tablet null null 1 51394309 001 Taking 04/13 00:00 :00 hydrALAZINE HCl 25 MG Tablet null null 1 03361350 001 Taking 03/17 00:00 :00 hydrALAZINE HCl 25 MG Tablet null null 1 54775915 001 Taking 01/19 00:00 :00 hydrALAZINE HCl 25 MG Tablet null null 1 39873675 001 Taking 01/15 00:00 :00 hydrALAZINE HCl 25 MG Tablet null null 1 32290666 001 Taking 01/08 00:00 :00 hydrALAZINE HCl 25 MG Tablet null null 1 41282977 001 Taking 12/22 00:00 :00 hydrALAZINE HCl 25 MG Tablet null null 1 60 31860706 001 Taking 10/14 00:00 :00 hydrALAZINE HCl 25 MG Tablet null null 1 60 38644832 001 Taking 08/26 00:00 :00 hydrALAZINE HCl 25 MG Tablet null null 1 60 51834400 001 Taking 08/12 00:00 :00 hydrALAZINE HCl 25 MG Tablet null null 1 60 49123316 001 Taking 07/15 00:00 :00 hydrALAZINE HCl 25 MG Tablet null null 1 60 88457957 001 Taking 05/26 00:00 :00 hydrALAZINE HCl 25 MG Tablet null null 1 60 69545441 001 P Taking 01/27 00:00 :00 hydrALAZINE HCl 25 MG Tablet null null 1 60 67883665 001 Taking 12/09 00:00 :00 hydrALAZINE HCl 25 MG Tablet null null 1 60 37361238 001 Taking 12/06 00:00 :00 hydrALAZINE HCl 25 MG Tablet null null 1 60 18284949 001 Taking 12/02 00:00 :00 hydrALAZINE HCl 25 MG Tablet null null 1 60 52444929 001 P Taking 07/26 00:00 :00 HYDROcodone -Acetaminop hen 5-325 MG Tablet 07/26/2021 00:00:00 null 1 14 0 66944724 401 P Start 07/26 00:00 :00 HYDROcodone -Acetaminop hen 5-325 MG Tablet 08/15/2020 00:00:00 null 1 20 Tablet 0 95261876 401 Taking 07/03 00:00 :00 HYDROcodone -Acetaminop hen 5-325 MG Tablet 08/15/2020 00:00:00 null 1 20 Tablet 0 [id number] 401 Taking 05/16 00:00 :00 HYDROcodone -Acetaminop hen 5-325 MG Tablet 08/15/2020 00:00:00 null 1 20 Tablet 0 [id number] 401 Taking 05/02 00:00 :00 HYDROcodone -Acetaminop hen 5-325 MG Tablet 08/15/2020 00:00:00 null 1 20 Tablet 0 [id number] 401 Taking 04/03 00:00 :00 HYDROcodone -Acetaminop hen 5-325 MG Tablet 08/15/2020 00:00:00 null 1 20 Tablet 0 [id number] 401 Taking 02/03 00:00 :00 HYDROcodone -Acetaminop hen 5-325 MG Tablet 08/15/2020 00:00:00 null 1 20 Tablet 0 [id number] 401 Taking 08/15 00:00 :00 HYDROcodone -Acetaminop hen 5-325 MG Tablet 08/15/2020 00:00:00 null 1 20 Tablet 0 [id number] 401 Continue 08/12 00:00 :00 HYDROcodone -Acetaminop hen 5-325 MG Tablet 08/12/2020 00:00:00 null 1 20 Tablet 0 [id number] 401 P Start 04/03 00:00 :00 Ibuprofen 800 MG Tablet 06/20/2018 00:00:00 null 0 [id number] 830 P Stop 04/03 00:00 :00 Ibuprofen 800 MG Tablet 06/20/2018 00:00:00 null 1 30 2 [id number] 830 P Taking 02/03 00:00 :00 Ibuprofen 800 MG Tablet 06/20/2018 00:00:00 null 1 30 2 [id number] 830 P Taking 08/12 00:00 :00 Ibuprofen 800 MG Tablet 06/20/2018 00:00:00 null 1 30 2 [id number] 830 P Taking 06/28 00:00 :00 Ibuprofen 800 MG Tablet 06/20/2018 00:00:00 null 1 30 2 [id number] 830 P Taking 02/03 00:00 :00 Ibuprofen 800 MG Tablet 06/20/2018 00:00:00 null 1 30 2 [id number] 830 P Taking 01/20 00:00 :00 Ibuprofen 800 MG Tablet 06/20/2018 00:00:00 null 1 30 2 [id number] 830 P Taking 10/14 00:00 :00 Ibuprofen 800 MG Tablet 06/20/2018 00:00:00 null 1 30 2 [id number] 830 P Taking 09/24 00:00 :00 Ibuprofen 800 MG Tablet 06/20/2018 00:00:00 null 1 30 2 [id number] 830 P Taking 09/08 00:00 :00 Ibuprofen 800 MG Tablet 06/20/2018 00:00:00 null 1 30 2 [id number] 830 P Taking 06/14 00:00 :00 Ibuprofen 800 MG Tablet 06/20/2018 00:00:00 null 1 30 2 [id number] 830 P Taking 04/13 00:00 :00 Ibuprofen 800 MG Tablet 06/20/2018 00:00:00 null 1 30 2 [id number] 830 P Taking 03/19 00:00 :00 Ibuprofen 800 MG Tablet 06/20/2018 00:00:00 null 1 30 2 [id number] 830 P Taking 03/14 00:00 :00 Ibuprofen 800 MG Tablet 06/20/2018 00:00:00 null 1 30 2 [id number] 830 P Taking 02/06 00:00 :00 Ibuprofen 800 MG Tablet 06/20/2018 00:00:00 null 1 30 2 [id number] 830 P Taking 01/12 00:00 :00 Ibuprofen 800 MG Tablet 06/20/2018 00:00:00 null 1 30 2 [id number] 830 P Taking 01/07 00:00 :00 Ibuprofen 800 MG Tablet 06/20/2018 00:00:00 null 1 30 2 [id number] 830 P Taking 12/30 00:00 :00 Ibuprofen 800 MG Tablet 06/20/2018 00:00:00 null 1 30 2 [id number] 830 P Taking 11/12 00:00 :00 Ibuprofen 800 MG Tablet 06/20/2018 00:00:00 null 1 30 2 [id number] 830 P Taking 11/04 00:00 :00 Ibuprofen 800 MG Tablet 06/20/2018 00:00:00 null 1 30 2 [id number] 830 P Taking 09/16 00:00 :00 Ibuprofen 800 MG Tablet 06/20/2018 00:00:00 null 1 30 2 [id number] 830 P Taking 08/11 00:00 :00 Ibuprofen 800 MG Tablet 06/20/2018 00:00:00 null 1 30 2 [id number] 830 P Taking 06/20 00:00 :00 Ibuprofen 800 MG Tablet 06/20/2018 00:00:00 null 1 30 2 [id number] 830 P Start 12/11 00:00 :00 ICaps Capsule null null 1 95314608 601 Taking 10/29 00:00 :00 ICaps Capsule null null 1 56426594 601 Taking 09/06 00:00 :00 ICaps Capsule null null 1 05230663 601 Continue 07/16 00:00 :00 ICaps Capsule null null 1 61972896 601 Taking 07/02 00:00 :00 ICaps Capsule null null 1 35481252 601 Taking 06/25 00:00 :00 ICaps Capsule null null 1 98704442 601 Taking 06/18 00:00 :00 ICaps Capsule null null 1 51913254 601 Taking 02/13 00:00 :00 ICaps Capsule null null 1 12785113 601 Taking 02/06 00:00 :00 ICaps Capsule null null 1 95394163 601 Taking 12/26 00:00 :00 ICaps Capsule null null 1 51830376 601 Taking 10/03 00:00 :00 ICaps Capsule null null 1 52956222 601 Taking 02/20 00:00 :00 ICaps Capsule null null 1 63872615 601 Taking 07/25 00:00 :00 ICaps Capsule null null 1 18072383 601 Taking 06/13 00:00 :00 ICaps Capsule null null 1 84263428 601 Taking 02/11 00:00 :00 ICaps Capsule null null 1 91489083 601 Taking 01/05 00:00 :00 ICaps Capsule null null 1 83302035 601 Taking 10/20 00:00 :00 ICaps Capsule null null 1 38834463 601 Taking 07/21 00:00 :00 ICaps Capsule null null 1 17197981 601 Taking 06/04 00:00 :00 ICaps Capsule null null 1 95236975 601 Taking 04/13 00:00 :00 ICaps Capsule null null 1 98142262 601 Taking 03/17 00:00 :00 ICaps Capsule null null 1 44016417 601 Taking 01/19 00:00 :00 ICaps Capsule null null 1 75117847 601 Taking 01/15 00:00 :00 ICaps Capsule null null 1 53026713 601 Taking 01/08 00:00 :00 ICaps Capsule null null 1 86810866 601 Taking 12/22 00:00 :00 ICaps Capsule null null 1 90212482 601 Taking 10/14 00:00 :00 ICaps Capsule null null 1 89543009 601 Taking 08/26 00:00 :00 ICaps Capsule null null 1 65803753 601 Taking 08/12 00:00 :00 ICaps Capsule null null 1 17507445 601 Taking 07/15 00:00 :00 ICaps Capsule null null 1 68597759 601 Taking 05/26 00:00 :00 ICaps Capsule null null 1 08812639 601 P Taking 01/27 00:00 :00 ICaps Capsule null null 1 30785329 601 Taking 12/09 00:00 :00 ICaps Capsule null null 1 41135773 601 Taking 12/06 00:00 :00 ICaps Capsule null null 1 56243412 601 Taking 12/02 00:00 :00 ICaps Capsule null null 1 37680781 601 P Taking 07/26 00:00 :00 ICaps MV - Tablet 10/29/2017 00:00:00 null 1 60 11 [id number] 082 P Taking 07/03 00:00 :00 ICaps MV - Tablet 10/29/2017 00:00:00 null 1 60 11 [id number] 082 P Taking 05/16 00:00 :00 ICaps MV - Tablet 10/29/2017 00:00:00 null 1 60 11 [id number] 082 P Taking 05/02 00:00 :00 ICaps MV - Tablet 10/29/2017 00:00:00 null 1 60 11 [id number] 082 P Taking 04/03 00:00 :00 ICaps MV - Tablet 10/29/2017 00:00:00 null 1 60 11 [id number] 082 P Taking 02/03 00:00 :00 ICaps MV - Tablet 10/29/2017 00:00:00 null 1 60 11 [id number] 082 P Taking 08/12 00:00 :00 ICaps MV - Tablet 10/29/2017 00:00:00 null 1 60 11 [id number] 082 P Taking 06/28 00:00 :00 ICaps MV - Tablet 10/29/2017 00:00:00 null 1 60 11 [id number] 082 P Taking 02/03 00:00 :00 ICaps MV - Tablet 10/29/2017 00:00:00 null 1 60 11 [id number] 082 P Taking 01/20 00:00 :00 ICaps MV - Tablet 10/29/2017 00:00:00 null 1 60 11 [id number] 082 P Taking 10/14 00:00 :00 ICaps MV - Tablet 10/29/2017 00:00:00 null 1 60 11 [id number] 082 P Taking 09/24 00:00 :00 ICaps MV - Tablet 10/29/2017 00:00:00 null 1 60 11 [id number] 082 P Taking 09/08 00:00 :00 ICaps MV - Tablet 10/29/2017 00:00:00 null 1 60 11 [id number] 082 P Taking 06/14 00:00 :00 ICaps MV - Tablet 10/29/2017 00:00:00 null 1 60 11 [id number] 082 P Taking 04/13 00:00 :00 ICaps MV - Tablet 10/29/2017 00:00:00 null 1 60 11 [id number] 082 P Taking 03/19 00:00 :00 ICaps MV - Tablet 10/29/2017 00:00:00 null 1 60 11 [id number] 082 P Taking 03/14 00:00 :00 ICaps MV - Tablet 10/29/2017 00:00:00 null 1 60 11 [id number] 082 P Taking 02/06 00:00 :00 ICaps MV - Tablet 10/29/2017 00:00:00 null 1 60 11 [id number] 082 P Taking 01/12 00:00 :00 ICaps MV - Tablet 10/29/2017 00:00:00 null 1 60 11 [id number] 082 P Taking 01/07 00:00 :00 ICaps MV - Tablet 10/29/2017 00:00:00 null 1 60 11 [id number] 082 P Taking 12/30 00:00 :00 ICaps MV - Tablet 10/29/2017 00:00:00 null 1 60 11 [id number] 082 P Taking 11/12 00:00 :00 ICaps MV - Tablet 10/29/2017 00:00:00 null 1 60 11 [id number] 082 P Taking 11/04 00:00 :00 ICaps MV - Tablet 10/29/2017 00:00:00 null 1 60 11 [id number] 082 P Taking 09/16 00:00 :00 ICaps MV - Tablet 10/29/2017 00:00:00 null 1 60 11 [id number] 082 P Taking 08/11 00:00 :00 ICaps MV - Tablet 10/29/2017 00:00:00 null 1 60 11 [id number] 082 P Taking 06/20 00:00 :00 ICaps MV - Tablet 10/29/2017 00:00:00 null 1 60 11 [id number] 082 P Taking 05/19 00:00 :00 ICaps MV - Tablet 10/29/2017 00:00:00 null 1 60 11 [id number] 082 P Taking 05/05 00:00 :00 ICaps MV - Tablet 10/29/2017 00:00:00 null 1 60 11 [id number] 082 P Taking 04/23 00:00 :00 ICaps MV - Tablet 10/29/2017 00:00:00 null 1 60 11 [id number] 082 P Taking 03/26 00:00 :00 ICaps MV - Tablet 10/29/2017 00:00:00 null 1 60 11 [id number] 082 P Taking 02/04 00:00 :00 ICaps MV - Tablet 10/29/2017 00:00:00 null 1 60 11 [id number] 082 P Taking 01/24 00:00 :00 ICaps MV - Tablet 10/29/2017 00:00:00 null 1 60 11 [id number] 082 P Taking 12/25 00:00 :00 ICaps MV - Tablet 10/29/2017 00:00:00 null 1 60 11 [id number] 082 P Taking 12/18 00:00 :00 ICaps MV - Tablet 10/29/2017 00:00:00 null 1 60 11 [id number] 082 P Taking 12/11 00:00 :00 ICaps MV - Tablet 10/29/2017 00:00:00 null 1 60 11 [id number] 082 P Taking 10/29 00:00 :00 ICaps MV - Tablet 10/29/2017 00:00:00 null 1 60 11 [id number] 082 P Start 06/20 00:00 :00 Klor-Con M20 20MEQ Tablet Extended Release null null 1 30 Tablet 10 [id number] 092 Taking 05/19 00:00 :00 Klor-Con M20 20MEQ Tablet Extended Release null null 1 30 Tablet 10 [id number] 092 Taking 05/06 00:00 :00 Klor-Con M20 20MEQ Tablet Extended Release null null 1 30 Tablet 10 [id number] 092 Refill 01/19 00:00 :00 levoFLOXaci n 500 MG Tablet 01/19/2022 00:00:00 null 1 10 0 [id number] 502 P Start 12/30 00:00 :00 levoFLOXaci n 500 MG Tablet 09/16/2018 00:00:00 null 1 7 Tablet 0 68062535 261 P Taking 11/12 00:00 :00 levoFLOXaci n 500 MG Tablet 09/16/2018 00:00:00 null 1 7 Tablet 0 [id number] 261 P Taking 11/04 00:00 :00 levoFLOXaci n 500 MG Tablet 09/16/2018 00:00:00 null 1 7 Tablet 0 [id number] 261 P Taking 09/16 00:00 :00 levoFLOXaci n 500 MG Tablet 09/16/2018 00:00:00 null 1 7 Tablet 0 86966405 261 P Start 09/06 00:00 :00 levoFLOXaci n 500 MG Tablet null null 0 7 Tablet 0 [id number] 261 Stop 07/16 00:00 :00 levoFLOXaci n 500 MG Tablet null null 1 7 Tablet 0 [id number] 261 Taking 07/02 00:00 :00 levoFLOXaci n 500 MG Tablet null null 1 7 Tablet 0 [id number] 261 Taking 06/25 00:00 :00 levoFLOXaci n 500 MG Tablet null null 1 7 Tablet 0 [id number] 261 Continue 06/25 00:00 :00 levoFLOXaci n 500 MG Tablet null null 1 [id number] 261 Taking 07/07 00:00 :00 Levothyroxi ne Sodium 100 MCG Tablet null null 1 90 Tablet 2 [id number] 903 Start 07/07 00:00 :00 Levothyroxi ne Sodium 100 MCG Tablet null null 0 90 Tablet 2 [id number] 903 Stop 05/02 00:00 :00 Levothyroxi ne Sodium 100 MCG Tablet null null 1 90 Tablet 2 [id number] 903 Taking 01/19 00:00 :00 Levothyroxi ne Sodium 100 MCG Tablet null null 1 90 Tablet 2 41876582 903 Taking 12/18 00:00 :00 Levothyroxi ne Sodium 100 MCG Tablet null null 1 90 Tablet 2 [id number] 903 Taking 09/15 00:00 :00 Levothyroxi ne Sodium 100 MCG Tablet null null 1 90 Tablet 2 [id number] 903 Start 09/13 00:00 :00 Levothyroxi ne Sodium 100 MCG Tablet 06/14/2020 00:00:00 null 1 90 [id number] 190 Taking 07/26 00:00 :00 Levothyroxi ne Sodium 100 MCG Tablet 06/14/2020 00:00:00 null 1 90 [id number] 190 Taking 07/03 00:00 :00 Levothyroxi ne Sodium 100 MCG Tablet 06/14/2020 00:00:00 null 1 90 [id number] 190 Taking 06/12 00:00 :00 Levothyroxi ne Sodium 100 MCG Tablet 06/14/2020 00:00:00 null 1 90 [id number] 190 Continue 01/19 00:00 :00 Levothyroxi ne Sodium 100MCG tablet null null 0 90 1 [id number] 030 Stop 08/12 00:00 :00 Levothyroxi ne Sodium 100MCG tablet null null 1 90 1 [id number] 030 Taking 06/28 00:00 :00 Levothyroxi ne Sodium 100MCG tablet null null 1 90 1 [id number] 030 Taking 02/03 00:00 :00 Levothyroxi ne Sodium 100MCG tablet null null 1 90 1 [id number] 030 Taking 01/20 00:00 :00 Levothyroxi ne Sodium 100MCG tablet null null 1 90 1 [id number] 030 Taking 11/09 00:00 :00 Levothyroxi ne Sodium 100MCG tablet null null 1 90 1 [id number] 030 Continue 10/14 00:00 :00 Levothyroxi ne Sodium 100MCG tablet null null 1 90 1 [id number] 030 Taking 10/06 00:00 :00 Levothyroxi ne Sodium 100MCG tablet null null 1 90 1 [id number] 030 Refill 09/24 00:00 :00 Levothyroxi ne Sodium 100MCG tablet null null 1 90 3 [id number] 492 P Taking 09/08 00:00 :00 Levothyroxi ne Sodium 100MCG tablet null null 1 90 3 [id number] 492 P Taking 06/14 00:00 :00 Levothyroxi ne Sodium 100MCG tablet null null 1 90 3 [id number] 492 P Taking 04/13 00:00 :00 Levothyroxi ne Sodium 100MCG tablet null null 1 90 3 [id number] 492 P Taking 03/19 00:00 :00 Levothyroxi ne Sodium 100MCG tablet null null 1 90 3 [id number] 492 P Taking 03/14 00:00 :00 Levothyroxi ne Sodium 100MCG tablet null null 1 90 3 [id number] 492 P Taking 02/06 00:00 :00 Levothyroxi ne Sodium 100MCG tablet null null 1 90 3 [id number] 492 P Taking 01/12 00:00 :00 Levothyroxi ne Sodium 100MCG tablet null null 1 90 3 [id number] 492 P Taking 01/07 00:00 :00 Levothyroxi ne Sodium 100MCG tablet null null 1 90 3 [id number] 492 P Refill 01/07 00:00 :00 Levothyroxi ne Sodium 100MCG tablet null null 1 90 0 [id number] 492 Taking 12/30 00:00 :00 Levothyroxi ne Sodium 100MCG tablet null null 1 90 0 09958745 492 Taking 11/12 00:00 :00 Levothyroxi ne Sodium 100MCG tablet null null 1 90 0 62800535 492 Taking 11/04 00:00 :00 Levothyroxi ne Sodium 100MCG tablet null null 1 90 0 [id number] 492 Taking 10/01 00:00 :00 Levothyroxi ne Sodium 100MCG tablet null null 1 90 0 32835644 492 Refill 09/16 00:00 :00 Levothyroxi ne Sodium 100MCG tablet null null 1 90 Tablet 0 61476403 492 Taking 08/13 00:00 :00 Levothyroxi ne Sodium 100MCG tablet null null 1 90 Tablet 0 54587011 492 Refill 08/11 00:00 :00 Levothyroxi ne Sodium 100 MCG Tablet null null 1 30 2 [id number] 190 P Taking 06/20 00:00 :00 Levothyroxi ne Sodium 100 MCG Tablet null null 1 30 2 [id number] 190 P Taking 05/19 00:00 :00 Levothyroxi ne Sodium 100 MCG Tablet null null 1 30 2 [id number] 190 P Taking 05/05 00:00 :00 Levothyroxi ne Sodium 100 MCG Tablet null null 1 30 2 [id number] 190 P Taking 04/23 00:00 :00 Levothyroxi ne Sodium 100 MCG Tablet null null 1 30 2 [id number] 190 P Taking 03/26 00:00 :00 Levothyroxi ne Sodium 100 MCG Tablet null null 1 30 2 [id number] 190 P Taking 02/04 00:00 :00 Levothyroxi ne Sodium 100 MCG Tablet null null 1 30 2 [id number] 190 P Taking 01/24 00:00 :00 Levothyroxi ne Sodium 100 MCG Tablet null null 1 30 2 [id number] 190 P Refill 01/24 00:00 :00 Levothyroxi ne Sodium 100 MCG Tablet null null 1 [id number] 190 Taking 12/25 00:00 :00 Levothyroxi ne Sodium 100 MCG Tablet null null 1 [id number] 190 Taking 12/18 00:00 :00 Levothyroxi ne Sodium 100 MCG Tablet null null 1 93008420 190 Taking 12/11 00:00 :00 Levothyroxi ne Sodium 100 MCG Tablet null null 1 [id number] 190 Taking 11/04 00:00 :00 Levothyroxi ne Sodium 112 MCG Tablet null null 1 90 Tab 1 63418895 101 Continue 11/03 00:00 :00 Levothyroxi ne Sodium 112 MCG Tablet null null 1 90 Tab 1 50539192 101 Continue 10/29 00:00 :00 Levothyroxi ne Sodium 100MCG tablet null null 1 90 Tab 1 61503860 492 Taking 09/06 00:00 :00 Levothyroxi ne Sodium 100MCG tablet null null 1 90 Tab 1 [id number] 492 Increase 07/16 00:00 :00 Levothyroxi ne Sodium 100MCG tablet null null 1 90 Tab 2 [id number] 492 P Taking 07/02 00:00 :00 Levothyroxi ne Sodium 100MCG tablet null null 1 90 Tab 2 94491891 492 P Taking 06/25 00:00 :00 Levothyroxi ne Sodium 100MCG tablet null null 1 90 Tab 2 [id number] 492 P Taking 06/18 00:00 :00 Levothyroxi ne Sodium 100MCG tablet null null 1 90 Tab 2 [id number] 492 P Taking 02/13 00:00 :00 Levothyroxi ne Sodium 100 MCG null null 1 90 3 P Taking 02/13 00:00 :00 Levothyroxi ne Sodium 100MCG tablet null null 1 90 Tab 2 [id number] 492 P Taking 02/06 00:00 :00 Levothyroxi ne Sodium 100 MCG null null 1 90 3 P Taking 02/06 00:00 :00 Levothyroxi ne Sodium 100MCG tablet null null 1 90 Tab 2 [id number] 492 P Taking 12/26 00:00 :00 Levothyroxi ne Sodium 100 MCG null null 1 90 3 P Taking 12/26 00:00 :00 Levothyroxi ne Sodium 100MCG tablet null null 1 90 Tab 2 [id number] 492 P Taking 10/03 00:00 :00 Levothyroxi ne Sodium 100 MCG null null 1 90 3 P Taking 10/03 00:00 :00 Levothyroxi ne Sodium 100MCG tablet null null 1 90 Tab 2 [id number] 492 P Taking 03/13 00:00 :00 Levothyroxi ne Sodium 100MCG tablet null null 1 90 Tab 2 79106336 492 P Start 02/20 00:00 :00 Levothyroxi ne Sodium 100 MCG null null 1 90 3 P Taking 07/31 00:00 :00 Levothyroxi ne Sodium 100 MCG null null 1 90 3 P Start 07/25 00:00 :00 Levothyroxi ne Sodium 100MCG Tablet null null 1 30 3 [id number] 901 Taking 06/13 00:00 :00 Levothyroxi ne Sodium 100MCG Tablet null null 1 30 3 70063930 901 Taking 02/11 00:00 :00 Levothyroxi ne Sodium 100MCG Tablet null null 1 30 3 [id number] 901 Taking 01/05 00:00 :00 Levothyroxi ne Sodium 100MCG Tablet null null 1 30 3 01645428 901 Taking 10/20 00:00 :00 Levothyroxi ne Sodium 100MCG Tablet null null 1 30 3 [id number] 901 Taking 07/21 00:00 :00 Levothyroxi ne Sodium 100MCG Tablet null null 1 30 3 [id number] 901 Taking 06/07 00:00 :00 Levothyroxi ne Sodium 100MCG Tablet null null 1 30 3 48289404 901 Continue 06/04 00:00 :00 Levothyroxi ne Sodium 100MCG Tablet null null 1 98749717 901 P Taking 04/13 00:00 :00 Levothyroxi ne Sodium 100MCG Tablet null null 1 09887636 901 P Taking 03/17 00:00 :00 Levothyroxi ne Sodium 100MCG Tablet null null 1 90185193 901 P Taking 01/19 00:00 :00 Levothyroxi ne Sodium 100MCG Tablet null null 1 74440884 901 P Taking 01/15 00:00 :00 Levothyroxi ne Sodium 100MCG Tablet null null 1 34156261 901 P Taking 01/08 00:00 :00 Levothyroxi ne Sodium 100MCG Tablet null null 1 88584484 901 P Taking 12/22 00:00 :00 Levothyroxi ne Sodium 100MCG Tablet null null 1 90 Tablet 5 05434849 901 P Taking 11/19 00:00 :00 Levothyroxi ne Sodium 100MCG Tablet null null 1 90 Tablet 5 75152488 901 P Start 10/14 00:00 :00 Levothyroxi ne Sodium 100 MCG Tablet null null 1 30 34961529 977 Taking 08/26 00:00 :00 Levothyroxi ne Sodium 100 MCG Tablet null null 1 30 95232772 977 Taking 08/12 00:00 :00 Levothyroxi ne Sodium 100 MCG Tablet null null 1 30 65810154 977 Taking 07/15 00:00 :00 Levothyroxi ne Sodium 100 MCG Tablet null null 1 30 82002398 977 Taking 05/26 00:00 :00 Levothyroxi ne Sodium 100 MCG Tablet null null 1 30 03306774 977 P Taking 01/27 00:00 :00 Levothyroxi ne Sodium 100 MCG Tablet null null 1 30 05929848 977 Taking 12/09 00:00 :00 Levothyroxi ne Sodium 100 MCG Tablet null null 1 30 76185341 977 Taking 12/06 00:00 :00 Levothyroxi ne Sodium 100 MCG Tablet null null 1 30 40693290 977 Taking 12/02 00:00 :00 Levothyroxi ne Sodium 100 MCG Tablet null null 1 30 02033851 977 P Taking 05/02 00:00 :00 Loratadine 10 MG Tablet 09/16/2018 00:00:00 null 1 30 2 96304554 660 P Not Taking 01/19 00:00 :00 Loratadine 10 MG Tablet 09/16/2018 00:00:00 null 1 30 2 [id number] 660 P Not Taking 12/18 00:00 :00 Loratadine 10 MG Tablet 09/16/2018 00:00:00 null 1 30 2 [id number] 660 P Not Taking 09/13 00:00 :00 Loratadine 10 MG Tablet 09/16/2018 00:00:00 null 1 30 2 [id number] 660 P Not Taking 07/26 00:00 :00 Loratadine 10 MG Tablet 09/16/2018 00:00:00 null 1 30 2 [id number] 660 P Not Taking 07/03 00:00 :00 Loratadine 10 MG Tablet 09/16/2018 00:00:00 null 1 30 2 [id number] 660 P Not Taking 05/16 00:00 :00 Loratadine 10 MG Tablet 09/16/2018 00:00:00 null 1 30 2 [id number] 660 P Not Taking 05/02 00:00 :00 Loratadine 10 MG Tablet 09/16/2018 00:00:00 null 1 30 2 59384449 660 P Not Taking 04/03 00:00 :00 Loratadine 10 MG Tablet 09/16/2018 00:00:00 null 1 30 2 [id number] 660 P Not Taking 02/03 00:00 :00 Loratadine 10 MG Tablet 09/16/2018 00:00:00 null 1 30 2 [id number] 660 P Not Taking 08/12 00:00 :00 Loratadine 10 MG Tablet 09/16/2018 00:00:00 null 1 30 2 [id number] 660 P Not Taking 06/28 00:00 :00 Loratadine 10 MG Tablet 09/16/2018 00:00:00 null 1 30 2 [id number] 660 P Not Taking 02/03 00:00 :00 Loratadine 10 MG Tablet 09/16/2018 00:00:00 null 1 30 2 [id number] 660 P Taking 01/20 00:00 :00 Loratadine 10 MG Tablet 09/16/2018 00:00:00 null 1 30 2 91601319 660 P Taking 10/14 00:00 :00 Loratadine 10 MG Tablet 09/16/2018 00:00:00 null 1 30 2 09119803 660 P Taking 09/24 00:00 :00 Loratadine 10 MG Tablet 09/16/2018 00:00:00 null 1 30 2 00445036 660 P Taking 09/08 00:00 :00 Loratadine 10 MG Tablet 09/16/2018 00:00:00 null 1 30 2 80481581 660 P Taking 06/14 00:00 :00 Loratadine 10 MG Tablet 09/16/2018 00:00:00 null 1 30 2 [id number] 660 P Taking 04/13 00:00 :00 Loratadine 10 MG Tablet 09/16/2018 00:00:00 null 1 30 2 95167046 660 P Taking 03/19 00:00 :00 Loratadine 10 MG Tablet 09/16/2018 00:00:00 null 1 30 2 69473675 660 P Taking 03/14 00:00 :00 Loratadine 10 MG Tablet 09/16/2018 00:00:00 null 1 30 2 42965054 660 P Taking 02/06 00:00 :00 Loratadine 10 MG Tablet 09/16/2018 00:00:00 null 1 30 2 [id number] 660 P Taking 01/12 00:00 :00 Loratadine 10 MG Tablet 09/16/2018 00:00:00 null 1 30 2 [id number] 660 P Taking 01/07 00:00 :00 Loratadine 10 MG Tablet 09/16/2018 00:00:00 null 1 30 2 [id number] 660 P Taking 12/30 00:00 :00 Loratadine 10 MG Tablet 12/18/2017 00:00:00 null 1 30 2 [id number] 660 P Taking 12/30 00:00 :00 Loratadine 10 MG Tablet 09/16/2018 00:00:00 null 1 30 2 69251075 660 P Taking 11/12 00:00 :00 Loratadine 10 MG Tablet 12/18/2017 00:00:00 null 1 30 2 [id number] 660 P Taking 11/12 00:00 :00 Loratadine 10 MG Tablet 09/16/2018 00:00:00 null 1 30 2 62108390 660 P Taking 11/04 00:00 :00 Loratadine 10 MG Tablet 12/18/2017 00:00:00 null 1 30 2 00894138 660 P Taking 11/04 00:00 :00 Loratadine 10 MG Tablet 09/16/2018 00:00:00 null 1 30 2 [id number] 660 P Taking 09/16 00:00 :00 Loratadine 10 MG Tablet 09/16/2018 00:00:00 null 1 30 2 [id number] 660 P Start 09/16 00:00 :00 Loratadine 10 MG Tablet 12/18/2017 00:00:00 null 1 30 2 56820960 660 P Taking 08/11 00:00 :00 Loratadine 10 MG Tablet 12/18/2017 00:00:00 null 1 30 2 [id number] 660 P Taking 06/20 00:00 :00 Loratadine 10 MG Tablet 12/18/2017 00:00:00 null 1 30 2 21261729 660 P Taking 05/19 00:00 :00 Loratadine 10 MG Tablet 12/18/2017 00:00:00 null 1 30 2 [id number] 660 P Taking 05/05 00:00 :00 Loratadine 10 MG Tablet 12/18/2017 00:00:00 null 1 30 2 [id number] 660 P Taking 04/23 00:00 :00 Loratadine 10 MG Tablet 12/18/2017 00:00:00 null 1 30 2 [id number] 660 P Taking 03/26 00:00 :00 Loratadine 10 MG Tablet 12/18/2017 00:00:00 null 1 30 2 [id number] 660 P Taking 02/04 00:00 :00 Loratadine 10 MG Tablet 12/18/2017 00:00:00 null 1 30 2 [id number] 660 P Taking 01/24 00:00 :00 Loratadine 10 MG Tablet 12/18/2017 00:00:00 null 1 30 2 [id number] 660 P Taking 12/25 00:00 :00 Loratadine 10 MG Tablet 12/18/2017 00:00:00 null 1 30 2 [id number] 660 P Taking 12/18 00:00 :00 Loratadine 10 MG Tablet 12/18/2017 00:00:00 null 1 30 2 71396057 660 P Start 07/07 00:00 :00 Losartan Potassium 50 MG Tablet null null 1 135 Tablet 2 51887021 110 Start 07/07 00:00 :00 Losartan Potassium 50 MG Tablet null null 0 135 Tablet 1 89193310 110 Stop 05/02 00:00 :00 Losartan Potassium 50 MG Tablet null null 1 135 Tablet 1 46202337 110 Taking 03/26 00:00 :00 Losartan Potassium 50 MG Tablet null null 1 135 Tablet 1 27942680 110 Start 03/26 00:00 :00 Losartan Potassium 50 MG Tablet null null 0 135 Tablet 1 18690847 110 Stop 01/19 00:00 :00 Losartan Potassium 50 MG Tablet null null 1 135 Tablet 1 49449523 110 Taking 12/18 00:00 :00 Losartan Potassium 50 MG Tablet null null 1 135 Tablet 1 03840039 110 Taking 11/26 00:00 :00 Losartan Potassium 50 MG Tablet null null 1 135 Tablet 1 13676564 110 Start 11/26 00:00 :00 Losartan Potassium 50 MG Tablet null null 0 135 Tablet 1 53975461 190 Stop 09/13 00:00 :00 Losartan Potassium 50 MG Tablet null null 1 135 Tablet 1 25238672 190 Taking 07/26 00:00 :00 Losartan Potassium 50 MG Tablet null null 1 135 Tablet 1 44403569 190 Taking 07/03 00:00 :00 Losartan Potassium 50 MG Tablet null null 1 135 Tablet 1 33850005 190 Taking 05/16 00:00 :00 Losartan Potassium 50 MG Tablet null null 1 135 Tablet 1 80618163 190 Taking 05/02 00:00 :00 Losartan Potassium 50 MG Tablet null null 1 135 Tablet 1 11321155 190 Taking 04/03 00:00 :00 Losartan Potassium 50 MG Tablet null null 1 135 Tablet 1 31036295 190 Taking 02/03 00:00 :00 Losartan Potassium 50 MG Tablet null null 1 135 Tablet 1 33535505 190 Taking 01/30 00:00 :00 Losartan Potassium 50 MG Tablet null null 1 135 Tablet 1 96973248 190 Continue 11/03 00:00 :00 Losartan Potassium 50 MG Tablet null null 1 135 Tablet 1 69176308 190 Start 11/03 00:00 :00 Losartan Potassium 50MG Tablet null null 0 135 0 14415265 190 Stop 08/12 00:00 :00 Losartan Potassium 50MG Tablet null null 1 135 0 52078010 190 P Taking 07/22 00:00 :00 Losartan Potassium 50MG Tablet null null 1 135 0 94225973 190 P Refill 06/28 00:00 :00 Losartan Potassium 50MG Tablet null null 1 135 0 Taking 05/18 00:00 :00 Losartan Potassium 50MG Tablet null null 1 135 0 Refill 02/03 00:00 :00 Losartan Potassium 50MG Tablet null null 1 135 0 [id number] 190 Taking 01/20 00:00 :00 Losartan Potassium 50MG Tablet null null 1 135 0 [id number] 190 Taking 01/16 00:00 :00 Losartan Potassium 50MG Tablet null null 1 135 0 [id number] 190 Refill 10/29 00:00 :00 Losartan Potassium 50MG Tablet null null 1 45 Tablet 2 Cont inue 10/14 00:00 :00 Losartan Potassium 50MG Tablet null null 1 45 Tablet 2 Taki ng 09/24 00:00 :00 Losartan Potassium 50MG Tablet null null 1 45 Tablet 2 Taki ng 09/08 00:00 :00 Losartan Potassium 50MG Tablet null null 1 45 Tablet 2 Taki ng 06/14 00:00 :00 Losartan Potassium 50MG Tablet null null 1 45 Tablet 2 Taki ng 04/13 00:00 :00 Losartan Potassium 50MG Tablet null null 1 45 Tablet 2 Taki ng 03/19 00:00 :00 Losartan Potassium 50MG Tablet null null 1 45 Tablet 2 Taki ng 03/14 00:00 :00 Losartan Potassium 50MG Tablet null null 1 45 Tablet 2 Taki ng 02/06 00:00 :00 Losartan Potassium 50MG Tablet null null 1 45 Tablet 2 Taki ng 01/12 00:00 :00 Losartan Potassium 50MG Tablet null null 1 45 Tablet 2 Taki ng 01/07 00:00 :00 Losartan Potassium 50MG Tablet null null 1 45 Tablet 2 Taki ng 12/30 00:00 :00 Losartan Potassium 50MG Tablet null null 1 45 Tablet 2 Taki ng 11/12 00:00 :00 Losartan Potassium 50MG Tablet null null 1 45 Tablet 2 Taki ng 11/04 00:00 :00 Losartan Potassium 50MG Tablet null null 1 45 Tablet 2 Taki ng 09/16 00:00 :00 Losartan Potassium 50MG Tablet null null 1 45 Tablet 2 Taki ng 08/11 00:00 :00 Losartan Potassium 50MG Tablet null null 1 45 Tablet 2 Taki ng 06/20 00:00 :00 Losartan Potassium 50MG Tablet null null 1 45 Tablet 2 Taki ng 05/19 00:00 :00 Losartan Potassium 50MG Tablet null null 1 45 Tablet 2 Taki ng 05/06 00:00 :00 Losartan Potassium 50MG Tablet null null 1 45 Tablet 2 Refi ll 05/05 00:00 :00 Losartan Potassium 50 MG Tablet 12/18/2017 00:00:00 null 1 45 2 [id number] 422 P Taking 04/23 00:00 :00 Losartan Potassium 50 MG Tablet 12/18/2017 00:00:00 null 1 45 2 [id number] 422 P Taking 03/26 00:00 :00 Losartan Potassium 50 MG Tablet 12/18/2017 00:00:00 null 1 45 2 [id number] 422 P Taking 02/04 00:00 :00 Losartan Potassium 50 MG Tablet 12/18/2017 00:00:00 null 1 45 2 [id number] 422 P Taking 01/24 00:00 :00 Losartan Potassium 50 MG Tablet 12/18/2017 00:00:00 null 1 45 2 [id number] 422 P Refill 01/24 00:00 :00 Losartan Potassium 50 MG Tablet 12/18/2017 00:00:00 null 1 30 0 [id number] 422 P Taking 12/25 00:00 :00 Losartan Potassium 50 MG Tablet 12/18/2017 00:00:00 null 1 30 0 [id number] 422 P Taking 12/18 00:00 :00 Losartan Potassium 50 MG Tablet 12/18/2017 00:00:00 null 1 30 0 [id number] 422 P Start 05/02 00:00 :00 Lotrisone 1-0.05 % Cream 03/26/2018 00:00:00 null 1 1 2 [id number] 401 P Not Taking 01/19 00:00 :00 Lotrisone 1-0.05 % Cream 03/26/2018 00:00:00 null 1 1 2 [id number] 401 P Not Taking 12/18 00:00 :00 Lotrisone 1-0.05 % Cream 03/26/2018 00:00:00 null 1 1 2 [id number] 401 P Not Taking 09/13 00:00 :00 Lotrisone 1-0.05 % Cream 03/26/2018 00:00:00 null 1 1 2 [id number] 401 P Not Taking 07/26 00:00 :00 Lotrisone 1-0.05 % Cream 03/26/2018 00:00:00 null 1 1 2 [id number] 401 P Not Taking 07/03 00:00 :00 Lotrisone 1-0.05 % Cream 03/26/2018 00:00:00 null 1 1 2 [id number] 401 P Not Taking 05/16 00:00 :00 Lotrisone 1-0.05 % Cream 03/26/2018 00:00:00 null 1 1 2 [id number] 401 P Not Taking 05/02 00:00 :00 Lotrisone 1-0.05 % Cream 03/26/2018 00:00:00 null 1 1 2 [id number] 401 P Not Taking 04/03 00:00 :00 Lotrisone 1-0.05 % Cream 03/26/2018 00:00:00 null 1 1 2 [id number] 401 P Not Taking 02/03 00:00 :00 [place] 1-0.05 % Cream 03/26/2018 00:00:00 null 1 1 2 [id number] 401 P Not Taking 08/12 00:00 :00 [place]one 1-0.05 % Cream 03/26/2018 00:00:00 null 1 1 2 [id number] 401 P Not Taking 06/28 00:00 :00 Lotrisone 1-0.05 % Cream 03/26/2018 00:00:00 null 1 1 2 [id number] 401 P Not Taking 02/03 00:00 :00 [place]ris[place] 1-0.05 % Cream 03/26/2018 00:00:00 null 1 1 2 [id number] 401 P Taking 01/20 00:00 :00 [place] 1-0.05 % Cream 03/26/2018 00:00:00 null 1 1 2 [id number] 401 P Taking 10/14 00:00 :00 [place]ris[place] 1-0.05 % Cream 03/26/2018 00:00:00 null 1 1 2 [id number] 401 P Taking 09/24 00:00 :00 [place]ris[place] 1-0.05 % Cream 03/26/2018 00:00:00 null 1 1 2 [id number] 401 P Taking 09/08 00:00 :00 [place]risone 1-0.05 % Cream 03/26/2018 00:00:00 null 1 1 2 [id number] 401 P Taking 06/14 00:00 :00 Lotrisone 1-0.05 % Cream 03/26/2018 00:00:00 null 1 1 2 [id number] 401 P Taking 04/13 00:00 :00 [place] 1-0.05 % Cream 03/26/2018 00:00:00 null 1 1 2 [id number] 401 P Taking 03/19 00:00 :00 [place]risone 1-0.05 % Cream 03/26/2018 00:00:00 null 1 1 2 [id number] 401 P Taking 03/14 00:00 :00 [place]risone 1-0.05 % Cream 03/26/2018 00:00:00 null 1 1 2 [id number] 401 P Taking 02/06 00:00 :00 [place]ris[place] 1-0.05 % Cream 03/26/2018 00:00:00 null 1 1 2 [id number] 401 P Taking 01/12 00:00 :00 Lotris[place] 1-0.05 % Cream 03/26/2018 00:00:00 null 1 1 2 [id number] 401 P Taking 01/07 00:00 :00 [place]ris[place] 1-0.05 % Cream 03/26/2018 00:00:00 null 1 1 2 [id number] 401 P Taking 12/30 00:00 :00 [place] 1-0.05 % Cream 03/26/2018 00:00:00 null 1 1 2 [id number] 401 P Taking 11/12 00:00 :00 [place] 1-0.05 % Cream 03/26/2018 00:00:00 null 1 1 2 [id number] 401 P Taking 11/04 00:00 :00 [place] 1-0.05 % Cream 03/26/2018 00:00:00 null 1 1 2 [id number] 401 P Taking 09/16 00:00 :00 [place] 1-0.05 % Cream 03/26/2018 00:00:00 null 1 1 2 [id number] 401 P Taking 08/11 00:00 :00 [place] 1-0.05 % Cream 03/26/2018 00:00:00 null 1 1 2 [id number] 401 P Taking 06/20 00:00 :00 [place] 1-0.05 % Cream 03/26/2018 00:00:00 null 1 1 2 [id number] 401 P Taking 05/19 00:00 :00 [place]ris[place] 1-0.05 % Cream 03/26/2018 00:00:00 null 1 1 2 [id number] 401 P Taking 05/05 00:00 :00 [place]ris[place] 1-0.05 % Cream 03/26/2018 00:00:00 null 1 1 2 [id number] 401 P Taking 04/23 00:00 :00 [place]ris[place] 1-0.05 % Cream 03/26/2018 00:00:00 null 1 1 2 [id number] 401 P Taking 03/26 00:00 :00 [place] 1-0.05 % Cream 03/26/2018 00:00:00 null 1 1 2 [id number] 401 P Start 05/02 00:00 :00 Magnesium 250 MG Tablet 09/29/2019 00:00:00 null 1 30 0 [id number] 71 P Not Taking 01/19 00:00 :00 Magnesium 250 MG Tablet 09/29/2019 00:00:00 null 1 30 0 [id number] 71 P Not Taking 12/18 00:00 :00 Magnesium 250 MG Tablet 09/29/2019 00:00:00 null 1 30 0 [id number] 71 P Not Taking 09/13 00:00 :00 Magnesium 250 MG Tablet 09/29/2019 00:00:00 null 1 30 0 [id number] 71 P Not Taking 07/26 00:00 :00 Magnesium 250 MG Tablet 09/29/2019 00:00:00 null 1 30 0 [id number] 71 P Not Taking 07/03 00:00 :00 Magnesium 250 MG Tablet 09/29/2019 00:00:00 null 1 30 0 [id number] 71 P Not Taking 05/16 00:00 :00 Magnesium 250 MG Tablet 09/29/2019 00:00:00 null 1 30 0 [id number] 71 P Not Taking 05/02 00:00 :00 Magnesium 250 MG Tablet 09/29/2019 00:00:00 null 1 30 0 [id number] 71 P Not Taking 04/03 00:00 :00 Magnesium 250 MG Tablet 09/29/2019 00:00:00 null 1 30 0 [id number] 71 P Not Taking 02/03 00:00 :00 Magnesium 250 MG Tablet 09/29/2019 00:00:00 null 1 30 0 [id number] 71 P Not Taking 08/12 00:00 :00 Magnesium 250 MG Tablet 09/29/2019 00:00:00 null 1 30 0 [id number] 71 P Not Taking 06/28 00:00 :00 Magnesium 250 MG Tablet 09/29/2019 00:00:00 null 1 30 0 [id number] 71 P Not Taking 02/03 00:00 :00 Magnesium 250 MG Tablet 09/29/2019 00:00:00 null 1 30 0 [id number] 71 P Taking 01/20 00:00 :00 Magnesium 250 MG Tablet 09/29/2019 00:00:00 null 1 30 0 [id number] 71 P Taking 10/14 00:00 :00 Magnesium 250 MG Tablet 09/29/2019 00:00:00 null 1 30 0 [id number] 71 P Taking 09/28 00:00 :00 Magnesium 250 MG Tablet 09/29/2019 00:00:00 null 1 30 0 [id number] 71 P Start 03/19 00:00 :00 Medrol 4 MG Tablet Therapy Pack 03/14/2019 00:00:00 null 0 1 0 [id number] 604 P Discontinu ed 03/14 00:00 :00 Medrol 4 MG Tablet Therapy Pack 03/14/2019 00:00:00 null 1 1 0 [id number] 604 P Start 07/07 00:00 :00 metFORMIN HCl 500 MG Tablet null null 1 180 Tablet 1 [id number] 899 Start 07/07 00:00 :00 metFORMIN HCl 500 MG Tablet null null 0 180 Tablet 1 [id number] 899 Stop 05/02 00:00 :00 metFORMIN HCl 500 MG Tablet null null 1 180 Tablet 1 [id number] 899 Taking 03/26 00:00 :00 metFORMIN HCl 500 MG Tablet null null 1 180 Tablet 1 [id number] 899 Start 03/26 00:00 :00 metFORMIN HCl 500 MG Tablet null null 0 180 Tablet 1 [id number] 310 Stop 01/19 00:00 :00 metFORMIN HCl 500 MG Tablet null null 1 180 Tablet 1 [id number] 310 Taking 12/18 00:00 :00 metFORMIN HCl 500 MG Tablet null null 1 180 Tablet 1 [id number] 310 Taking 11/26 00:00 :00 metFORMIN HCl 500 MG Tablet null null 1 180 Tablet 1 [id number] 310 Start 11/26 00:00 :00 metFORMIN HCl 500 MG Tablet null null 0 60 [id number] 206 Stop 09/13 00:00 :00 metFORMIN HCl 500 MG Tablet null null 1 60 [id number] 206 Taking 04/03 00:00 :00 metFORMIN HCl 500 MG Tablet null null 0 [id number] 210 Stop 04/03 00:00 :00 metFORMIN HCl 500 MG Tablet null null 1 180 Tablet 1 [id number] 210 Taking 02/03 00:00 :00 metFORMIN HCl 500 MG Tablet null null 1 180 Tablet 1 [id number] 210 Taking 01/30 00:00 :00 metFORMIN HCl 500 MG Tablet null null 1 180 Tablet 1 [id number] 210 Continue 11/03 00:00 :00 metFORMIN HCl 500 MG Tablet null null 1 180 Tablet 1 [id number] 210 Start 11/03 00:00 :00 metFORMIN HCl 500MG Tablet null null 0 180 0 [id number] 259 Stop 08/12 00:00 :00 metFORMIN HCl 500MG Tablet null null 1 180 0 [id number] 259 P Taking 07/22 00:00 :00 metFORMIN HCl 500MG Tablet null null 1 180 0 [id number] 259 P Refill 06/28 00:00 :00 metFORMIN HCl 500MG Tablet null null 1 180 0 Taking 05/18 00:00 :00 metFORMIN HCl 500MG Tablet null null 1 180 0 Refill 02/16 00:00 :00 metFORMIN HCl 500MG Tablet null null 1 180 0 [id number] 259 Refill 02/03 00:00 :00 metFORMIN HCl 500MG Tablet null null 1 180 0 [id number] 259 Taking 01/20 00:00 :00 metFORMIN HCl 500MG Tablet null null 1 180 0 [id number] 259 Taking 11/09 00:00 :00 metFORMIN HCl 500MG Tablet null null 1 180 0 [id number] 259 Continue 10/14 00:00 :00 metFORMIN HCl 500MG Tablet null null 1 180 0 [id number] 259 Taking 09/24 00:00 :00 metFORMIN HCl 500MG Tablet null null 1 180 0 [id number] 259 Taking 09/08 00:00 :00 metFORMIN HCl 500MG Tablet null null 1 180 0 [id number] 259 Taking 08/15 00:00 :00 metFORMIN HCl 500MG Tablet null null 1 180 0 [id number] 259 Refill 06/14 00:00 :00 metFORMIN HCl 500MG Tablet null null 1 60 Tablet 5 [id number] 959 Taking 04/13 00:00 :00 metFORMIN HCl 500MG Tablet null null 1 60 Tablet 5 [id number] 959 Taking 03/19 00:00 :00 metFORMIN HCl 500MG Tablet null null 1 60 Tablet 5 [id number] 959 Taking 03/14 00:00 :00 metFORMIN HCl 500MG Tablet null null 1 60 Tablet 5 [id number] 959 Taking 02/06 00:00 :00 metFORMIN HCl 500MG Tablet null null 1 60 Tablet 5 [id number] 959 Taking 01/12 00:00 :00 metFORMIN HCl 500MG Tablet null null 1 60 Tablet 5 [id number] 959 Taking 01/07 00:00 :00 metFORMIN HCl 500MG Tablet null null 1 60 Tablet 5 [id number] 959 Taking 12/30 00:00 :00 metFORMIN HCl 500MG Tablet null null 1 60 Tablet 5 [id number] 959 Taking 11/12 00:00 :00 metFORMIN HCl 500MG Tablet null null 1 60 Tablet 5 [id number] 959 Taking 11/04 00:00 :00 metFORMIN HCl 500MG Tablet null null 1 60 Tablet 5 [id number] 959 Taking 09/16 00:00 :00 metFORMIN HCl 500MG Tablet null null 1 60 Tablet 5 [id number] 959 Taking 08/11 00:00 :00 metFORMIN HCl 500MG Tablet null null 1 60 Tablet 5 [id number] 959 Taking 06/20 00:00 :00 metFORMIN HCl 500MG Tablet null null 1 60 Tablet 5 [id number] 959 Taking 06/04 00:00 :00 metFORMIN HCl 500MG Tablet null null 1 60 Tablet 5 [id number] 959 Refill 05/19 00:00 :00 metFORMIN HCl 500 MG Tablet null null 1 60 Capsule 2 [id number] 810 P Taking 05/05 00:00 :00 metFORMIN HCl 500 MG Tablet null null 1 60 Capsule 2 [id number] 810 P Taking 04/23 00:00 :00 metFORMIN HCl 500 MG Tablet null null 1 60 Capsule 2 [id number] 810 P Taking 03/26 00:00 :00 metFORMIN HCl 500 MG Tablet null null 1 60 Capsule 2 [id number] 810 P Taking 02/04 00:00 :00 metFORMIN HCl 500 MG Tablet null null 1 60 Capsule 2 [id number] 810 P Taking 01/24 00:00 :00 metFORMIN HCl 500 MG Tablet null null 1 60 Capsule 2 [id number] 810 P Refill 01/24 00:00 :00 metFORMIN HCl 500 MG Tablet null null 1 60 Capsule 5 [id number] 810 Taking 12/25 00:00 :00 metFORMIN HCl 500 MG Tablet null null 1 60 Capsule 5 [id number] 810 Taking 12/18 00:00 :00 metFORMIN HCl 500 MG Tablet null null 1 60 Capsule 5 [id number] 810 Taking 12/11 00:00 :00 metFORMIN HCl 500 MG Tablet null null 1 60 Capsule 5 [id number] 810 Taking 10/29 00:00 :00 metFORMIN HCl 500 MG Tablet null null 1 60 Capsule 5 [id number] 810 Taking 09/06 00:00 :00 metFORMIN HCl 500 MG Tablet null null 1 60 Capsule 5 [id number] 810 Continue 07/16 00:00 :00 metFORMIN HCl 500 MG Tablet null null 1 60 Capsule 5 [id number] 810 P Taking 07/02 00:00 :00 metFORMIN HCl 500 MG Tablet null null 1 60 Capsule 5 [id number] 810 P Taking 06/25 00:00 :00 metFORMIN HCl 500 MG Tablet null null 1 60 Capsule 5 [id number] 810 P Taking 06/18 00:00 :00 metFORMIN HCl 500 MG Tablet null null 1 60 Capsule 5 [id number] 810 P Taking 02/17 00:00 :00 metFORMIN HCl 500 MG Tablet null null 1 60 Capsule 5 [id number] 810 P Start 02/13 00:00 :00 metFORMIN HCl 500 MG Tablet 07/15/2013 00:00:00 null 1 [id number] 405 P Taking 02/06 00:00 :00 metFORMIN HCl 500 MG Tablet 07/15/2013 00:00:00 null 1 [id number] 405 P Taking 12/26 00:00 :00 metFORMIN HCl 500 MG Tablet 07/15/2013 00:00:00 null 1 [id number] 405 P Taking 10/03 00:00 :00 metFORMIN HCl 500 MG Tablet 07/15/2013 00:00:00 null 1 [id number] 405 P Taking 02/20 00:00 :00 metFORMIN HCl 500 MG Tablet 07/15/2013 00:00:00 null 1 [id number] 405 P Taking 07/25 00:00 :00 metFORMIN HCl 500 MG Tablet 07/15/2013 00:00:00 null 1 [id number] 405 P Taking 06/13 00:00 :00 metFORMIN HCl 500 MG Tablet 07/15/2013 00:00:00 null 1 [id number] 405 P Taking 02/11 00:00 :00 metFORMIN HCl 500 MG Tablet 07/15/2013 00:00:00 null 1 [id number] 405 P Taking 01/05 00:00 :00 metFORMIN HCl 500 MG Tablet 07/15/2013 00:00:00 null 1 [id number] 405 P Taking 10/20 00:00 :00 metFORMIN HCl 500 MG Tablet 07/15/2013 00:00:00 null 1 [id number] 405 P Taking 07/21 00:00 :00 metFORMIN HCl 500 MG Tablet 07/15/2013 00:00:00 null 1 [id number] 405 P Taking 06/04 00:00 :00 metFORMIN HCl 500 MG Tablet 07/15/2013 00:00:00 null 1 [id number] 405 P Taking 04/13 00:00 :00 metFORMIN HCl 500 MG Tablet 07/15/2013 00:00:00 null 1 [id number] 405 P Taking 03/17 00:00 :00 metFORMIN HCl 500 MG Tablet 07/15/2013 00:00:00 null 1 [id number] 405 P Taking 01/19 00:00 :00 metFORMIN HCl 500 MG Tablet 07/15/2013 00:00:00 null 1 [id number] 405 P Taking 01/15 00:00 :00 metFORMIN HCl 500 MG Tablet 07/15/2013 00:00:00 null 1 [id number] 405 P Taking 01/08 00:00 :00 metFORMIN HCl 500 MG Tablet 07/15/2013 00:00:00 null 1 [id number] 405 P Taking 12/22 00:00 :00 metFORMIN HCl 500 MG Tablet 07/15/2013 00:00:00 null 1 60 5 [id number] 405 P Taking 10/14 00:00 :00 metFORMIN HCl 500 MG Tablet 07/15/2013 00:00:00 null 1 60 5 [id number] 405 P Taking 08/26 00:00 :00 metFORMIN HCl 500 MG Tablet 07/15/2013 00:00:00 null 1 60 5 [id number] 405 P Taking 08/12 00:00 :00 metFORMIN HCl 500 MG Tablet 07/15/2013 00:00:00 null 1 60 5 [id number] 405 P Taking 07/15 00:00 :00 metFORMIN HCl 500 MG Tablet 07/15/2013 00:00:00 null 1 60 5 [id number] 405 P Start 07/15 00:00 :00 metFORMIN HCl 500 MG null null 1 60 5 P Start 08/11 00:00 :00 Metoprolol Tartrate 25 MG Tablet 02/06/2017 00:00:00 null 0 180 Tablet 3 [id number] 801 Discontinu ed 06/20 00:00 :00 Metoprolol Tartrate 25 MG Tablet 02/06/2017 00:00:00 null 1 180 Tablet 3 [id number] 801 Not Taking 05/19 00:00 :00 Metoprolol Tartrate 25 MG Tablet 02/06/2017 00:00:00 null 1 180 Tablet 3 [id number] 801 Not Taking 05/05 00:00 :00 Metoprolol Tartrate 25 MG Tablet 02/06/2017 00:00:00 null 1 180 Tablet 3 [id number] 801 Not Taking 04/23 00:00 :00 Metoprolol Tartrate 25 MG Tablet 02/06/2017 00:00:00 null 1 180 Tablet 3 [id number] 801 Not Taking 03/26 00:00 :00 Metoprolol Tartrate 25 MG Tablet 02/06/2017 00:00:00 null 1 180 Tablet 3 [id number] 801 Not Taking 02/04 00:00 :00 Metoprolol Tartrate 25 MG Tablet 02/06/2017 00:00:00 null 1 180 Tablet 3 [id number] 801 Not Taking 01/24 00:00 :00 Metoprolol Tartrate 25 MG Tablet 02/06/2017 00:00:00 null 1 180 Tablet 3 [id number] 801 Not Taking 12/25 00:00 :00 Metoprolol Tartrate 25 MG Tablet 02/06/2017 00:00:00 null 1 180 Tablet 3 [id number] 801 Not Taking 12/25 00:00 :00 Metoprolol Tartrate 25 MG Tablet 12/11/2017 00:00:00 null 0 60 0 [id number] 801 P Discontinu ed 12/18 00:00 :00 Metoprolol Tartrate 25 MG Tablet 12/11/2017 00:00:00 null 1 60 0 [id number] 801 P Taking 12/18 00:00 :00 Metoprolol Tartrate 25 MG Tablet 02/06/2017 00:00:00 null 1 180 Tablet 3 [id number] 801 Not Taking 12/11 00:00 :00 Metoprolol Tartrate 25 MG Tablet 12/11/2017 00:00:00 null 1 60 0 [id number] 801 P Start 12/11 00:00 :00 Metoprolol Tartrate 25 MG Tablet 02/06/2017 00:00:00 null 1 180 Tablet 3 [id number] 801 Not Taking 10/29 00:00 :00 Metoprolol Tartrate 25 MG Tablet 02/06/2017 00:00:00 null 1 180 Tablet 3 [id number] 801 Taking 09/06 00:00 :00 Metoprolol Tartrate 25 MG Tablet 02/06/2017 00:00:00 null 1 180 Tablet 3 [id number] 801 Continue 07/16 00:00 :00 Metoprolol Tartrate 25 MG Tablet 02/06/2017 00:00:00 null 1 180 Tablet 3 [id number] 801 P Taking 07/02 00:00 :00 Metoprolol Tartrate 25 MG Tablet 02/06/2017 00:00:00 null 1 180 Tablet 3 [id number] 801 P Taking 06/25 00:00 :00 Metoprolol Tartrate 25 MG Tablet 02/06/2017 00:00:00 null 1 180 Tablet 3 [id number] 801 P Taking 06/18 00:00 :00 Metoprolol Tartrate 25 MG Tablet 02/06/2017 00:00:00 null 1 180 Tablet 3 [id number] 801 P Taking 02/13 00:00 :00 Metoprolol Tartrate 25 MG Tablet 02/06/2017 00:00:00 null 1 180 Tablet 3 [id number] 801 P Taking 02/06 00:00 :00 Metoprolol Tartrate 25 MG Tablet 02/06/2017 00:00:00 null 1 180 Tablet 3 [id number] 801 P Start 07/26 00:00 :00 Mupirocin 2 % Ointment 07/26/2021 00:00:00 null 1 1 1 [id number] 042 P Start 07/26 00:00 :00 Mupirocin 2 % Ointment 07/26/2021 00:00:00 null 0 1 1 [id number] 042 P Stop 12/11 00:00 :00 Neurontin 300MG capsule null null 1 60 Capsule 95834936 250 Taking 10/29 00:00 :00 Neurontin 300MG capsule null null 1 60 Capsule [id number] 250 Taking 09/06 00:00 :00 Neurontin 300MG capsule null null 1 60 Capsule 73625793 250 Continue 07/16 00:00 :00 Neurontin 300MG capsule null null 1 60 Capsule 5 00102341 250 P Taking 07/02 00:00 :00 Neurontin 300MG capsule null null 1 60 Capsule 5 34488287 250 P Taking 06/25 00:00 :00 Neurontin 300MG capsule null null 1 60 Capsule 5 [id number] 250 P Taking 06/18 00:00 :00 Neurontin 300MG capsule null null 1 60 Capsule 5 29653840 250 P Taking 02/13 00:00 :00 Neurontin 300MG capsule null null 1 60 Capsule 5 72973896 250 P Taking 02/06 00:00 :00 Neurontin 300MG capsule null null 1 60 Capsule 5 70857675 250 P Taking 12/26 00:00 :00 Neurontin 300MG capsule null null 1 60 Capsule 5 88892364 250 P Taking 10/03 00:00 :00 Neurontin 300MG capsule null null 1 60 Capsule 5 00704098 250 P Taking 03/13 00:00 :00 Neurontin 300MG capsule null null 1 60 Capsule 5 80105690 250 P Start 02/20 00:00 :00 Neurontin 300MG capsule null null 1 60 Capsule 0 98071893 250 P Taking 02/02 00:00 :00 Neurontin 300MG capsule null null 1 60 Capsule 0 19767972 250 P Start 11/04 00:00 :00 Neurontin 300MG null null 1 60 2 P Start 10/11 00:00 :00 Neurontin 300MG capsule null null 1 60 Capsule 0 10297027 460 P Start 07/31 00:00 :00 Neurontin 300MG null null 1 60 2 P Start 07/25 00:00 :00 Neurontin 300MG Capsule null null 1 60 1 781962 10 205 Taking 06/13 00:00 :00 Neurontin 300MG Capsule null null 1 60 1 806729 10 205 Taking 05/11 00:00 :00 Neurontin 300MG Capsule null null 1 60 1 758699 10 205 Continue 02/11 00:00 :00 Neurontin 300MG Capsule null null 1 60 1 201114 10 205 Taking 01/05 00:00 :00 Neurontin 300MG Capsule null null 1 60 1 140873 10 205 Taking 10/20 00:00 :00 Neurontin 300MG Capsule null null 1 60 1 634173 10 205 Taking 07/21 00:00 :00 Neurontin 300MG Capsule null null 1 60 1 784743 10 205 Taking 06/04 00:00 :00 Neurontin 300MG Capsule null null 1 60 1 759468 10 205 Taking 04/13 00:00 :00 Neurontin 300MG Capsule null null 1 60 1 515375 10 205 Taking 03/17 00:00 :00 Neurontin 300MG Capsule null null 1 60 1 632943 10 205 Taking 02/10 00:00 :00 Neurontin 300MG Capsule null null 1 60 1 169095 10 205 Continue 01/19 00:00 :00 Neurontin 300MG Capsule null null 1 391625 10 205 Taking 01/15 00:00 :00 Neurontin 300MG Capsule null null 1 540672 10 205 Taking 01/08 00:00 :00 Neurontin 300MG Capsule null null 1 114724 10 205 Taking 12/22 00:00 :00 Neurontin 300MG Capsule null null 1 60 Not Specified 1 03714165 205 Taking 10/14 00:00 :00 Neurontin 300MG Capsule null null 1 60 Not Specified 1 77297815 205 Taking 08/26 00:00 :00 Neurontin 300MG Capsule null null 1 60 Not Specified 1 65640406 205 Taking 08/25 00:00 :00 Neurontin 300MG Capsule null null 1 60 Not Specified 1 80815856 205 Start 08/12 00:00 :00 Neurontin 300 MG Capsule 05/26/2013 00:00:00 null 1 60 1 [id number] 524 Taking 07/15 00:00 :00 Neurontin 300 MG Capsule 05/26/2013 00:00:00 null 1 60 1 [id number] 524 Taking 05/26 00:00 :00 Neurontin 300 MG Capsule 05/26/2013 00:00:00 null 1 60 1 [id number] 524 P Start 08/12 00:00 :00 [place] 5-325 MG Tablet 08/12/2020 00:00:00 null 0 20 0 [id number] 201 Stop 08/12 00:00 :00 [place] 5-325 MG Tablet 08/12/2020 00:00:00 null 1 20 0 [id number] 201 P Start 08/12 00:00 :00 [place] 5-325 MG Tablet 01/12/2019 00:00:00 null 1 20 0 [id number] 201 P Not Taking 06/28 00:00 :00 [place] 5-325 MG Tablet 01/12/2019 00:00:00 null 1 20 0 [id number] 201 P Not Taking 02/03 00:00 :00 [place] 5-325 MG Tablet 01/12/2019 00:00:00 null 1 20 0 [id number] 201 P Taking 01/20 00:00 :00 [place] 5-325 MG Tablet 01/12/2019 00:00:00 null 1 20 0 [id number] 201 P Taking 10/14 00:00 :00 [place] 5-325 MG Tablet 01/12/2019 00:00:00 null 1 20 0 [id number] 201 P Taking 09/24 00:00 :00 [place] 5-325 MG Tablet 01/12/2019 00:00:00 null 1 20 0 [id number] 201 P Taking 09/08 00:00 :00 [place] 5-325 MG Tablet 01/12/2019 00:00:00 null 1 20 0 [id number] 201 P Taking 06/14 00:00 :00 [place] 5-325 MG Tablet 01/12/2019 00:00:00 null 1 20 0 [id number] 201 P Taking 04/13 00:00 :00 [place] 5-325 MG Tablet 01/12/2019 00:00:00 null 1 20 0 [id number] 201 P Taking 03/19 00:00 :00 [place] 5-325 MG Tablet 01/12/2019 00:00:00 null 1 20 0 [id number] 201 P Taking 03/14 00:00 :00 [place] 5-325 MG Tablet 01/12/2019 00:00:00 null 1 20 0 [id number] 201 P Taking 02/06 00:00 :00 [place] 5-325 MG Tablet 01/12/2019 00:00:00 null 1 20 0 [id number] 201 P Taking 01/12 00:00 :00 [place] 5-325 MG Tablet 01/12/2019 00:00:00 null 1 20 0 [id number] 201 P Start 08/11 00:00 :00 Nystatin 126425 UNIT/ML Suspension 05/05/2018 00:00:00 null 0 160 ml 0 81545639 002 P Discontinu ed 06/20 00:00 :00 Nystatin 370597 UNIT/ML Suspension 05/05/2018 00:00:00 null 1 160 ml 0 98648315 002 P Taking 06/20 00:00 :00 Nystatin 822412 UNIT/ML Suspension null null 1 224 ml 2 20703628 002 P Not Taking 05/19 00:00 :00 Nystatin 433340 UNIT/ML Suspension 05/05/2018 00:00:00 null 1 160 ml 0 92616467 002 P Taking 05/19 00:00 :00 Nystatin 052258 UNIT/ML Suspension null null 1 224 ml 2 24581420 002 P Not Taking 05/05 00:00 :00 Nystatin 729028 UNIT/ML Suspension 05/05/2018 00:00:00 null 1 160 ml 0 30133567 002 P Start 05/05 00:00 :00 Nystatin 674815 UNIT/ML Suspension null null 1 224 ml 2 73018742 002 P Not Taking 04/23 00:00 :00 Nystatin 369487 UNIT/ML Suspension null null 1 224 ml 2 88792148 002 P Not Taking 03/26 00:00 :00 Nystatin 793213 UNIT/ML Suspension null null 1 224 ml 2 77170528 002 P Not Taking 02/04 00:00 :00 Nystatin 726788 UNIT/ML Suspension null null 1 224 ml 2 79267657 002 P Not Taking 01/24 00:00 :00 Nystatin 453626 UNIT/ML Suspension null null 1 224 ml 2 47738501 002 P Not Taking 12/25 00:00 :00 Nystatin 763976 UNIT/ML Suspension null null 1 224 ml 2 13504938 002 P Not Taking 12/18 00:00 :00 Nystatin 596332 UNIT/ML Suspension null null 1 224 ml 2 49406055 002 P Not Taking 12/11 00:00 :00 Nystatin 952999 UNIT/ML Suspension null null 1 224 ml 2 06956529 002 P Not Taking 10/29 00:00 :00 Nystatin 648617 UNIT/ML Suspension null null 1 224 ml 2 35194818 002 P Taking 07/16 00:00 :00 Nystatin 216576 UNIT/ML Suspension null null 1 224 ml 2 59842988 002 P Start 06/20 00:00 :00 Nystatin-Tr iamcinolone 510320- 0.1 UNIT/GM null null 1 1 2 P Not Taki ng 05/19 00:00 :00 Nystatin-Tr iamcinolone 680927- 0.1 UNIT/GM null null 1 1 2 P Not Taki ng 05/19 00:00 :00 Nystatin-Tr iamcinolone 574368- 0.1 UNIT/GM Ointment null null 1 1 1 [id number] 915 P Not Taking 05/05 00:00 :00 Nystatin-Tr iamcinolone 338935- 0.1 UNIT/GM null null 1 1 2 P Not Taki ng 05/05 00:00 :00 Nystatin-Tr iamcinolone 499672- 0.1 UNIT/GM Ointment null null 1 1 1 [id number] 915 P Not Taking 04/23 00:00 :00 Nystatin-Tr iamcinolone 745946- 0.1 UNIT/GM null null 1 1 2 P Not Taki ng 04/23 00:00 :00 Nystatin-Tr iamcinolone 200396- 0.1 UNIT/GM Ointment null null 1 1 1 [id number] 915 P Not Taking 03/26 00:00 :00 Nystatin-Tr iamcinolone 867684- 0.1 UNIT/GM null null 1 1 2 P Not Taki ng 03/26 00:00 :00 Nystatin-Tr iamcinolone 609322- 0.1 UNIT/GM Ointment null null 1 1 1 [id number] 915 P Not Taking 02/04 00:00 :00 Nystatin-Tr iamcinolone 357672- 0.1 UNIT/GM null null 1 1 2 P Not Taki ng 02/04 00:00 :00 Nystatin-Tr iamcinolone 488598- 0.1 UNIT/GM Ointment null null 1 1 1 [id number] 915 P Not Taking 01/24 00:00 :00 Nystatin-Tr iamcinolone 475654- 0.1 UNIT/GM null null 1 1 2 P Not Taki ng 01/24 00:00 :00 Nystatin-Tr iamcinolone 390970- 0.1 UNIT/GM Ointment null null 1 1 1 [id number] 915 P Not Taking 12/25 00:00 :00 Nystatin-Tr iamcinolone 662076- 0.1 UNIT/GM null null 1 1 2 P Not Taki ng 12/25 00:00 :00 Nystatin-Tr iamcinolone 668893- 0.1 UNIT/GM Ointment null null 1 1 1 [id number] 915 P Not Taking 12/18 00:00 :00 Nystatin-Tr iamcinolone 168933- 0.1 UNIT/GM null null 1 1 2 P Not Taki ng 12/18 00:00 :00 Nystatin-Tr iamcinolone 263910- 0.1 UNIT/GM Ointment null null 1 1 1 [id number] 915 P Not Taking 12/11 00:00 :00 Nystatin-Tr iamcinolone 830663- 0.1 UNIT/GM null null 1 1 2 P Not Taki ng 12/11 00:00 :00 Nystatin-Tr iamcinolone 934625- 0.1 UNIT/GM Ointment null null 1 1 1 [id number] 915 P Not Taking 10/29 00:00 :00 Nystatin-Tr iamcinolone 088401- 0.1 UNIT/GM null null 1 1 2 P Taking 10/29 00:00 :00 Nystatin-Tr iamcinolone 257258- 0.1 UNIT/GM Ointment null null 1 1 1 [id number] 915 P Not Taking 07/16 00:00 :00 Nystatin-Tr iamcinolone 529763- 0.1 UNIT/GM null null 1 1 2 P Taking 07/16 00:00 :00 Nystatin-Tr iamcinolone 312825- 0.1 UNIT/GM Ointment null null 1 1 1 [id number] 915 P Not Taking 07/02 00:00 :00 Nystatin-Tr iamcinolone 068910- 0.1 UNIT/GM null null 1 1 2 P Taking 07/02 00:00 :00 Nystatin-Tr iamcinolone 042827- 0.1 UNIT/GM Ointment null null 1 1 1 [id number] 915 P Not Taking 06/25 00:00 :00 Nystatin-Tr iamcinolone 328073- 0.1 UNIT/GM null null 1 1 2 P Taking 06/25 00:00 :00 Nystatin-Tr iamcinolone 885043- 0.1 UNIT/GM Ointment null null 1 1 1 [id number] 915 P Not Taking 06/18 00:00 :00 Nystatin-Tr iamcinolone 589315- 0.1 UNIT/GM null null 1 1 2 P Taking 06/18 00:00 :00 Nystatin-Tr iamcinolone 746693- 0.1 UNIT/GM Ointment null null 1 1 1 60930258 915 P Not Taking 02/13 00:00 :00 Nystatin-Tr iamcinolone 089160- 0.1 UNIT/GM null null 1 1 2 P Taking 02/13 00:00 :00 Nystatin-Tr iamcinolone 153518- 0.1 UNIT/GM Ointment null null 1 1 1 [id number] 915 P Not Taking 02/06 00:00 :00 Nystatin-Tr iamcinolone 331873- 0.1 UNIT/GM null null 1 1 2 P Taking 02/06 00:00 :00 Nystatin-Tr iamcinolone 292235- 0.1 UNIT/GM Ointment null null 1 1 1 [id number] 915 P Not Taking 12/26 00:00 :00 Nystatin-Tr iamcinolone 014994- 0.1 UNIT/GM Ointment null null 1 1 1 [id number] 915 P Taking 12/26 00:00 :00 Nystatin-Tr iamcinolone 514464- 0.1 UNIT/GM null null 1 1 2 P Taking 10/03 00:00 :00 Nystatin-Tr iamcinolone 660146- 0.1 UNIT/GM Ointment null null 1 1 1 [id number] 915 P Taking 10/03 00:00 :00 Nystatin-Tr iamcinolone 134210- 0.1 UNIT/GM null null 1 1 2 P Taking 05/07 00:00 :00 Nystatin-Tr iamcinolone 536450- 0.1 UNIT/GM null null 1 1 2 P Start 03/03 00:00 :00 Nystatin-Tr iamcinolone 836668- 0.1 UNIT/GM null null 1 1 1 P Start 02/20 00:00 :00 Nystatin-Tr iamcinolone 137829- 0.1 UNIT/GM Ointment null null 1 1 1 [id number] 915 P Start 07/07 00:00 :00 Omeprazole 40 MG Capsule Delayed Release null null 1 90 Capsule 2 83496760 410 Start 07/07 00:00 :00 Omeprazole null null 0 90 Capsule 3 75410072 410 Stop 05/02 00:00 :00 Omeprazole 40 MG Capsule Delayed Release null null 1 90 3 [id number] 401 P Taking 01/19 00:00 :00 Omeprazole 40 MG Capsule Delayed Release null null 1 90 3 46464738 401 P Taking 12/18 00:00 :00 Omeprazole 40 MG Capsule Delayed Release null null 1 90 3 81998414 401 P Taking 09/13 00:00 :00 Omeprazole 40 MG Capsule Delayed Release null null 1 90 3 11368022 401 P Taking 07/26 00:00 :00 Omeprazole 40 MG Capsule Delayed Release null null 1 90 3 44182977 401 P Taking 07/03 00:00 :00 Omeprazole 40 MG Capsule Delayed Release null null 1 90 3 69463722 401 P Taking 05/16 00:00 :00 Omeprazole 40 MG Capsule Delayed Release null null 1 90 3 85797102 401 P Taking 05/02 00:00 :00 Omeprazole 40 MG Capsule Delayed Release null null 1 90 3 59583283 401 P Taking 04/03 00:00 :00 Omeprazole 40 MG Capsule Delayed Release null null 1 90 3 70439068 401 P Increase 04/03 00:00 :00 Omeprazole 20MG Capsule Delayed Release null null 1 90 5 33111237 810 Taking 02/03 00:00 :00 Omeprazole 20MG Capsule Delayed Release null null 1 90 5 87503930 810 Taking 01/30 00:00 :00 Omeprazole 20MG Capsule Delayed Release null null 1 90 5 92072677 810 Continue 08/12 00:00 :00 Omeprazole 20MG Capsule Delayed Release null null 1 90 5 38710460 810 Taking 06/28 00:00 :00 Omeprazole 20MG Capsule Delayed Release null null 1 90 5 82462796 810 Taking 02/03 00:00 :00 Omeprazole 20MG Capsule Delayed Release null null 1 90 5 [id number] 810 Taking 01/20 00:00 :00 Omeprazole 20MG Capsule Delayed Release null null 1 90 5 61426501 810 Taking 01/16 00:00 :00 Omeprazole 20MG Capsule Delayed Release null null 1 90 5 92847990 810 Refill 10/14 00:00 :00 Omeprazole 20MG Capsule Delayed Release null null 1 30 4 [id number] 810 Taking 10/06 00:00 :00 Omeprazole 20MG Capsule Delayed Release null null 1 30 4 75305029 810 Refill 09/24 00:00 :00 Omeprazole 20MG Capsule Delayed Release null null 1 30 5 [id number] 810 Taking 09/08 00:00 :00 Omeprazole 20MG Capsule Delayed Release null null 1 30 5 89800634 810 Taking 06/14 00:00 :00 Omeprazole 20MG Capsule Delayed Release null null 1 30 5 [id number] 810 Taking 04/13 00:00 :00 Omeprazole 20MG Capsule Delayed Release null null 1 30 5 [id number] 810 Taking 04/12 00:00 :00 Omeprazole 20MG Capsule Delayed Release null null 1 30 5 [id number] 810 Refill 03/19 00:00 :00 Omeprazole 20MG Capsule Delayed Release null null 1 30 Capsule 5 73083147 010 Taking 03/14 00:00 :00 Omeprazole 20MG Capsule Delayed Release null null 1 30 Capsule 5 [id number] 010 Taking 02/06 00:00 :00 Omeprazole 20MG Capsule Delayed Release null null 1 30 Capsule 5 27656068 010 Taking 01/12 00:00 :00 Omeprazole 20MG Capsule Delayed Release null null 1 30 Capsule 5 [id number] 010 Taking 01/07 00:00 :00 Omeprazole 20MG Capsule Delayed Release null null 1 30 Capsule 5 52900170 010 Taking 12/30 00:00 :00 Omeprazole 20MG Capsule Delayed Release null null 1 30 Capsule 5 [id number] 010 Taking 11/12 00:00 :00 Omeprazole 20MG Capsule Delayed Release null null 1 30 Capsule 5 01331580 010 Taking 11/04 00:00 :00 Omeprazole 20MG Capsule Delayed Release null null 1 30 Capsule 5 94665122 010 Taking 09/16 00:00 :00 Omeprazole 20MG Capsule Delayed Release null null 1 30 Capsule 5 [id number] 010 Taking 08/13 00:00 :00 Omeprazole 20MG Capsule Delayed Release null null 1 30 Capsule 5 13331871 010 Refill 08/11 00:00 :00 Omeprazole 20 MG Capsule Delayed Release null null 1 30 Capsule 2 76815039 610 P Taking 06/20 00:00 :00 Omeprazole 20 MG Capsule Delayed Release null null 1 30 Capsule 2 59947707 610 P Taking 05/19 00:00 :00 Omeprazole 20 MG Capsule Delayed Release null null 1 30 Capsule 2 67446284 610 P Taking 05/05 00:00 :00 Omeprazole 20 MG Capsule Delayed Release null null 1 30 Capsule 2 06087187 610 P Taking 04/23 00:00 :00 Omeprazole 20 MG Capsule Delayed Release null null 1 30 Capsule 2 83386627 610 P Taking 03/26 00:00 :00 Omeprazole 20 MG Capsule Delayed Release null null 1 30 Capsule 2 99225408 610 P Taking 02/04 00:00 :00 Omeprazole 20 MG Capsule Delayed Release null null 1 30 Capsule 2 91022416 610 P Taking 01/24 00:00 :00 Omeprazole 20 MG Capsule Delayed Release null null 1 30 Capsule 2 00523454 610 P Refill 01/24 00:00 :00 Omeprazole 20 MG Capsule Delayed Release null null 1 30 Capsule 5 12293325 610 Taking 12/25 00:00 :00 Omeprazole 20 MG Capsule Delayed Release null null 1 30 Capsule 5 78678012 610 Taking 12/18 00:00 :00 Omeprazole 20 MG Capsule Delayed Release null null 1 30 Capsule 5 [id number] 610 Taking 12/11 00:00 :00 Omeprazole 20 MG Capsule Delayed Release null null 1 30 Capsule 5 [id number] 610 Taking 10/29 00:00 :00 Omeprazole 20 MG Capsule Delayed Release null null 1 30 Capsule 5 47628823 610 Taking 09/06 00:00 :00 Omeprazole 20 MG Capsule Delayed Release null null 1 30 Capsule 5 84068505 610 Continue 07/16 00:00 :00 Omeprazole 20 MG Capsule Delayed Release null null 1 30 Capsule 5 21160927 610 P Taking 07/02 00:00 :00 Omeprazole 20 MG Capsule Delayed Release null null 1 30 Capsule 5 71104332 610 P Taking 06/25 00:00 :00 Omeprazole 20 MG Capsule Delayed Release null null 1 30 Capsule 5 90951875 610 P Taking 06/18 00:00 :00 Omeprazole 20 MG Capsule Delayed Release null null 1 30 Capsule 5 23411243 610 P Taking 04/20 00:00 :00 Omeprazole 20 MG Capsule Delayed Release null null 1 30 Capsule 5 71825318 610 P Start 02/13 00:00 :00 Omeprazole 20 MG null null 1 30 2 P Taking 02/06 00:00 :00 Omeprazole 20 MG null null 1 30 2 P Taking 12/26 00:00 :00 Omeprazole 20 MG null null 1 30 2 P Taking 12/22 00:00 :00 Omeprazole 20 MG null null 1 30 2 P Start 10/03 00:00 :00 Omeprazole 20 MG null null 1 30 5 P Taking 05/07 00:00 :00 Omeprazole 20 MG null null 1 30 5 P Start 02/20 00:00 :00 Omeprazole 20 MG null null 1 30 2 P Taking 12/07 00:00 :00 Omeprazole 20 MG null null 1 30 2 P Start 07/25 00:00 :00 Omeprazole 20 MG null null 1 30 4 P Taking 06/14 00:00 :00 Omeprazole 20 MG null null 1 30 4 P Start 06/13 00:00 :00 Omeprazole 20 MG null null 1 30 4 P Taking 02/11 00:00 :00 Omeprazole 20 MG null null 1 30 4 P Taking 01/05 00:00 :00 Omeprazole 20 MG null null 1 30 4 P Taking 10/20 00:00 :00 Omeprazole 20 MG null null 1 30 4 P Taking 07/23 00:00 :00 Omeprazole 20 MG null null 1 30 4 P Start 07/21 00:00 :00 Omeprazole 20 MG Capsule Delayed Release 12/22/2013 00:00:00 null 1 [id number] 831 P Taking 06/04 00:00 :00 Omeprazole 20 MG Capsule Delayed Release 12/22/2013 00:00:00 null 1 [id number] 831 P Taking 04/13 00:00 :00 Omeprazole 20 MG Capsule Delayed Release 12/22/2013 00:00:00 null 1 64427620 831 P Taking 03/17 00:00 :00 Omeprazole 20 MG Capsule Delayed Release 12/22/2013 00:00:00 null 1 [id number] 831 P Taking 01/19 00:00 :00 Omeprazole 20 MG Capsule Delayed Release 12/22/2013 00:00:00 null 1 [id number] 831 P Taking 01/15 00:00 :00 Omeprazole 20 MG Capsule Delayed Release 12/22/2013 00:00:00 null 1 [id number] 831 P Taking 01/08 00:00 :00 Omeprazole 20 MG Capsule Delayed Release 12/22/2013 00:00:00 null 1 [id number] 831 P Taking 12/22 00:00 :00 Omeprazole 20 MG Capsule Delayed Release 12/22/2013 00:00:00 null 1 30 Capsule 4 82853827 831 P Start 12/22 00:00 :00 Omeprazole 20 MG Capsule Delayed Release null null 1 30 11 [id number] 831 Taking 10/14 00:00 :00 Omeprazole 20 MG Capsule Delayed Release null null 1 30 11 [id number] 831 Taking 08/26 00:00 :00 Omeprazole 20 MG Capsule Delayed Release null null 1 30 11 [id number] 831 Taking 08/12 00:00 :00 Omeprazole 20 MG Capsule Delayed Release null null 1 30 11 [id number] 831 Taking 07/15 00:00 :00 Omeprazole 20 MG Capsule Delayed Release null null 1 30 11 [id number] 831 Taking 05/26 00:00 :00 Omeprazole 20 MG Capsule Delayed Release null null 1 30 11 [id number] 831 P Taking 01/27 00:00 :00 Omeprazole 20 MG Capsule Delayed Release null null 1 30 11 [id number] 831 Taking 12/09 00:00 :00 Omeprazole 20 MG Capsule Delayed Release null null 1 30 11 [id number] 831 Taking 12/06 00:00 :00 Omeprazole 20 MG Capsule Delayed Release null null 1 30 11 [id number] 831 Taking 12/02 00:00 :00 Omeprazole 20 MG Capsule Delayed Release null null 1 30 11 [id number] 831 P Start 12/02 00:00 :00 Omeprazole 20 MG Capsule Delayed Release null null 1 30 [id number] 503 P Taking 05/02 00:00 :00 Potassium Chloride Ellen ER 20 MEQ Tablet Extended Release null null 1 90 Tablet 3 [id number] 515 Taking 01/19 00:00 :00 Potassium Chloride Ellen ER 20 MEQ Tablet Extended Release null null 1 90 Tablet 3 07534916 515 Taking 12/18 00:00 :00 Potassium Chloride Ellen ER 20 MEQ Tablet Extended Release null null 1 90 Tablet 3 [id number] 515 Taking 11/26 00:00 :00 Potassium Chloride Ellen ER 20 MEQ Tablet Extended Release null null 1 90 Tablet 3 [id number] 515 Start 11/26 00:00 :00 Potassium Chloride Ellen ER 20 MEQ Tablet Extended Release null null 0 30 [id number] 290 Stop 09/13 00:00 :00 Potassium Chloride Ellen ER 20 MEQ Tablet Extended Release null null 1 30 [id number] 290 Taking 05/02 00:00 :00 Potassium Chloride ER 8 MEQ Tablet Extended Release null null 1 120 [id number] 005 Not Taking 01/19 00:00 :00 Potassium Chloride ER 8 MEQ Tablet Extended Release null null 1 120 [id number] 005 Not Taking 12/18 00:00 :00 Potassium Chloride ER 8 MEQ Tablet Extended Release null null 1 120 [id number] 005 Not Taking 09/13 00:00 :00 Potassium Chloride ER 8 MEQ Tablet Extended Release null null 1 120 [id number] 005 Not Taking 06/12 00:00 :00 Potassium Chloride ER 20 MEQ Tablet Extended Release null null 0 90 Tablet 1 [id number] 801 Stop 05/16 00:00 :00 Potassium Chloride ER 20 MEQ Tablet Extended Release null null 1 90 Tablet 1 [id number] 801 Taking 05/02 00:00 :00 Potassium Chloride ER 20 MEQ Tablet Extended Release null null 1 90 Tablet 1 [id number] 801 Taking 04/03 00:00 :00 Potassium Chloride ER 20 MEQ Tablet Extended Release null null 1 90 Tablet 1 [id number] 801 Taking 02/03 00:00 :00 Potassium Chloride ER 20 MEQ Tablet Extended Release null null 1 90 Tablet 1 [id number] 801 Taking 01/30 00:00 :00 Potassium Chloride ER 20 MEQ Tablet Extended Release null null 1 90 Tablet 1 [id number] 801 Continue 01/29 00:00 :00 Potassium Chloride ER 20 MEQ Tablet Extended Release null null 1 90 Tablet 1 [id number] 801 Start 01/29 00:00 :00 Potassium Chloride ER 20 MEQ Tablet Extended Release null null 0 90 0 [id number] 801 Stop 08/12 00:00 :00 Potassium Chloride ER 20 MEQ Tablet Extended Release null null 1 90 0 [id number] 801 P Taking 07/22 00:00 :00 Potassium Chloride ER 20 MEQ Tablet Extended Release null null 1 90 0 [id number] 801 P Refill 06/28 00:00 :00 Potassium Chloride ER 20 MEQ Tablet Extended Release null null 1 90 0 [id number] 801 P Taking 06/14 00:00 :00 Potassium Chloride ER 20 MEQ Tablet Extended Release null null 1 90 0 [id number] 801 P Refill 03/22 00:00 :00 Potassium Chloride ER 20 MEQ Tablet Extended Release null null 1 90 0 [id number] 801 Refill 02/03 00:00 :00 Potassium Chloride ER 20 MEQ Tablet Extended Release null null 1 90 1 [id number] 801 Taking 01/20 00:00 :00 Potassium Chloride ER 20 MEQ Tablet Extended Release null null 1 90 1 [id number] 801 Taking 10/14 00:00 :00 Potassium Chloride ER 20 MEQ Tablet Extended Release null null 1 90 1 [id number] 801 Taking 09/24 00:00 :00 Potassium Chloride ER 20 MEQ Tablet Extended Release null null 1 90 1 [id number] 801 Taking 09/17 00:00 :00 Potassium Chloride ER 20 MEQ Tablet Extended Release null null 1 90 1 [id number] 801 Refill 09/08 00:00 :00 Potassium Chloride ER 20 MEQ Tablet Extended Release null null 1 30 2 [id number] 801 Taking 06/21 00:00 :00 Potassium Chloride ER 20 MEQ Tablet Extended Release null null 1 30 2 [id number] 801 Continue 06/14 00:00 :00 Potassium Chloride ER 20 MEQ Tablet Extended Release null null 1 30 2 [id number] 801 P Taking 04/13 00:00 :00 Potassium Chloride ER 20 MEQ Tablet Extended Release null null 1 30 2 [id number] 801 P Taking 03/19 00:00 :00 Potassium Chloride ER 20 MEQ Tablet Extended Release null null 1 30 2 [id number] 801 P Taking 03/14 00:00 :00 Potassium Chloride ER 20 MEQ Tablet Extended Release null null 1 30 2 [id number] 801 P Taking 02/06 00:00 :00 Potassium Chloride ER 20 MEQ Tablet Extended Release null null 1 30 2 [id number] 801 P Taking 01/12 00:00 :00 Potassium Chloride ER 20 MEQ Tablet Extended Release null null 1 30 2 [id number] 801 P Taking 01/07 00:00 :00 Potassium Chloride ER 20 MEQ Tablet Extended Release null null 1 30 2 [id number] 801 P Taking 12/30 00:00 :00 Potassium Chloride ER 20 MEQ Tablet Extended Release null null 1 30 2 [id number] 801 P Taking 11/12 00:00 :00 Potassium Chloride ER 20 MEQ Tablet Extended Release null null 1 30 2 [id number] 801 P Taking 11/04 00:00 :00 Potassium Chloride ER 20 MEQ Tablet Extended Release null null 1 30 2 [id number] 801 P Taking 09/16 00:00 :00 Potassium Chloride ER 20 MEQ Tablet Extended Release null null 1 30 2 [id number] 801 P Taking 08/11 00:00 :00 Potassium Chloride ER 20 MEQ Tablet Extended Release null null 1 30 2 [id number] 801 P Taking 06/20 00:00 :00 Potassium Chloride ER 20 MEQ Tablet Extended Release null null 1 30 2 [id number] 801 P Taking 06/20 00:00 :00 Potassium Chloride ER 10MEQ ER tablet null null 1 120 Tab 6 [id number] 010 Not Taking 05/19 00:00 :00 Potassium Chloride ER 20 MEQ Tablet Extended Release null null 1 30 2 [id number] 801 P Taking 05/19 00:00 :00 Potassium Chloride ER 10MEQ ER tablet null null 1 120 Tab 6 [id number] 010 Not Taking 05/05 00:00 :00 Potassium Chloride ER 20 MEQ Tablet Extended Release null null 1 30 2 [id number] 801 P Taking 05/05 00:00 :00 Potassium Chloride ER 10MEQ ER tablet null null 1 120 Tab 6 [id number] 010 Not Taking 04/23 00:00 :00 Potassium Chloride ER 20 MEQ Tablet Extended Release null null 1 30 2 [id number] 801 P Taking 04/23 00:00 :00 Potassium Chloride ER 10MEQ ER tablet null null 1 120 Tab 6 [id number] 010 Not Taking 03/26 00:00 :00 Potassium Chloride ER 20 MEQ Tablet Extended Release null null 1 30 2 [id number] 801 P Taking 03/26 00:00 :00 Potassium Chloride ER 10MEQ ER tablet null null 1 120 Tab 6 [id number] 010 Not Taking 02/04 00:00 :00 Potassium Chloride ER 20 MEQ Tablet Extended Release null null 1 30 2 [id number] 801 P Taking 02/04 00:00 :00 Potassium Chloride ER 10MEQ ER tablet null null 1 120 Tab 6 [id number] 010 Not Taking 01/24 00:00 :00 Potassium Chloride ER 20 MEQ Tablet Extended Release null null 1 30 2 [id number] 801 P Refill 01/24 00:00 :00 Potassium Chloride ER 20 MEQ Tablet Extended Release null null 1 [id number] 801 P Taking 01/24 00:00 :00 Potassium Chloride ER 10MEQ ER tablet null null 1 120 Tab 6 [id number] 010 Not Taking 12/25 00:00 :00 Potassium Chloride ER 20 MEQ Tablet Extended Release null null 1 [id number] 801 P Taking 12/25 00:00 :00 Potassium Chloride ER 10MEQ ER tablet null null 1 120 Tab 6 [id number] 010 Not Taking 12/18 00:00 :00 Potassium Chloride ER 20 MEQ Tablet Extended Release null null 1 [id number] 801 P Taking 12/18 00:00 :00 Potassium Chloride ER 10MEQ ER tablet null null 1 120 Tab 6 [id number] 010 Not Taking 12/11 00:00 :00 Potassium Chloride ER 20 MEQ Tablet Extended Release null null 1 [id number] 801 P Taking 12/11 00:00 :00 Potassium Chloride ER 10MEQ ER tablet null null 1 120 Tab 6 [id number] 010 Not Taking 10/29 00:00 :00 Potassium Chloride ER 10 MEQ null null 1 120 5 P Takin g 10/29 00:00 :00 Potassium Chloride ER 10MEQ ER tablet null null 1 120 Tab 6 [id number] 010 Taking 09/06 00:00 :00 Potassium Chloride ER 10MEQ ER tablet null null 1 120 Tab 6 [id number] 010 Continue 07/16 00:00 :00 Potassium Chloride ER 10MEQ ER tablet null null 1 120 Tab 11 [id number] 010 P Taking 07/16 00:00 :00 Potassium Chloride ER 10 MEQ null null 1 120 5 P Takin g 07/02 00:00 :00 Potassium Chloride ER 10MEQ ER tablet null null 1 120 Tab 11 [id number] 010 P Taking 07/02 00:00 :00 Potassium Chloride ER 10 MEQ null null 1 120 5 P Takin g 06/25 00:00 :00 Potassium Chloride ER 10MEQ ER tablet null null 1 120 Tab 11 [id number] 010 P Taking 06/25 00:00 :00 Potassium Chloride ER 10 MEQ null null 1 120 5 P Takin g 06/18 00:00 :00 Potassium Chloride ER 10MEQ ER tablet null null 1 120 Tab 11 [id number] 010 P Taking 06/18 00:00 :00 Potassium Chloride ER 10 MEQ null null 1 120 5 P Takin g 02/17 00:00 :00 Potassium Chloride ER 10 MEQ null null 1 120 5 P Start 02/13 00:00 :00 Potassium Chloride ER 10 MEQ null null 1 120 2 P Takin g 02/13 00:00 :00 Potassium Chloride ER 10MEQ ER tablet null null 1 120 Tab 11 [id number] 010 P Taking 02/06 00:00 :00 Potassium Chloride ER 10 MEQ null null 1 120 2 P Takin g 02/06 00:00 :00 Potassium Chloride ER 10MEQ ER tablet null null 1 120 Tab 11 [id number] 010 P Taking 12/26 00:00 :00 Potassium Chloride ER 10 MEQ null null 1 120 2 P Jared 12/26 00:00 :00 Potassium Chloride ER 10MEQ ER tablet null null 1 120 Tab 11 [id number] 010 P Taking 10/03 00:00 :00 Potassium Chloride ER 10 MEQ null null 1 120 2 P Naeem10/03 00:00 :00 Potassium Chloride ER 10MEQ ER tablet null null 1 120 Tab 11 [id number] 010 P Taking 03/13 00:00 :00 Potassium Chloride ER 10MEQ ER tablet null null 1 120 Tab 11 [id number] 010 P Start 02/20 00:00 :00 Potassium Chloride ER 10 MEQ null null 1 120 2 P Jared 12/07 00:00 :00 Potassium Chloride ER 10 MEQ null null 1 120 2 P Start 07/25 00:00 :00 Potassium Chloride ER 10 MEQ null null 1 120 5 P Naeem06/14 00:00 :00 Potassium Chloride ER 10 MEQ null null 1 120 5 P Start 06/13 00:00 :00 Potassium Chloride ER 10 MEQ null null 1 120 5 P anibal 02/11 00:00 :00 Potassium Chloride ER 10 MEQ null null 1 120 5 P 01/05 00:00 :00 Potassium Chloride ER 10 MEQ null null 1 120 5 P 11/23 00:00 :00 Potassium Chloride ER 10 MEQ null null 1 120 5 P Start 10/20 00:00 :00 Potassium Chloride ER 10 MEQ Tablet Extended Release null null 1 120 Tablet 5 [id number] 300 P Taking 07/21 00:00 :00 Potassium Chloride ER 10 MEQ Tablet Extended Release null null 1 120 Tablet 5 [id number] 300 P Taking 06/04 00:00 :00 Potassium Chloride ER 10 MEQ Tablet Extended Release null null 1 120 Tablet 5 [id number] 300 P Taking 04/30 00:00 :00 Potassium Chloride ER 10 MEQ Tablet Extended Release null null 1 120 Tablet 5 [id number] 300 P Start 04/13 00:00 :00 Potassium Chloride ER 10 MEQ Tablet Extended Release null null 1 120 Tablet 1 [id number] 511 Taking 03/17 00:00 :00 Potassium Chloride ER 10 MEQ Tablet Extended Release null null 1 120 Tablet 1 [id number] 511 Taking 02/10 00:00 :00 Potassium Chloride ER 10 MEQ Tablet Extended Release null null 1 120 Tablet 1 [id number] 511 Continue 01/19 00:00 :00 Potassium Chloride ER 10 MEQ Tablet Extended Release null null 1 120 Tablet 1 [id number] 511 P Start 01/19 00:00 :00 Potassium Chloride ER 10 MEQ Tablet Extended Release null null 1 [id number] 511 Taking 01/15 00:00 :00 Potassium Chloride ER 10 MEQ Tablet Extended Release null null 1 [id number] 511 Taking 01/08 00:00 :00 Potassium Chloride ER 10 MEQ Tablet Extended Release null null 1 [id number] 511 Taking 12/22 00:00 :00 Potassium Chloride ER 10 MEQ Tablet Extended Release null null 1 120 [id number] 511 Taking 10/14 00:00 :00 Potassium Chloride ER 10 MEQ Tablet Extended Release null null 1 120 [id number] 511 Taking 08/26 00:00 :00 Potassium Chloride ER 10 MEQ Tablet Extended Release null null 1 120 [id number] 511 Taking 08/12 00:00 :00 Potassium Chloride ER 10 MEQ Tablet Extended Release null null 1 120 [id number] 511 Taking 07/15 00:00 :00 Potassium Chloride ER 10 MEQ Tablet Extended Release null null 1 120 [id number] 511 Taking 05/26 00:00 :00 Potassium Chloride ER 10 MEQ Tablet Extended Release null null 1 120 [id number] 511 P Taking 01/27 00:00 :00 Potassium Chloride ER 10 MEQ Tablet Extended Release null null 1 120 [id number] 511 Taking 12/09 00:00 :00 Potassium Chloride ER 10 MEQ Tablet Extended Release null null 1 120 [id number] 511 Taking 12/06 00:00 :00 Potassium Chloride ER 10 MEQ Tablet Extended Release null null 1 120 [id number] 511 Taking 12/02 00:00 :00 Potassium Chloride ER 10 MEQ Tablet Extended Release null null 1 120 [id number] 511 P Taking 10/21 00:00 :00 Pravastatin Sodium 10 MG Tablet null null 1 30 Tablet 1 [id number] 801 Start 10/21 00:00 :00 Pravastatin Sodium 10 MG Tablet null null 0 30 Tablet 2 [id number] 198 Stop 05/02 00:00 :00 Pravastatin Sodium 10 MG Tablet null null 1 30 Tablet 2 [id number] 198 Taking 01/19 00:00 :00 Pravastatin Sodium 10 MG Tablet null null 1 30 Tablet 2 [id number] 198 Taking 01/08 00:00 :00 Pravastatin Sodium 10 MG Tablet null null 1 30 Tablet 2 [id number] 198 Continue 01/06 00:00 :00 Pravastatin Sodium 10 MG Tablet null null 1 30 Tablet 1 [id number] 198 Start 01/06 00:00 :00 Pravastatin Sodium 10 MG Tablet null null 0 30 Tablet 2 [id number] 990 Stop 01/04 00:00 :00 Pravastatin Sodium 10 MG Tablet null null 1 30 Tablet 2 [id number] 990 Continue 12/18 00:00 :00 Pravastatin Sodium 10 MG Tablet null null 1 30 Tablet 2 [id number] 990 Taking 09/13 00:00 :00 Pravastatin Sodium 10 MG Tablet null null 1 30 Tablet 2 [id number] 990 Taking 07/26 00:00 :00 Pravastatin Sodium 10 MG Tablet null null 1 30 Tablet 2 [id number] 990 Taking 07/03 00:00 :00 Pravastatin Sodium 10 MG Tablet null null 1 30 Tablet 2 [id number] 990 Taking 06/12 00:00 :00 Pravastatin Sodium 10 MG Tablet null null 1 30 Tablet 2 [id number] 990 Continue 06/12 00:00 :00 Pravastatin Sodium 10 MG Tablet null null 1 30 Tablet 2 [id number] 990 Start 06/09 00:00 :00 Pravastatin Sodium 10 MG Tablet null null 1 30 1 [id number] 809 Continue 05/16 00:00 :00 Pravastatin Sodium 10 MG Tablet null null 1 30 1 [id number] 809 Taking 05/02 00:00 :00 Pravastatin Sodium 10 MG Tablet null null 1 30 1 [id number] 809 Taking 04/03 00:00 :00 Pravastatin Sodium 10 MG Tablet null null 1 30 1 [id number] 809 Taking 02/03 00:00 :00 Pravastatin Sodium 10 MG Tablet null null 1 30 1 [id number] 809 Taking 01/30 00:00 :00 Pravastatin Sodium 10 MG Tablet null null 1 30 1 [id number] 809 Continue 12/14 00:00 :00 Pravastatin Sodium 10 MG Tablet null null 1 30 1 [id number] 809 Continue 11/01 00:00 :00 Pravastatin Sodium 10 MG Tablet null null 1 30 0 [id number] 809 Continue 10/07 00:00 :00 Pravastatin Sodium 10 MG Tablet null null 1 30 0 [id number] 809 P Refill 10/07 00:00 :00 Pravastatin Sodium 10 MG Tablet null null 1 30 2 [id number] 809 Continue 08/12 00:00 :00 Pravastatin Sodium 10 MG Tablet null null 1 30 1 [id number] 809 P Taking 07/22 00:00 :00 Pravastatin Sodium 10 MG Tablet null null 1 30 1 [id number] 809 P Refill 06/28 00:00 :00 Pravastatin Sodium 10 MG Tablet null null 1 30 0 [id number] 809 Taking 06/20 00:00 :00 Pravastatin Sodium 10 MG Tablet null null 1 30 0 [id number] 809 Continue 06/14 00:00 :00 Pravastatin Sodium 10 MG Tablet null null 1 30 0 [id number] 809 P Refill 02/03 00:00 :00 Pravastatin Sodium 10MG Tablet null null 1 30 Tablet 10 Taking 01/20 00:00 :00 Pravastatin Sodium 10MG Tablet null null 1 30 Tablet 10 Taking 10/14 00:00 :00 Pravastatin Sodium 10MG Tablet null null 1 30 Tablet 10 Taking 09/24 00:00 :00 Pravastatin Sodium 10MG Tablet null null 1 30 Tablet 10 Taking 09/08 00:00 :00 Pravastatin Sodium 10MG Tablet null null 1 30 Tablet 10 Taking 07/09 00:00 :00 Pravastatin Sodium 10MG Tablet null null 1 30 Tablet 10 Continu e 06/14 00:00 :00 Pravastatin Sodium 10MG Tablet null null 1 30 Tablet 10 Taking 04/13 00:00 :00 Pravastatin Sodium 10MG Tablet null null 1 30 Tablet 10 Taking 03/19 00:00 :00 Pravastatin Sodium 10MG Tablet null null 1 30 Tablet 10 Taking 03/14 00:00 :00 Pravastatin Sodium 10MG Tablet null null 1 30 Tablet 10 Taking 02/06 00:00 :00 Pravastatin Sodium 10MG Tablet null null 1 30 Tablet 10 Taking 01/12 00:00 :00 Pravastatin Sodium 10MG Tablet null null 1 30 Tablet 10 Taking 01/07 00:00 :00 Pravastatin Sodium 10MG Tablet null null 1 30 Tablet 10 Taking 12/30 00:00 :00 Pravastatin Sodium 10MG Tablet null null 1 30 Tablet 10 Taking 11/12 00:00 :00 Pravastatin Sodium 10MG Tablet null null 1 30 Tablet 10 Taking 11/04 00:00 :00 Pravastatin Sodium 10MG Tablet null null 1 30 Tablet 10 Taking 09/16 00:00 :00 Pravastatin Sodium 10MG Tablet null null 1 30 Tablet 10 Taking 08/11 00:00 :00 Pravastatin Sodium 10MG Tablet null null 1 30 Tablet 10 Taking 06/20 00:00 :00 Pravastatin Sodium 10MG Tablet null null 1 30 Tablet 10 Taking 06/20 00:00 :00 Pravastatin Sodium 10 MG null null 1 30 2 Not Taking 05/19 00:00 :00 Pravastatin Sodium 10MG Tablet null null 1 30 Tablet 10 Taking 05/19 00:00 :00 Pravastatin Sodium 10 MG null null 1 30 2 Not Taking 05/06 00:00 :00 Pravastatin Sodium 10MG Tablet null null 1 30 Tablet 10 Refill 05/05 00:00 :00 Pravastatin Sodium 10 MG Tablet null null 1 30 Capsule 2 [id number] 509 P Taking 05/05 00:00 :00 Pravastatin Sodium 10 MG null null 1 30 2 Not Taking 04/23 00:00 :00 Pravastatin Sodium 10 MG Tablet null null 1 30 Capsule 2 [id number] 509 P Taking 04/23 00:00 :00 Pravastatin Sodium 10 MG null null 1 30 2 Not Taking 03/26 00:00 :00 Pravastatin Sodium 10 MG Tablet null null 1 30 Capsule 2 [id number] 509 P Taking 03/26 00:00 :00 Pravastatin Sodium 10 MG null null 1 30 2 Not Taking 02/04 00:00 :00 Pravastatin Sodium 10 MG Tablet null null 1 30 Capsule 2 [id number] 509 P Taking 02/04 00:00 :00 Pravastatin Sodium 10 MG null null 1 30 2 Not Taking 01/24 00:00 :00 Pravastatin Sodium 10 MG Tablet null null 1 30 Capsule 2 [id number] 509 P Refill 01/24 00:00 :00 Pravastatin Sodium 10 MG Tablet null null 1 30 Capsule 5 [id number] 509 P Taking 01/24 00:00 :00 Pravastatin Sodium 10 MG null null 1 30 2 Not Taking 12/25 00:00 :00 Pravastatin Sodium 10 MG Tablet null null 1 30 Capsule 5 [id number] 509 P Taking 12/25 00:00 :00 Pravastatin Sodium 10 MG null null 1 30 2 Not Taking 12/18 00:00 :00 Pravastatin Sodium 10 MG Tablet null null 1 30 Capsule 5 [id number] 509 P Taking 12/18 00:00 :00 Pravastatin Sodium 10 MG null null 1 30 2 Not Taking 12/11 00:00 :00 Pravastatin Sodium 10 MG Tablet null null 1 30 Capsule 5 [id number] 509 P Taking 12/11 00:00 :00 Pravastatin Sodium 10 MG null null 1 30 2 Not Taking 10/29 00:00 :00 Pravastatin Sodium 10 MG Tablet null null 1 30 Capsule 5 [id number] 509 P Taking 10/29 00:00 :00 Pravastatin Sodium 10 MG null null 1 30 2 Taking 09/06 00:00 :00 Pravastatin Sodium 10 MG null null 1 30 2 Continue 07/16 00:00 :00 Pravastatin Sodium 10 MG null null 1 30 2 P Taking 07/16 00:00 :00 Pravastatin Sodium 10 MG Tablet null null 1 30 Capsule 5 [id number] 509 P Taking 07/02 00:00 :00 Pravastatin Sodium 10 MG null null 1 30 2 P Taking 07/02 00:00 :00 Pravastatin Sodium 10 MG Tablet null null 1 30 Capsule 5 [id number] 509 P Taking 06/25 00:00 :00 Pravastatin Sodium 10 MG null null 1 30 2 P Taking 06/25 00:00 :00 Pravastatin Sodium 10 MG Tablet null null 1 30 Capsule 5 [id number] 509 P Taking 06/18 00:00 :00 Pravastatin Sodium 10 MG null null 1 30 2 P Taking 06/18 00:00 :00 Pravastatin Sodium 10 MG Tablet null null 1 30 Capsule 5 [id number] 509 P Taking 02/17 00:00 :00 Pravastatin Sodium 10 MG Tablet null null 1 30 Capsule 5 [id number] 509 P Start 02/13 00:00 :00 Pravastatin Sodium 10 MG null null 1 30 2 P Taking 02/13 00:00 :00 Pravastatin Sodium 10MG tablet null null 1 30 Tab 5 [id number] 712 P Taking 02/06 00:00 :00 Pravastatin Sodium 10 MG null null 1 30 2 P Taking 02/06 00:00 :00 Pravastatin Sodium 10MG tablet null null 1 30 Tab 5 [id number] 712 P Taking 12/26 00:00 :00 Pravastatin Sodium 10 MG null null 1 30 2 P Taking 12/26 00:00 :00 Pravastatin Sodium 10MG tablet null null 1 30 Tab 5 [id number] 712 P Taking 10/03 00:00 :00 Pravastatin Sodium 10 MG null null 1 30 2 P Taking 10/03 00:00 :00 Pravastatin Sodium 10MG tablet null null 1 30 Tab 5 [id number] 712 P Taking 08/30 00:00 :00 Pravastatin Sodium 10MG tablet null null 1 30 Tab 5 [id number] 712 P Start 03/13 00:00 :00 Pravastatin Sodium 10MG tablet null null 1 30 Tab 2 [id number] 712 P Start 02/20 00:00 :00 Pravastatin Sodium 10 MG null null 1 30 2 P Taking 12/07 00:00 :00 Pravastatin Sodium 10 MG null null 1 30 2 P Start 11/04 00:00 :00 Pravastatin Sodium 10 MG null null 1 30 1 P Start 09/07 00:00 :00 Pravastatin Sodium 10 MG null null 1 30 1 P Start 07/25 00:00 :00 Pravastatin Sodium 10 MG null null 1 30 2 P Taking 06/13 00:00 :00 Pravastatin Sodium 10 MG null null 1 30 2 P Taking 05/07 00:00 :00 Pravastatin Sodium 10 MG null null 1 30 2 P Start 02/11 00:00 :00 Pravastatin Sodium 10 MG null null 1 30 4 P Taking 01/05 00:00 :00 Pravastatin Sodium 10 MG null null 1 30 4 P Taking 11/23 00:00 :00 Pravastatin Sodium 10 MG null null 1 30 4 P Start 10/20 00:00 :00 Pravastatin Sodium 10MG Tablet null null 1 30 Tablet 4 [id number] 505 P Taking 07/21 00:00 :00 Pravastatin Sodium 10MG Tablet null null 1 30 Tablet 4 [id number] 505 P Taking 06/04 00:00 :00 Pravastatin Sodium 10MG Tablet null null 1 30 Tablet 4 [id number] 505 P Taking 05/11 00:00 :00 Pravastatin Sodium 10MG Tablet null null 1 30 Tablet 4 [id number] 505 P Start 04/13 00:00 :00 Pravastatin Sodium 10MG Tablet null null 1 30 1 [id number] 505 Taking 03/17 00:00 :00 Pravastatin Sodium 10MG Tablet null null 1 30 1 [id number] 505 Taking 02/10 00:00 :00 Pravastatin Sodium 10MG Tablet null null 1 30 1 [id number] 505 Continue 01/19 00:00 :00 Pravastatin Sodium 10MG Tablet null null 1 [id number] 505 Taking 01/15 00:00 :00 Pravastatin Sodium 10MG Tablet null null 1 [id number] 505 Taking 01/08 00:00 :00 Pravastatin Sodium 10MG Tablet null null 1 [id number] 505 Taking 12/22 00:00 :00 Pravastatin Sodium 10MG Tablet null null 1 90 Tablet 0 [id number] 505 Taking 10/14 00:00 :00 Pravastatin Sodium 10MG Tablet null null 1 90 Tablet 0 [id number] 505 Taking 09/02 00:00 :00 Pravastatin Sodium 10MG Tablet null null 1 90 Tablet 0 [id number] 505 Start 08/26 00:00 :00 Pravastatin Sodium 10MG Tablet null null 1 90 Tablet 0 Taking 08/12 00:00 :00 Pravastatin Sodium 10MG Tablet null null 1 90 Tablet 0 Taking 07/15 00:00 :00 Pravastatin Sodium 10MG Tablet null null 1 90 Tablet 0 Taking 06/17 00:00 :00 Pravastatin Sodium 10MG Tablet null null 1 90 Tablet 0 P Start 05/26 00:00 :00 Pravastatin Sodium 10 MG Tablet null null 1 30 [id number] 110 P Taking 01/27 00:00 :00 Pravastatin Sodium 10 MG Tablet null null 1 30 [id number] 110 Taking 12/09 00:00 :00 Pravastatin Sodium 10 MG Tablet null null 1 30 [id number] 110 Taking 12/06 00:00 :00 Pravastatin Sodium 10 MG Tablet null null 1 30 [id number] 110 Taking 12/02 00:00 :00 Pravastatin Sodium 10 MG Tablet null null 1 30 [id number] 110 P Taking 05/19 00:00 :00 PredniSONE 20 MG Tablet 04/23/2018 00:00:00 null 1 10 0 [id number] 820 P Not Taking 05/05 00:00 :00 PredniSONE 20 MG Tablet 04/23/2018 00:00:00 null 1 10 0 [id number] 820 P Not Taking 04/23 00:00 :00 PredniSONE 20 MG Tablet 04/23/2018 00:00:00 null 1 10 0 [id number] 820 P Start 05/19 00:00 :00 predniSONE 20 MG Tablet 12/18/2017 00:00:00 null 1 10 0 [id number] 820 P Not Taking 05/05 00:00 :00 predniSONE 20 MG Tablet 12/18/2017 00:00:00 null 1 10 0 [id number] 820 P Not Taking 04/23 00:00 :00 predniSONE 20 MG Tablet 12/18/2017 00:00:00 null 1 10 0 [id number] 820 P Not Taking 03/26 00:00 :00 predniSONE 20 MG Tablet 12/18/2017 00:00:00 null 1 10 0 [id number] 820 P Not Taking 02/04 00:00 :00 predniSONE 20 MG Tablet 12/18/2017 00:00:00 null 1 10 0 [id number] 820 P Not Taking 01/24 00:00 :00 predniSONE 20 MG Tablet 12/18/2017 00:00:00 null 1 10 0 [id number] 820 P Not Taking 12/25 00:00 :00 predniSONE 20 MG Tablet 12/18/2017 00:00:00 null 1 10 0 [id number] 820 P Not Taking 12/18 00:00 :00 predniSONE 20 MG Tablet 12/18/2017 00:00:00 null 1 10 0 [id number] 820 P Start 05/19 00:00 :00 PredniSONE (Sukhjinder) 5 mg 06/18/2017 00:00:00 null 1 1 1 P Not Taking 05/05 00:00 :00 PredniSONE (Sukhjinder) 5 mg 06/18/2017 00:00:00 null 1 1 1 P Not Taking 04/23 00:00 :00 PredniSONE (Sukhjinder) 5 mg 06/18/2017 00:00:00 null 1 1 1 P Not Taking 03/26 00:00 :00 PredniSONE (Sukhjinder) 5 mg 06/18/2017 00:00:00 null 1 1 1 P Not Taking 02/04 00:00 :00 PredniSONE (Sukhjinder) 5 mg 06/18/2017 00:00:00 null 1 1 1 P Not Taking 01/24 00:00 :00 PredniSONE (Sukhjinder) 5 mg 06/18/2017 00:00:00 null 1 1 1 P Not Taking 12/25 00:00 :00 PredniSONE (Sukhjinder) 5 mg 06/18/2017 00:00:00 null 1 1 1 P Not Taking 12/18 00:00 :00 PredniSONE (Sukhjinder) 5 mg 06/18/2017 00:00:00 null 1 1 1 P Not Taking 12/11 00:00 :00 PredniSONE (Sukhjinder) 5 mg 06/18/2017 00:00:00 null 1 1 1 P Not Taking 10/29 00:00 :00 PredniSONE (Sukhjinder) 5 mg 06/18/2017 00:00:00 null 1 1 1 P Not Taking 07/16 00:00 :00 PredniSONE (Sukhjinder) 5 mg 06/18/2017 00:00:00 null 1 1 1 P Taking 07/02 00:00 :00 PredniSONE (Sukhjinder) 5 mg 06/18/2017 00:00:00 null 1 1 1 P Taking 06/25 00:00 :00 PredniSONE (Sukhjinder) 5 mg 06/18/2017 00:00:00 null 1 1 1 P Taking 06/18 00:00 :00 PredniSONE (Sukhjinder) 5 mg 06/18/2017 00:00:00 null 1 1 1 P Start 07/25 00:00 :00 Promethazin e HCl 6.25 MG/5ML Syrup 06/23/2015 00:00:00 null 0 1200 [id number] 116 P Discontinu ed 06/21 00:00 :00 Promethazin e HCl 6.25 MG/5ML Syrup 06/23/2015 00:00:00 null 1 1200 [id number] 116 P Start 07/26 00:00 :00 Selenium Sulfide 2.5 % Lotion null null 1 118 5 [id number] 200 Taking 07/03 00:00 :00 Selenium Sulfide 2.5 % Lotion null null 1 118 5 [id number] 200 Taking 05/16 00:00 :00 Selenium Sulfide 2.5 % Lotion null null 1 118 5 [id number] 200 Taking 05/02 00:00 :00 Selenium Sulfide 2.5 % Lotion null null 1 118 5 [id number] 200 Taking 04/03 00:00 :00 Selenium Sulfide 2.5 % Lotion null null 1 118 5 [id number] 200 Taking 02/03 00:00 :00 Selenium Sulfide 2.5 % Lotion null null 1 118 5 [id number] 200 Taking 08/12 00:00 :00 Selenium Sulfide 2.5 % Lotion null null 1 118 5 [id number] 200 Taking 06/28 00:00 :00 Selenium Sulfide 2.5 % Lotion null null 1 118 5 [id number] 200 Taking 02/03 00:00 :00 Selenium Sulfide 2.5 % Lotion null null 1 118 5 [id number] 200 Taking 01/20 00:00 :00 Selenium Sulfide 2.5 % Lotion null null 1 118 5 [id number] 200 Taking 10/14 00:00 :00 Selenium Sulfide 2.5 % Lotion null null 1 118 5 [id number] 200 Taking 09/24 00:00 :00 Selenium Sulfide 2.5 % Lotion null null 1 118 5 [id number] 200 Taking 09/08 00:00 :00 Selenium Sulfide 2.5 % Lotion null null 1 118 5 [id number] 200 Taking 06/14 00:00 :00 Selenium Sulfide 2.5 % Lotion null null 1 118 5 [id number] 200 Taking 04/13 00:00 :00 Selenium Sulfide 2.5 % Lotion null null 1 118 5 [id number] 200 Taking 03/19 00:00 :00 Selenium Sulfide 2.5 % Lotion null null 1 118 5 [id number] 200 Taking 03/14 00:00 :00 Selenium Sulfide 2.5 % Lotion null null 1 118 5 [id number] 200 Taking 02/06 00:00 :00 Selenium Sulfide 2.5 % Lotion null null 1 118 5 [id number] 200 Taking 01/12 00:00 :00 Selenium Sulfide 2.5 % Lotion null null 1 118 5 [id number] 200 Taking 01/07 00:00 :00 Selenium Sulfide 2.5 % Lotion null null 1 118 5 [id number] 200 Taking 12/30 00:00 :00 Selenium Sulfide 2.5 % Lotion null null 1 118 5 [id number] 200 Taking 11/12 00:00 :00 Selenium Sulfide 2.5 % Lotion null null 1 118 5 [id number] 200 Taking 11/04 00:00 :00 Selenium Sulfide 2.5 % Lotion null null 1 118 5 [id number] 200 Taking 09/16 00:00 :00 Selenium Sulfide 2.5 % Lotion null null 1 118 5 [id number] 200 Taking 08/11 00:00 :00 Selenium Sulfide 2.5 % Lotion null null 1 118 5 [id number] 200 Taking 06/20 00:00 :00 Selenium Sulfide 2.5 % Lotion null null 1 118 5 [id number] 200 Taking 05/19 00:00 :00 Selenium Sulfide 2.5 % Lotion null null 1 118 5 [id number] 200 Taking 05/05 00:00 :00 Selenium Sulfide 2.5 % Lotion null null 1 118 5 [id number] 200 Taking 04/23 00:00 :00 Selenium Sulfide 2.5 % Lotion null null 1 118 5 [id number] 200 Taking 03/26 00:00 :00 Selenium Sulfide 2.5 % Lotion null null 1 118 5 [id number] 200 Taking 02/04 00:00 :00 Selenium Sulfide 2.5 % Lotion null null 1 118 5 [id number] 200 Taking 01/24 00:00 :00 Selenium Sulfide 2.5 % Lotion null null 1 118 5 [id number] 200 Taking 12/25 00:00 :00 Selenium Sulfide 2.5 % Lotion null null 1 118 5 [id number] 200 Taking 12/18 00:00 :00 Selenium Sulfide 2.5 % Lotion null null 1 118 5 [id number] 200 Taking 12/11 00:00 :00 Selenium Sulfide 2.5 % Lotion null null 1 118 5 [id number] 200 Taking 10/29 00:00 :00 Selenium Sulfide 2.5 % Lotion null null 1 118 5 [id number] 200 Taking 09/06 00:00 :00 Selenium Sulfide 2.5 % Lotion null null 1 118 5 [id number] 200 Continue 07/16 00:00 :00 Selenium Sulfide 2.5 % Lotion null null 1 118 5 [id number] 200 Taking 07/02 00:00 :00 Selenium Sulfide 2.5 % Lotion null null 1 118 5 [id number] 200 Taking 06/25 00:00 :00 Selenium Sulfide 2.5 % Lotion null null 1 118 5 [id number] 200 Taking 06/18 00:00 :00 Selenium Sulfide 2.5 % Lotion null null 1 118 5 [id number] 200 Taking 02/13 00:00 :00 Selenium Sulfide 2.5 % Lotion null null 1 118 5 [id number] 200 Taking 02/06 00:00 :00 Selenium Sulfide 2.5 % Lotion null null 1 118 5 [id number] 200 Taking 12/26 00:00 :00 Selenium Sulfide 2.5 % Lotion null null 1 118 5 [id number] 200 Taking 10/03 00:00 :00 Selenium Sulfide 2.5 % Lotion null null 1 118 5 [id number] 200 Taking 02/20 00:00 :00 Selenium Sulfide 2.5 % Lotion null null 1 118 5 [id number] 200 Taking 12/28 00:00 :00 Selenium Sulfide 2.5 % Lotion null null 1 118 5 [id number] 200 Continue 12/28 00:00 :00 Selenium Sulfide 2.5 % Lotion null null 1 118 5 [id number] 200 Continue 07/25 00:00 :00 Selenium Sulfide 2.5 % Lotion null null 1 118 1 [id number] 200 P Taking 06/13 00:00 :00 Selenium Sulfide 2.5 % Lotion null null 1 118 1 [id number] 200 P Taking 02/11 00:00 :00 Selenium Sulfide 2.5 % Lotion null null 1 118 1 [id number] 200 P Taking 01/05 00:00 :00 Selenium Sulfide 2.5 % Lotion null null 1 118 1 [id number] 200 P Taking 10/20 00:00 :00 Selenium Sulfide 2.5 % Lotion null null 1 118 1 [id number] 200 P Taking 07/21 00:00 :00 Selenium Sulfide 2.5 % Lotion null null 1 118 1 [id number] 200 P Start 07/21 00:00 :00 Selenium Sulfide 2.5 % Lotion null null 1 [id number] 200 Taking 05/02 00:00 :00 Senexon-S 8.6-50 MG Tablet null null 1 30 [id number] 701 Taking 01/19 00:00 :00 Senexon-S 8.6-50 MG Tablet null null 1 30 [id number] 701 Taking 12/18 00:00 :00 Senexon-S 8.6-50 MG Tablet null null 1 30 [id number] 701 Taking 09/13 00:00 :00 Senexon-S 8.6-50 MG Tablet null null 1 30 [id number] 701 Taking 07/26 00:00 :00 Silver sulfADIAZIN E 1 % Cream 04/05/2021 00:00:00 null 1 4 oz 1 [id number] 405 P Taking 07/03 00:00 :00 Silver sulfADIAZIN E 1 % Cream 04/05/2021 00:00:00 null 1 4 oz 1 [id number] 405 P Taking 05/16 00:00 :00 Silver sulfADIAZIN E 1 % Cream 04/05/2021 00:00:00 null 1 4 oz 1 [id number] 405 P Taking 05/02 00:00 :00 Silver sulfADIAZIN E 1 % Cream 04/05/2021 00:00:00 null 1 4 oz 1 [id number] 405 P Taking 04/05 00:00 :00 Silver sulfADIAZIN E 1 % Cream 04/05/2021 00:00:00 null 1 4 oz 1 [id number] 405 P Start 09/15 00:00 :00 Synthroid 100 MCG Tablet null null 0 30 5 [id number] 411 Stop 09/13 00:00 :00 Synthroid 100 MCG Tablet 09/13/2021 00:00:00 null 1 30 5 [id number] 411 P Start 06/28 00:00 :00 Tessalon Perles 100 MG Capsule 05/14/2019 00:00:00 null 0 40 0 [id number] 201 Discontinu ed 02/03 00:00 :00 Tessalon Perles 100 MG Capsule 05/14/2019 00:00:00 null 1 40 0 [id number] 201 Taking 01/20 00:00 :00 Tessalon Perles 100 MG Capsule 05/14/2019 00:00:00 null 1 40 0 [id number] 201 Taking 10/14 00:00 :00 Tessalon Perles 100 MG Capsule 05/14/2019 00:00:00 null 1 40 0 [id number] 201 Taking 09/24 00:00 :00 Tessalon Perles 100 MG Capsule 05/14/2019 00:00:00 null 1 40 0 [id number] 201 Taking 09/08 00:00 :00 Tessalon Perles 100 MG Capsule 05/14/2019 00:00:00 null 1 40 0 [id number] 201 Taking 06/14 00:00 :00 Tessalon Perles 100 MG Capsule 05/14/2019 00:00:00 null 1 40 0 [id number] 201 Taking 05/14 00:00 :00 Tessalon Perles 100 MG Capsule 05/14/2019 00:00:00 null 1 40 0 [id number] 201 Continue 04/13 00:00 :00 Tessalon Perles 100 MG Capsule 03/19/2019 00:00:00 null 0 40 0 [id number] 201 P Discontinu ed 03/19 00:00 :00 Tessalon Perles 100 MG Capsule 03/19/2019 00:00:00 null 1 40 0 [id number] 201 P Start 01/08 00:00 :00 Tessalon Perles 200 MG Capsule 10/14/2013 00:00:00 null 0 [id number] 201 P Discontinu ed 12/22 00:00 :00 Tessalon Perles 200 MG Capsule 10/14/2013 00:00:00 null 1 40 1 [id number] 201 P Taking 10/14 00:00 :00 Tessalon Perles 200 MG Capsule 10/14/2013 00:00:00 null 1 40 1 [id number] 201 P Start 05/02 00:00 :00 traMADol HCl 50 MG Tablet null null 1 [id number] 801 Not Taking 01/19 00:00 :00 traMADol HCl 50 MG Tablet null null 1 [id number] 801 Not Taking 12/18 00:00 :00 traMADol HCl 50 MG Tablet null null 1 [id number] 801 Not Taking 09/13 00:00 :00 traMADol HCl 50 MG Tablet null null 1 [id number] 801 Not Taking 07/26 00:00 :00 traMADol HCl 50 MG Tablet null null 1 [id number] 801 Not Taking 07/03 00:00 :00 traMADol HCl 50 MG Tablet null null 1 [id number] 801 Not Taking 05/16 00:00 :00 traMADol HCl 50 MG Tablet null null 1 [id number] 801 Not Taking 05/02 00:00 :00 traMADol HCl 50 MG Tablet null null 1 [id number] 801 Not Taking 04/03 00:00 :00 traMADol HCl 50 MG Tablet null null 1 [id number] 801 Not Taking 02/03 00:00 :00 traMADol HCl 50 MG Tablet null null 1 [id number] 801 Not Taking 08/12 00:00 :00 traMADol HCl 50 MG Tablet null null 1 [id number] 801 Not Taking 06/28 00:00 :00 traMADol HCl 50 MG Tablet null null 1 [id number] 801 Not Taking 02/03 00:00 :00 traMADol HCl 50 MG Tablet null null 1 [id number] 801 Taking 01/20 00:00 :00 traMADol HCl 50 MG Tablet null null 1 [id number] 801 Taking 10/14 00:00 :00 traMADol HCl 50 MG Tablet null null 1 [id number] 801 Taking 09/24 00:00 :00 traMADol HCl 50 MG Tablet null null 1 [id number] 801 Taking 09/08 00:00 :00 traMADol HCl 50 MG Tablet null null 1 [id number] 801 Taking 06/14 00:00 :00 traMADol HCl 50 MG Tablet null null 1 [id number] 801 Taking 04/13 00:00 :00 traMADol HCl 50 MG Tablet null null 1 [id number] 801 Taking 08/11 00:00 :00 Trelegy Ellipta 100-62. 5-25 MCG/INH Aerosol Powder Breath Activated 07/03/2017 00:00:00 null 0 1 [id number] 710 P Discontinu ed 06/20 00:00 :00 Trelegy Ellipta 100-62. 5-25 MCG/INH Aerosol Powder Breath Activated 07/03/2017 00:00:00 null 1 1 [id number] 710 P Not Taking 05/19 00:00 :00 Trelegy Ellipta 100-62. 5-25 MCG/INH Aerosol Powder Breath Activated 07/03/2017 00:00:00 null 1 1 [id number] 710 P Not Taking 05/05 00:00 :00 Trelegy Ellipta 100-62. 5-25 MCG/INH Aerosol Powder Breath Activated 07/03/2017 00:00:00 null 1 1 [id number] 710 P Not Taking 04/23 00:00 :00 Trelegy Ellipta 100-62. 5-25 MCG/INH Aerosol Powder Breath Activated 07/03/2017 00:00:00 null 1 1 [id number] 710 P Not Taking 03/26 00:00 :00 Trelegy Ellipta 100-62. 5-25 MCG/INH Aerosol Powder Breath Activated 07/03/2017 00:00:00 null 1 1 [id number] 710 P Not Taking 02/04 00:00 :00 Trelegy Ellipta 100-62. 5-25 MCG/INH Aerosol Powder Breath Activated 07/03/2017 00:00:00 null 1 1 [id number] 710 P Not Taking 01/24 00:00 :00 Trelegy Ellipta 100-62. 5-25 MCG/INH Aerosol Powder Breath Activated 07/03/2017 00:00:00 null 1 1 [id number] 710 P Not Taking 12/25 00:00 :00 Trelegy Ellipta 100-62. 5-25 MCG/INH Aerosol Powder Breath Activated 07/03/2017 00:00:00 null 1 1 [id number] 710 P Not Taking 12/18 00:00 :00 Trelegy Ellipta 100-62. 5-25 MCG/INH Aerosol Powder Breath Activated 07/03/2017 00:00:00 null 1 1 [id number] 710 P Not Taking 12/11 00:00 :00 Trelegy Ellipta 100-62. 5-25 MCG/INH Aerosol Powder Breath Activated 07/03/2017 00:00:00 null 1 1 [id number] 710 P Not Taking 10/29 00:00 :00 Trelegy Ellipta 100-62. 5-25 MCG/INH Aerosol Powder Breath Activated 07/03/2017 00:00:00 null 1 1 [id number] 710 P Taking 07/16 00:00 :00 Trelegy Ellipta 100-62. 5-25 MCG/INH Aerosol Powder Breath Activated 07/03/2017 00:00:00 null 1 1 [id number] 710 P Taking 07/02 00:00 :00 Trelegy Ellipta 100-62. 5-25 MCG/INH Aerosol Powder Breath Activated 07/03/2017 00:00:00 null 1 1 [id number] 710 P Start 05/02 00:00 :00 Triamcinolo ne Acetonide 0.1 % Lotion 03/28/2018 00:00:00 null 1 1 1 [id number] 760 P Not Taking 01/19 00:00 :00 Triamcinolo ne Acetonide 0.1 % Lotion 03/28/2018 00:00:00 null 1 1 1 [id number] 760 P Not Taking 12/18 00:00 :00 Triamcinolo ne Acetonide 0.1 % Lotion 03/28/2018 00:00:00 null 1 1 1 [id number] 760 P Not Taking 09/13 00:00 :00 Triamcinolo ne Acetonide 0.1 % Lotion 03/28/2018 00:00:00 null 1 1 1 [id number] 760 P Not Taking 07/26 00:00 :00 Triamcinolo ne Acetonide 0.1 % Lotion 03/28/2018 00:00:00 null 1 1 1 [id number] 760 P Not Taking 07/03 00:00 :00 Triamcinolo ne Acetonide 0.1 % Lotion 03/28/2018 00:00:00 null 1 1 1 [id number] 760 P Not Taking 05/16 00:00 :00 Triamcinolo ne Acetonide 0.1 % Lotion 03/28/2018 00:00:00 null 1 1 1 [id number] 760 P Not Taking 05/02 00:00 :00 Triamcinolo ne Acetonide 0.1 % Lotion 03/28/2018 00:00:00 null 1 1 1 [id number] 760 P Not Taking 04/03 00:00 :00 Triamcinolo ne Acetonide 0.1 % Lotion 03/28/2018 00:00:00 null 1 1 1 [id number] 760 P Not Taking 02/03 00:00 :00 Triamcinolo ne Acetonide 0.1 % Lotion 03/28/2018 00:00:00 null 1 1 1 [id number] 760 P Not Taking 08/12 00:00 :00 Triamcinolo ne Acetonide 0.1 % Lotion 03/28/2018 00:00:00 null 1 1 1 [id number] 760 P Not Taking 06/28 00:00 :00 Triamcinolo ne Acetonide 0.1 % Lotion 03/28/2018 00:00:00 null 1 1 1 [id number] 760 P Not Taking 02/03 00:00 :00 Triamcinolo ne Acetonide 0.1 % Lotion 03/28/2018 00:00:00 null 1 1 1 [id number] 760 P Taking 01/20 00:00 :00 Triamcinolo ne Acetonide 0.1 % Lotion 03/28/2018 00:00:00 null 1 1 1 [id number] 760 P Taking 10/14 00:00 :00 Triamcinolo ne Acetonide 0.1 % Lotion 03/28/2018 00:00:00 null 1 1 1 [id number] 760 P Taking 09/24 00:00 :00 Triamcinolo ne Acetonide 0.1 % Lotion 03/28/2018 00:00:00 null 1 1 1 [id number] 760 P Taking 09/08 00:00 :00 Triamcinolo ne Acetonide 0.1 % Lotion 03/28/2018 00:00:00 null 1 1 1 [id number] 760 P Taking 06/14 00:00 :00 Triamcinolo ne Acetonide 0.1 % Lotion 03/28/2018 00:00:00 null 1 1 1 [id number] 760 P Taking 04/13 00:00 :00 Triamcinolo ne Acetonide 0.1 % Lotion 03/28/2018 00:00:00 null 1 1 1 [id number] 760 P Taking 03/19 00:00 :00 Triamcinolo ne Acetonide 0.1 % Lotion 03/28/2018 00:00:00 null 1 1 1 [id number] 760 P Taking 03/14 00:00 :00 Triamcinolo ne Acetonide 0.1 % Lotion 03/28/2018 00:00:00 null 1 1 1 [id number] 760 P Taking 02/06 00:00 :00 Triamcinolo ne Acetonide 0.1 % Lotion 03/28/2018 00:00:00 null 1 1 1 [id number] 760 P Taking 01/12 00:00 :00 Triamcinolo ne Acetonide 0.1 % Lotion 03/28/2018 00:00:00 null 1 1 1 [id number] 760 P Taking 01/07 00:00 :00 Triamcinolo ne Acetonide 0.1 % Lotion 03/28/2018 00:00:00 null 1 1 1 [id number] 760 P Taking 12/30 00:00 :00 Triamcinolo ne Acetonide 0.1 % Lotion 03/28/2018 00:00:00 null 1 1 1 [id number] 760 P Taking 11/12 00:00 :00 Triamcinolo ne Acetonide 0.1 % Lotion 03/28/2018 00:00:00 null 1 1 1 [id number] 760 P Taking 11/04 00:00 :00 Triamcinolo ne Acetonide 0.1 % Lotion 03/28/2018 00:00:00 null 1 1 1 [id number] 760 P Taking 09/16 00:00 :00 Triamcinolo ne Acetonide 0.1 % Lotion 03/28/2018 00:00:00 null 1 1 1 [id number] 760 P Taking 08/11 00:00 :00 Triamcinolo ne Acetonide 0.1 % Lotion 03/28/2018 00:00:00 null 1 1 1 [id number] 760 P Taking 06/20 00:00 :00 Triamcinolo ne Acetonide 0.1 % Lotion 03/28/2018 00:00:00 null 1 1 1 [id number] 760 P Taking 05/19 00:00 :00 Triamcinolo ne Acetonide 0.1 % Lotion 03/28/2018 00:00:00 null 1 1 1 [id number] 760 P Taking 05/05 00:00 :00 Triamcinolo ne Acetonide 0.1 % Lotion 03/28/2018 00:00:00 null 1 1 1 [id number] 760 P Taking 04/23 00:00 :00 Triamcinolo ne Acetonide 0.1 % Lotion 03/28/2018 00:00:00 null 1 1 1 [id number] 760 P Taking 03/28 00:00 :00 Triamcinolo ne Acetonide 0.1 % Lotion 03/28/2018 00:00:00 null 1 1 1 [id number] 760 P Start 12/30 00:00 :00 Tylenol Extra Strength 500 MG Tablet 01/08/2019 00:00:00 null 1 [id number] P Start 05/02 00:00 :00 Ventolin HFA 108 (90 Base) MCG/ACT Aerosol Solution null null 1 1 5 [id number] 220 Taking 01/19 00:00 :00 Ventolin HFA 108 (90 Base) MCG/ACT Aerosol Solution null null 1 1 5 [id number] 220 Taking 12/18 00:00 :00 Ventolin HFA 108 (90 Base) MCG/ACT Aerosol Solution null null 1 1 5 [id number] 220 Taking 09/13 00:00 :00 Ventolin HFA 108 (90 Base) MCG/ACT Aerosol Solution null null 1 1 5 [id number] 220 Taking 07/26 00:00 :00 Ventolin HFA 108 (90 Base) MCG/ACT Aerosol Solution null null 1 1 5 [id number] 220 Taking 07/03 00:00 :00 Ventolin HFA 108 (90 Base) MCG/ACT Aerosol Solution null null 1 1 5 [id number] 220 Taking 05/16 00:00 :00 Ventolin HFA 108 (90 Base) MCG/ACT Aerosol Solution null null 1 1 5 [id number] 220 Taking 05/02 00:00 :00 Ventolin HFA 108 (90 Base) MCG/ACT Aerosol Solution null null 1 1 5 [id number] 220 Taking 04/03 00:00 :00 Ventolin HFA 108 (90 Base) MCG/ACT Aerosol Solution null null 1 1 5 [id number] 220 Taking 02/03 00:00 :00 Ventolin HFA 108 (90 Base) MCG/ACT Aerosol Solution null null 1 1 5 [id number] 220 Taking 08/12 00:00 :00 Ventolin HFA 108 (90 Base) MCG/ACT Aerosol Solution null null 1 1 5 [id number] 220 Taking 07/05 00:00 :00 Ventolin HFA 108 (90 Base) MCG/ACT Aerosol Solution null null 1 1 5 [id number] 220 Continue 06/28 00:00 :00 Ventolin HFA 108 (90 Base) MCG/ACT Aerosol Solution null null 1 1 5 [id number] 220 P Not Taking 02/03 00:00 :00 Ventolin HFA 108 (90 Base) MCG/ACT Aerosol Solution null null 1 1 5 [id number] 220 P Taking 01/20 00:00 :00 Ventolin HFA 108 (90 Base) MCG/ACT Aerosol Solution null null 1 1 5 [id number] 220 P Taking 10/14 00:00 :00 Ventolin HFA 108 (90 Base) MCG/ACT Aerosol Solution null null 1 1 5 [id number] 220 P Taking 09/24 00:00 :00 Ventolin HFA 108 (90 Base) MCG/ACT Aerosol Solution null null 1 1 5 [id number] 220 P Taking 09/08 00:00 :00 Ventolin HFA 108 (90 Base) MCG/ACT Aerosol Solution null null 1 1 5 [id number] 220 P Taking 06/14 00:00 :00 Ventolin HFA 108 (90 Base) MCG/ACT Aerosol Solution null null 1 1 5 [id number] 220 P Taking 04/13 00:00 :00 Ventolin HFA 108 (90 Base) MCG/ACT Aerosol Solution null null 1 1 5 [id number] 220 P Taking 03/19 00:00 :00 Ventolin HFA 108 (90 Base) MCG/ACT Aerosol Solution null null 1 1 5 [id number] 220 P Taking 03/14 00:00 :00 Ventolin HFA 108 (90 Base) MCG/ACT Aerosol Solution null null 1 1 5 [id number] 220 P Taking 02/06 00:00 :00 Ventolin HFA 108 (90 Base) MCG/ACT Aerosol Solution null null 1 1 5 [id number] 220 P Taking 01/12 00:00 :00 Ventolin HFA 108 (90 Base) MCG/ACT Aerosol Solution null null 1 1 5 [id number] 220 P Taking 01/07 00:00 :00 Ventolin HFA 108 (90 Base) MCG/ACT Aerosol Solution null null 1 1 5 [id number] 220 P Taking 12/30 00:00 :00 Ventolin HFA 108 (90 Base) MCG/ACT Aerosol Solution null null 1 1 5 [id number] 220 P Taking 11/12 00:00 :00 Ventolin HFA 108 (90 Base) MCG/ACT Aerosol Solution null null 1 1 5 [id number] 220 P Taking 11/04 00:00 :00 Ventolin HFA 108 (90 Base) MCG/ACT Aerosol Solution null null 1 1 5 [id number] 220 P Taking 09/16 00:00 :00 Ventolin HFA 108 (90 Base) MCG/ACT Aerosol Solution null null 1 1 5 [id number] 220 P Taking 08/11 00:00 :00 Ventolin HFA 108 (90 Base) MCG/ACT Aerosol Solution null null 1 1 5 [id number] 220 P Taking 06/20 00:00 :00 Ventolin HFA 108 (90 Base) MCG/ACT Aerosol Solution null null 1 1 5 [id number] 220 P Taking 05/19 00:00 :00 Ventolin HFA 108 (90 Base) MCG/ACT Aerosol Solution null null 1 1 5 [id number] 220 P Taking 05/05 00:00 :00 Ventolin HFA 108 (90 Base) MCG/ACT Aerosol Solution null null 1 1 5 [id number] 220 P Taking 04/23 00:00 :00 Ventolin HFA 108 (90 Base) MCG/ACT Aerosol Solution null null 1 1 5 [id number] 220 P Refill 04/23 00:00 :00 Ventolin HFA 108 (90 Base) MCG/ACT Aerosol Solution null null 1 1 5 [id number] 220 P Taking 03/26 00:00 :00 Ventolin HFA 108 (90 Base) MCG/ACT Aerosol Solution null null 1 1 5 [id number] 220 P Taking 02/04 00:00 :00 Ventolin HFA 108 (90 Base) MCG/ACT Aerosol Solution null null 1 1 5 [id number] 220 P Taking 01/24 00:00 :00 Ventolin HFA 108 (90 Base) MCG/ACT Aerosol Solution null null 1 1 5 [id number] 220 P Taking 12/25 00:00 :00 Ventolin HFA 108 (90 Base) MCG/ACT Aerosol Solution null null 1 1 5 [id number] 220 P Taking 12/18 00:00 :00 Ventolin HFA 108 (90 Base) MCG/ACT Aerosol Solution null null 1 1 5 [id number] 220 P Taking 12/11 00:00 :00 Ventolin HFA 108 (90 Base) MCG/ACT Aerosol Solution null null 1 1 5 [id number] 220 P Taking 10/29 00:00 :00 Ventolin HFA 108 (90 Base) MCG/ACT Aerosol Solution null null 1 1 5 [id number] 220 P Taking 09/06 00:00 :00 Ventolin HFA 108 (90 Base) MCG/ACT Aerosol Solution null null 1 1 5 [id number] 220 P Start 07/16 00:00 :00 Ventolin HFA 108 (90 Base) MCG/ACT Aerosol Solution null null 1 [id number] 220 Taking 07/02 00:00 :00 Ventolin HFA 108 (90 Base) MCG/ACT Aerosol Solution null null 1 [id number] 220 Taking 06/25 00:00 :00 Ventolin HFA 108 (90 Base) MCG/ACT Aerosol Solution null null 1 [id number] 220 Taking 06/28 00:00 :00 Zithromax Z-Sukhjinder 250 MG Tablet 01/21/2020 00:00:00 null 0 6 0 [id number] 075 P Discontinu ed 02/03 00:00 :00 Zithromax Z-Sukhjinder 250 MG Tablet 01/21/2020 00:00:00 null 1 6 0 [id number] 075 P Taking 01/20 00:00 :00 Zithromax Z-Sukhjinder 250 MG Tablet 01/21/2020 00:00:00 null 1 6 0 [id number] 075 P Start 04/13 00:00 :00 Zithromax Z-Sukhjinder 250 MG Tablet 03/19/2019 00:00:00 null 0 1 0 [id number] 075 P Discontinu ed 03/19 00:00 :00 Zithromax Z-Sukhjinder 250 MG Tablet 03/19/2019 00:00:00 null 1 1 0 [id number] 075 P Start OBJECTIVE DATA No information PHYSICAL EXAMINATION No information TREATMENT PLAN No information PROBLEMS No information RESULTS No information REVIEW OF SYSTEMS No information SUBJECTIVE DATA No information VITAL SIGNS No information
[2023-08-09 10:20] LABS: POC Glucose,Bedside 131 (70-110)
--- NOTE | 2023-08-09 11:11 | P.PN_ITS ---
Subjective Subjective Date: 08/09/23 Time: 09:30 Principal diagnosis: acute on chronic HFpEF Interval history: This is an 82-year-old female who presented to the emergency department complaints of lower extremity edema and shortness of breath. She has been diuresed with IV Bumex and was switched over to an IV Bumex drip yesterday. She has had significant improvement in her lower extremity edema. She states that she is no longer short of breath. She denies any chest pain or pressure. She denies any fever, chills, nausea, vomiting, diarrhea, PND. Exam Data for Last 24 hours Vital signs and Labs for Last 24 Hours: Temp Pulse Resp BP Pulse Ox O2 Del Method 97.7 F 98 H 20 145/64 H 97 Room Air 08/09/23 08:00 08/09/23 08:00 08/09/23 08:00 08/09/23 08:00 08/09/23 08:00 08/09/23 10:35 Laboratory Results - last 24 hr 08/08/23 16:09: POC Glucose 158 H 08/08/23 19:30: POC Glucose 164 H 08/09/23 05:04: POC Glucose 115 H 08/09/23 05:20: WBC 7.2, RBC 3.58 L, Hgb 11.0 L D, Hct 33.6 L, MCV 93.9, MCH 30.4, MCHC 32.4, RDW 15.6, Plt Count 351, MPV 7.8, Neut % (Auto) 69.5, Lymph % (Auto) 20.0, [place] % (Auto) 6.8, Eos % (Auto) 2.9, Baso % (Auto) 0.8, Neut # (Auto) 5.0, Lymph # (Auto) 1.5, [place] # (Auto) 0.5, Eos # (Auto) 0.2, Baso # (Auto) 0.1, Sodium 134 L, Potassium 3.6, Chloride 94 L, Carbon Dioxide 35 H, Anion Gap 8.6, BUN 15, Creatinine 0.90 D, Estimated Creat Clear 29, Estimated GFR 60, Est GFR ( Amer) 72 D, Glucose 107 H, Calcium 8.7 08/09/23 10:11: POC Glucose 131 H I & O for Last 24 hours: Intake & Output 08/06/23 08/07/23 08/08/23 08/09/23 23:59 23:59 23:59 23:59 Intake Total 540 / 590 1130 / 1130 1272.167 / 1332.167 810 / 810 Output Total 0 / 0 1200 / 1200 1400 / 1700 1250 / 1250 Balance 540 / 590 -70 / -70 -127.833 / -367.833 -440 / -440 Weight 215 lb 1.998 oz 216 lb 6.139 oz 216 lb 4.375 oz 216 lb 4.375 oz Constitutional Constitutional: no acute distress and morbidly obese *Routine HEENT Exam Head: Present normocephalic and atraumatic ENT: Present mucous membranes moist *Routine Neck Exam Neck: Present supple, full ROM and normal carotid upstroke; Absent JVD, carotid bruit or lymphadenopathy *Routine Respiratory Exam Respiratory: Present CTA bilaterally, normal respiratory effort, able to speak in complete sentences and symmetric chest movement *Routine Cardiovascular Exam Cardiovascular: Present Normal S1, Normal S2, murmur and irregularly irregular; Absent gallop *Routine Abdominal Exam Abdominal: Present soft and normoactive bowel sounds; Absent tenderness, distended or organomegaly *Routine Extremities Exam Extremities: Present edema (trace), full ROM, pulses intact and normal capillary refill; Absent cyanosis or clubbing *Routine Skin Exam Skin: Present intact and warm; Absent erythema *Routine Neurological Exam Neurological: Present alert, oriented X3 and CN II-XII intact; Absent sensory deficit or motor deficit Routine Psychiatric Exam Psychiatric: Present normal affect Progress Note: A&P Assessment and plan (1) Acute on chronic heart failure with preserved ejection fraction (HFpEF): Status: Acute (2) Afib: Status: Acute (3) Coronary artery disease: Status: Acute (4) HLD (hyperlipidemia): Status: Acute (5) Hypertension: Status: Acute (6) Type 2 diabetes mellitus with diabetic polyneuropathy, without long-term current use of insulin: Status: Acute (7) BMI greater than 40: Status: Acute (8) Hypothyroid: Status: Acute (9) Diabetes: Status: Acute Assessment and Plan Assessment and Plan for All Diagnoses:: Plan: 1. The patient was admitted to the hospital with acute on chronic HFpEF. The patient has been diuresed with IV Bumex. She was switched to a Bumex drip yesterday. She has a -600 mL fluid balance overnight. She states that her shortness of breath has essentially resolved. Her lower extremity edema is almost completely resolved as well. Will stop the Bumex drip and switch her to torsemide 40 mg p.o. twice daily. 2. The patient does have a normal ejection fraction. 3. The patient denies any chest pain or pressure. She ruled out for an [place]. No plans for invasive left cardiac catheterization at this time. She does have a history of coronary artery disease. Continue aspirin 81 mg daily. 4. We do recommend an outpatient ischemic evaluation when she is just discharged from the hospital. 5. Her atrial fibrillation is now rate controlled. She was started on verapam il yesterday. At discharge will convert her over to verapamil ER 240 mg p.o. daily for rate control. 6. She will remain on Eliquis for long-term anticoagulation. She denies any bleeding. 7. Her blood pressure is under good control at this time. 8. Her LDL goal is less than 55. Her LDL is 70. She is on a statin. 9. Continue irbesartan for her HFpEF. 10. Start Farxiga 10 mg daily for HFpEF. 11. The patient is diabetic. She will need aggressive control of her diabetes. Will defer this to the hospitalist. 12. The patient is status post permanent pacemaker placement. She has remote monitoring at the [facility]. Will defer. 13. The patient is stable for discharge home today from a cardiac standpoint. She will need to follow-up with her primary digital campaign specialist Dr. Martinez within the next week or 2. 14. She will need to be discharged on the following cardiac medications: Aspirin 81 mg daily, Eliquis 5 mg p.o. twice daily, torsemide 40 mg p.o. twice daily, Farxiga 10 mg daily, irbesartan 75 mg daily, Toprol XL 50 mg daily, omeprazole 40 mg daily, pravastatin 10 mg daily, verapamil ER 240 mg p.o. daily. Thank you for the opportunity to help in the care of this patient. All recommendations and orders are per Dr. Thomas.
[2023-08-09] MEDS: TORSEMIDE 20MG TABLET 40 MG PO (11:40)
[2023-08-09] MEDS: DAPAGLIFLOZIN PROPANEDIOL 10 MG TABLET PO (11:40)
[2023-08-09 11:49] VITALS: BP 100/53; PULSE 91; RESP 22; TEMP 37; O2SAT 96
[2023-08-09] MEDS: ACETAMINOPHEN 325MG TAB 650 MG PO (12:10)
--- NOTE | 2023-08-09 12:20 | P.DS_ITS ---
General Admission date:: 08/06/23 Discharge date: 08/09/23 HPI HPI HPI: Ms. Ahmadi is an 82-year-old female with history of hypertension, hyperlipidemia, diabetes, CAD, CHF, CABG, A-fib on Eliquis. Multiple surgeries in the past per history as well. She presented to the ER with her daughter due to worsening lower extremity swelling and shortness of breath. Was seen a month ago for similar presentation. Was at rehab for 3 weeks and has been home for about a week. States she has been tolerant with her medications, taking her diuretics and rate controlling medications. On arrival to the ER however she was found to be hypertensive, tachycardic in A-fib with RVR, and frankly volume overloaded with significant edema in her lower extremities. She denied chest pain at that time, fever, chills, syncope, confusion, weakness. Labs in the ER show elevated BNP of 1120, higher than last visit. Initial blood pressure 215/105. She was given a dose of Bumex. Labs showed normal kidney function. Necessitating admission for treatment of A-fib with RVR and volume overload/acute on chronic heart failure exacerbation. On arrival to the floor, patient is stable on room air. Adamant that she will see cardiology but refuses to see Dr. Kirkland. Has not been telling her family but occasionally will have some chest discomfort in her left chest near her pacemaker while at rest. Does not have any pain today. This been going on for some time over the past few months. Gets help with her medications from her daughter. Is adamant that she complies with her regimen. Participated with therapy while at rehab. Refuses to go back however she does not like being in nursing homes. Hospital Course Hospital Course Hospital Course: Ms. Ahmadi is an 82-year-old female with multiple comorbidities. Lives alone and has macular degeneration. Presents with concern for CHF exacerbation and A-fib with RVR. Frankly volume overloaded with worsening edema. On room air. Discussed case with ER physician, request admission for therapy eval, diuresis, further management for safe dispo planning. Medicine agreed to admit. Received dose of Bumex in the ER. Necessitating inpatient management. Problems addressed as follows: History of CABG CAD CHF Hypertension Atrial fibrillation Acute CHF - resolved DC lasix at discharge and started on torsemide, follow up with cardiology as OP, stable for dc per cardiology Aspirin 81 mg daily, Eliquis 5 mg p.o. twice daily, torsemide 40 mg p.o. twice daily, Farxiga 10 mg daily, irbesartan 75 mg daily, Toprol XL 50 mg daily, omeprazole 40 mg daily, pravastatin 10 mg daily, verapamil ER 240 mg p.o. daily. Patient was seen and evaluated at the bedside on the day of discharge. Patient wishes to be discharged. All patient questions were answered and patient was given time to ask questions. Patient was discharged in stable condition. Patient understands that she can return to ER in case of any sudden changes in health. Total time spent on DC - 38 mins Exam Data for Last 24 hours Vital signs and Labs for Last 24 Hours: Temp Pulse Resp BP Pulse Ox O2 Del Method 98.6 F 91 H 22 100/53 L 96 Room Air 08/09/23 11:49 08/09/23 11:49 08/09/23 11:49 08/09/23 11:49 08/09/23 11:49 08/09/23 11:56 Laboratory Results - last 24 hr 08/08/23 16:09: POC Glucose 158 H 08/08/23 19:30: POC Glucose 164 H 08/09/23 05:04: POC Glucose 115 H 08/09/23 05:20: WBC 7.2, RBC 3.58 L, Hgb 11.0 L D, Hct 33.6 L, MCV 93.9, MCH 30.4, MCHC 32.4, RDW 15.6, Plt Count 351, MPV 7.8, Neut % (Auto) 69.5, Lymph % (Auto) 20.0, [place] % (Auto) 6.8, Eos % (Auto) 2.9, Baso % (Auto) 0.8, Neut # (Auto) 5.0, Lymph # (Auto) 1.5, [place] # (Auto) 0.5, Eos # (Auto) 0.2, Baso # (Auto) 0.1, Sodium 134 L, Potassium 3.6, Chloride 94 L, Carbon Dioxide 35 H, Anion Gap 8.6, BUN 15, Creatinine 0.90 D, Estimated Creat Clear 29, Estimated GFR 60, Est GFR ( Amer) 72 D, Glucose 107 H, Calcium 8.7 08/09/23 10:11: POC Glucose 131 H I & O for Last 24 hours: Intake & Output 08/06/23 08/07/23 08/08/23 08/09/23 23:59 23:59 23:59 23:59 Intake Total 540 / 590 1130 / 1130 1272.167 / 1332.167 810 / 810 Output Total 0 / 0 1200 / 1200 1400 / 1700 1250 / 1250 Balance 540 / 590 -70 / -70 -127.833 / -367.833 -440 / -440 Weight 97.579 kg 98.15 kg 98.1 kg 98.1 kg Constitutional Constitutional: no acute distress *Routine HEENT Exam Head: Present normocephalic Eye: Present EOMI and PERRL ENT: Present mucous membranes moist *Routine Neck Exam Neck: Present supple; Absent lymphadenopathy *Routine Respiratory Exam Respiratory: Present CTA bilaterally *Routine Cardiovascular Exam Cardiovascular: Present RRR *Routine Abdominal Exam Abdominal: Present soft and normoactive bowel sounds; Absent tenderness *Routine Extremities Exam Extremities: Absent cyanosis, clubbing or edema *Routine Skin Exam Skin: Present warm; Absent rash *Routine Neurological Exam Neurological: Present alert and oriented X3 Results Data Completed and Pending Labs on day of discharge: Labs from last 24 hours 08/09/23 08/09/23 08/09/23 10:11 05:20 05:04 WBC 7.2 RBC 3.58 L Hgb 11.0 L D Hct 33.6 L MCV 93.9 MCH 30.4 MCHC 32.4 RDW 15.6 Plt Count 351 MPV 7.8 Neut % (Auto) 69.5 Lymph % (Auto) 20.0 [place] % (Auto) 6.8 Eos % (Auto) 2.9 Baso % (Auto) 0.8 Neut # (Auto) 5.0 Lymph # (Auto) 1.5 [place] # (Auto) 0.5 Eos # (Auto) 0.2 Baso # (Auto) 0.1 Sodium 134 L Potassium 3.6 Chloride 94 L Carbon Dioxide 35 H Anion Gap 8.6 BUN 15 Creatinine 0.90 D Estimated Creat Clear 29 Estimated GFR 60 Est GFR ( Amer) 72 D Glucose 107 H POC Glucose 131 H 115 H Calcium 8.7 08/08/23 08/08/23 19:30 16:09 WBC RBC Hgb Hct MCV MCH MCHC RDW Plt Count MPV Neut % (Auto) Lymph % (Auto) [place] % (Auto) Eos % (Auto) Baso % (Auto) Neut # (Auto) Lymph # (Auto) [place] # (Auto) Eos # (Auto) Baso # (Auto) Sodium Potassium Chloride Carbon Dioxide Anion Gap BUN Creatinine Estimated Creat Clear Estimated GFR Est GFR ( Amer) Glucose POC Glucose 164 H 158 H Calcium DS: Diagnosis Discharge Diagnosis (1) Acute on chronic heart failure with preserved ejection fraction (HFpEF): Status: Acute Code(s): I50.33 - Acute on chronic diastolic (congestive) heart failure (2) Afib: Status: Acute Code(s): I48.91 - Unspecified atrial fibrillation Qualifiers: Atrial fibrillation type: longstanding persistent Qualified Code(s): I48.11 - Longstanding persistent atrial fibrillation (3) Coronary artery disease: Status: Acute Code(s): I25.10 - Atherosclerotic heart disease of [place] coronary artery without angina pectoris Qualifiers: Coronary Disease-Associated Artery/Lesion type: [place] artery [place] vs. transplanted heart: [place] heart Associated angina: without angina Qualified Code(s): I25.10 - Atherosclerotic heart disease of [place] coronary artery without angina pectoris (4) HLD (hyperlipidemia): Status: Acute Code(s): E78.5 - Hyperlipidemia, unspecified Qualifiers: Hyperlipidemia type: mixed hyperlipidemia Qualified Code(s): E78.2 - Mixed hyperlipidemia (5) Hypertension: Status: Acute Code(s): I10 - Essential (primary) hypertension Qualifiers: Hypertension type: unspecified Qualified Code(s): I10 - Essential (primary) hypertension (6) Type 2 diabetes mellitus with diabetic polyneuropathy, without long-term current use of insulin: Status: Acute Code(s): E11.42 - Type 2 diabetes mellitus with diabetic polyneuropathy (7) BMI greater than 40: Status: Acute (8) Hypothyroid: Status: Acute Code(s): E03.9 - Hypothyroidism, unspecified (9) Diabetes: Status: Acute Code(s): E11.9 - Type 2 diabetes mellitus without complications Qualifiers: Diabetes mellitus complication detail: with polyneuropathy Diabetes mellitus complication status: with neurologic complications Diabetes mellitus residential insulin use: without residential use Diabetes mellitus type: type 2 Qualified Code(s): E11.42 - Type 2 diabetes mellitus with diabetic polyneuropathy Meds Home Medications and Allergies Home Medications Medication Instructions Recorded Confirmed Type acetaminophen 500 mg tablet 500 mg PO BID PRN Pain 06/04/22 08/06/23 History multivitamin (Daily Multi-Vitamin 1 tab PO DAILY 07/30/22 08/06/23 History tablet) aspirin 81 mg tablet,delayed 81 mg PO DAILY 10/29/22 08/06/23 History release (Adult Low Dose Aspirin) levothyroxine 125 mcg tablet 125 mcg PO DAILY thyroid #90 tabs 12/31/22 08/06/23 Rx amitriptyline 50 mg tablet 50 mg PO DAILY #90 tabs 01/29/23 08/06/23 Rx fluticasone furoate 100 1 inh inhalation DAILY Breathing 01/29/23 08/06/23 Rx mcg-vilanterol 25 mcg/dose problems #60 ea inhalation powder (Breo Ellipta) metformin 500 mg tablet 500 mg PO BID Diabetes #180 tabs 01/29/23 08/06/23 Rx potassium chloride 20 mEq 20 meq PO DAILY Supplement #90 tabs 01/29/23 08/06/23 Rx tablet,extended release apixaban 5 mg tablet 5 mg PO BID 06/27/23 08/06/23 History metoprolol succinate 25 mg 25 mg PO DAILY 06/27/23 08/06/23 History tablet,extended release 24 hr [id number] 100 mcg-lut 1.66 1 tab PO BID 06/27/23 08/06/23 History mg-zeaxanth 0.83 mg tablet,delay rel. (Icaps MV) omeprazole 40 mg capsule,delayed 40 mg PO DAILY 06/27/23 08/06/23 History release pravastatin 10 mg tablet 10 mg PO DAILY 06/27/23 08/06/23 History magnesium oxide 400 mg (241.3 mg 400 mg PO DAILY #0 tabs 07/01/23 08/06/23 Rx magnesium) tablet albuterol sulfate 90 mcg/actuation 1 puff inhalation NEEDED PRN 08/07/23 08/07/23 History aerosol inhaler Shortness Of Breath dapagliflozin propanediol 10 mg 10 mg PO DAILY 30 days #30 tabs 08/09/23 Rx tablet (Farxiga) irbesartan 75 mg tablet 75 mg PO DAILY 30 days #30 tabs 08/09/23 Rx torsemide 20 mg tablet 40 mg (2 x 20 mg) PO BIDL 30 days 08/09/23 Rx #120 tabs New Prescriptions to Start Prescriptions: dapagliflozin propanediol [Farxiga] George Oseguera irbesartan Oumar,George torsemide George Oseguera Allergies Allergy/AdvReac Type Severity Reaction Status Date / Time adenosine [ADENOSINE] Allergy Unknown S-ANAPHYLAX Verified 06/27/23 10:58 IS benzonatate Allergy Unknown Verified 06/27/23 10:58 [From DAYA SMITH] morphine [MORPHINE] Allergy Unknown KNOCKS Verified 06/27/23 10:58 OUT Penicillins [PENICILLINS] Allergy Unknown I-RASH Verified 06/27/23 10:58 Sulfa (Sulfonamide Allergy Unknown I-RASH Verified 06/27/23 10:58 Antibiotics) [SULFA (SULFONAMIDE ANTIBIOTICS)] albuterol Allergy Blurry Verified 06/27/23 10:58 Vision Discharge Plan Disposition Patient Disposition: Home Health Service Condition: Fair Discharge Order Discharge Orders: Discharge Order (Routine); Ordered 08/09/23 Ordered By: George Oseguera Follow up Plan Follow up with: Donita Rodgers APRN [Nurse Practitioner] - 08/22/23 10:15 am Larisa Banuelos APRN [Primary Care Provider] - 08/15/23 10:00 am Prescriptions/Medication Reconciliation: New torsemide 20 mg Tablet 40 mg PO BIDL 30 Days Qty: 120 0RF irbesartan 75 mg Tablet 75 mg PO DAILY 30 Days Qty: 30 0RF dapagliflozin propanediol [Farxiga] 10 mg Tablet 10 mg PO DAILY 30 Days Qty: 30 0RF Continued aspirin [Adult Low Dose Aspirin] 81 mg tablet,delayed release (DR/EC) 81 mg PO DAILY multivitamin [Daily Multi-Vitamin] Tablet 1 tab PO DAILY amitriptyline 50 mg tablet 50 mg PO DAILY Qty: 90 3RF fluticasone furoate-vilanterol [Breo Ellipta] 100-25 mcg/dose blister with device 1 inh inhalation DAILY Qty: 60 5RF metformin 500 mg tablet 500 mg PO BID Qty: 180 3RF potassium chloride 20 mEq tablet extended release 20 meq PO DAILY Qty: 90 3RF levothyroxine 125 mcg tablet 125 mcg PO DAILY Qty: 90 1RF albuterol sulfate 90 mcg/actuation HFA aerosol inhaler 1 puff INHALATION NEEDED PRN (Reason: Shortness Of Breath) acetaminophen 500 mg tablet 500 mg PO BID PRN (Reason: Pain) metoprolol succinate 25 mg tablet extended release 24 hr 25 mg PO DAILY omeprazole 40 mg capsule,delayed release(DR/EC) 40 mg PO DAILY pravastatin 10 mg tablet 10 mg PO DAILY apixaban 5 mg tablet 5 mg PO BID Icaps MV 100-1.66-0.83 mcg-mg-mg Tablet,Delayed Release (Dr/Ec) 1 tab PO BID magnesium oxide 400 mg (241.3 mg magnesium) Tablet 400 mg PO DAILY Qty: 0 0RF Discontinued furosemide 80 mg tablet 80 mg PO DAILY Qty: 90 3RF losartan 50 mg tablet 75 mg PO DAILY Problem Reconciliation Problems Reviewed?: Yes Patient Discharge Instructions ACTIVITY: Ambulate as tolerated DIET: continue same diet Patient Instructions: DI for Heart Failure, DI for Atrial Fibrillation Providers Primary Care Provider: Larisa Banuelos Admit Provider: Blaine Lepe Attending Provider: Blaine Lepe
--- NOTE | 2023-08-13 11:43 | CARE MANAGER ---
Contacted patient related to hospital discharge. She states that she is tired but she is doing well. She has her new medications and is aware of follow up appointments. ZINA Mcgovern
== END 2023-08-09 13:11 | disposition home health service (06) | DRG 291 ==
LOC: ER 16:15 → 2ND 16:54
PROVIDERS: Nurse Practitioner Family; Physician Assistant; Admitting Provider Internal Medicine Adolescent Medicine; Emergency Provider Student in an Organized Health Care Education/Training Program; PCP Nurse Practitioner Family; Visit Provider Internal Medicine Adolescent Medicine
DX: I50.33 Acute on chronic diastolic (congestive) heart failure (principal); I48.11 Longstanding persistent atrial fibrillation; R29.6 Repeated falls; E11.42 Type 2 diabetes mellitus with diabetic polyneuropathy; E03.9 Hypothyroidism, unspecified; E78.2 Mixed hyperlipidemia; I11.0 Hypertensive heart disease with heart failure; I25.10 Atherosclerotic heart disease of native coronary artery without angina pectoris; Z96.653 Presence of artificial knee joint, bilateral; M16.11 Unilateral primary osteoarthritis, right hip; E11.51 Type 2 diabetes mellitus with diabetic peripheral angiopathy without gangrene; Z95.0 Presence of cardiac pacemaker; Z95.1 Presence of aortocoronary bypass graft; K21.9 Gastro-esophageal reflux disease without esophagitis; Z79.84 Long term (current) use of oral hypoglycemic drugs
CPT/HCPCS: 36415; 71045; 80048; 80053; 80061; 81001; 82803; 82962; 83605; 83735; 83880; 84443; 84484; 85025; 85378; 85610; 87581; 87632; 87635; 87798; 93005; 97110; 97116; 97162; 97165; 97530; 99285; J3475

== ENCOUNTER 2023-11-04 09:56 | Outpatient (POV) | payer MEDICARE, OTHER, SELFPAY ==
[2023-11-04 09:57] VITALS: BP 192/84; PULSE 102; RESP 16; O2SAT 98; BMI 39.0
--- NOTE | 2023-11-04 10:14 | A.OFFVIS_ITS ---
HPI Data of Consult Patient: new to practice Consult date: 11/04/23 Requesting Physician: Verona España APRN Primary Care Provider: Larisa Banuelos APRN Consult Narrative Reason for consult: Low back pain, bilateral knee pain, right hip pain History of present illness: Ms. Ahmadi is a 82 year old female who presents today as a new patient. She is a referral from Dr. Norris España's office. She rates her pain today a 10 out of 10. She does state that she has pain in multiple locations including her neck, low back, right knee, right hip. Patient states this has been going on for years and progressively worsened. She does describe it as an aching, throbbing sensation with numbness into her extremities. Patient does state that she has had both of her knees replaced in the her hip is [id number]. Patient does state that the pain is constant and interferes with her ability to perform activities of daily living such as cooking and cleaning. She states that it is also affecting her sleeping and that she is not getting any improvement. Patient states she has had gel injections in her knees in the past as well as 1 epidural that did not provide significant relief. Patient does also state that her doctor did do hip injections however she has noticed no additional change. Patient does state that overall she would say that her knee pain bilaterally is what bothers her the most. She states it is a constant burning. Patient has had a prior back surgery with mary placed. She does state that she has tried [id number] medication including diclofenac and Tylenol along with heat and ice and topicals with minimal relief. Patient states that she has been through physical therapy and it made no additional changes. Patient does state that she continues to do at home exercising and stretching that was physician guided from her physical therapy. She says that she does use a device at home that helps work her arms and legs and she uses free weights on a daily basis. Patient states she has done this for longer than 12 weeks with no additional changes. Patient does have a significant heart and diabetes history. Patient does have a pacemaker in place and is on blood thinners. She is not on any scheduled medications. Her Tye has been reviewed and is appropriate. CC: Verona España APRN [facility] Disclaimer: The information contained in this section may have been updated after the patient was seen, as this information can be updated by other users. Medical History Diabetes Hypertension HLD (hyperlipidemia) Afib Atrial fibrillation with rapid ventricular response Volume overload Acute on chronic heart failure with preserved ejection fraction (HFpEF) Candidiasis of vagina Pyelonephritis Dysphonia Pt was informed to rinse and gargle salt water after using her inhalers. Candidiasis Migraine History of pacemaker Supraventricular tachycardia PVD (peripheral vascular disease) PAD (peripheral artery disease) Kidney stones Lung disease Pacemaker HTN (hypertension), benign GERD (gastroesophageal reflux disease) Type 2 diabetes mellitus without complications Coronary artery disease CHF (congestive heart failure) Dr. Martinez Chest wall contusion Hx of fall Closed rib fracture Headache Cough Bronchitis Surgical History History of cholecystectomy History of appendectomy Status post biopsy of kidney History of hysterectomy Hx of CABG History of bilateral carpal tunnel release H/O arthroscopy of shoulder Family History Other Diabetes Hyperlipidemia Hypertension Social History Smoking Status: Never smoker second hand exposure: No alcohol intake: never substance use type: denies use current occupational status: retired Travel in the last 8 weeks: None household members: other housing: house lives independently: Yes marital status: education level: high school current occupational exposures/hazards: No caffeine: Yes special seymour needs: No agree to transfusion: No do you feel safe at home: Yes victim of physical abuse: No victim of emotional abuse: No victim of sexual abuse: No would you like helpful sources: No Review of Systems Review of Systems Review of systems:: pertinent systems reviewed and negative unless documented below Review of systems (narrative): Review of Systems: General: No recent weight changes, no fever, no sleep disturbances Respiratory: No cough, no shortness of air, no recurring pulmonary infections Cardiovascular/peripheral vascular: No chest pain, no palpitations, no edema, no shortness of breath Gastrointestinal: No new onset incontinence, normal bowel movements reported Genitourinary: No new onset incontinence Musculoskeletal: Low back pain, bilateral knee pain, right hip pain Psychiatric: [Normal mood/affect] Neurological: [Denies weakness in extremities], [denies balance issues] Meds Home Medications and Allergies Home Medications ?Medication ?Instructions ?Recorded ?Confirmed ?Type acetaminophen 500 mg tablet 500 mg PO BID PRN Pain 06/04/22 11/04/23 History multivitamin (Daily Multi-Vitamin 1 tab PO DAILY 07/30/22 11/04/23 History tablet) amitriptyline 50 mg tablet 50 mg PO DAILY #90 tabs 01/29/23 11/04/23 Rx metformin 500 mg tablet 500 mg PO BID Diabetes #180 tabs 01/29/23 11/04/23 Rx potassium chloride 20 mEq 20 meq PO DAILY Supplement #90 tabs 01/29/23 11/04/23 Rx tablet,extended release [id number] 100 mcg-lut 1.66 1 tab PO BID 06/27/23 11/04/23 History mg-zeaxanth 0.83 mg tablet,delay rel. (Icaps MV) albuterol sulfate 90 mcg/actuation See Rx Instructions .Route 09/20/23 11/04/23 Rx aerosol inhaler .COMPLEX #8.5 grams apixaban 5 mg tablet (Eliquis) See Rx Instructions .Route 09/20/23 11/04/23 Rx .COMPLEX #180 tabs aspirin 81 mg tablet,delayed See Rx Instructions .Route 09/20/23 11/04/23 Rx release .COMPLEX #90 tabs dapagliflozin propanediol 10 mg See Rx Instructions .Route 09/20/23 11/04/23 Rx tablet (Farxiga) .COMPLEX #90 tabs fluticasone furoate 100 See Rx Instructions .Route 09/20/23 11/04/23 Rx mcg-vilanterol 25 mcg/dose .COMPLEX #60 ea inhalation powder (Breo Ellipta) irbesartan 75 mg tablet See Rx Instructions .Route 09/20/23 11/04/23 Rx .COMPLEX #90 tabs levothyroxine 125 mcg tablet See Rx Instructions .Route 09/20/23 11/04/23 Rx .COMPLEX #90 tabs magnesium oxide 400 mg (241.3 mg See Rx Instructions .Route 09/20/23 11/04/23 Rx magnesium) tablet .COMPLEX #90 tabs omeprazole 40 mg capsule,delayed See Rx Instructions .Route 09/20/23 11/04/23 Rx release .COMPLEX #90 caps pravastatin 10 mg tablet See Rx Instructions .Route 09/20/23 11/04/23 Rx .COMPLEX #90 tabs torsemide 20 mg tablet See Rx Instructions .Route 09/20/23 11/04/23 Rx .COMPLEX #180 tabs metoprolol succinate 25 mg 50 mg (2 x 25 mg) PO DAILY #90 tabs 10/24/23 11/04/23 Rx tablet,extended release 24 hr New Prescriptions to Start Prescriptions: Allergies Allergy/AdvReac Type Severity Reaction Status Date / Time adenosine [ADENOSINE] Allergy Unknown S-ANAPHYLAX Verified 11/04/23 09:58 IS benzonatate Allergy Unknown Verified 11/04/23 09:58 [From TESSALON PERLMADHU] morphine [MORPHINE] Allergy Unknown KNOCKS Verified 11/04/23 09:58 OUT Penicillins [PENICILLINS] Allergy Unknown I-RASH Verified 11/04/23 09:58 Sulfa (Sulfonamide Allergy Unknown I-RASH Verified 11/04/23 09:58 Antibiotics) [SULFA (SULFONAMIDE ANTIBIOTICS)] albuterol Allergy Blurry Verified 11/04/23 09:58 Vision Objective Narrative: Physical Exam: General: Alert and oriented x3, no acute distress, pleasant and cooperative Lungs: Respirations even and unlabored, symmetrical chest expansion Eyes: PERRL Musculoskeletal: Flexion and extension of bilateral knees somewhat guarded secondary to pain, [antalgic gait noted] Neurological: Speech clear, no gross sensory deficit Additional findings Additional findings: FINDINGS: Axial CT images of the cervical spine were obtained without contrast. Sagittal and coronal reformatted images were also obtained. This study was performed with techniques to keep radiation doses as low as reasonably achievable (ALARA). Individualized dose reduction techniques using automated exposure control or adjustment of mA and/or kV according to the patient's size were employed. There is no evidence of fracture or dislocation. The bony alignment is normal. Mild and moderate degenerative changes present. There is no evidence of canal stenosis. No paraspinous soft tissue abnormality is seen. Limited images of the upper thorax are unremarkable. IMPRESSION: No fracture or acute bony abnormality identified. Mild and moderate degenerative changes are present with bilateral neural foraminal narrowing at the C5-6 level. Reviewed, Interpreted and Dictated by Yazan Ching III, MD Transcribed by Domenica Seals Authenticated and [facility] FINDINGS: Tubes, catheters and devices: Photon starvation and streaky artifact from surgical hardware slightly obscures the assessment of the surrounding structures. Bones/joints: Diffuse osteopenia. Advanced right hip osteoarthritis. Status post L3-L4 posterior interbody fusion. Transpedicular rods are intact. No hardware-related complication noted. Minimal anterolisthesis of L5 over S1 is unchanged. Otherwise, there is preservation of vertebral alignment. There is preservation of vertebral body heights. No acute fracture. Combination of diffuse disc bulge and facet arthropathy contribute to varying degrees of neural foraminal narrowing at multiple levels more pronounced at L2-L3 and L5-S1 level. Kidneys and ureters: Nonobstructive right nephrolithiasis noted. Soft tissues: Unremarkable. IMPRESSION: 1. No acute fracture. No traumatic subluxation. Multilevel degenerative changes as above. Status post L3-L4 posterior interbody fusion 2. Nonobstructive right nephrolithiasis Assessment and Plan *Assessment and plan (1) Degenerative disc disease, lumbar: Status: Acute Category: Medical Code(s): M51.36 - Other intervertebral disc degeneration, lumbar region (2) Degenerative disc disease, cervical: Status: Acute Category: Medical Code(s): M50.30 - Other cervical disc degeneration, unspecified cervical region (3) Lumbar radiculopathy: Status: Acute Category: Medical Code(s): M54.16 - Radiculopathy, lumbar region (4) Bilateral knee pain: Status: Acute Qualifiers: Chronicity: chronic Qualified Code(s): M25.561 - Pain in right knee; M25.562 - Pain in left knee; G89.29 - Other chronic pain Category: Medical Code(s): M25.561 - Pain in right knee; M25.562 - Pain in left knee (5) Hip pain, right: Status: Acute Category: Medical Code(s): M25.551 - Pain in right hip Plan Patient is experiencing worsening pain in multiple locations however does state that her bilateral knee pain is what is causing the worst pain.She has had bilateral knee replacements in the past and is not a candidate for intra- articular knee injections. I have discussed with the patient that she may benefit from bilateral infrapatellar nerve blocks. Risk and benefits were discussed with patient and she would like to proceed forward with this plan of care. Patient did have tenderness with palpation along her bilateral knees. Patient has tried and failed conservative therapies including continued at home stretching exercise for longer than 12 weeks. We will schedule the patient for bilateral infrapatellar nerve blocks. I will also order the patient a compounded cream. Patient has been instructed to contact the clinic with any concerns before the next appointment. Dr. Joshi has reviewed this note and agrees with this plan of care. This note was dictated using voice recognition software and make contain errors or omissions. All injections are used with Lidocaine or Bupivacaine and Depo Medrol.
== END 2023-11-04 23:59 | disposition home or self-care (01) ==
LOC: SC.PAIN 09:57
PROVIDERS: PCP Nurse Practitioner Family; Visit Provider Nurse Practitioner Family
DX: M51.36 Other intervertebral disc degeneration, lumbar region (principal); M50.30 Other cervical disc degeneration, unspecified cervical region; M54.16 Radiculopathy, lumbar region; M25.561 Pain in right knee; M25.562 Pain in left knee; G89.29 Other chronic pain; M25.551 Pain in right hip
CPT/HCPCS: 99212; G0463

== ENCOUNTER 2023-11-04 14:50 | Outpatient (CLI) | payer MEDICARE, OTHER, SELFPAY ==
[2023-11-04 14:34] LABS: Basophils # 0.1 K/mm3 (0-0.2); Basophils % 0.7 % (0.1-2.0); Eosinophils # 0.2 K/mm3 (0.0-0.4); Eosinophils % 2.1 % (0.1-12.0); Hematocrit 35.8 % (37.0-47.0); Hemoglobin 11.2 g/dL (12.2-16.2); Lymphocytes # 1.5 K/mm3 (0.7-4.5); Lymphocytes % 19.6 % (10-50); Mean Corpuscular HGB Conc 31.3 g/dL (31.8-35.4); Mean Corpuscular Hemoglobin 27.7 pg (27.0-31.2); Mean Corpuscular Volume 88.7 fl (81-99); Mean Platelet Volume 8.6 fl (7.4-10.4); Monocytes # 0.5 K/mm3 (0.1-1.0); Monocytes % 6.4 % (1.7-9.3); Neutrophils # 5.5 K/mm3 (1.8-7.8); Neutrophils % 71.1 % (37.0-80.0); Platelet Count 405 K/mm3 (142-424); Red Blood Count 4.03 M/mm3 (4.20-5.40); White Blood Count 7.7 K/mm3 (4.8-10.8)
[2023-11-04 16:00] LABS: Alanine Aminotransferase 17 U/L (12-78); Albumin Level 3.9 g/dl (3.5-5.0); Albumin/Globulin Ratio 1.3 (1.1-1.8); Alkaline Phosphatase 107 U/L (38-126); Anion Gap 11.7 mEq/L (5-15); Aspartate Amino Transferase 25 U/L (14-36); Bilirubin,Total 0.4 mg/dl (0.2-1.3); Blood Urea Nitrogen 30 mg/dl (7-17); Calcium 9.3 mg/dl (8.4-10.2); Carbon Dioxide 31 mmol/L (22.0-30.0); Chloride 92 mmol/L (98-107); Estimated Glomerular Filt Rate 80 ml/min (>60); GFR (African American) 96 ML/MIN (>60); Glucose 115 mg/dl (74-100); Potassium 4.7 mmoL/L (3.5-5.1); Sodium 130 mmol/L (136-145); Total Protein,Serum 6.9 g/dl (6.3-8.2)
[2023-11-04 17:15] LABS: Iron 57 ug/dL (37-170)
[2023-11-04 17:25] LABS: Total Iron Binding Capacity 361 ug/dL (265-497)
== END 2023-11-04 23:59 | disposition home or self-care (01) ==
LOC: LAB.DROPOF 14:50
PROVIDERS: PCP Nurse Practitioner Family; Visit Provider Nurse Practitioner Family
DX: I10 Essential (primary) hypertension (principal); E11.42 Type 2 diabetes mellitus with diabetic polyneuropathy; M51.36 Other intervertebral disc degeneration, lumbar region; M50.30 Other cervical disc degeneration, unspecified cervical region; M54.16 Radiculopathy, lumbar region; M25.561 Pain in right knee; M25.562 Pain in left knee; G89.29 Other chronic pain; Z79.899 Other long term (current) drug therapy; Z95.0 Presence of cardiac pacemaker; I48.91 Unspecified atrial fibrillation; Z79.01 Long term (current) use of anticoagulants
CPT/HCPCS: 80053; 82728; 83540; 83550; 85025; 99212; G0463

== ENCOUNTER 2023-11-06 17:45 | Inpatient (IN) | payer MEDICARE, OTHER, SELFPAY ==
[2023-11-06] VITALS (12 sets, daily range): BP systolic 100–180; BP diastolic 54–87; PULSE 97–144; RESP 15–22; TEMP 37.2–37.6; O2SAT 90–97; BMI 37.8; BMI 38.3
--- NOTE | 2023-11-06 17:54 | XR_ITS ---
PROCEDURE INFORMATION: Exam: XR Left Foot Exam date and time: 11/06/2023 5:57 PM Age: 82 years old Clinical indication: Pain; Toes; Left; Additional info: Pain 2nd toe TECHNIQUE: Imaging protocol: Radiologic exam of the left foot. Views: 3 or more views. COMPARISON: CR XR FOOT WT BEARING LT 3V 05/24/2021 10:18 AM FINDINGS: Bones/joints: No acute fracture or malalignment. Degenerative changes including dorsal midfoot exostosis. Calcaneal enthesopathy. Soft tissues: Normal. IMPRESSION: No acute osseous findings.
--- NOTE | 2023-11-06 18:00 | ECG_ITS ---
APPROVED REPORT Exam: Resting ECG HR:114 bpm ECG Measurements Heart Rate 114 AXES QRSd 89 QRS 89 QT 296 T 0 QTc 363 Conclusion ATRIAL FIBRILLATION WITH RAPID VENTRICULAR RESPONSE NONSPECIFIC ST & T-WAVE ABNORMALITY ABNORMAL RHYTHM ECG Electronically signed by : DAR HERNANDEZ, 11/07/2023 00:49:11
--- NOTE | 2023-11-06 18:37 | ED_ITS ---
Discharge Plan Disposition Patient Disposition: Admitted Condition: Fair Clinical Impressions Clinical Impression: Sepsis, Diabetic foot infection, Atrial fibrillation with RVR, Hyponatremia, Hypomagnesemia Discharge ED Provider: Verona Sheth General Adult HPI General Chief complaint: PAIN Stated complaint: left toe pain Time Seen by Provider: 11/06/23 17:53 Mode of Arrival: Wheelchair Source of Information: Patient Limitations: No Limitations Description of Symptoms (Recalled from ER Triage Doc. by RN): pt presents to ED with c/o left 2nd toe pain. pt reports symptoms began last night. pt reports no injury to toe. daughter calls to inform us that pt was seen in pcp office yesterday with no concerns from pcp. pt reports redness, swelling and pain. History of Present Illness HPI narrative: This patient is a 82-year-old female with a history of type 2 diabetes, CHF, CAD, PAD, atrial fibrillation on Eliquis, hypertension, and hyperlipidemia presenting to the emergency department for evaluation with concern for pain in her left second toe. She states that she has had a wound there and she seen her primary care doctor for it 2 days ago, but they were not concerned. She states that is hurting her so badly that she cannot sleep. Her toe has been throbbing. No known injuries. She states that she has been constantly cold but has had no objective fevers. No chest pain, shortness of breath, abdominal pain, vomiting, or other concerns. Related Data Home Medications ?Medication ?Instructions ?Recorded ?Confirmed acetaminophen 500 mg tablet 500 mg PO BID PRN Pain 06/04/22 11/06/23 multivitamin (Daily Multi-Vitamin 1 tab PO DAILY 07/30/22 11/06/23 tablet) [id number] 100 mcg-lut 1.66 1 tab PO BID 06/27/23 11/06/23 mg-zeaxanth 0.83 mg tablet,delay rel. (Icaps MV) albuterol sulfate 90 mcg/actuation 2 puff inhalation Q4-6H PRN 11/04/23 11/06/23 aerosol inhaler Shortness Of Breath Or Wheezing apixaban 5 mg tablet (Eliquis) 5 mg PO BID 11/04/23 11/06/23 aspirin 81 mg tablet,delayed 81 mg PO DAILY 11/04/23 11/06/23 release dapagliflozin propanediol 10 mg 10 mg PO DAILY 11/04/23 11/06/23 tablet (Farxiga) fluticasone furoate 100 1 inh inhalation DAILY 11/04/23 11/06/23 mcg-vilanterol 25 mcg/dose inhalation powder (Breo Ellipta) irbesartan 75 mg tablet 75 mg PO DAILY 11/04/23 11/06/23 levothyroxine 125 mcg tablet 125 mcg PO DAILY 11/04/23 11/06/23 omeprazole 40 mg capsule,delayed 40 mg PO DAILY 11/04/23 11/06/23 release pravastatin 10 mg tablet 10 mg PO DAILY 11/04/23 11/06/23 torsemide 20 mg tablet 40 mg PO BID 11/04/23 11/06/23 Previous Rx's ?Medication ?Instructions ?Recorded amitriptyline 50 mg tablet 50 mg PO DAILY #90 tabs 01/29/23 metformin 500 mg tablet 500 mg PO BID Diabetes #180 tabs 01/29/23 potassium chloride 20 mEq 20 meq PO DAILY Supplement #90 tabs 01/29/23 tablet,extended release magnesium oxide 400 mg (241.3 mg See Rx Instructions .Route 09/20/23 magnesium) tablet .COMPLEX #90 tabs metoprolol succinate 25 mg 50 mg (2 x 25 mg) PO DAILY #90 tabs 10/24/23 tablet,extended release 24 hr ferrous sulfate 324 mg (65 mg 324 mg PO BID #180 tabs 11/05/23 iron) tablet,delayed release sodium chloride 1,000 mg soluble 1,000 mg PO BID #180 tabs 11/05/23 tablet Allergies Allergy/AdvReac Type Severity Reaction Status Date / Time adenosine [ADENOSINE] Allergy Unknown S-ANAPHYLAX Verified 11/04/23 11:03 IS benzonatate Allergy Unknown Verified 11/04/23 11:03 [From TESANABELA SMITH] morphine [MORPHINE] Allergy Unknown KNOCKS Verified 11/04/23 11:03 OUT Penicillins [PENICILLINS] Allergy Unknown I-RASH Verified 11/04/23 11:03 Sulfa (Sulfonamide Allergy Unknown I-RASH Verified 11/04/23 11:03 Antibiotics) [SULFA (SULFONAMIDE ANTIBIOTICS)] albuterol Allergy Blurry Verified 11/04/23 11:03 [facility] Disclaimer: The information contained in this section may have been updated after the patient was seen, as this information can be updated by other users. Medical History CHF exacerbation Elevated troponin I level Diabetes Hypertension HLD (hyperlipidemia) Afib Atrial fibrillation with rapid ventricular response Volume overload Acute on chronic heart failure with preserved ejection fraction (HFpEF) Candidiasis of vagina Pyelonephritis Dysphonia Candidiasis Migraine History of pacemaker Supraventricular tachycardia PVD (peripheral vascular disease) PAD (peripheral artery disease) Kidney stones Lung disease Pacemaker HTN (hypertension), benign GERD (gastroesophageal reflux disease) Type 2 diabetes mellitus without complications Coronary artery disease CHF (congestive heart failure) Chest wall contusion Hx of fall Closed rib fracture Headache Cough Bronchitis Surgical History History of cholecystectomy History of appendectomy Status post biopsy of kidney History of hysterectomy Hx of CABG History of bilateral carpal tunnel release H/O arthroscopy of shoulder Family History Other Diabetes Hyperlipidemia Hypertension Social History Smoking Status: Never smoker second hand exposure: No alcohol intake: never substance use type: denies use current occupational status: other Travel in the last 8 weeks: None household members: other housing: house lives independently: Yes marital status: education level: high school current occupational exposures/hazards: No caffeine: Yes special seymour needs: No agree to transfusion: No do you feel safe at home: Yes victim of physical abuse: No victim of emotional abuse: No victim of sexual abuse: No would you like helpful sources: No ROS Obtained: Yes All systems reviewed & no additional complaints except as documented Physical Exam General General appearance: alert and in no apparent distress Head Head exam: atraumatic and normocephalic Eye Eye exam: Present normal appearance, PERRL and EOMI ENT ENT exam: Present normal exam, normal oropharynx, mucous membranes moist and normal external ear exam Neck Neck exam: Present normal inspection, full ROM and trachea midline; Absent tenderness Chest Chest inspection: Present normal inspection and symmetric chest wall rise; Absent tenderness Respiratory Respiratory exam: Present normal lung sounds bilaterally; Absent respiratory distress, wheezes, stridor or accessory muscle use Cardiovascular Cardiovascular exam: Present regular rate and normal rhythm Abdominal Exam Abdominal exam: Present soft; Absent distention, tenderness or guarding Extremities Exam Extremities exam: Present full ROM and normal capillary refill; Absent tenderness or edema Expanded Lower Extremity Exam Left: Bottom foot image: 2 1. Dusky lemus blistering to the plantar aspect of the left second toe with erythema, warmth, and tenderness to palpation of the entire toe. No palpable crepitus. Back Exam Back exam: Present normal inspection and full ROM; Absent tenderness Neurological Exam Neurological exam: Present alert, oriented X3 and CN II-XII intact; Absent motor sensory deficit Psychiatric Psychiatric exam: Present normal affect and normal mood Skin Skin exam: Present warm and dry Medical Decision Making Medical Records Medical records reviewed: Yes I reviewed the patient's medical records. Tye Inquiry Pt receiving controlled substance: No Vital Signs: 11/06/23 17:45 11/06/23 18:00 11/06/23 18:31 Temperature 99.6 F Temperature Source Oral Pulse Rate 102 H 128 H Pulse Rate [Left Radial] 106 H Respiratory Rate 19 18 Blood Pressure 153/87 H 157/84 H Blood Pressure [Right Arm] 146/73 H Blood Pressure Mean 109 Blood Pressure Mean [Right Arm] 97 02 Sat by Pulse Oximetry 95 95 94 L Oxygen Delivery Method Room Air 11/06/23 19:01 11/06/23 20:00 11/06/23 20:30 Temperature Temperature Source Pulse Rate 137 H 144 H 140 H Pulse Rate [Left Radial] Respiratory Rate 18 15 Blood Pressure 180/79 H 132/71 109/63 L Blood Pressure [Right Arm] Blood Pressure Mean Blood Pressure Mean [Right Arm] 02 Sat by Pulse Oximetry 94 L 92 L 93 L Oxygen Delivery Method Room Air Room Air 11/06/23 21:00 11/06/23 21:30 11/06/23 22:00 Temperature Temperature Source Pulse Rate 122 H 97 H 99 H Pulse Rate [Left Radial] Respiratory Rate 19 20 16 Blood Pressure 124/63 115/54 L 100/60 L Blood Pressure [Right Arm] Blood Pressure Mean Blood Pressure Mean [Right Arm] 02 Sat by Pulse Oximetry 93 L 90 L 92 L Oxygen Delivery Method Room Air Room Air Room Air Lab Data Lab results reviewed: Yes I reviewed the patient's lab results. Lab Results 11/06/23 19:22: WBC 19.6 H D, RBC 3.94 L, Hgb 11.0 L, Hct 33.8 L, MCV 85.7, MCH 28.0, MCHC 32.6, RDW 16.0, Plt Count 351, MPV 7.9, Neut % (Auto) 92.5 H, Lymph % (Auto) 3.6 L, [place] % (Auto) 2.5, Eos % (Auto) 1.0, Baso % (Auto) 0.2, Neut # (Auto) 18.1 H, Lymph # (Auto) 0.7, [place] # (Auto) 0.5, Eos # (Auto) 0.2, Baso # (Auto) 0.1, Total Counted 100, Neutrophils % (Manual) 92 H, Lymphocytes % (Manual) 6 L, Monocytes % (Manual) 2, Platelet Estimate Normal, RBC Morphology Normal, ESR 21, D-Dimer 0.80 H, Sodium 128 L, Potassium 4.0, Chloride 91 L, Carbon Dioxide 29, Anion Gap 12.0, BUN 22 H D, Creatinine 0.80, Estimated Creat Clear 60, Estimated GFR 68, Est GFR ( Amer) 83, Glucose 130 H, Lactate 2.4 H, Calcium 8.7, Magnesium 1.3 L, Total Bilirubin 0.7, AST 28, ALT 24 D, Alkaline Phosphatase 105, Troponin I < 0.01, C-Reactive Protein 49.6 H, NT-Pro-B Natriuret Pep 1910 H, Total Protein 6.9, Albumin 3.7, Globulin 3.2, Albumin/Globulin Ratio 1.2, TSH 1.08, Thyroxine (T4) 12.2 H 11/06/23 21:27: Troponin I < 0.01 11/06/23 19:22 11/06/23 19:22 Orders (Tests/Meds): ED MEDICATIONS Generic Name Dose Route Start Last Admin Trade Name Freq PRN Reason Stop Dose Admin Acetaminophen 650 mg 11/06/23 22:32 11/06/23 22:42 Acetaminophen 325mg Tab PO 12/06/23 22:31 650 mg Q6HP PRN Administration Fever or Mild Pain (1-3) Albuterol Sulfate 2 puff 11/07/23 00:05 Albuterol-Hfa 90mcg/Puff Inhaler 8gm IH 12/07/23 00:04 Q4-6H PRN Shortness Of Breath Or Wheezing Amitriptyline HCl 50 mg 11/07/23 09:00 Amitriptyline 50mg Tablet PO 12/07/23 08:59 DAILY LAMIN Diltiazem HCl 100 mg/ Sodium 100 mls @ 5 mls/hr 11/06/23 21:00 11/06/23 22:25 Chloride IV 12/06/23 20:59 0 mg/hr .Q20H LAMIN 0 mls/hr Titration Protocol 5 MG/HR Sodium Chloride 1,000 mls @ 50 mls/hr 11/06/23 22:00 11/06/23 22:42 Sod Chlor 0.9% 1000ml Bag IV 12/06/23 21:59 50 mls/hr .Q20H LAMIN Administration Vancomycin HCl 1,000 mg/ 250 mls @ 125 mls/hr 11/08/23 02:00 Sodium Chloride IV 11/18/23 01:59 Q24H LAMIN Insulin Human Lispro 0 unit 11/07/23 06:00 Humalog 100 Units/Ml 10ml Vial (Ssi) SQ 12/07/23 05:59 ACHS LAMIN Protocol Levothyroxine Sodium 125 mcg 11/07/23 09:00 Levothyroxine 125mcg (0.125mg) Tab PO 12/07/23 08:59 DAILY LAMIN Magnesium Oxide 0 mg 11/07/23 00:15 Magnesium Oxide 400mg Tablet PO 12/07/23 00:14 .COMPLEX [facility] Metoprolol Succinate 50 mg 11/07/23 09:00 Metoprolol Succinate Xl 25mg Tablet PO 12/07/23 08:59 DAILY [facility] Miscellaneous 1 each 11/06/23 20:15 11/06/23 21:27 Vancomycin Consult Request NOTAPPLIC 12/06/23 20:14 1 each CONSULT PHARMACY [facility] Administration Miscellaneous 1 each 11/07/23 00:15 Vancomycin Consult Request NOTAPPLIC 12/07/23 00:14 CONSULT PHARMACY [facility] Miscellaneous 1 unit 11/07/23 00:05 Aerochamber/Optihaler 11/07/23 00:06 ONCE ONE Non-Formulary Medication 324 mg 11/07/23 09:00 Ferrous Sulfate PO 12/07/23 08:59 BID LAMIN Non-Formulary Medication 1 tab 11/07/23 09:00 Ysbasiem-Nxf-Bx-Lut-Zeaxanth [Icaps Mv] PO 12/07/23 08:59 BID [facility] Non-Formulary Medication 1 tab 11/07/23 09:00 Multivitamin [Daily Multi-Vitamin] PO 12/07/23 08:59 DAILY LAMIN Non-Formulary Medication 20 meq 11/07/23 09:00 Potassium Chloride PO 12/07/23 08:59 DAILY LAMIN Non-Formulary Medication 1 inh 11/07/23 09:00 Fluticasone Furoate-Vilanterol [Breo Ellipta] IH 12/07/23 08:59 DAILY LAMIN Non-Formulary Medication 10 mg 11/07/23 09:00 Pravastatin PO 12/07/23 08:59 DAILY LAMIN Ondansetron HCl 4 mg 11/06/23 21:47 Ondansetron 4mg/2ml Vial IV 12/06/23 21:46 Q8HP PRN Nausea Pantoprazole Sodium 40 mg 11/07/23 09:00 Pantoprazole 40mg Tablet PO 12/07/23 08:59 DAILY LAMIN Sodium Chloride 10 ml 11/06/23 21:17 11/06/23 21:18 Sodium Chloride 0.9% 10ml Syr (Rad Only) IV 12/06/23 21:16 10 ml NEEDED PRN Administration Maintain IV Site Sodium Chloride 1,000 mg 11/07/23 09:00 Sodium Chloride 1,000mg Tablet PO 12/07/23 08:59 BID LAMIN Discontinued Medications Generic Name Dose Route Start Last Admin Trade Name Freq PRN Reason Stop Dose Admin Acetaminophen 1,000 mg 11/06/23 18:47 11/06/23 19:08 Acetaminophen 500mg Tab PO 11/06/23 18:48 1,000 mg ONCE ONE Administration Diltiazem HCl 10 mg 11/06/23 20:32 11/06/23 20:53 Diltiazem 25mg/5ml Vial IV 11/06/23 20:33 10 mg ONCE ONE Administration Cefepime HCl 2 gm/ Sodium 100 mls @ 200 mls/hr 11/06/23 20:07 11/06/23 20:27 Chloride IV 11/06/23 20:36 200 mls/hr ONCE ONE Administration Vancomycin/PEG/NADA/Lysine/Water 1.75 gm in 350 mls @ 175 mls/hr 11/06/23 20:15 11/06/23 22:42 Vancomycin 1.75gm/350ml (Peg) Premix IV 11/06/23 22:14 175 mls/hr ONCE ONE Administration Lactated Ringer's 1,430 mls @ 715 mls/hr 11/06/23 20:11 11/06/23 20:27 Lactated Ringer's 1000 Ml Bag 30 ml/kg infuse over 2 hr (1430 ml) 11/06/23 22:10 715 mls/hr IV Administration .Q2H ONE Magnesium Sulfate 2 gm in 50 mls @ 50 mls/hr 11/06/23 20:31 11/06/23 21:43 Magnesium Sulfate 2gm/50ml Premix IV 11/06/23 21:30 50 mls/hr ONCE ONE Administration Iopamidol 120 ml 11/06/23 21:17 11/06/23 21:18 Iopamidol-370 (76%);100ml Bottle IV 11/06/23 21:18 120 ml ONCE ONE Administration Ketorolac Tromethamine 15 mg 11/06/23 20:49 11/06/23 21:43 Ketorolac 30mg/Ml Vial IV 11/06/23 20:50 15 mg ONCE ONE Administration Ondansetron HCl 4 mg 11/06/23 18:48 11/06/23 19:09 Ondansetron 4mg Odt SL 11/06/23 18:49 4 mg ONCE ONE Administration Oxycodone HCl 5 mg 11/06/23 18:48 11/06/23 19:09 Oxycodone 5mg Immediate Release Tablet PO 11/06/23 18:49 5 mg ONCE ONE Administration Sodium Chloride 50 ml 11/06/23 21:17 11/06/23 21:18 0.9 % Sodium Chloride 50 Ml Vial IV 11/06/23 21:18 50 ml ONCE ONE Administration ORDERS Category Date Time Status CT foot LT wo/w con Stat Cat Scan 11/06/23 20:36 Completed Cardiology Consult [Consult to Cardiology] [CONS] Cons 11/06/23 21:52 Active Routine Podiatry Consult [Consult to Podiatry] [CONS] Routine Cons 11/06/23 20:32 Active Podiatry Consult [Consult to Podiatry] [CONS] Routine Cons 11/06/23 21:47 Active Foot XR left minimum 3 views [XR foot LT min 3V] Stat Exams 11/06/23 17:54 Completed BNP [NT Pro Brain Natriuretic Pep.] Stat Lab 11/06/23 19:22 Completed CRP [C-Reactive Protein] Stat Lab 11/06/23 19:22 Completed Complete Blood Count Auto Diff AMLAB Lab 11/07/23 06:00 Ordered Complete Blood Count Auto Diff Stat Lab 11/06/23 19:22 Completed Comprehensive Metabolic Panel AMLAB Lab 11/07/23 06:00 Ordered Comprehensive Metabolic Panel Stat Lab 11/06/23 19:22 Completed D-Dimer Stat Lab 11/06/23 19:22 Completed ESR [Erythrocyte Sedimentation Rate] Stat Lab 11/06/23 19:22 Completed Lactic Acid Stat Lab 11/06/23 19:22 Completed MAG [Magnesium] Stat Lab 11/06/23 19:22 Completed Magnesium AMLAB Lab 11/07/23 06:00 Ordered T4 (Thyroxine) Stat Lab 11/06/23 19:22 Completed TSH [Thyroid Stimulating Hormone] Stat Lab 11/06/23 19:22 Completed Trop I [Troponin I] Stat Lab 11/06/23 19:22 Completed Troponin I Q3H Lab 11/06/23 21:27 Completed Troponin I Q3H Lab 11/07/23 00:15 Ordered UA [Urinalysis and Microscopic] Stat Lab 11/06/23 20:42 Ordered Blood Culture Stat Micro 11/06/23 19:22 Received KASHIF [US Arterial Lower Ext Rest] Routine Ultrasound 11/06/23 20:38 Ordered ECG Data Tracing #1: I reviewed this ECG and interpreted as documented below: Atrial fibrillation with rapid ventricular response with a ventricular rate of [address] changes concerning for ischemia. ECG initial impression date: 11/06/23 ECG initial impression time: 18:01 Medical Decision Narrative: In summary, this patient is a 82-year-old female presenting to the Emergency Department for evaluation of left second toe pain, redness, and swelling. Differential diagnoses considered include but are not limited to diabetic foot ulcer, cellulitis, abscess, osteomyelitis, NSTI. Ruling out the most morbid conditions drove assessment. It should be noted patient's history includes type 2 diabetes with neuropathy and atrial fibrillation which are not at goal therapy. This complicates all aspects of care by increasing patient's risk for morbidity. On exam, the patient is lying in bed and is uncomfortable appearing. She is mildly hypertensive and tachycardic, which she states is related to the pain. She does have dusky blistering to the plantar aspect of her left second toe with redness and warmth of the entire toe. No palpable crepitus. Redness and warmth does not streak up her foot/leg. Workup included broad lab evaluation to evaluate for infectious etiology as well as x-rays of the left foot. She was given oral oxycodone, Tylenol, and Zofran for symptomatic improvement of her pain. EKG was obtained which demonstrated A-fib with RVR but no acute ST changes concerning for ischemia. I independently interpreted x-ray prior to the radiologist read and noted no bony destruction and no gas. Please see their read for final interpretation. Labs were obtained that demonstrated leukocytosis, elevated lactic acid, stable chronic anemia, hyponatremia, elevated BNP, hypomagnesemia. IV magnesium replacement was ordered. Given that patient is tachycardic, borderline febrile with notable source of infection being her foot, and has leukocytosis and elevated lactic acid, she screened for sepsis. She was given a sepsis bolus for ideal body weight. She remained in atrial fibrillation with RVR despite treatment of her pain and fluid resuscitation. Given this, she was given diltiazem push and started on a diltiazem drip. This did improve her rate to the low 100s, and her blood pressure remained stable. On reassessment, the patient is lying in bed in no acute distress stating that she is tired and ready to go to sleep. Given her foot infection, I had an indirect discussion with Dr. Estrella who advised that she could come and see the patient in the morning. She recommended obtaining CT scan with and without contrast of the left foot, which was ordered. This did not demonstrate any abscess. She also recommended making the patient n.p.o. at midnight and also obtaining an KASHIF resting arterial duplex of the bilateral lower extremities in the morning. I relayed this information to the hospitalist and placed the orders as well. I had and after discussion with the hospitalist who then admitted the patient for further evaluation and management for sepsis in the setting of left foot infection as well as atrial fibrillation with RVR. She was admitted in stable condition. Critical Care Critical Care Time Critical Care Time: Yes Attestation: On 11/06/23, the high probability of a clinically significant, sudden or life threatening deterioration of the following system(s) required my full and direct attention, intervention and personal management. The time I documented below is in addition to time spent performing reported procedures but includes the following listed in this critical care notation. Total Time Total Critical Care Time: 45
--- NOTE | 2023-11-06 18:50 | PC.NURSE ---
pt's daughter, Kassy Santos called and stated, my mom is there and I don't want her to know I'm calling you and I'm listed on her chart to have access. I had her at the doctor's office yesterday, and her doctor looked at her toe and is aware of how it looks. I'm not sure what happened since yesterday, can you tell me what's going on? The pt is a&ox3 and makes her own medical decisions and I will need to get her permission to update the daughter. I let Mrs Santos know this, she said, Well just ask her if I can get an update and call me back when you know anything . I let Dr. Sheth know I s/w pt's daughter and pt in regards to allowing information. Pt allows to given Mrs Jerome updated, but not Denice.
[2023-11-06] MEDS: ACETAMINOPHEN 500MG TAB 1000 MG PO (19:08)
[2023-11-06] MEDS: ONDANSETRON 4MG ODT 4 MG SL (19:09)
[2023-11-06] MEDS: OXYCODONE 5MG IMMEDIATE RELEASE TABLET 5 MG PO (19:09)
[2023-11-06 19:38] LABS: Basophils # 0.1 K/mm3 (0-0.2); Basophils % 0.2 % (0.1-2.0); Eosinophils # 0.2 K/mm3 (0.0-0.4); Hematocrit 33.8 % (37.0-47.0); Lymphocytes # 0.7 K/mm3 (0.7-4.5); Lymphocytes % 3.6 % (10-50); Mean Corpuscular HGB Conc 32.6 g/dL (31.8-35.4); Mean Corpuscular Volume 85.7 fl (81-99); Mean Platelet Volume 7.9 fl (7.4-10.4); Monocytes # 0.5 K/mm3 (0.1-1.0); Monocytes % 2.5 % (1.7-9.3); Neutrophils # 18.1 K/mm3 (1.8-7.8); Neutrophils % 92.5 % (37.0-80.0); Platelet Count 351 K/mm3 (142-424); Red Blood Count 3.94 M/mm3 (4.20-5.40); White Blood Count 19.6 K/mm3 (4.8-10.8)
[2023-11-06 19:41] LABS: MANUAL DIFFERENTIAL MANUAL DIFFERENTIAL (MANUAL DIFF)
[2023-11-06 20:00] LABS: Alanine Aminotransferase 24 U/L (12-78); Albumin Level 3.7 g/dl (3.5-5.0); Albumin/Globulin Ratio 1.2 (1.1-1.8); Alkaline Phosphatase 105 U/L (38-126); Aspartate Amino Transferase 28 U/L (14-36); Bilirubin,Total 0.7 mg/dl (0.2-1.3); Blood Urea Nitrogen 22 mg/dl (7-17); Calcium 8.7 mg/dl (8.4-10.2); Carbon Dioxide 29 mmol/L (22.0-30.0); Chloride 91 mmol/L (98-107); Creatinine Clearance Estimated 60 mL/min (50-200); Estimated Glomerular Filt Rate 68 ml/min (>60); GFR (African American) 83 ML/MIN (>60); Globulin 3.2 g/dL (1.3-3.2); Glucose 130 mg/dl (74-100); Sodium 128 mmol/L (136-145); Total Protein,Serum 6.9 g/dl (6.3-8.2)
[2023-11-06 20:01] LABS: Magnesium 1.3 mg/dl (1.6-2.3)
[2023-11-06 20:05] LABS: C-Reactive Protein 49.6 mg/L (0-4)
[2023-11-06 20:07] LABS: Lymphocytes % 6 % (10-50); Monocytes % 2 % (2-9); Neutrophils % 92 % (42-76); Total Cells Counted 100
[2023-11-06 20:08] LABS: Lactic Acid 2.4 mmol/L (0.7-2.1); Platelet Estimate Normal; RBC Morphology Normal
--- NOTE | 2023-11-06 20:11 | PC.NURSE ---
Pt daughter had called asking for an update. Pt states tell her whatever you want I don't care . I was able to call Kassy Tom back and s/w her directly. She will be here shortly.
[2023-11-06 20:12] LABS: NT Pro Brain Natriuretic Pep. 1910 pg/mL (0-450)
[2023-11-06 20:15] LABS: Erythrocyte Sedimentation Rate 21 mm/hr (0-30)
--- NOTE | 2023-11-06 20:15 | PC.NURSE ---
I updated pt's daughter, Kassy Santos, I attempted to answer any questions. She reports she is on her way and will be here shortly.
--- NOTE | 2023-11-06 20:17 | PC.NURSE ---
rounded on pt at this time. pt placed on monitor tech. pt voices no needs at this time.
[2023-11-06 20:18] LABS: Troponin I < 0.01 ng/ml (0.00-0.034)
[2023-11-06 20:19] LABS: T4 (Thyroxine) 12.2 ug/dl (5.53-11.0)
[2023-11-06] MEDS: CEFEPIME HCL 2 GM in 0.9 % SODIUM CHLORIDE 100 ML IV (20:27)
[2023-11-06] MEDS: LACTATED RINGERS 1000ML 1,430 ML 715 ML IV (20:27)
[2023-11-06 20:33] LABS: Thyroid Stimulating Hormone 1.08 uIU/mL (0.465-4.68)
--- NOTE | 2023-11-06 20:36 | CT_ITS ---
PROCEDURE INFORMATION: Exam: CT Left Lower Extremity Without and With Contrast, Foot Exam date and time: 11/06/2023 9:15 PM Age: 82 years old Clinical indication: Pain; Toes; Left; Additional info: 2nd toe abscess/infection TECHNIQUE: Imaging protocol: CT of the left lower extremity without and with intravenous contrast was performed. Exam focused on the foot. Radiation optimization: All CT scans at this facility use at least one of these dose optimization techniques: automated exposure control; mA and/or kV adjustment per patient size (includes targeted exams where dose is matched to clinical indication); or iterative reconstruction. Contrast material: ISOVUE; Contrast volume: 120 ml; Contrast route: IV; COMPARISON: CR XR FOOT LT MIN 3V 11/06/2023 5:57 PM FINDINGS: Bones/joints: No acute fracture or malalignment. Chronic posttraumatic changes of the lateral malleolus. Degenerative changes. Calcaneal enthesopathy. No cortical destruction. No periosteal reaction. Soft tissues: Distal 2nd toe soft tissue swelling and skin thickening. No soft tissue rim enhancing fluid collection or gas. Diffuse soft tissue swelling. IMPRESSION: Distal 2nd toe soft tissue swelling and skin thickening suggestive of cellulitis changes. No identifiable soft tissue abscess. No radiographic findings of acute osteomyelitis.
--- NOTE | 2023-11-06 20:47 | PC.NURSE ---
20g IV to LAC was kinked and would not flush. tried to reposition and IV went bad, not flushing. new 20G IV placed to L wrist and 20G IV placed to RAC.
[2023-11-06] MEDS: dilTIAZem HCL 100 MG in 0.9 % SODIUM CHLORIDE 100 ML IV (20:53)
[2023-11-06] MEDS: dilTIAZem 25MG/5ML VIAL 10 MG IV (20:53)
--- NOTE | 2023-11-06 21:06 | PC.NURSE ---
pt's daughter at bedside
--- NOTE | 2023-11-06 21:07 | PC.NURSE ---
Diltiazem gtt began at 2100. Pt to ct scan with Cassidy Dixon RN and radio television announcer
[2023-11-06] MEDS: 0.9 % SODIUM CHLORIDE 50 ML VIAL IV (21:18)
[2023-11-06] MEDS: SODIUM CHLORIDE 0.9% 10ML SYR (RAD ONLY) 10 ML IV (21:18)
[2023-11-06] MEDS: IOPAMIDOL-370 (76%);100ML BOTTLE 120 ML IV (21:18)
--- NOTE | 2023-11-06 21:18 | PC.NURSE ---
Dr. Sheth s/w pt's daughter at bedside
--- NOTE | 2023-11-06 21:25 | PC.NURSE ---
Pt transported to CT by this RN. pt monitored and on geophysical computer t/o duration of CT scan/ pt tolerated well.
[2023-11-06] MEDS: VANCOMYCIN CONSULT REQUEST 1 EACH NOTAPPLIC (21:27)
[2023-11-06] MEDS: KETOROLAC 30MG/ML VIAL 15 MG IV (21:43)
[2023-11-06] MEDS: MAGNESIUM SULFATE IN WATER 2 GM/50 ML PIGGYBACK IV (21:43)
--- NOTE | 2023-11-06 21:53 | P.HP_ITS ---
History of Present Illness *Admission Date: 11/06/23 *Reason for visit:: pain on her left second toe *History of present illness: This is a 82-year-old female with a PMHx of type 2 diabetes with extensives comorbities, CHF, CAD, PAD, atrial fibrillation on Eliquis, hypertension, and hyperlipidemia presenting to the emergency department for evaluation with concern for pain in her left second toe. She states that she has had a wound there and she seen her primary care doctor for it 2 days ago, but they were not concerned. She states that is hurting her so badly that she cannot sleep. Her toe has been throbbing. No known injuries. She states that she has been constantly cold but has had no objective fevers. No chest pain, shortness of breath, abdominal pain, vomiting, or other concerns. ADmitted for further treatment and management. [facility] Disclaimer: The information contained in this section may have been updated after the patient was seen, as this information can be updated by other users. Medical History (Updated 11/07/23 @ 09:29 by Blanche Espinal APRN) CHF exacerbation Elevated troponin I level Diabetes Hypertension HLD (hyperlipidemia) Afib Atrial fibrillation with rapid ventricular response Volume overload Acute on chronic heart failure with preserved ejection fraction (HFpEF) Candidiasis of vagina Pyelonephritis Dysphonia Candidiasis Migraine History of pacemaker Supraventricular tachycardia PVD (peripheral vascular disease) PAD (peripheral artery disease) Kidney stones Lung disease Pacemaker HTN (hypertension), benign GERD (gastroesophageal reflux disease) Type 2 diabetes mellitus without complications Coronary artery disease CHF (congestive heart failure) Chest wall contusion Hx of fall Closed rib fracture Headache Cough Bronchitis Surgical History History of cholecystectomy History of appendectomy Status post biopsy of kidney History of hysterectomy Hx of CABG History of bilateral carpal tunnel release H/O arthroscopy of shoulder Family History Other Diabetes Hyperlipidemia Hypertension Social History Smoking Status: Never smoker second hand exposure: No alcohol intake: never substance use type: denies use current occupational status: other Travel in the last 8 weeks: None household members: other housing: house lives independently: Yes marital status: education level: high school current occupational exposures/hazards: No caffeine: Yes special seymour needs: No agree to transfusion: No do you feel safe at home: Yes victim of physical abuse: No victim of emotional abuse: No victim of sexual abuse: No would you like helpful sources: No Review of Systems Review of Systems Review of systems:: pertinent systems reviewed and negative unless documented below Meds Home Medications and Allergies Home Medications ?Medication ?Instructions ?Recorded ?Confirmed ?Type acetaminophen 500 mg tablet 500 mg PO BID PRN Pain 06/04/22 11/06/23 History multivitamin (Daily Multi-Vitamin 1 tab PO DAILY 07/30/22 11/06/23 History tablet) metformin 500 mg tablet 500 mg PO BID Diabetes #180 tabs 01/29/23 11/06/23 Rx potassium chloride 20 mEq 20 meq PO DAILY Supplement #90 tabs 01/29/23 11/06/23 Rx tablet,extended release lrcihebz-cro-FU 100 mcg-lut 1.66 1 tab PO BID 06/27/23 11/06/23 History mg-zeaxanth 0.83 mg tablet,delay rel. (Icaps MV) albuterol sulfate 90 mcg/actuation 2 puff inhalation Q4-6H PRN 11/04/23 11/06/23 History aerosol inhaler Shortness Of Breath Or Wheezing apixaban 5 mg tablet (Eliquis) 5 mg PO BID 11/04/23 11/06/23 History aspirin 81 mg tablet,delayed 81 mg PO DAILY 11/04/23 11/06/23 History release dapagliflozin propanediol 10 mg 10 mg PO DAILY 11/04/23 11/06/23 History tablet (Farxiga) fluticasone furoate 100 1 inh inhalation DAILY 11/04/23 11/06/23 History mcg-vilanterol 25 mcg/dose inhalation powder (Breo Ellipta) irbesartan 75 mg tablet 75 mg PO DAILY 11/04/23 11/07/23 History levothyroxine 125 mcg tablet 125 mcg PO DAILY 11/04/23 11/06/23 History omeprazole 40 mg capsule,delayed 40 mg PO DAILY 11/04/23 11/06/23 History release pravastatin 10 mg tablet 10 mg PO HS 11/04/23 11/07/23 History torsemide 20 mg tablet 40 mg PO BID 11/04/23 11/06/23 History ferrous sulfate 324 mg (65 mg 324 mg PO BID #180 tabs 11/05/23 11/06/23 Rx iron) tablet,delayed release sodium chloride 1,000 mg soluble 1,000 mg PO BID #180 tabs 11/05/23 11/06/23 Rx tablet amitriptyline 50 mg tablet 50 mg PO HS 11/07/23 11/07/23 History magnesium oxide 400 mg (241.3 mg 400 mg PO DAILY 11/07/23 11/07/23 History magnesium) tablet metoprolol succinate 50 mg 50 mg PO DAILY 11/07/23 11/07/23 History tablet,extended release 24 hr New Prescriptions to Start Prescriptions: Allergies Allergy/AdvReac Type Severity Reaction Status Date / Time adenosine [ADENOSINE] Allergy Unknown S-ANAPHYLAX Verified 11/04/23 11:03 IS benzonatate Allergy Unknown Verified 11/04/23 11:03 [From TESANABELA SMITH] morphine [MORPHINE] Allergy Unknown KNOCKS Verified 11/04/23 11:03 OUT Penicillins [PENICILLINS] Allergy Unknown I-RASH Verified 11/04/23 11:03 Sulfa (Sulfonamide Allergy Unknown I-RASH Verified 11/04/23 11:03 Antibiotics) [SULFA (SULFONAMIDE ANTIBIOTICS)] albuterol Allergy Blurry Verified 11/04/23 11:03 Vision Exam Data for Last 24 hours Vital signs and Labs for Last 24 Hours: Temp Pulse Resp BP Pulse Ox O2 Del Method 99.6 F 137 H 18 180/79 H 94 L Room Air 11/06/23 17:45 11/06/23 19:01 11/06/23 18:00 11/06/23 19:01 11/06/23 19:01 11/06/23 17:45 Laboratory Results - last 24 hr 11/06/23 19:22: WBC 19.6 H D, RBC 3.94 L, Hgb 11.0 L, Hct 33.8 L, MCV 85.7, MCH 28.0, MCHC 32.6, RDW 16.0, Plt Count 351, MPV 7.9, Neut % (Auto) 92.5 H, Lymph % (Auto) 3.6 L, Coos % (Auto) 2.5, Eos % (Auto) 1.0, Baso % (Auto) 0.2, Neut # (Auto) 18.1 H, Lymph # (Auto) 0.7, Coos # (Auto) 0.5, Eos # (Auto) 0.2, Baso # (Auto) 0.1, Total Counted 100, Neutrophils % (Manual) 92 H, Lymphocytes % (Manual) 6 L, Monocytes % (Manual) 2, Platelet Estimate Normal, RBC Morphology Normal, ESR 21, D-Dimer 0.80 H, Sodium 128 L, Potassium 4.0, Chloride 91 L, Carbon Dioxide 29, Anion Gap 12.0, BUN 22 H D, Creatinine 0.80, Estimated Creat Clear 60, Estimated GFR 68, Est GFR ( Amer) 83, Glucose 130 H, Lactate 2.4 H, Calcium 8.7, Magnesium 1.3 L, Total Bilirubin 0.7, AST 28, ALT 24 D, Alkaline Phosphatase 105, Troponin I < 0.01, C-Reactive Protein 49.6 H, NT-Pro-B Natriuret Pep 1910 H, Total Protein 6.9, Albumin 3.7, Globulin 3.2, Albumin/Globulin Ratio 1.2, TSH 1.08, Thyroxine (T4) 12.2 H I & O for Last 24 hours: Intake & Output 11/03/23 11/04/23 11/05/23 11/06/23 23:59 23:59 23:59 23:59 Weight 90.718 kg Constitutional Constitutional: no acute distress, morbidly obese, chronically ill appearing and cooperative *Routine HEENT Exam Head: Present normocephalic Eye: Present EOMI and PERRL ENT: Present mucous membranes moist *Routine Neck Exam Neck: Present supple; Absent lymphadenopathy *Routine Respiratory Exam Respiratory: Present crackles (Minimal, bases); Absent rhonchi or wheezes *Routine Cardiovascular Exam Cardiovascular: Present tachycardia and irregularly irregular *Routine Abdominal Exam Abdominal: Present soft and normoactive bowel sounds; Absent tenderness *Routine Rectal Exam Rectal:: deferred *Routine Genitalia Exam Genitalia:: deferred *Routine Extremities Exam Extremities: Present edema (3+ to knees, stasis dermatitis of legs, no warmth); Absent cyanosis or clubbing *Routine Skin Exam Skin: Present intact and warm; Absent rash Comments: Stasis dermatitis *Routine Neurological Exam Neurological: Present alert, oriented X3 and moving all extremities; Absent altered mental status Routine Psychiatric Exam Psychiatric: Present normal affect Detailed Lower Extremity Exam Bottom foot image: 2 1. 1. Dusky lemus blistering to the plantar aspect of the left second toe with erythema, warmth, and tenderness to palpation of the entire toe. No palpable crepitus H&P: Result Imaging and Cardiology EKG: Status: image reviewed by me, Preliminary report and final report CT scan FOOT: Status: image reviewed by me, Preliminary report and final report Assessment and Plan *Assessment and plan (1) Sepsis: Status: Acute Qualifiers: Sepsis acute organ dysfunction status: without acute organ dysfunction Sepsis type: sepsis due to unspecified organism Qualified Code(s): A41.9 - Sepsis, unspecified organism Category: Medical Code(s): A41.9 - Sepsis, unspecified organism (2) Atrial fibrillation with RVR: Status: Acute Category: Medical Code(s): I48.91 - Unspecified atrial fibrillation (3) Diabetic ulcer of toe of left foot: Status: Acute Qualifiers: Diabetes mellitus type: type 2 Non-pressure ulcer stage: with fat layer exposed Qualified Code(s): E11.621 - Type 2 diabetes mellitus with foot ulcer; L97.522 - Non-pressure chronic ulcer of other part of left foot with fat layer exposed Category: Medical Code(s): E11.621 - Type 2 diabetes mellitus with foot ulcer; L97.529 - Non-pressure chronic ulcer of other part of left foot with unspecified severity (4) Hyponatremia: Status: Acute Category: Medical Code(s): E87.1 - Hypo-osmolality and hyponatremia (5) Hypomagnesemia: Status: Acute Category: Medical Code(s): E83.42 - Hypomagnesemia (6) Hypertension: Status: Acute Qualifiers: Hypertension type: unspecified Qualified Code(s): I10 - Essential (primary) hypertension Category: Medical Code(s): I10 - Essential (primary) hypertension (7) HLD (hyperlipidemia): Status: Acute Qualifiers: Hyperlipidemia type: mixed hyperlipidemia Qualified Code(s): E78.2 - Mixed hyperlipidemia Category: Medical Code(s): E78.5 - Hyperlipidemia, unspecified (8) Diabetes: Status: Acute Qualifiers: Diabetes mellitus complication detail: with polyneuropathy Diabetes mellitus complication status: with neurologic complications Diabetes mellitus terminal gauger supervisor insulin use: without terminal gauger supervisor use Diabetes mellitus type: type 2 Q ualified Code(s): E11.42 - Type 2 diabetes mellitus with diabetic polyneuropathy Category: Medical Code(s): E11.9 - Type 2 diabetes mellitus without complications (9) CHF (congestive heart failure): Problem Comment: Dr. Martinez Status: Acute Qualifiers: Heart failure chronicity: chronic Heart failure type: unspecified Q ualified Code(s): I50.9 - Heart failure, unspecified Category: Medical Code(s): I50.9 - Heart failure, unspecified (10) GERD (gastroesophageal reflux disease): Status: Acute Qualifiers: Esophagitis presence: esophagitis presence not specified Qualified Code(s): K21.9 - Gastro-esophageal reflux disease without esophagitis Category: Medical Code(s): K21.9 - Gastro-esophageal reflux disease without esophagitis Plan 82-year-old female with a PMHx of type 2 diabetes with extensives comorbities, CHF, CAD, PAD, atrial fibrillation on Eliquis, hypertension, and hyperlipidemia presenting to the emergency department for evaluation with concern for pain in her left second toe. on arrival patient presented tachycardic, hypertensive. c/o pain on her toe. Labs were obtained that demonstrated leukocytosis, elevated lactic acid, stable chronic anemia, hyponatremia, elevated BNP, hypomagnesemia. IV magnesium replacement was ordered. Given that patient is tachycardic, borderline febrile with notable source of infection being her foot, and has leukocytosis and elevated lactic acid, she screened for sepsis. She was given a sepsis bolus for ideal body weight. She remained in atrial fibrillation with RVR despite treatment of her pain and fluid resuscitation. Given this, she was given diltiazem push and started on a diltiazem drip. ED requested admission for inpatient management. findings were discussed at length. plan as follow: -Sepsis without septic shock: Atrial fibrillation with RVR. Heart rate drastically improved after bolus Diabetic ulcer of the left second toe Electrolyte imbalance. Hyponatremia hypomagnesemia Admit patient for inpatient management dispo stepdown Continuous Cardizem drip weaning off Cardiology consult podiatry consult Obtain KASHIF in the morning Started on broad antibiotic. Vancomycin pharmacy to dose Monitor for sepsis and organ dysfunction Pain management Replace electrolyte per protocol Continuous cardiac telemetry Repeat labs in the morning Hold Eliquis for possible podiatric intervention CT of the foot reviewed no signs of osteomyelitis -Hypertension hyperlipidemia diabetes Resume home regimen Hold hypertensive medication if blood pressure becomes labile in the setting of sepsis -CHF on torsemide Protonix for GERD and GI bleed protection Full code Rounded on patient after nurse practitioner. Personally examined and interviewed patient. Agree with exam findings and care plan as documented.
--- NOTE | 2023-11-06 21:53 | PC.NURSE ---
spoked with electrician apprentice powerhouse about pt being admitted and needing bed assignment
--- NOTE | 2023-11-06 22:08 | PC.NURSE ---
Rohit Zaman RN at bedside for report and to transfer pt to 2nd floor
--- NOTE | 2023-11-06 22:12 | PC.NURSE ---
Patient arrived to floor via stretcher from ED at 22:09.
[2023-11-06 22:19] LABS: Troponin I < 0.01 ng/ml (0.00-0.034)
[2023-11-06] MEDS: 0.9 % SODIUM CHLORIDE 1000ML 1,000 ML 50 ML IV (22:42)
[2023-11-06] MEDS: ACETAMINOPHEN 325MG TAB 650 MG PO (22:42)
[2023-11-06] MEDS: VANCOMYCIN/WATER FOR INJ (PEG) 1.75 GM/350 ML PIGGYBACK IV (22:42)
--- NOTE | 2023-11-06 23:14 | PC.NURSE ---
Admit Note: This patient is an 82-year-old female with a history of type 2 diabetes, CHF, CAD, PAD, atrial fibrillation treated with Eliquis, hypertension, and hyperlipidemia. She visited the emergency department due to pain in her left second toe. She mentioned having a wound on her toe that was previously evaluated by her PCP on Saturday. She is admitted with Sepsis, diabetic foot infection, and afib with rvr. Patient was brought to 2nd floor by documenting RN with 400mL NS bolus, 2g Magnesium, and 5mg/hr Diltiazem. Bolus and Mag completed. Diltiazem was paused for time being since rate is controlled at <100. Patient has 20g to her left wrist and rac. Her left diabetic foot ulcer is erythemic, but does not appear to have drainage at this time. DP Pulses are palpable bilaterally with pain noted on palpation to the left foot. Patient is resting in bed at this time. Stepdown care continued.
--- NOTE | 2023-11-06 23:24 | PC.NURSE ---
Hospitalist KENNEL WORKER at bedside seeing patient
[2023-11-06 23:29] LABS: Reflex Lactic Add Lactic Reflex
[2023-11-07] VITALS (11 sets, daily range): BP systolic 93–139; BP diastolic 47–77; PULSE 64–90; RESP 14–20; TEMP 36.4–37.2; O2SAT 91–100; BMI 39.4
[2023-11-07 00:13] LABS: Lactic Acid Follow Up (RFLX 1) 2.4 mmol/L (0.7-2.1)
[2023-11-07 01:07] LABS: Troponin I 0.04 ng/ml (0.00-0.034)
[2023-11-07 01:37] LABS: Reflex Lactic (2 hrs) Add Lactic Reflex
[2023-11-07 02:04] LABS: Lactic Acid Follow up (RFLX 2) 1.5 mmol/L (0.7-2.1)
--- NOTE | 2023-11-07 05:48 | PC.NURSE ---
Shift summary: The patient has been resting well since admission. She is rate controlled without Diltiazem gtt, but is still in Afib, with VSS otherwise. A Purewick catheter is in place; however, the patient has not urinated since admission. She reports having urinated before being admitted from the ER and just doesn't feel like she has to go. A bladder scan shows <100mL in the bladder. The patient is currently sleeping, and there are no acute changes in her condition.
[2023-11-07 05:52] LABS: POC Glucose,Bedside 129 (70-110)
--- NOTE | 2023-11-07 06:56 | EXP.POD.CONS ---
Documented by User: Brittney Lizarraga, CDL A DRIVER 11/07/23 07:11 History of Present Illness *Admission Date: 11/06/23 *History of present illness: This is a 82-year-old female with a PMHx of type 2 diabetes with extensives comorbities, CHF, CAD, PAD, atrial fibrillation on Eliquis, hypertension, and hyperlipidemia presenting to the emergency department for evaluation with concern for pain in her left second toe. She states that she has had a wound there and she seen her primary care doctor for it 2 days ago, but they were not concerned. She states that is hurting her so badly that she cannot sleep. Her toe has been throbbing. No known injuries. She states that she has been constantly cold but has had no objective fevers. No chest pain, shortness of breath, abdominal pain, vomiting, or other concerns. ADmitted for further treatment and management. [facility] Disclaimer: The information contained in this section may have been updated after the patient was seen, as this information can be updated by other users. Medical History (Updated 11/07/23 @ 09:05 by Milagro Estrella DPM) CHF exacerbation Elevated troponin I level Diabetes Hypertension HLD (hyperlipidemia) Afib Atrial fibrillation with rapid ventricular response Volume overload Acute on chronic heart failure with preserved ejection fraction (HFpEF) Candidiasis of vagina Pyelonephritis Dysphonia Candidiasis Migraine History of pacemaker Supraventricular tachycardia PVD (peripheral vascular disease) PAD (peripheral artery disease) Kidney stones Lung disease Pacemaker HTN (hypertension), benign GERD (gastroesophageal reflux disease) Type 2 diabetes mellitus without complications Coronary artery disease CHF (congestive heart failure) Chest wall contusion Hx of fall Closed rib fracture Headache Cough Bronchitis Surgical History History of cholecystectomy History of appendectomy Status post biopsy of kidney History of hysterectomy Hx of CABG History of bilateral carpal tunnel release H/O arthroscopy of shoulder Family History Other Diabetes Hyperlipidemia Hypertension Social History Smoking Status: Never smoker second hand exposure: No alcohol intake: never substance use type: denies use current occupational status: other Travel in the last 8 weeks: None household members: other housing: house lives independently: Yes marital status: education level: high school current occupational exposures/hazards: No caffeine: Yes special seymour needs: No agree to transfusion: No do you feel safe at home: Yes victim of physical abuse: No victim of emotional abuse: No victim of sexual abuse: No would you like helpful sources: No Meds Home Medications and Allergies Home Medications ?Medication ?Instructions ?Recorded ?Confirmed ?Type acetaminophen 500 mg tablet 500 mg PO BID PRN Pain 06/04/22 11/06/23 History multivitamin (Daily Multi-Vitamin 1 tab PO DAILY 07/30/22 11/06/23 History tablet) amitriptyline 50 mg tablet 50 mg PO DAILY #90 tabs 01/29/23 11/06/23 Rx metformin 500 mg tablet 500 mg PO BID Diabetes #180 tabs 01/29/23 11/06/23 Rx potassium chloride 20 mEq 20 meq PO DAILY Supplement #90 tabs 01/29/23 11/06/23 Rx tablet,extended release [id number] 100 mcg-lut 1.66 1 tab PO BID 06/27/23 11/06/23 History mg-zeaxanth 0.83 mg tablet,delay rel. (Icaps MV) magnesium oxide 400 mg (241.3 mg See Rx Instructions .Route 09/20/23 11/06/23 Rx magnesium) tablet .COMPLEX #90 tabs metoprolol succinate 25 mg 50 mg (2 x 25 mg) PO DAILY #90 tabs 10/24/23 11/06/23 Rx tablet,extended release 24 hr albuterol sulfate 90 mcg/actuation 2 puff inhalation Q4-6H PRN 11/04/23 11/06/23 History aerosol inhaler Shortness Of Breath Or Wheezing apixaban 5 mg tablet (Eliquis) 5 mg PO BID 11/04/23 11/06/23 History aspirin 81 mg tablet,delayed 81 mg PO DAILY 11/04/23 11/06/23 History release dapagliflozin propanediol 10 mg 10 mg PO DAILY 11/04/23 11/06/23 History tablet (Farxiga) fluticasone furoate 100 1 inh inhalation DAILY 11/04/23 11/06/23 History mcg-vilanterol 25 mcg/dose inhalation powder (Breo Ellipta) irbesartan 75 mg tablet 75 mg PO DAILY 11/04/23 11/06/23 History levothyroxine 125 mcg tablet 125 mcg PO DAILY 11/04/23 11/06/23 History omeprazole 40 mg capsule,delayed 40 mg PO DAILY 11/04/23 11/06/23 History release pravastatin 10 mg tablet 10 mg PO DAILY 11/04/23 11/06/23 History torsemide 20 mg tablet 40 mg PO BID 11/04/23 11/06/23 History ferrous sulfate 324 mg (65 mg 324 mg PO BID #180 tabs 11/05/23 11/06/23 Rx iron) tablet,delayed release sodium chloride 1,000 mg soluble 1,000 mg PO BID #180 tabs 11/05/23 11/06/23 Rx tablet New Prescriptions to Start Prescriptions: Allergies Allergy/AdvReac Type Severity Reaction Status Date / Time adenosine [ADENOSINE] Allergy Unknown S-ANAPHYLAX Verified 11/04/23 11:03 IS benzonatate Allergy Unknown Verified 11/04/23 11:03 [From TESSALON SARAH] morphine [MORPHINE] Allergy Unknown KNOCKS Verified 11/04/23 11:03 OUT Penicillins [PENICILLINS] Allergy Unknown I-RASH Verified 11/04/23 11:03 Sulfa (Sulfonamide Allergy Unknown I-RASH Verified 11/04/23 11:03 Antibiotics) [SULFA (SULFONAMIDE ANTIBIOTICS)] albuterol Allergy Blurry Verified 11/04/23 11:03 Vision Exam (Inpt) Vital signs and Labs for Last 24 Hours: Temp Pulse Resp BP Pulse Ox O2 Del Method 97.5 F L 68 14 119/57 L 100 Room Air 11/07/23 04:00 11/07/23 06:00 11/07/23 06:00 11/07/23 06:00 11/07/23 06:00 11/07/23 06:00 Laboratory Results - last 24 hr 11/06/23 19:22: WBC 19.6 H D, RBC 3.94 L, Hgb 11.0 L, Hct 33.8 L, MCV 85.7, MCH 28.0, MCHC 32.6, RDW 16.0, Plt Count 351, MPV 7.9, Neut % (Auto) 92.5 H, Lymph % (Auto) 3.6 L, [place] % (Auto) 2.5, Eos % (Auto) 1.0, Baso % (Auto) 0.2, Neut # (Auto) 18.1 H, Lymph # (Auto) 0.7, [place] # (Auto) 0.5, Eos # (Auto) 0.2, Baso # (Auto) 0.1, Total Counted 100, Neutrophils % (Manual) 92 H, Lymphocytes % (Manual) 6 L, Monocytes % (Manual) 2, Platelet Estimate Normal, RBC Morphology Normal, ESR 21, D-Dimer 0.80 H, Sodium 128 L, Potassium 4.0, Chloride 91 L, Carbon Dioxide 29, Anion Gap 12.0, BUN 22 H D, Creatinine 0.80, Estimated Creat Clear 60, Estimated GFR 68, Est GFR ( Amer) 83, Glucose 130 H, Lactate 2.4 H, Calcium 8.7, Magnesium 1.3 L, Total Bilirubin 0.7, AST 28, ALT 24 D, Alkaline Phosphatase 105, Troponin I < 0.01, C-Reactive Protein 49.6 H, NT-Pro-B Natriuret Pep 1910 H, Total Protein 6.9, Albumin 3.7, Globulin 3.2, Albumin/Globulin Ratio 1.2, TSH 1.08, Thyroxine (T4) 12.2 H 11/06/23 21:27: Troponin I < 0.01 11/06/23 23:42: Lactate 2.4 H 11/07/23 00:20: Troponin I 0.04 H 11/07/23 01:50: Lactate 1.5 11/07/23 05:44: POC Glucose 129 H I & O for Labs for Last 24 Hours: Intake & Output 11/04/23 11/05/23 11/06/23 11/07/23 23:59 23:59 23:59 23:59 Intake Total 7.667 / 7.667 2197 Output Total 0 / 0 Balance 7.667 / 7.667 2197 Weight 203 lb 1.6 oz 209 lb 3.2 oz Results Labs 11/07/23 05:31 11/07/23 05:31 Labs: Abnormal lab results 11/06/23 11/06/23 11/07/23 Range/Units 19:22 23:42 00:20 WBC 19.6 H D (4.8-10.8) K/mm3 RBC 3.94 L (4.20-5.40) M/mm3 Hgb 11.0 L (12.2-16.2) g/dL Hct 33.8 L (37.0-47.0) % Neut % (Auto) 92.5 H (37.0-80.0) % Lymph % (Auto) 3.6 L (10-50) % Neut # (Auto) 18.1 H (1.8-7.8) K/mm3 Neutrophils % (Manual) 92 H (42-76) % Lymphocytes % (Manual) 6 L (10-50) % D-Dimer 0.80 H (0.0-0.5) ug/mL Sodium 128 L (136-145) mmol/L Chloride 91 L (98-107) mmol/L BUN 22 H D (7-17) mg/dl Glucose 130 H (74-100) mg/dl POC Glucose (70-110) Lactate 2.4 H 2.4 H (0.7-2.1) mmol/L Magnesium 1.3 L (1.6-2.3) mg/dl Troponin I 0.04 H (0.00-0.034) ng/ml C-Reactive Protein 49.6 H (0-4) mg/L NT-Pro-B Natriuret Pep 1910 H (0-450) pg/mL Thyroxine (T4) 12.2 H (5.53-11.0) ug/dl 11/07/23 Range/Units 05:44 WBC (4.8-10.8) K/mm3 RBC (4.20-5.40) M/mm3 Hgb (12.2-16.2) g/dL Hct (37.0-47.0) % Neut % (Auto) (37.0-80.0) % Lymph % (Auto) (10-50) % Neut # (Auto) (1.8-7.8) K/mm3 Neutrophils % (Manual) (42-76) % Lymphocytes % (Manual) (10-50) % D-Dimer (0.0-0.5) ug/mL Sodium (136-145) mmol/L Chloride (98-107) mmol/L BUN (7-17) mg/dl Glucose (74-100) mg/dl POC Glucose 129 H (70-110) Lactate (0.7-2.1) mmol/L Magnesium (1.6-2.3) mg/dl Troponin I (0.00-0.034) ng/ml C-Reactive Protein (0-4) mg/L NT-Pro-B Natriuret Pep (0-450) pg/mL Thyroxine (T4) (5.53-11.0) ug/dl H & H 11/06/23 Range/Units 19:22 Hgb 11.0 L (12.2-16.2) g/dL Hct 33.8 L (37.0-47.0) % All other labs normal. Assessment and Plan *Assessment and plan (1) Sepsis: Status: Acute Qualifiers: Sepsis acute organ dysfunction status: without acute organ dysfunction Sepsis type: sepsis due to unspecified organism Qualified Code(s): A41.9 - Sepsis, unspecified organism Category: Medical Code(s): A41.9 - Sepsis, unspecified organism (2) Atrial fibrillation with RVR: Status: Acute Category: Medical Code(s): I48.91 - Unspecified atrial fibrillation (3) Diabetic ulcer of toe of left foot: Status: Acute Qualifiers: Diabetes mellitus type: type 2 Non-pressure ulcer stage: with fat layer exposed Qualified Code(s): E11.621 - Type 2 diabetes mellitus with foot ulcer; L97.522 - Non-pressure chronic ulcer of other part of left foot with fat layer exposed Category: Medical Code(s): E11.621 - Type 2 diabetes mellitus with foot ulcer; L97.529 - Non-pressure chronic ulcer of other part of left foot with unspecified severity (4) Edema of both lower extremities: Status: Acute Category: Medical Code(s): R60.0 - Localized edema (5) Onychodystrophy: Status: Acute Category: Medical Code(s): L60.3 - Nail dystrophy (6) Cellulitis of left foot: Status: Acute Category: Medical Code(s): L03.116 - Cellulitis of left lower limb (7) Diabetes mellitus with diabetic neuropathy: Status: Acute Qualifiers: 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: without retirement use Diabetes mellitus type: type 2 Qualified Code(s): E11.40 - Type 2 diabetes mellitus with diabetic neuropathy, unspecified Category: Medical Code(s): E11.40 - Type 2 diabetes mellitus with diabetic neuropathy, unspecified (8) Obesity, Class II, BMI 35-39.9: Status: Acute Category: Medical Code(s): E66.9 - Obesity, unspecified (9) Abnormal ankle brachial index (KASHIF): Status: Acute Category: Medical Code(s): R68.89 - Other general symptoms and signs Plan 82-year-old female with a PMHx of type 2 diabetes with extensives comorbities, CHF, CAD, PAD, atrial fibrillation on Eliquis, hypertension, and hyperlipidemia presenting to the emergency department for evaluation with concern for pain in her left second toe. on arrival patient presented tachycardic, hypertensive. c/o pain on her toe. Labs were obtained that demonstrated leukocytosis, elevated lactic acid, stable chronic anemia, hyponatremia, elevated BNP, hypomagnesemia. IV magnesium replacement was ordered. Given that patient is tachycardic, borderline febrile with notable source of infection being her foot, and has leukocytosis and elevated lactic acid, she screened for sepsis. She was given a sepsis bolus for ideal body weight. She remained in atrial fibrillation with RVR despite treatment of her pain and fluid resuscitation. Given this, she was given diltiazem push and started on a diltiazem drip. ED requested admission for inpatient management. findings were discussed at length. plan as follow: -Sepsis without septic shock: Atrial fibrillation with RVR. Heart rate drastically improved after bolus Diabetic ulcer of the left second toe Electrolyte imbalance. Hyponatremia hypomagnesemia 11/07/23: CT Left lower extremity without and with contrast date of Service: 11/06/23, Procedure(s): CT foot LT wo/w con COMPARISON: CR XR FOOT LT MIN 3V 11/06/2023 5:57 PM FINDINGS: Bones/joints: No acute fracture or malalignment. Chronic posttraumatic changes of the lateral malleolus. Degenerative changes. Calcaneal enthesopathy. No cortical destruction. No periosteal reaction. Soft tissues: Distal 2nd toe soft tissue swelling and skin thickening. No soft tissue rim enhancing fluid collection or gas. Diffuse soft tissue swelling. IMPRESSION: Distal 2nd toe soft tissue swelling and skin thickening suggestive of cellulitis changes. No identifiable soft tissue abscess. No radiographic findings of acute osteomyelitis. Date of Service: 11/06/23 Procedure(s): XR foot LT min 3V, FINDINGS: Bones/joints: No acute fracture or malalignment. Degenerative changes including dorsal midfoot exostosis. Calcaneal enthesopathy. Soft tissues: Normal. IMPRESSION: No acute osseous findings. Labs: 11/06/23: cbc.19.6, Neut.92.5, esr. 21, bun.25, creat.0.80, gfr.68, gluc.107 11/07/23: Podiatry consult Patient was admitted through the night with Sepsis and DFU to Left plantar surface of second toe Plan to keep NPO until further evaluation for surgery if needed Obtain KASHIF in the morning Ordering ESR and CRP to be addeded to this AM labs Continue while inpatient broad antibiotic. Vancomycin pharmacy to dose CT of the foot reviewed no signs of osteomyelitis Documented by User: Milagro Estrella DPM 11/07/23 09:10 [facility] Medical History (Updated 11/07/23 @ 09:05 by Milagro Estrella DPM) CHF exacerbation Elevated troponin I level Diabetes Hypertension HLD (hyperlipidemia) Afib Atrial fibrillation with rapid ventricular response Volume overload Acute on chronic heart failure with preserved ejection fraction (HFpEF) Candidiasis of vagina Pyelonephritis Dysphonia Candidiasis Migraine History of pacemaker Supraventricular tachycardia PVD (peripheral vascular disease) PAD (peripheral artery disease) Kidney stones Lung disease Pacemaker HTN (hypertension), benign GERD (gastroesophageal reflux disease) Type 2 diabetes mellitus without complications Coronary artery disease CHF (congestive heart failure) Chest wall contusion Hx of fall Closed rib fracture Headache Cough Bronchitis Surgical History History of cholecystectomy History of appendectomy Status post biopsy of kidney History of hysterectomy Hx of CABG History of bilateral carpal tunnel release H/O arthroscopy of shoulder Family History Other Diabetes Hyperlipidemia Hypertension Social History Smoking Status: Never smoker second hand exposure: No alcohol intake: never substance use type: denies use current occupational status: other Travel in the last 8 weeks: None household members: other housing: house lives independently: Yes marital status: education level: high school current occupational exposures/hazards: No caffeine: Yes special seymour needs: No agree to transfusion: No do you feel safe at home: Yes victim of physical abuse: No victim of emotional abuse: No victim of sexual abuse: No would you like helpful sources: No Review of Systems Review of Systems Review of systems:: pertinent systems reviewed and negative unless documented below Constitutional Constitutional: Reports system reviewed and no additional complaints, except as documented Eyes Eyes: Reports system reviewed and no additional complaints, except as documented ENT Ears, Nose, Mouth, and Throat: Reports system reviewed and no additional complaints, except as documented *Cardiovascular Cardiovascular: Reports system reviewed and no additional complaints, except as documented and Reports leg edema *Respiratory Respiratory: Reports system reviewed and no additional complaints, except as documented *Gastrointestinal Gastrointestinal: Reports system reviewed and no additional complaints, except as documented and Reports nausea *Genitourinary Genitourinary: Reports system reviewed and no additional complaints, except as documented *Musculoskeletal Musculoskeletal: Reports system reviewed and no additional complaints, except as documented, Reports arthralgias, Reports back pain and Reports joint swelling Integumentary/Breasts Skin/Breast: Reports system reviewed and no additional complaints, except as documented, Reports nail changes, Reports dry skin, Reports skin ulcer and Reports wounds (L 2nd toe) *Neurologic Neurologic: Reports system reviewed and no additional complaints, except as documented Psychiatric Psychiatric: Reports system reviewed and no additional complaints, except as documented Endocrine Endocrine: Reports system reviewed and no additional complaints, except as documented Allergic/Immunologic Allergic/Immunologic: Reports system reviewed and no additional complaints, except as documented Meds Home Medications and Allergies Home Medications ?Medication ?Instructions ?Recorded ?Confirmed ?Type acetaminophen 500 mg tablet 500 mg PO BID PRN Pain 06/04/22 11/06/23 History multivitamin (Daily Multi-Vitamin 1 tab PO DAILY 07/30/22 11/06/23 History tablet) amitriptyline 50 mg tablet 50 mg PO DAILY #90 tabs 01/29/23 11/06/23 Rx metformin 500 mg tablet 500 mg PO BID Diabetes #180 tabs 01/29/23 11/06/23 Rx potassium chloride 20 mEq 20 meq PO DAILY Supplement #90 tabs 01/29/23 11/06/23 Rx tablet,extended release [id number] 100 mcg-lut 1.66 1 tab PO BID 06/27/23 11/06/23 History mg-zeaxanth 0.83 mg tablet,delay rel. (Icaps MV) magnesium oxide 400 mg (241.3 mg See Rx Instructions .Route 09/20/23 11/06/23 Rx magnesium) tablet .COMPLEX #90 tabs metoprolol succinate 25 mg 50 mg (2 x 25 mg) PO DAILY #90 tabs 10/24/23 11/06/23 Rx tablet,extended release 24 hr albuterol sulfate 90 mcg/actuation 2 puff inhalation Q4-6H PRN 11/04/23 11/06/23 History aerosol inhaler Shortness Of Breath Or Wheezing apixaban 5 mg tablet (Eliquis) 5 mg PO BID 11/04/23 11/06/23 History aspirin 81 mg tablet,delayed 81 mg PO DAILY 11/04/23 11/06/23 History release dapagliflozin propanediol 10 mg 10 mg PO DAILY 11/04/23 11/06/23 History tablet (Farxiga) fluticasone furoate 100 1 inh inhalation DAILY 11/04/23 11/06/23 History mcg-vilanterol 25 mcg/dose inhalation powder (Breo Ellipta) irbesartan 75 mg tablet 75 mg PO DAILY 11/04/23 11/06/23 History levothyroxine 125 mcg tablet 125 mcg PO DAILY 11/04/23 11/06/23 History omeprazole 40 mg capsule,delayed 40 mg PO DAILY 11/04/23 11/06/23 History release pravastatin 10 mg tablet 10 mg PO DAILY 11/04/23 11/06/23 History torsemide 20 mg tablet 40 mg PO BID 11/04/23 11/06/23 History ferrous sulfate 324 mg (65 mg 324 mg PO BID #180 tabs 11/05/23 11/06/23 Rx iron) tablet,delayed release sodium chloride 1,000 mg soluble 1,000 mg PO BID #180 tabs 11/05/23 11/06/23 Rx tablet New Prescriptions to Start Prescriptions: Allergies Allergy/AdvReac Type Severity Reaction Status Date / Time adenosine [ADENOSINE] Allergy Unknown S-ANAPHYLAX Verified 11/04/23 11:03 IS benzonatate Allergy Unknown Verified 11/04/23 11:03 [From DAYA SMITH] morphine [MORPHINE] Allergy Unknown KNOCKS Verified 11/04/23 11:03 OUT Penicillins [PENICILLINS] Allergy Unknown I-RASH Verified 11/04/23 11:03 Sulfa (Sulfonamide Allergy Unknown I-RASH Verified 11/04/23 11:03 Antibiotics) [SULFA (SULFONAMIDE ANTIBIOTICS)] albuterol Allergy Blurry Verified 11/04/23 11:03 Vision Exam (Inpt) Constitutional: Present no acute distress and obese Head: Present normocephalic Neck: Present normal inspection Respiratory: Present normal respiratory effort Cardiac: Present pedal pulses present (faint) GI: Present soft Rectal (female): Present deferred (female): Present deferred Extremities: Present normal inspection and tenderness (L 2nd toe); Absent normal capillary refill Skin: Present erythema Comment:: Localized pain, edema, erythema to L 2nd toe. Distal lateral toe blister with dusky changes. 15' blade used to pop/do I&D of blister, WCx taken of serous drainage. Open wound to medial distal L 2nd toe. Full thickness ulcer thru skin into subq. Post: minimal bleeding, 50% granular, 50% yellow fibrotic, 0.5 x 0.5 x 0.2cm. Neuro: Present Numbness, Motor Function Intact, oriented x 3 and moves all extremities; Absent Sensory Function Intact Ankle: bilateral: normal inspection and bilateral: swelling (b/l LE edema) Feet/Toes: left: erythema (L 2nd toe), left: tenderness (L 2nd toe) and left: wound (L 2nd toe) and bilateral: hammer toe, bilateral: nail abnormalities and bilateral: onychomycosis Inspection: Present foot deformity deformity: Present hammer toes, skin break, infection and ulceration Pulses: L dorsalis pedis pulse: diminished, R dorsalis pedis pulse: diminished, L posterior tibial pulse: diminished and R posterior tibial pulse: diminished CFT: dim: CFT Results Labs 11/07/23 05:31 11/07/23 05:31 Diagnostic results Ankle/Foot x-ray: report reviewed and image reviewed Ankle/Foot CT: report reviewed ((-)OM or abscess, (+) cellulitis) and image reviewed Assessment and Plan *Assessment and plan (1) Sepsis: Status: Acute Qualifiers: Sepsis acute organ dysfunction status: without acute organ dysfunction Sepsis type: sepsis due to unspecified organism Qualified Code(s): A41.9 - Sepsis, unspecified organism Category: Medical Code(s): A41.9 - Sepsis, unspecified organism (2) Atrial fibrillation with RVR: Status: Acute Category: Medical Code(s): I48.91 - Unspecified atrial fibrillation (3) Diabetic ulcer of toe of left foot: Status: Acute Qualifiers: Diabetes mellitus type: type 2 Non-pressure ulcer stage: with fat layer exposed Qualified Code(s): E11.621 - Type 2 diabetes mellitus with foot ulcer; L97.522 - Non-pressure chronic ulcer of other part of left foot with fat layer exposed Category: Medical Code(s): E11.621 - Type 2 diabetes mellitus with foot ulcer; L97.529 - Non-pressure chronic ulcer of other part of left foot with unspecified severity (4) Edema of both lower extremities: Status: Acute Category: Medical Code(s): R60.0 - Localized edema (5) Onychodystrophy: Status: Acute Category: Medical Code(s): L60.3 - Nail dystrophy (6) Cellulitis of left foot: Status: Acute Category: Medical Code(s): L03.116 - Cellulitis of left lower limb (7) Diabetes mellitus with diabetic neuropathy: Status: Acute Qualifiers: 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 COMPARISON: CR XR FOOT LT MIN 3V 11/06/2023 5:57 PM. FINDINGS: Bones/joints: No acute fracture or malalignment. Chronic posttraumatic changes of the lateral malleolus. Degenerative changes. Calcaneal enthesopathy. No cortical destruction. No periosteal reaction. Soft tissues: Distal 2nd toe soft tissue swelling and skin thickening. No soft tissue rim enhancing fluid collection or gas. Diffuse soft tissue swelling. IMPRESSION: Distal 2nd toe soft tissue swelling and skin thickening suggestive of cellulitis changes. No identifiable soft tissue abscess. No radiographic findings of acute osteomyelitis. 11/06/23 Procedure(s): XR foot LT min 3V, FINDINGS: Bones/joints: No acute fracture or malalignment. Degenerative changes including dorsal midfoot exostosis. Calcaneal enthesopathy. Soft tissues: Normal. IMPRESSION: No acute osseous findings. Labs: 11/06/23: wbc 19.6, Neut 92.5, esr 21, crp 49.6, bun 22, creat 0.80, gfr 68, gluc 130 11/07/23: wbc 14.2, esr 56, crp 75, bun 25, creat 0.80, gfr 68, gluc 107 11/07/23, L 2nd toe WCx: pending 11/07/23, ABIs: FINDINGS: ANKLE-BRACHIAL PRESSURE INDICES RIGHT LOWER EXTREMITY: Ankle-brachial pressure index: 0.55. Comments: Moderate to severe peripheral vascular disease. LEFT LOWER EXTREMITY: Ankle-brachial pressure index: 0.59. Comments: Moderate to severe peripheral vascular disease. CONCLUSION: Findings are consistent with bilateral moderate to severe peripheral vascular disease of the lower extremities. R: KASHIF 0.55, PT 0.55, DP 0.43, TBI 0.44 L: KASHIF 0.59, PT 0.59, DP 0.55, TBI 0.34 Podiatry consult Patient was admitted through the night with Sepsis and DFU to Left plantar surface of second toe Plan to keep NPO until further evaluation for surgery if needed Obtain KASHIF in the morning Ordering ESR and CRP to be addeded to this AM labs Continue while inpatient broad antibiotic. Vancomycin pharmacy to dose CT of the foot reviewed no signs of osteomyelitis 11/07/23: Patient seen and evaluated by [facility] A DRIVER and myself. Orders per Dr. Estrella. Infected Wound: Left second toe ulcer: -Discussed the importance of proper hygiene and maintaining a clean healthy wound bed to avoid the infection spreading. -Wound was cleansed with chloraprep. -Wound was sharply excisionally debrided full thickness thru skin into sub q layer. See PE for measurements. -I&D performed to L 2nd toe blister, WCx obtained. -Discussed local wound care, abx for cellulitis. -Discussed if infection is not responding, may need MRI to evaluate for OM-which would then be treated with IV abx, surgical debridement, and/or amputation. Hold on MRI as CT, XR are (-) OM or abscess. -Monitor infection panel: CBC, CMP, ESR, CRP, Ha1c, wound culture. -Dressing applied: betadine soaked guaze, dry gauze, arie, secure with coban or tape. -Wound care instructions given: change dressing daily -WBaT in post op shoe -Continue broad spectrum IV abx for now -Call the office immediately if pain increases or signs of infection worsen -Keep NPO for cardiology. ABIs abnormal. Needs b/l LE run-off. -No plans for Podiatry surgery (no abscess or bone infection, poor healing potential). -Will continue to follow and see outpatient upin discharge. -Will likely needs HHC arranged. Daily dsg changes as above.
[2023-11-07 06:59] LABS: Alanine Aminotransferase 21 U/L (12-78); Albumin Level 3.1 g/dl (3.5-5.0); Albumin/Globulin Ratio 1.1 (1.1-1.8); Alkaline Phosphatase 112 U/L (38-126); Anion Gap 10.8 mEq/L (5-15); Aspartate Amino Transferase 33 U/L (14-36); Bilirubin,Total 0.4 mg/dl (0.2-1.3); Blood Urea Nitrogen 25 mg/dl (7-17); Calcium 8.2 mg/dl (8.4-10.2); Carbon Dioxide 27 mmol/L (22.0-30.0); Chloride 93 mmol/L (98-107); Creatinine Clearance Estimated 63 mL/min (50-200); Estimated Glomerular Filt Rate 68 ml/min (>60); GFR (African American) 83 ML/MIN (>60); Globulin 2.9 g/dL (1.3-3.2); Glucose 107 mg/dl (74-100); Magnesium 1.9 mg/dl (1.6-2.3); Potassium 3.8 mmoL/L (3.5-5.1); Sodium 127 mmol/L (136-145)
[2023-11-07 07:04] LABS: Basophils # 0.1 K/mm3 (0-0.2); Eosinophils # 0.1 K/mm3 (0.0-0.4); Hematocrit 30.3 % (37.0-47.0); Lymphocytes # 1.5 K/mm3 (0.7-4.5); Monocytes # 0.8 K/mm3 (0.1-1.0); Red Cell Distribution Width 16.1 % (11.5-17.5)
[2023-11-07 07:46] LABS: C-Reactive Protein 75.1 mg/L (0-4)
[2023-11-07 08:02] LABS: Erythrocyte Sedimentation Rate 56 mm/hr (0-30)
--- NOTE | 2023-11-07 08:05 | P.CONPHA_ITS ---
Pharmacy Consult Date: 11/07/23 Time: 08:05 Referring provider: BERTO Reason for Consult:: VANCOMYCIN DOSING Allergies Allergy/AdvReac Type Severity Reaction Status Date / Time adenosine [ADENOSINE] Allergy Unknown S-ANAPHYLAX Verified 11/04/23 11:03 IS benzonatate Allergy Unknown Verified 11/04/23 11:03 [From BETSEYCELINARUSTY SARAH] morphine [MORPHINE] Allergy Unknown KNOCKS Verified 11/04/23 11:03 OUT Penicillins [PENICILLINS] Allergy Unknown I-RASH Verified 11/04/23 11:03 Sulfa (Sulfonamide Allergy Unknown I-RASH Verified 11/04/23 11:03 Antibiotics) [SULFA (SULFONAMIDE ANTIBIOTICS)] albuterol Allergy Blurry Verified 11/04/23 11:03 Vision Home Medications ?Medication ?Instructions ?Recorded ?Confirmed ?Type acetaminophen 500 mg tablet 500 mg PO BID PRN Pain 06/04/22 11/06/23 History multivitamin (Daily Multi-Vitamin 1 tab PO DAILY 07/30/22 11/06/23 History tablet) amitriptyline 50 mg tablet 50 mg PO DAILY #90 tabs 01/29/23 11/06/23 Rx metformin 500 mg tablet 500 mg PO BID Diabetes #180 tabs 01/29/23 11/06/23 Rx potassium chloride 20 mEq 20 meq PO DAILY Supplement #90 tabs 01/29/23 11/06/23 Rx tablet,extended release [id number] 100 mcg-lut 1.66 1 tab PO BID 06/27/23 11/06/23 History mg-zeaxanth 0.83 mg tablet,delay rel. (Icaps MV) magnesium oxide 400 mg (241.3 mg See Rx Instructions .Route 09/20/23 11/06/23 Rx magnesium) tablet .COMPLEX #90 tabs metoprolol succinate 25 mg 50 mg (2 x 25 mg) PO DAILY #90 tabs 10/24/23 11/06/23 Rx tablet,extended release 24 hr albuterol sulfate 90 mcg/actuation 2 puff inhalation Q4-6H PRN 11/04/23 11/06/23 History aerosol inhaler Shortness Of Breath Or Wheezing apixaban 5 mg tablet (Eliquis) 5 mg PO BID 11/04/23 11/06/23 History aspirin 81 mg tablet,delayed 81 mg PO DAILY 11/04/23 11/06/23 History release dapagliflozin propanediol 10 mg 10 mg PO DAILY 11/04/23 11/06/23 History tablet (Farxiga) fluticasone furoate 100 1 inh inhalation DAILY 11/04/23 11/06/23 History mcg-vilanterol 25 mcg/dose inhalation powder (Breo Ellipta) irbesartan 75 mg tablet 75 mg PO DAILY 11/04/23 11/06/23 History levothyroxine 125 mcg tablet 125 mcg PO DAILY 11/04/23 11/06/23 History omeprazole 40 mg capsule,delayed 40 mg PO DAILY 11/04/23 11/06/23 History release pravastatin 10 mg tablet 10 mg PO DAILY 11/04/23 11/06/23 History torsemide 20 mg tablet 40 mg PO BID 11/04/23 11/06/23 History ferrous sulfate 324 mg (65 mg 324 mg PO BID #180 tabs 11/05/23 11/06/23 Rx iron) tablet,delayed release sodium chloride 1,000 mg soluble 1,000 mg PO BID #180 tabs 11/05/23 11/06/23 Rx tablet New Prescriptions to Start Prescriptions: Height: 1.55 m Weight: 94.892 kg Laboratory Results:: Laboratory Results - last 24 hr 11/06/23 19:22: WBC 19.6 H D, RBC 3.94 L, Hgb 11.0 L, Hct 33.8 L, MCV 85.7, MCH 28.0, MCHC 32.6, RDW 16.0, Plt Count 351, MPV 7.9, Neut % (Auto) 92.5 H, Lymph % (Auto) 3.6 L, [place] % (Auto) 2.5, Eos % (Auto) 1.0, Baso % (Auto) 0.2, Neut # (Auto) 18.1 H, Lymph # (Auto) 0.7, [place] # (Auto) 0.5, Eos # (Auto) 0.2, Baso # (Auto) 0.1, Total Counted 100, Neutrophils % (Manual) 92 H, Lymphocytes % (Manual) 6 L, Monocytes % (Manual) 2, Platelet Estimate Normal, RBC Morphology Normal, ESR 21, D-Dimer 0.80 H, Sodium 128 L, Potassium 4.0, Chloride 91 L, Ca rbon Dioxide 29, Anion Gap 12.0, BUN 22 H D, Creatinine 0.80, Estimated Creat Clear 60, Estimated GFR 68, Est GFR ( Amer) 83, Glucose 130 H, Lactate 2.4 H, Calcium 8.7, Magnesium 1.3 L, Total Bilirubin 0.7, AST 28, ALT 24 D, Alkaline Phosphatase 105, Troponin I < 0.01, C-Reactive Protein 49.6 H, NT-Pro-B Natriuret Pep 1910 H, Total Protein 6.9, Albumin 3.7, Globulin 3.2, Albumin/Globulin Ratio 1.2, TSH 1.08, Thyroxine (T4) 12.2 H 11/06/23 21:27: Troponin I < 0.01 11/06/23 23:42: Lactate 2.4 H 11/07/23 00:20: Troponin I 0.04 H 11/07/23 01:50: Lactate 1.5 11/07/23 05:31: ESR 56 H, Sodium 127 L, Potassium 3.8, Chloride 93 L, Carbon Dioxide 27, Anion Gap 10.8, BUN 25 H, Creatinine 0.80, Estimated Creat Clear 63, Estimated GFR 68, Est GFR ( Amer) 83, Glucose 107 H, Calcium 8.2 L, Magnesium 1.9 D, Total Bilirubin 0.4, AST 33, ALT 21, Alkaline Phosphatase 112, Total Protein 6.0 L, Albumin 3.1 L D, Globulin 2.9, Albumin/Globulin Ratio 1.1 11/07/23 05:44: POC Glucose 129 H Medical History: Medical History (Updated 11/07/23 @ 05:24 by Betito Otto APRN) CHF exacerbation Elevated troponin I level Diabetes Hypertension HLD (hyperlipidemia) Afib Atrial fibrillation with rapid ventricular response Volume overload Acute on chronic heart failure with preserved ejection fraction (HFpEF) Candidiasis of vagina Pyelonephritis Dysphonia Candidiasis Migraine History of pacemaker Supraventricular tachycardia PVD (peripheral vascular disease) PAD (peripheral artery disease) Kidney stones Lung disease Pacemaker HTN (hypertension), benign GERD (gastroesophageal reflux disease) Type 2 diabetes mellitus without complications Coronary artery disease CHF (congestive heart failure) Chest wall contusion Hx of fall Closed rib fracture Headache Cough Bronchitis Assessment and Plan Assessment and plan all Dx Assessment and Plan for all problems:: Pharmacokinetic dosing service Objective: Patient: Floor: Age: 82 yo Serum creatinine: 0.80 mg/dL Height: 61.0 Inches Weight (kg): 94.9 Assessment: IBW (kg): 47.80 Dosing wt(kg): 94.9 Estimated Creatinine clearance (ml/min): 39.5 CRCL method: Cockcroft and Gault using ibw(default). Drug selected: Vancomycin Loading dose (mg): Vd (liters): 75.9 (factor used: 0.8 L/kg) Mikael (hr-1): 0.037 Half life (hrs): 18.73 CLvanco=?? 2.808 L/hr Recommended dose: 1500 mg Interval: 24 hrs Infusion time (hrs): 2.0 Predicted peak (mcg/mL): 32.4 Predicted trough (mcg/mL): 14.36 Total body weight is being used for vancomycin dosing. Recommendations: Give Vancomycin 1500 mg q 24 hrs with an expected Cpeak of 32.4 mcg/ml and an expected Ctrough of 14.36 mcg/ml AUC 0-24 /RAJANI Data: RAJANI 0.5 mcg/mL:?? AUC/RAJANI:? 1068.4 RAJANI 1.0 mcg/mL:?? AUC/RAJANI:? 534.2 --------- RAJANI 1.5 mcg/mL:?? AUC/RAJANI:? 356.1 RAJANI 2.0 mcg/mL:?? AUC/RAJANI:? 267.1 Thank you for the consult, will continue to follow. -WILMER MCCLAIN PHARMD
[2023-11-07 08:07] LABS: Basophils % 0.3 % (0.1-2.0); Lymphocytes % 10.6 % (10-50); Mean Corpuscular HGB Conc 31.9 g/dL (31.8-35.4); Mean Corpuscular Hemoglobin 28.3 pg (27.0-31.2); Mean Corpuscular Volume 88.5 fl (81-99); Mean Platelet Volume 8.6 fl (7.4-10.4); Monocytes % 5.6 % (1.7-9.3); Neutrophils # 11.7 K/mm3 (1.8-7.8); Neutrophils % 82.5 % (37.0-80.0); Platelet Count 312 K/mm3 (142-424); Red Blood Count 3.42 M/mm3 (4.20-5.40); White Blood Count 14.2 K/mm3 (4.8-10.8)
[2023-11-07 08:11] LABS: Hemoglobin 9.7 g/dL (12.2-16.2)
--- NOTE | 2023-11-07 09:17 | P.CONCA_ITS ---
History of Present Illness History of Present Illness Consult date: 11/07/23 Requesting physician: Blaine Lepe Chief complaint: Left second toe pain History of present illness: This is a 82-year-old white female with past medical history of type 2 diabetes mellitus, coronary artery disease status post CABG, HTN, HLD and A-fib on Eliquis who presented to emergency department with complaints of pain to her left second toe. Initial EKG upon arrival showed A-fib RVR at a rate of 114. Labs as follow: WBC 19.6, hemoglobin 11, D-dimer 0.8, sodium 128, potassium 4, BUN 22, creatinine 0.8, lactate 2.4 trending down to 1.5, magnesium 1.3 serial troponins negative, C-reactive protein 49.6 and a proBNP 1910. Left foot x-ray is negative for acute osseous findings. Left foot CT shows distal second toe soft tissue swelling and skin thickening suggestive of cellulitis. No radiographic findings of acute osteomyelitis was noted. IV magnesium was replaced in emergency department. Patient did trigger a sepsis alert and patient received sepsis bolus for ideal body weight. Despite fluid resuscitation patient remained in A-fib RVR so she was started on Dilt drip. Patient was admitted for further evaluation by podiatry and cardiology. Podiatry evaluated patient this morning and has no current plans for surgical intervention. Patient is now off of diltiazem drip and remains in A-fib-rate controlled in the 70s. Patient reports she follows closely with [facility] cardiology group. She reports that she had a runoff of her lower extremities and they told her that most of her disease is below the knees and the vessels are too small for intervention. Patient does endorse bilateral lower extremity claudication with activity and at rest ongoing for years. [facility] Disclaimer: The information contained in this section may have been updated after the patient was seen, as this information can be updated by other users. Medical History (Updated 11/07/23 @ 09:29 by Blanche Espinal APRN) CHF exacerbation Elevated troponin I level Diabetes Hypertension HLD (hyperlipidemia) Afib Atrial fibrillation with rapid ventricular response Volume overload Acute on chronic heart failure with preserved ejection fraction (HFpEF) Candidiasis of vagina Pyelonephritis Dysphonia Candidiasis Migraine History of pacemaker Supraventricular tachycardia PVD (peripheral vascular disease) PAD (peripheral artery disease) Kidney stones Lung disease Pacemaker HTN (hypertension), benign GERD (gastroesophageal reflux disease) Type 2 diabetes mellitus without complications Coronary artery disease CHF (congestive heart failure) Chest wall contusion Hx of fall Closed rib fracture Headache Cough Bronchitis Surgical History History of cholecystectomy History of appendectomy Status post biopsy of kidney History of hysterectomy Hx of CABG History of bilateral carpal tunnel release H/O arthroscopy of shoulder Family History Other Diabetes Hyperlipidemia Hypertension Social History Smoking Status: Never smoker second hand exposure: No alcohol intake: never substance use type: denies use current occupational status: other Travel in the last 8 weeks: None household members: other housing: house lives independently: Yes marital status: education level: high school current occupational exposures/hazards: No caffeine: Yes special seymour needs: No agree to transfusion: No do you feel safe at home: Yes victim of physical abuse: No victim of emotional abuse: No victim of sexual abuse: No would you like helpful sources: No Review of Systems Review of Systems Review of systems:: pertinent systems reviewed and negative unless documented below *Cardiovascular Cardiovascular: Denies chest pain and Denies dyspnea *Respiratory Respiratory: Denies dyspnea *Musculoskeletal Comments: Pain to left 2nd toe. *Neurologic Neurologic: Reports system reviewed and no additional complaints, except as documented Exam Data for Last 24 hours Vital signs and Labs for Last 24 Hours: Temp Pulse Resp BP Pulse Ox O2 Del Method 98.4 F 87 20 121/77 95 Room Air 11/07/23 08:46 11/07/23 08:00 11/07/23 08:00 11/07/23 08:00 11/07/23 08:00 11/07/23 09:00 Laboratory Results - last 24 hr 11/06/23 19:22: WBC 19.6 H D, RBC 3.94 L, Hgb 11.0 L, Hct 33.8 L, MCV 85.7, MCH 28.0, MCHC 32.6, RDW 16.0, Plt Count 351, MPV 7.9, Neut % (Auto) 92.5 H, Lymph % (Auto) 3.6 L, [place] % (Auto) 2.5, Eos % (Auto) 1.0, Baso % (Auto) 0.2, Neut # (Auto) 18.1 H, Lymph # (Auto) 0.7, [place] # (Auto) 0.5, Eos # (Auto) 0.2, Baso # (Auto) 0.1, Total Counted 100, Neutrophils % (Manual) 92 H, Lymphocytes % (Manual) 6 L, Monocytes % (Manual) 2, Platelet Estimate Normal, RBC Morphology Normal, ESR 21, D-Dimer 0.80 H, Sodium 128 L, Potassium 4.0, Chloride 91 L, Carbon Dioxide 29, Anion Gap 12.0, BUN 22 H D, Creatinine 0.80, Estimated Creat Clear 60, Estimated GFR 68, Est GFR ( Amer) 83, Glucose 130 H, Lactate 2.4 H, Calcium 8.7, Magnesium 1.3 L, Total Bilirubin 0.7, AST 28, ALT 24 D, Alkaline Phosphatase 105, Troponin I < 0.01, C-Reactive Protein 49.6 H, NT-Pro-B Natriuret Pep 1910 H, Total Protein 6.9, Albumin 3.7, Globulin 3.2, Albumin/Globulin Ratio 1.2, TSH 1.08, Thyroxine (T4) 12.2 H 11/06/23 21:27: Troponin I < 0.01 11/06/23 23:42: Lactate 2.4 H 11/07/23 00:20: Troponin I 0.04 H 11/07/23 01:50: Lactate 1.5 11/07/23 05:31: WBC 14.2 H D, RBC 3.42 L, Hgb 9.7 L D, Hct 30.3 L, MCV 88.5, MCH 28.3, MCHC 31.9, RDW 16.1, Plt Count 312, MPV 8.6, Neut % (Auto) 82.5 H, Lymph % (Auto) 10.6, [place] % (Auto) 5.6, Eos % (Auto) 1.0, Baso % (Auto) 0.3, Neut # (Auto) 11.7 H, Lymph # (Auto) 1.5, [place] # (Auto) 0.8, Eos # (Auto) 0.1, Baso # (Auto) 0.1, ESR 56 H, Sodium 127 L, Potassium 3.8, Chloride 93 L, Carbon Dioxide 27, Anion Gap 10.8, BUN 25 H, Creatinine 0.80, Estimated Creat Clear 63, Estimated GFR 68, Est GFR ( Amer) 83, Glucose 107 H, Calcium 8.2 L, Magnesium 1.9 D, Total Bilirubin 0.4, AST 33, ALT 21, Alkaline Phosphatase 112, C-Reactive Protein 75.1 H D, Total Protein 6.0 L, Albumin 3.1 L D, Globulin 2.9, Albumin/Globulin Ratio 1.1 11/07/23 05:44: POC Glucose 129 H I & O for Last 24 hours: Intake & Output 11/04/23 11/05/23 11/06/23 11/07/23 23:59 23:59 23:59 23:59 Intake Total 7.667 / 2205.667 2197 Output Total 0 / 0 Balance 7.667 / 2205.667 2197 Weight 203 lb 1.6 oz 209 lb 3.2 oz Constitutional Constitutional: no acute distress *Routine Respiratory Exam Respiratory: Present crackles and symmetric chest movement *Routine Cardiovascular Exam Cardiovascular: Present Normal S1, Normal S2, irregular rhythm and irregularly irregular Comments: afib *Routine Abdominal Exam Abdominal: Present soft and normoactive bowel sounds; Absent tenderness *Routine Extremities Exam Extremities: Present full ROM and pallor (Dressing noted to left 2nd digit of foot.); Absent edema *Routine Skin Exam Skin: Present intact, dry and warm Detailed Neck Exam: Thyroids Thyroid: Absent bruit Meds Home Medications and Allergies Home Medications ?Medication ?Instructions ?Recorded ?Confirmed ?Type acetaminophen 500 mg tablet 500 mg PO BID PRN Pain 06/04/22 11/06/23 History multivitamin (Daily Multi-Vitamin 1 tab PO DAILY 07/30/22 11/06/23 History tablet) metformin 500 mg tablet 500 mg PO BID Diabetes #180 tabs 01/29/23 11/06/23 Rx potassium chloride 20 mEq 20 meq PO DAILY Supplement #90 tabs 01/29/23 11/06/23 Rx tablet,extended release [id number]-MY 100 mcg-lut 1.66 1 tab PO BID 06/27/23 11/06/23 History mg-zeaxanth 0.83 mg tablet,delay rel. (Icaps MV) albuterol sulfate 90 mcg/actuation 2 puff inhalation Q4-6H PRN 11/04/23 11/06/23 History aerosol inhaler Shortness Of Breath Or Wheezing apixaban 5 mg tablet (Eliquis) 5 mg PO BID 11/04/23 11/06/23 History aspirin 81 mg tablet,delayed 81 mg PO DAILY 11/04/23 11/06/23 History release dapagliflozin propanediol 10 mg 10 mg PO DAILY 11/04/23 11/06/23 History tablet (Farxiga) fluticasone furoate 100 1 inh inhalation DAILY 11/04/23 11/06/23 History mcg-vilanterol 25 mcg/dose inhalation powder (Breo Ellipta) irbesartan 75 mg tablet 75 mg PO DAILY 11/04/23 11/07/23 History levothyroxine 125 mcg tablet 125 mcg PO DAILY 11/04/23 11/06/23 History omeprazole 40 mg capsule,delayed 40 mg PO DAILY 11/04/23 11/06/23 History release pravastatin 10 mg tablet 10 mg PO HS 11/04/23 11/07/23 History torsemide 20 mg tablet 40 mg PO BID 11/04/23 11/06/23 History ferrous sulfate 324 mg (65 mg 324 mg PO BID #180 tabs 11/05/23 11/06/23 Rx iron) tablet,delayed release sodium chloride 1,000 mg soluble 1,000 mg PO BID #180 tabs 11/05/23 11/06/23 Rx tablet amitriptyline 50 mg tablet 50 mg PO HS 11/07/23 11/07/23 History furosemide 80 mg tablet 80 mg PO DAILY 11/07/23 11/07/23 History magnesium oxide 400 mg (241.3 mg 400 mg PO DAILY 11/07/23 11/07/23 History magnesium) tablet metoprolol succinate 50 mg 50 mg PO DAILY 11/07/23 11/07/23 History tablet,extended release 24 hr New Prescriptions to Start Prescriptions: Allergies Allergy/AdvReac Type Severity Reaction Status Date / Time adenosine [ADENOSINE] Allergy Unknown S-ANAPHYLAX Verified 11/04/23 11:03 IS benzonatate Allergy Unknown Verified 11/04/23 11:03 [From DAYA SMITH] morphine [MORPHINE] Allergy Unknown KNOCKS Verified 11/04/23 11:03 OUT Penicillins [PENICILLINS] Allergy Unknown I-RASH Verified 11/04/23 11:03 Sulfa (Sulfonamide Allergy Unknown I-RASH Verified 11/04/23 11:03 Antibiotics) [SULFA (SULFONAMIDE ANTIBIOTICS)] albuterol Allergy Blurry Verified 11/04/23 11:03 Vision Assessment and Plan *Assessment and plan (1) PAD (peripheral artery disease): Status: Acute Category: Medical Code(s): I73.9 - Peripheral vascular disease, unspecified (2) Abnormal ankle brachial index (KASHIF): Status: Acute Category: Medical Code(s): R68.89 - Other general symptoms and signs (3) Diabetes mellitus with diabetic neuropathy: Status: Acute Qualifiers: Diabetes mellitus intermediate accountant insulin use: without detention use Diabetes mellitus type: type 2 Qualified Code(s): E11.40 - Type 2 diabetes mellitus with diabetic neuropathy, unspecified Category: Medical Code(s): E11.40 - Type 2 diabetes mellitus with diabetic neuropathy, unspecified (4) Cellulitis of left foot: Status: Acute Category: Medical Code(s): L03.116 - Cellulitis of left lower limb (5) Atrial fibrillation with RVR: Status: Acute Category: Medical Code(s): I48.91 - Unspecified atrial fibrillation (6) Coronary artery disease: Status: Acute Qualifiers: Associated angina: without angina Coronary Disease-Associated Artery/Lesion type: [place] artery [place] vs. transplanted heart: [place] heart Qualified Code(s): I25.10 - Atherosclerotic heart disease of [place] coronary artery without angina pectoris Category: Medical Code(s): I25.10 - Atherosclerotic heart disease of [place] coronary artery without angina pectoris (7) Heart failure with preserved ejection fraction: Status: Acute Category: Medical Code(s): I50.30 - Unspecified diastolic (congestive) heart failure Plan Cellulitis to left second toe Left second toe ulcer Peripheral artery disease Extremity arterial study 11/2023: Findings are consistent with bilateral moderate to severe peripheral vascular disease of the lower extremities Peripheral angiogram 2019 [place]: High-grade disease below the knee bilaterally. The right side a single-vessel runoff which is the right anterior tibial artery which has diffuse disease in it. The posterior tibial artery and peroneal artery are occluded on the right side. The left peroneal artery has a proximal 90% stenosis. It is a small vessel. The anterior tibial and posterior tibial arteries on the left side are occluded. Recommend medical management and consider intervention if skin breakdown, wounds or ulcerations become present. Discussed with patient abnormal KASHIF findings/known PAD disease with addition of toe wound/infection warrants proceeding with bilateral lower extremity angiogram with possible intervention. Patient declines, states she does not want to have any procedures at this facility. Discussed the risk versus benefits, patient continues to decline intervention. Recommend if patient does not want intervention at this facility that she follows up with vascular at [place] on an outpatient basis for possible intervention. Start Plavix 75 mg daily. On statin. Reports cannot do high-dose statin due to myalgias. Chronic A-fib RVR Initial EKG showed A-fib RVR at a rate of 117 Patient was started on Dilt drip and is now rate controlled A-fib in the 70s Dilt drip has been off since 10 PM last night. Will DC drip. Continue Eliquis 5 mg p.o. twice daily Continue metoprolol succinate 50 mg p.o. daily History of coronary artery disease History of 4 vessel bypass Patient denies chest pain or shortness of breath EKG without acute ischemic changes Serial troponins remain negative Continue Plavix 75 mg daily, metoprolol 50 mg daily and statin History of heart failure with preserved ejection fraction Echo June 2023 shows normal LV function, mild to moderate RV dilation with reduced function, mild AI, mild to moderate MR, moderate TR, RVSP 45-50 Patient is on torsemide 40 mg p.o. twice daily at home. Blood pressures are soft during this admission. Start Lasix 40 mg p.o. daily, may increase as needed if blood pressure will tolerate Continue Farxiga 10 mg p.o. daily CV summary 11/07/2023: Peripheral angiogram with possible intervention offered to patient, she declines. She reports she does not want to have any procedures done at this facility. Will continue with medical management at this time and recommend patient follow-up with vascular on an outpatient basis at [facility]. Please contact cardiology if patient changes her mind and would like to proceed with intervention. CV meds Plavix 75 mg p.o. daily Eliquis 5 mg p.o. twice daily Farxiga 10 mg p.o. daily Metoprolol succinate 50 mg daily Lasix 40 mg p.o. daily Pravastatin 10 mg p.o. daily
[2023-11-07] MEDS: MAGNESIUM OXIDE 400MG TABLET 400 MG PO (09:22)
[2023-11-07] MEDS: METOPROLOL SUCCINATE XL 50MG TABLET 50 MG PO (09:22)
[2023-11-07] MEDS: POTASSIUM CHLORIDE 20MEQ TAB 20 MEQ PO (09:22)
[2023-11-07] MEDS: LEVOTHYROXINE 125MCG (0.125MG) TAB 125 MCG PO (09:22)
[2023-11-07] MEDS: SODIUM CHLORIDE 1,000MG TABLET 1000 MG PO ×2 (09:22→20:42)
[2023-11-07] MEDS: FERROUS SULFATE 325MG TABLET 325 MG PO ×2 (09:23→20:41)
--- NOTE | 2023-11-07 09:45 | HMH.PHAINT1 ---
Pharmacy Intervention Comments: HOME MEDICATION LIST VERIFIED USING LIST FROM OUTPATIENT PHARMACY AND MD OFFICE
[2023-11-07] MEDS: FUROSEMIDE 40 MG TABLET PO (11:18)
[2023-11-07] MEDS: DAPAGLIFLOZIN PROPANEDIOL 10 MG TABLET PO (11:18)
[2023-11-07] MEDS: CLOPIDOGREL 75MG TAB 75 MG PO (11:18)
[2023-11-07 13:28] LABS: Microscopic, Urine URINE MICROSCOPIC (MICROSCOPIC)
[2023-11-07 13:57] LABS: Appearance,Urine CLEAR (Clear); Bilirubin,Urine Negative (Negative); Blood, Urine Negative (Negative); Color,Urine YELLOW (Yellow); Glucose,Urine (UA) 3+ (Negative); Ketones,Urine Negative (Negative); Leukocyte Esterase,Urine Negative (Negative); Nitrate,Urine Negative (Negative); PH,Urine 5.5 (5.0-8.5); Protein,Urine Negative (Negative); Specific Gravity, Urine 1.015 (1.005-1.030); Urobilinogen,Urine 0.2 EU/dl (0.2)
[2023-11-07 14:18] LABS: Bacteria,Urine Trace /lpf; WBC,Urine Occasional #/hpf (0-3)
--- NOTE | 2023-11-07 14:27 | SW/DCPLANNER ---
Addendum entered by Maddy Hinds 11/11/23 10:12: Gini w/ [facility] stated that services will start tomorrow. Addendum entered by Maddy Hinds 11/08/23 12:14: Patient information/order will be faxed to [facility] today. Patient will discharge home today. Original Note: I spoke w/ patient regarding plans once medically stable for discharge. PT/OT evaluated patient and stated that she was safe to return home w/ home health services. Patient is agreeable to home health services at time of discharge and prefers to use [facility]. I will set up home health services once medically stable for discharge.
--- NOTE | 2023-11-07 14:38 | HMH.OTEV ---
OT Inpatient Evaluation Rehab OT IP Evaluation Start: 11/07/23 11:43 Freq: ONCE Status: Active Protocol: Document 11/07/23 14:32 [facility] (Rec: 11/07/23 14:37 [facility] [id number]) Rehab OT IP Assessment Subjective History Pt oriented x 2 on arrival. Pt admitted on 11/06/23 due to A-fib and RVR. History and Physical report: This is a 82-year-old female with a PMHx of type 2 diabetes with extensives comorbities, CHF, CAD, PAD, atrial fibrillation on Eliquis, hypertension, and hyperlipidemia presenting to the emergency department for evaluation with concern for pain in her left second toe. She states that she has had a wound there and she seen her primary care doctor for it 2 days ago, but they were not concerned. She states that is hurting her so badly that she cannot sleep. Her toe has been throbbing. No known injuries. She states that she has been constantly cold but has had no objective fevers. No chest pain, shortness of breath, abdominal pain, vomiting, or other concerns. ADmitted for further treatment and management. Subjective I can do whatever I need to. Pt reports prior to being in the hospital she lives at home alone. Pt claims normally she is independent with all ADLs and IADLs. Daughter assists when needed. Pt does use a rolling walker during functional transfers. Objective Patient Orientation Person,Place,Birthday Right Upper Extremity Gross ROM WFL Left Upper Extremity Gross ROM WFL Transfer Training Sit/Stand Transfer Assist Level Contact Guard/Hand Hold Chair Transfer Ability Contact Guard/Hand Hold Chair Transfer Technique Sit to/from Ambulatory Chair Transfer Assistive Devices Rolling Walker Lower Body Dressing Ability Minimal Assistance Performing Toilet Hygiene Ability Minimal Assistance Overall Commode/Toilet Transfer Ability Contact Guard Commode/Toilet Transfer Technique Sit to/from Ambulatory Rehab OT IP prob,goals,plan Problems Date of Evaluation: 11/07/23 OT IP Problems Bed Mobility,Transfers,Balance ,Self care,Safety Rehab Potential Rehab Potential Good Equipment Needs Assistive Devices Rolling / Wheeled Walker Plan OT intervention Plan Bed Mobility,Transfers,Balance ,Self care,Safety,Therapeutic Exercise OT Plan Frequency Daily Duration LOS Discharge Goals Bed Mobility Ability Standby Assistance Sit to Stand Chair Transfer Ability Supervision/Stand by Chair Transfer Ability Supervision/Stand by Chair Transfer Technique Sit to/from Ambulatory Chair Transfer Assistive Devices Rolling Walker Lower Body Dressing Ability Contact Guard Upper Body Dressing Ability Standby Assistance Bathing Ability Contact Guard Performing Toilet Hygiene Ability Standby Assistance Overall Commode/Toilet Transfer Ability Standby Assistance Commode/Toilet Transfer Technique Sit to/from Ambulatory Oral Care Assist Standby Assistance Discharge Plan OT Discharge Plan Pt will continue to be seen for OT services while at [facility] [place]. Therapist recommends HH OT evaluation upon returning home for continued skilled therapy . Continued skilled therapy is important in order for patient to improve strength, safety, endurance, ADL independence, and functional transfers to reach PLOF. Eval Complexity Eval Charge Codes 63994 - Moderate Complexity PHYSICIAN CERTIFICATION: I certify the specified therapy services for Paula Ahmadi are required, authorized, and reviewed every 30 days.
--- NOTE | 2023-11-07 14:49 | EXP.ACUTE.PN ---
Subjective *Date: 11/07/23 *Time: 15:02 Interval history: Toe hurting little bit this morning. Denies any fever or chills. Tolerating p.o. intake. Adamant she is not going to placement. Lives by herself. Has son at bedside. Stable on room air Medical Exam Vital signs and Labs for Last 24 Hours: Vital Signs Temp Pulse Pulse Resp BP BP Pulse Ox 11/07/23 13:25 11/07/23 11:51 98.5 F 75 19 123/60 94 L 11/07/23 11:15 11/07/23 10:00 71 20 113/63 94 L 11/07/23 09:00 11/07/23 08:46 98.4 F 11/07/23 08:00 80 11/07/23 08:00 87 95 11/07/23 08:00 87 20 121/77 96 11/07/23 06:00 68 14 119/57 L 100 11/07/23 04:00 97.5 F L 70 15 99/54 L 98 11/07/23 04:00 64 11/07/23 02:00 75 15 93/51 L 96 11/07/23 00:00 80 11/07/23 00:00 82 17 98/47 L 94 L 11/06/23 22:20 101 H 11/06/23 22:15 98.9 F 97 H 18 103/58 L 97 11/06/23 22:08 99.6 F 105 H 22 100/60 L 11/06/23 22:00 99 H 16 100/60 L 92 L 11/06/23 21:30 97 H 20 115/54 L 90 L 11/06/23 21:00 122 H 19 124/63 93 L 11/06/23 20:30 140 H 15 109/63 L 93 L 11/06/23 20:00 144 H 18 132/71 92 L 11/06/23 19:01 137 H 180/79 H 94 L 11/06/23 18:31 128 H 157/84 H 94 L 11/06/23 18:00 102 H 18 153/87 H 95 11/06/23 17:45 99.6 F 106 H 19 146/73 H 95 O2 Del Method 11/07/23 13:25 Room Air 11/07/23 11:51 Room Air 11/07/23 11:15 Room Air 11/07/23 10:00 Room Air 11/07/23 09:00 Room Air 11/07/23 08:46 11/07/23 08:00 11/07/23 08:00 Room Air 11/07/23 08:00 Room Air 11/07/23 06:00 Room Air 11/07/23 04:00 Room Air 11/07/23 04:00 11/07/23 02:00 Room Air 11/07/23 00:00 11/07/23 00:00 Room Air 11/06/23 22:20 11/06/23 22:15 Room Air 11/06/23 22:08 Room Air 11/06/23 22:00 Room Air 11/06/23 21:30 Room Air 11/06/23 21:00 Room Air 11/06/23 20:30 Room Air 11/06/23 20:00 Room Air 11/06/23 19:01 11/06/23 18:31 11/06/23 18:00 11/06/23 17:45 Room Air Intake and Output 11/06/23 11/07/23 11/07/23 23:59 07:59 15:59 Intake Total 7.667 / 2205.667 2198 / 2678 480 / 2678 Output Total 0 / 400 400 / 400 Balance 7.667 / 2205.667 2198 / 2278 80 / 2278 Intake: Intake, Oral Amount 200 / 680 480 / 680 Intake, Total IV Amount 7.667 / 2101.837 5747 / 1935 Cefepime HCl 2 gm In 0.9 % 100 / 100 Sodium Chloride 100 ml @ 200 mls/hr IV ONCE ONE Rx#:[id number] Lactated Ringers 1000ML 1,430 1430 / 1430 ml @ 715 mls/hr IV .Q2H ONE Rx# :[id number] Magnesium Sulfate in Water 2 gm 50 / 50 In 50 ml @ 50 mls/hr IV ONCE ONE Rx#:[id number] Vancomycin/Water For Inj (Peg) 350 / 350 1.75 gm In 350 ml @ 175 mls/hr IV ONCE ONE Rx#:[id number] dilTIAZem HCL 100 mg In 0.9 % 5 / 5 Sodium Chloride 100 ml @ 5 MG/ HR 5 mls/hr IV .Q20H COUNTS INCLUDE 234 BEDS AT THE [facility] Rx#: [id number] Infusion Intake 63 0.9 % Sodium Chloride 1000ML 1, 63 / 63 000 ml @ 50 mls/hr IV .Q20H COUNTS INCLUDE 234 BEDS AT THE [facility] Rx#:[id number] Output: Output, Urine Amount 0 / 400 400 / 400 Other: Number of Unmeasured Voids 0 Weight 92.125 kg 94.892 kg 94.892 kg Patient Weight 11/07/23 23:59 Weight 94.892 kg Laboratory Results - last 24 hr 11/06/23 19:22: WBC 19.6 H D, RBC 3.94 L, Hgb 11.0 L, Hct 33.8 L, MCV 85.7, MCH 28.0, MCHC 32.6, RDW 16.0, Plt Count 351, MPV 7.9, Neut % (Auto) 92.5 H, Lymph % (Auto) 3.6 L, [place] % (Auto) 2.5, Eos % (Auto) 1.0, Baso % (Auto) 0.2, Neut # (Auto) 18.1 H, Lymph # (Auto) 0.7, [place] # (Auto) 0.5, Eos # (Auto) 0.2, Baso # (Auto) 0.1, Total Counted 100, Neutrophils % (Manual) 92 H, Lymphocytes % (Manual) 6 L, Monocytes % (Manual) 2, Platelet Estimate Normal, RBC Morphology Normal, ESR 21, D-Dimer 0.80 H, Sodium 128 L, Potassium 4.0, Chloride 91 L, Carbon Dioxide 29, Anion Gap 12.0, BUN 22 H D, Creatinine 0.80, Estimated Creat Clear 60, Estimated GFR 68, Est GFR ( Amer) 83, Glucose 130 H, Lactate 2.4 H, Calcium 8.7, Magnesium 1.3 L, Total Bilirubin 0.7, AST 28, ALT 24 D, Alkaline Phosphatase 105, Troponin I < 0.01, C-Reactive Protein 49.6 H, NT-Pro-B Natriuret Pep 1910 H, Total Protein 6.9, Albumin 3.7, Globulin 3.2, Albumin/Globulin Ratio 1.2, TSH 1.08, Thyroxine (T4) 12.2 H 11/06/23 21:27: Troponin I < 0.01 11/06/23 23:42: Lactate 2.4 H 11/07/23 00:20: Troponin I 0.04 H 11/07/23 01:50: Lactate 1.5 11/07/23 05:31: WBC 14.2 H D, RBC 3.42 L, Hgb 9.7 L D, Hct 30.3 L, MCV 88.5, MCH 28.3, MCHC 31.9, RDW 16.1, Plt Count 312, MPV 8.6, Neut % (Auto) 82.5 H, Lymph % (Auto) 10.6, [place] % (Auto) 5.6, Eos % (Auto) 1.0, Baso % (Auto) 0.3, Neut # (Auto) 11.7 H, Lymph # (Auto) 1.5, [place] # (Auto) 0.8, Eos # (Auto) 0.1, Baso # (Auto) 0.1, ESR 56 H, Sodium 127 L, Potassium 3.8, Chloride 93 L, Carbon Dioxide 27, Anion Gap 10.8, BUN 25 H, Creatinine 0.80, Estimated Creat Clear 63, Estimated GFR 68, Est GFR ( Amer) 83, Glucose 107 H, Calcium 8.2 L, Magnesium 1.9 D, Total Bilirubin 0.4, AST 33, ALT 21, Alkaline Phosphatase 112, C-Reactive Protein 75.1 H D, Total Protein 6.0 L, Albumin 3.1 L D, Globulin 2.9, Albumin/Globulin Ratio 1.1 11/07/23 05:44: POC Glucose 129 H 11/07/23 13:23: Urine Color Yellow, Urine Appearance Clear, Urine pH 5.5, Ur Specific [place] 1.015, Urine Protein Negative, Urine Glucose (UA) 3+, Urine Ketones Negative, Urine Blood Negative, Urine Nitrate Negative, Urine Bilirubin Negative, Urine Urobilinogen 0.2, Ur Leukocyte Esterase Negative, Urine RBC None, Urine WBC Occasional, Ur Squamous Epith Cells 3-5, Urine Bacteria Trace I & O for Labs for Last 24 Hours: Intake & Output 11/04/23 11/05/23 11/06/23 11/07/23 23:59 23:59 23:59 23:59 Intake Total 7.667 / 2205.667 2678 / 2678 Output Total 400 / 400 Balance 7.667 / 2205.667 2278 / 2278 Weight 92.125 kg 94.892 kg Constitutional: Present no acute distress, morbidly obese, chronically ill appearing and cooperative Head: Present atraumatic and normocephalic ENT: Present normal exam Neck: Present normal inspection Respiratory: Present crackles (bases) and normal respiratory effort; Absent rhonchi or wheezes Comment:: Irregularly irregular, rate controlled GI: Present soft and normal bowel sounds; Absent distention or tenderness Extremities: Present full ROM; Absent edema Comment:: Left second toe with bandage in place. Bedside I&D performed earlier by podiatry; no erythema in foot or leg Skin: Present intact and erythema (Stasis dermatitis of the legs. No warmth) Neuro: Present Grossly Intact, alert, awake, oriented x 3 and moves all extremities Assessment and Plan *Assessment and plan (1) Diabetic ulcer of toe of left foot: Status: Acute Qualifiers: Diabetes mellitus type: type 2 Non-pressure ulcer stage: with fat layer exposed Qualified Code(s): E11.621 - Type 2 diabetes mellitus with foot ulcer; L97.522 - Non-pressure chronic ulcer of other part of left foot with fat layer exposed Category: Medical Code(s): E11.621 - Type 2 diabetes mellitus with foot ulcer; L97.529 - Non-pressure chronic ulcer of other part of left foot with unspecified severity (2) Sepsis: Status: Acute Qualifiers: Sepsis acute organ dysfunction status: without acute organ dysfunction Sepsis type: sepsis due to unspecified organism Qualified Code(s): A41.9 - Sepsis, unspecified organism Category: Medical Code(s): A41.9 - Sepsis, unspecified organism (3) Atrial fibrillation with RVR: Status: Acute Category: Medical Code(s): I48.91 - Unspecified atrial fibrillation (4) Hyponatremia: Status: Acute Category: Medical Code(s): E87.1 - Hypo-osmolality and hyponatremia (5) Hypomagnesemia: Status: Acute Category: Medical Code(s): E83.42 - Hypomagnesemia (6) Hypertension: Status: Acute Qualifiers: Hypertension type: unspecified Qualified Code(s): I10 - Essential (primary) hypertension Category: Medical Code(s): I10 - Essential (primary) hypertension (7) HLD (hyperlipidemia): Status: Acute Qualifiers: Hyperlipidemia type: mixed hyperlipidemia Qualified Code(s): E78.2 - Mixed hyperlipidemia Category: Medical Code(s): E78.5 - Hyperlipidemia, unspecified (8) Diabetes: Status: Acute Qualifiers: Diabetes mellitus complication detail: with polyneuropathy Diabetes mellitus complication status: with neurologic complications Diabetes mellitus longterm insulin use: without joint terminal attack controller use Diabetes mellitus type: type 2 Qualified Code(s): E11.42 - Type 2 diabetes mellitus with diabetic polyneuropathy Category: Medical Code(s): E11.9 - Type 2 diabetes mellitus without complications (9) CHF (congestive heart failure): Problem Comment: Dr. Martinez Status: Acute Qualifiers: Heart failure type: unspecified Heart failure chronicity: chronic Qualified Code(s): I50.9 - Heart failure, unspecified Category: Medical Code(s): I50.9 - Heart failure, unspecified (10) GERD (gastroesophageal reflux disease): Status: Acute Qualifiers: Esophagitis presence: esophagitis presence not specified Qualified Code(s): K21.9 - Gastro-esophageal reflux disease without esophagitis Category: Medical Code(s): K21.9 - Gastro-esophageal reflux disease without esophagitis Plan 82-year-old female with a PMHx of type 2 diabetes with extensives comorbities, CHF, CAD, PAD, atrial fibrillation on Eliquis, hypertension, and hyperlipidemia presenting to the emergency department for evaluation with concern for pain in her left second toe. on arrival patient presented tachycardic, hypertensive. c/o pain on her toe. Labs were obtained that demonstrated leukocytosis, elevated lactic acid, stable chronic anemia, hyponatremia, elevated BNP, hypomagnesemia. IV magnesium replacement was ordered. Given that patient is tachycardic, borderline febrile with notable source of infection being her foot, and has leukocytosis and elevated lactic acid, she screened for sepsis. She was given a sepsis bolus for ideal body weight. She remained in atrial fibrillation with RVR despite treatment of her pain and fluid resuscitation. Given this, she was given diltiazem push and started on a diltiazem drip. ED requested admission for inpatient management. findings were discussed at length. Admitted to medicine for further management. Heart rate improved and was controlled by the time she arrived to the floor. No longer on Dilt drip. Podiatry and cardiology assisting with care. Problems addressed as follows: Sepsis without septic shock: Atrial fibrillation with RVR. Heart rate drastically improved after bolus Diabetic ulcer of the left second toe Electrolyte imbalance. Hyponatremia hypomagnesemia Patient feeling somewhat better this morning. Still having pain in her toe. White count at 14.2. Inflammatory markers elevated with CRP 75, ESR 56. -Discussed case with cardiology, Continue Eliquis 5 mg twice daily, continue metoprolol succinate 50 mg daily. Rate currently controlled off of dilt drip. -Podiatry evaluated, bedside I&D performed. No plan for surgery. No osteomyelitis at this time. Weight-bear as tolerated, dressing changes daily. Continue broad-spectrum antibiotics. Plan for close follow-up in the outpatient setting. - Continue cefepime 2 g twice daily. Continue vancomycin daily. -Hydrocodone 5 mg / 325 mg every 6 hours as needed for moderate to severe pain. -Therapy to evaluate for appropriateness to discharge home versus home health Hypertension: Continue Farxiga 10 mg daily, Lasix 40 mg daily along with metoprolol for blood pressure. Peripheral artery disease: Lower extremity abnormal KASHIF and known history of PAD. Follows with cardiology at [facility] and vascular surgery in [place]. No desire for interventions at this time. Previous workup per review shows small vessel disease. No interventions available at this time. Recommend medical management. Start Plavix 75 mg daily. Continue statin. Diabetes: Last A1c 7.4 in June. Repeat pending. Continue sliding scale insulin with fingersticks ACHS along with Farxiga 10 mg daily Continue amitriptyline nightly 50 mg for mood and sleep Continue levothyroxine 125 mcg daily for hypothyroid Protonix for GERD and GI bleed protection Full code Diabetic diet
--- NOTE | 2023-11-07 15:19 | HMH.PTEV ---
Physical Therapy Evaluation Rehab PT IP Evaluation Start: 11/07/23 11:43 Freq: ONCE Status: Active Protocol: Document 11/07/23 14:33 [facility] (Rec: 11/07/23 15:19 [facility] [id number]) Subjective/History History History Patient Paula Ahmadi is a 82- year-old female with a PMHx of type 2 diabetes with extensive co-morbidities , CHF , CAD, PAD, atrial fibrillation on Eliquis, hypertension, and hyperlipidemia. Patient was admitted on (11/06/23) for pain on her left second toe due to a wound present. Patient mentioned that her foot was sore. She was alert and able to answer any questions, she stated that she lives at home by herself, she did mentioned that she does have a daughter who regularly checks on her. She states that she is able to complete everything at home on her own. She states that she does use an assistive device for ambulation within her home or community depending on event she switches between a walker or rollator. Subjective Subjective Patient currently has no pain complaints and is very admit on not going to a usp at this time, as her daughter has mentioned it multiple times. Patient also mentioned that she has an exercise bike at home that she sometimes uses through out the month. Patient also stated that she has friends who help her get town down and grocery shop. Patient is able to ambulate with the rolling walker and achieve correct hand placement during STS transfers, she was assisted back to the bedside chair and her call titus was placed with in her reach. New diagnosis of cancer in past 12 No months? Rehab PT IP Eval Objective Appearance Patient Behavior Appropriate,Cooperative, Talkative Patient Orientation Person,Place,Name,Age,Birthday ,Situation Speech Pattern Clear,Appropriate Ambulation Patient Able to Ambulate Yes Ambulation Observation IP General Gait Pattern Observation No Deviations/Normal Ambulation Distance (feet) 50 Ambulation Assistive Device Rolling Walker Ambulation Ability Minimal x 1 (25% assist) Balance Ability to Arise Able, uses arms to help Sitting Balance Leans or slides in chair Standing Balance Steady, wide stance Dynamic Sitting Balance Ability Good Dynamic Standing Balance Ability Good Transfers Bed Transfer Ability Minimal x 1 (25% assist) Sit to Stand Bed Transfer Ability Minimal x 1 (25% assist) Rehab PT IP prob,goals,plan Problems Date of Evaluation: 11/07/23 PT IP Problems Gait,Balance Rehab Potential Rehab Potential Good Plan PT Intervention Plan Gait,Balance PT Plan Frequency Daily Duration LOS Discharge Goals Bed Transfer Ability Supervision/Stand by Sit to Stand Chair Transfer Ability Supervision/Stand by Ambulation Distance (feet) 100 Discharge Plan PT Discharge Plan Patient is appropriate at this time for skilled PT at this time to address the concern of safety during ambulation, she will significantly benefit to strengthen LE musculature. It is recommended that when she is medically stable that she obtains home health to address this concern of safety during transfer and ambulation. Eval Complexity Eval Charge Codes 97795 - High Complexity PHYSICIAN CERTIFICATION: I certify the specified therapy services for Paula Ahmadi are required, authorized, and reviewed every 30 days.
[2023-11-07] MEDS: [UNRECOGNIZED DRUG - OTHER] IH (15:47)
[2023-11-07] MEDS: FLUTICASONE FUROATE IH (15:47)
[2023-11-07] MEDS: VILANTEROL IH (15:47)
[2023-11-07] MEDS: MULTIVITAMIN TABLET 1 EACH PO (16:04)
[2023-11-07] MEDS: CEFEPIME HCL 2 GM in 0.9 % SODIUM CHLORIDE 100 ML IV (16:04)
--- NOTE | 2023-11-07 16:47 | PC.NURSE ---
Pt is a/o x 4, pt has been up to chair since approx 1000 this am. pt is tolerating meals well. lungs are clear with occassional crackles noted in bases. bowel sounds are active in all quads. nad noted. pt has had several family members visiting this shift. pt is currently on room air and denies chest pain or shortness of breath. pt is able to call for assistance and get up to the bsc with assist x 2 to void. pt had bm earlier in the shift.
[2023-11-07 20:15] LABS: POC Glucose,Bedside 191 (70-110)
--- NOTE | 2023-11-07 20:38 | US_ITS ---
FINAL REPORT CLINICAL HISTORY: L foot infection, eval by podiatry, Ulcer on L 2nd toe HTN, HLD, DM COMPARISON: None FINDINGS: ANKLE-BRACHIAL PRESSURE INDICES Pressure indices are as follows: RIGHT LOWER EXTREMITY: Ankle-brachial pressure index: 0.55 Comments: Moderate to severe peripheral vascular disease. LEFT LOWER EXTREMITY: Ankle-brachial pressure index: 0.59 Comments: Moderate to severe peripheral vascular disease CONCLUSION: Findings are consistent with bilateral moderate to severe peripheral vascular disease of the lower extremities. Reviewed, Interpreted and Dictated by Corona Rodrigez MD Transcribed by Domenica Seals Authenticated and . [facility]
[2023-11-07] MEDS: AMITRIPTYLINE 50MG TABLET 50 MG PO (20:41)
[2023-11-07] MEDS: APIXABAN 5MG TABLET 5 MG PO (20:41)
[2023-11-07] MEDS: PRAVASTATIN 20MG TAB 10 MG PO (20:41)
[2023-11-07] MEDS: PANTOPRAZOLE 40MG TABLET 40 MG PO (20:41)
[2023-11-07] MEDS: ACETAMINOPHEN 325MG TAB 650 MG PO (20:42)
[2023-11-07] MEDS: VANCOMYCIN/WATER FOR INJ (PEG) 1.5 GM/300 ML PIGGYBACK IV (22:05)
[2023-11-07 22:09] LABS: Hemoglobin A1C 6.1 % (4.0-6.0)
[2023-11-08] VITALS: BP 141/70; PULSE 100; PULSE 94; RESP 16; TEMP 36.7; O2SAT 98
--- NOTE | 2023-11-08 02:30 | ECG_ITS ---
APPROVED REPORT Exam: Resting ECG HR:81 bpm ECG Measurements Heart Rate 81 AXES QRSd 89 QRS 42 QT 367 T 49 QTc 404 Conclusion ATRIAL FIBRILLATION ABNORMAL RHYTHM ECG UNCONFIRMED REPORT Electronically signed by : KACEY SOLIMAN, 11/08/2023 06:48:42
[2023-11-08] MEDS: ACETAMINOPHEN 325MG TAB 650 MG PO (02:40)
--- NOTE | 2023-11-08 02:47 | EXP.PN ---
Subjective *Date: 11/08/23 *Time: 09:13 Interval history: Patient reported a chest tightness midsternum when breathing Exam Data for Last 24 hours Vital signs and Labs for Last 24 Hours: Temp Pulse Resp BP Pulse Ox O2 Del Method 98.0 F 94 H 16 141/70 H 98 Room Air 11/08/23 00:00 11/08/23 00:00 11/08/23 00:00 11/08/23 00:00 11/08/23 00:00 11/08/23 01:00 Laboratory Results - last 24 hr 11/07/23 05:31: WBC 14.2 H D, RBC 3.42 L, Hgb 9.7 L D, Hct 30.3 L, MCV 88.5, MCH 28.3, MCHC 31.9, RDW 16.1, Plt Count 312, MPV 8.6, Neut % (Auto) 82.5 H, Lymph % (Auto) 10.6, [place] % (Auto) 5.6, Eos % (Auto) 1.0, Baso % (Auto) 0.3, Neut # (Auto) 11.7 H, Lymph # (Auto) 1.5, [place] # (Auto) 0.8, Eos # (Auto) 0.1, Baso # (Auto) 0.1, ESR 56 H, Sodium 127 L, Potassium 3.8, Chloride 93 L, Carbon Dioxide 27, Anion Gap 10.8, BUN 25 H, Creatinine 0.80, Estimated Creat Clear 63, Estimated GFR 68, Est GFR ( Amer) 83, Glucose 107 H, Hemoglobin A1c 6.1 H, Calcium 8.2 L, Magnesium 1.9 D, Total Bilirubin 0.4, AST 33, ALT 21, Alkaline Phosphatase 112, C-Reactive Protein 75.1 H D, Total Protein 6.0 L, Albumin 3.1 L D, Globulin 2.9, Albumin/Globulin Ratio 1.1 11/07/23 05:44: POC Glucose 129 H 11/07/23 13:23: Urine Color Yellow, Urine Appearance Clear, Urine pH 5.5, Ur Specific [place] 1.015, Urine Protein Negative, Urine Glucose (UA) 3+, Urine Ketones Negative, Urine Blood Negative, Urine Nitrate Negative, Urine Bilirubin Negative, Urine Urobilinogen 0.2, Ur Leukocyte Esterase Negative, Urine RBC None, Urine WBC Occasional, Ur Squamous Epith Cells 3-5, Urine Bacteria Trace 11/07/23 20:07: POC Glucose 191 H I & O for Last 24 hours: Intake & Output 11/05/23 11/06/23 11/07/23 11/08/23 23:59 23:59 23:59 23:59 Intake Total 7.667 / 2205.667 3678 / 3928 250 / 250 Output Total 400 / 400 Balance 7.667 / 2205.667 3278 / 3528 250 / 250 Weight 92.125 kg 94.892 kg Microbiology Reports for the Last 24 Hours: Microbiology 11/06/23 19:22 Blood Blood Culture - Preliminary NO GROWTH AFTER 24 HOURS 11/06/23 19:22 Blood Blood Culture - Preliminary NO GROWTH AFTER 24 HOURS 11/07/23 07:26 Toe,Left Second Gram Stain - Final *Routine Neck Exam Neck: Present supple and full ROM Routine Chest/Breast/Axilla Exam Chest wall: Present tenderness (While examining the lungs palpated the chest wall, on the left side mid axillary line some tenderness upon palpation and also when she takes a deep breath, exam appeared that this is muscular and had nothing to do with her lungs there was no cough and the lungs were clear bilaterally) *Routine Respiratory Exam Respiratory: Present normal respiratory effort Assessment and Plan *Assessment and plan (1) Feeling of chest tightness: Status: Acute Category: Medical Code(s): R07.89 - Other chest pain (2) Left-sided chest wall pain: Status: Acute Category: Medical Code(s): R07.89 - Other chest pain Plan 1. Feeling of chest tightness, examined twelve-lead seeing no changes from her chronic A-fib., Patient did not appear to be in distress, did deny any type of heartburn, but was really not showing any cardiac symptoms. 2. Left-sided chest wall pain: Will have the patient received some Tylenol, was able to palpate the chest and create some discomfort in the chest wall between the ribs. There was no sign of trauma or injury. Patient had no cough. Nursing staff also in room with me while doing the exam we feel that the patient is in no distress they will contact me if this was to worsen. Do not feel that further workup is needed at this point
[2023-11-08] MEDS: CEFEPIME HCL 2 GM in 0.9 % SODIUM CHLORIDE 100 ML IV (03:27)
[2023-11-08 04:00] VITALS: BP 168/87; PULSE 70; PULSE 96; RESP 16; TEMP 36.5; O2SAT 96; BMI 39.4
[2023-11-08 06:02] LABS: Basophils % 0.5 % (0.1-2.0); Eosinophils # 0.2 K/mm3 (0.0-0.4); Eosinophils % 2.3 % (0.1-12.0); Hematocrit 32.1 % (37.0-47.0); Hemoglobin 10.1 g/dL (12.2-16.2); Lymphocytes # 1.4 K/mm3 (0.7-4.5); Lymphocytes % 15.8 % (10-50); Mean Corpuscular HGB Conc 31.5 g/dL (31.8-35.4); Mean Corpuscular Hemoglobin 27.5 pg (27.0-31.2); Mean Corpuscular Volume 87.5 fl (81-99); Mean Platelet Volume 7.7 fl (7.4-10.4); Monocytes # 0.7 K/mm3 (0.1-1.0); Monocytes % 7.8 % (1.7-9.3); Neutrophils # 6.5 K/mm3 (1.8-7.8); Neutrophils % 73.7 % (37.0-80.0); Platelet Count 270 K/mm3 (142-424); Red Blood Count 3.67 M/mm3 (4.20-5.40); Red Cell Distribution Width 16.1 % (11.5-17.5); White Blood Count 8.8 K/mm3 (4.8-10.8)
[2023-11-08] MEDS: LEVOTHYROXINE 125MCG (0.125MG) TAB 125 MCG PO (06:06)
[2023-11-08] MEDS: HYDROCODONE/APAP 5/325 MG TABLET 1 TAB PO (06:06)
[2023-11-08 06:19] LABS: Alanine Aminotransferase 21 U/L (12-78); Albumin Level 3.1 g/dl (3.5-5.0); Albumin/Globulin Ratio 1.1 (1.1-1.8); Alkaline Phosphatase 104 U/L (38-126); Anion Gap 7.9 mEq/L (5-15); Aspartate Amino Transferase 30 U/L (14-36); Bilirubin,Total 0.3 mg/dl (0.2-1.3); Blood Urea Nitrogen 19 mg/dl (7-17); Calcium 8.3 mg/dl (8.4-10.2); Carbon Dioxide 26 mmol/L (22.0-30.0); Chloride 98 mmol/L (98-107); Creatinine Clearance Estimated 63 mL/min (50-200); Estimated Glomerular Filt Rate 80 ml/min (>60); GFR (African American) 96 ML/MIN (>60); Globulin 2.9 g/dL (1.3-3.2); Glucose 127 mg/dl (74-100); Magnesium 1.9 mg/dl (1.6-2.3); Potassium 3.9 mmoL/L (3.5-5.1); Sodium 128 mmol/L (136-145)
--- NOTE | 2023-11-08 06:20 | PC.NURSE ---
Pt is A&OX4 and has tolerated room air. She called out complaining of leg pain and toe pain and was treated per jun. Pt also complained of chest discomfort and provider was notified. An ekg was obtained and was negative. No orders given. Pt has refused insulin twice this shift. She has ambulated to the bathroom a couple times this shift with X2 assist. She is currently up to the chair, call light within reach.
[2023-11-08 06:23] LABS: POC Glucose,Bedside 165 (70-110)
--- NOTE | 2023-11-08 06:34 | EXP.EVENT.NO ---
While patient was being cleaned up by staff noticed a fungal type redness and to the skin folds in the lower abdomen and groin area Diagnosis intertrigo Plan nystatin powder ordered
[2023-11-08] MEDS: FLUTICASONE FUROATE IH (07:00)
[2023-11-08] MEDS: [UNRECOGNIZED DRUG - OTHER] IH (07:00)
[2023-11-08] MEDS: VILANTEROL IH (07:00)
[2023-11-08 07:57] VITALS: BP 133/76; PULSE 95; RESP 18; TEMP 36.4; O2SAT 98
[2023-11-08 08:00] VITALS: PULSE 100
[2023-11-08] MEDS: SODIUM CHLORIDE 1,000MG TABLET 1000 MG PO (09:05)
[2023-11-08] MEDS: NYSTATIN TOPICAL POWDER 30GM TP (09:05)
[2023-11-08] MEDS: FERROUS SULFATE 325MG TABLET 325 MG PO (09:06)
[2023-11-08] MEDS: METOPROLOL SUCCINATE XL 50MG TABLET 50 MG PO (09:06)
[2023-11-08] MEDS: CLOPIDOGREL 75MG TAB 75 MG PO (09:06)
[2023-11-08] MEDS: POTASSIUM CHLORIDE 20MEQ TAB 20 MEQ PO (09:06)
[2023-11-08] MEDS: MAGNESIUM OXIDE 400MG TABLET 400 MG PO (09:06)
[2023-11-08] MEDS: APIXABAN 5MG TABLET 5 MG PO (09:06)
[2023-11-08] MEDS: FUROSEMIDE 40 MG TABLET PO (09:06)
[2023-11-08] MEDS: DAPAGLIFLOZIN PROPANEDIOL 10 MG TABLET PO (09:06)
--- NOTE | 2023-11-08 09:13 | EXP.DC.SUM ---
General Admission date:: 11/06/23 Discharge date: 11/08/23 HPI HPI HPI: This is a 82-year-old female with a PMHx of type 2 diabetes with extensives comorbities, CHF, CAD, PAD, atrial fibrillation on Eliquis, hypertension, and hyperlipidemia presenting to the emergency department for evaluation with concern for pain in her left second toe. She states that she has had a wound there and she seen her primary care doctor for it 2 days ago, but they were not concerned. She states that is hurting her so badly that she cannot sleep. Her toe has been throbbing. No known injuries. She states that she has been constantly cold but has had no objective fevers. No chest pain, shortness of breath, abdominal pain, vomiting, or other concerns. ADmitted for further treatment and management. Hospital Course Hospital Course Hospital Course: 82-year-old female with a PMHx of type 2 diabetes with extensives comorbities, CHF, CAD, PAD, atrial fibrillation on Eliquis, hypertension, and hyperlipidemia presenting to the emergency department for evaluation with concern for pain in her left second toe. on arrival patient presented tachycardic, hypertensive. c/o pain on her toe. Labs were obtained that demonstrated leukocytosis, elevated lactic acid, stable chronic anemia, hyponatremia, elevated BNP, hypomagnesemia. IV magnesium replacement was ordered. Given that patient is tachycardic, borderline febrile with notable source of infection being her foot, and has leukocytosis and elevated lactic acid, she screened for sepsis. She was given a sepsis bolus for ideal body weight. She remained in atrial fibrillation with RVR despite treatment of her pain and fluid resuscitation. Given this, she was given diltiazem push and started on a diltiazem drip. ED requested admission for inpatient management. findings were discussed at length. Admitted to medicine for further management. Heart rate improved and was controlled by the time she arrived to the floor. Transitioned to oral metoprolol with improvement in control. Rate controlled the remainder of hospitalization. Podiatry was consulted to assist with care of foot. Bedside debridement performed. Will continue antibiotics at discharge. Overall doing well. Evaluated by therapy, would benefit from home health PT and OT. Close follow-up with podiatry and cardiology. Problems addressed as follows: Sepsis without septic shock: Atrial fibrillation with RVR. 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 Hyponatremia hypomagnesemia Presented with A-fib with RVR. Also having sepsis criteria on admission. Received IV fluids started on diltiazem drip. Feeling better by the time she arrived to the floor. Transitioned to oral metoprolol. Cardiology was consulted to assist with care, patient started on empiric antibiotics. White count initially elevated along with inflammatory markers. She had improvement with antibiotics and debridement. Podiatry was consulted to assist with her toe infection. No concern on imaging for osteomyelitis. Overall had good improvement in her symptoms with her toe and heart rate control. Reports feeling better during admission. Continue Eliquis 5 mg twice daily, continue metoprolol succinate 50 mg daily. -Podiatry evaluated, bedside I&D performed. No plan for surgery. No osteomyelitis at this time. Weight-bear as tolerated, dressing changes daily. Continue broad-spectrum antibiotics. Plan for close follow-up in the outpatient setting. Initially treated with cefepime and vancomycin. Transitioned to oral levofloxacin to complete 7-day course. -Therapy evaluated, appropriate to discharge home with home health. - Hydrocodone 5 mg / 325 mg every 6 hours as needed for moderate to severe pain. Hypertension: Continue Farxiga 10 mg daily, Lasix 40 mg daily along with metoprolol for blood pressure. Peripheral artery disease: Lower extremity abnormal KASHIF and known history of PAD. Follows with cardiology at [facility] and vascular surgery in [place]. No desire for interventions at this time. Previous workup per review shows small vessel disease. No interventions available at this time. Recommend medical management. Start Plavix 75 mg daily. Continue statin. Diabetes: Last A1c 7.4 in June. Repeat pending. Continue sliding scale insulin with fingersticks ACHS along with Farxiga 10 mg daily Continue amitriptyline nightly 50 mg for mood and sleep Continue levothyroxine 125 mcg daily for hypothyroid Total time spent on discharge 32 minutes in counseling, documentation, chart review, and direct care with patient. Exam Data for Last 24 hours Vital signs and Labs for Last 24 Hours: Temp Pulse Resp BP Pulse Ox O2 Del Method 97.5 F L 95 H 18 133/76 98 Room Air 11/08/23 07:57 11/08/23 07:57 11/08/23 07:57 11/08/23 07:57 11/08/23 07:57 11/08/23 07:57 Laboratory Results - last 24 hr 11/07/23 05:31: Hemoglobin A1c 6.1 H 11/07/23 13:23: Urine Color Yellow, Urine Appearance Clear, Urine pH 5.5, Ur Specific [place] 1.015, Urine Protein Negative, Urine Glucose (UA) 3+, Urine Ketones Negative, Urine Blood Negative, Urine Nitrate Negative, Urine Bilirubin Negative, Urine Urobilinogen 0.2, Ur Leukocyte Esterase Negative, Urine RBC None, Urine WBC Occasional, Ur Squamous Epith Cells 3-5, Urine Bacteria Trace 11/07/23 20:07: POC Glucose 191 H 11/08/23 05:17: WBC 8.8 D, RBC 3.67 L, Hgb 10.1 L, Hct 32.1 L, MCV 87.5, MCH 27.5, MCHC 31.5 L, RDW 16.1, Plt Count 270, MPV 7.7, Neut % (Auto) 73.7, Lymph % (Auto) 15.8, [place] % (Auto) 7.8, Eos % (Auto) 2.3, Baso % (Auto) 0.5, Neut # (Auto) 6.5, Lymph # (Auto) 1.4, [place] # (Auto) 0.7, Eos # (Auto) 0.2, Baso # (Auto) 0.0, Sodium 128 L, Potassium 3.9, Chloride 98, Carbon Dioxide 26, Anion Gap 7.9, BUN 19 H, Creatinine 0.70, Estimated Creat Clear 63, Estimated GFR 80, Est GFR ( Amer) 96, Glucose 127 H, Calcium 8.3 L, Magnesium 1.9, Total Bilirubin 0.3, AST 30, ALT 21, Alkaline Phosphatase 104, Total Protein 6.0 L, Albumin 3.1 L, Globulin 2.9, Albumin/Globulin Ratio 1.1 11/08/23 06:10: POC Glucose 165 H I & O for Last 24 hours: Intake & Output 11/05/23 11/06/23 11/07/23 11/08/23 23:59 23:59 23:59 23:59 Intake Total 7.667 / 2205.667 3678 / 3928 670 / 670 Output Total 400 / 400 0 / 0 Balance 7.667 / 2205.667 3278 / 3528 670 / 670 Weight 92.125 kg 94.892 kg 94.892 kg Microbiology Reports for the Last 24 Hours: Microbiology 11/07/23 07:26 Toe,Left Second Gram Stain - Final 11/07/23 07:26 Toe,Left Second Wound Culture - Preliminary 11/06/23 19:22 Blood Blood Culture - Preliminary NO GROWTH AFTER 24 HOURS 11/06/23 19:22 Blood Blood Culture - Preliminary NO GROWTH AFTER 24 HOURS Constitutional Constitutional: no acute distress, morbidly obese, chronically ill appearing and cooperative *Routine HEENT Exam Head: Present normocephalic Eye: Present EOMI and PERRL ENT: Present mucous membranes moist *Routine Neck Exam Neck: Present supple; Absent lymphadenopathy *Routine Respiratory Exam Respiratory: Present CTA bilaterally; Absent rhonchi, wheezes or crackles *Routine Cardiovascular Exam Cardiovascular: Present irregularly irregular *Routine Abdominal Exam Abdominal: Present soft and normoactive bowel sounds; Absent tenderness *Routine Rectal Exam Patient deferred: visual exam *Routine Exam Patient deferred: external exam *Routine Extremities Exam Extremities: Present edema (1+ edema to knees); Absent cyanosis or clubbing Comments: chronic stasis dermatitis *Routine Skin Exam Skin: Present intact, erythema (bilateral shins, dermatitis on legs) and warm; Absent rash *Routine Neurological Exam Neurological: Present alert, oriented X3 and moving all extremities; Absent altered mental status Results Data Completed and Pending Labs on day of discharge: Labs from last 24 hours 11/08/23 11/08/23 11/07/23 06:10 05:17 20:07 WBC 8.8 D RBC 3.67 L Hgb 10.1 L Hct 32.1 L MCV 87.5 MCH 27.5 MCHC 31.5 L RDW 16.1 Plt Count 270 MPV 7.7 Neut % (Auto) 73.7 Lymph % (Auto) 15.8 [place] % (Auto) 7.8 Eos % (Auto) 2.3 Baso % (Auto) 0.5 Neut # (Auto) 6.5 Lymph # (Auto) 1.4 [place] # (Auto) 0.7 Eos # (Auto) 0.2 Baso # (Auto) 0.0 Sodium 128 L Potassium 3.9 Chloride 98 Carbon Dioxide 26 Anion Gap 7.9 BUN 19 H Creatinine 0.70 Estimated Creat Clear 63 Estimated GFR 80 Est GFR ( Amer) 96 Glucose 127 H POC Glucose 165 H 191 H Hemoglobin A1c Calcium 8.3 L Magnesium 1.9 Total Bilirubin 0.3 AST 30 ALT 21 Alkaline Phosphatase 104 Total Protein 6.0 L Albumin 3.1 L Globulin 2.9 Albumin/Globulin Ratio 1.1 Urine Color Urine Appearance Urine pH Ur Specific [place] Urine Protein Urine Glucose (UA) Urine Ketones Urine Blood Urine Nitrate Urine Bilirubin Urine Urobilinogen Ur Leukocyte Esterase Urine RBC Urine WBC Ur Squamous Epith Cells Urine Bacteria 11/07/23 11/07/23 13:23 05:31 WBC RBC Hgb Hct MCV MCH MCHC RDW Plt Count MPV Neut % (Auto) Lymph % (Auto) [place] % (Auto) Eos % (Auto) Baso % (Auto) Neut # (Auto) Lymph # (Auto) [place] # (Auto) Eos # (Auto) Baso # (Auto) Sodium Potassium Chloride Carbon Dioxide Anion Gap BUN Creatinine Estimated Creat Clear Estimated GFR Est GFR ( Amer) Glucose POC Glucose Hemoglobin A1c 6.1 H Calcium Magnesium Total Bilirubin AST ALT Alkaline Phosphatase Total Protein Albumin Globulin Albumin/Globulin Ratio Urine Color Yellow Urine Appearance Clear Urine pH 5.5 Ur Specific [place] 1.015 Urine Protein Negative Urine Glucose (UA) 3+ Urine Ketones Negative Urine Blood Negative Urine Nitrate Negative Urine Bilirubin Negative Urine Urobilinogen 0.2 Ur Leukocyte Esterase Negative Urine RBC None Urine WBC Occasional Ur Squamous Epith Cells 3-5 Urine Bacteria Trace Preliminary micro results at discharge 11/07/23 07:26 Wound Culture - Preliminary Toe,Left Second 11/06/23 19:22 Blood Culture - Preliminary Blood NO GROWTH AFTER 24 HOURS 11/06/23 19:22 Blood Culture - Preliminary Blood NO GROWTH AFTER 24 HOURS DS: Diagnosis Discharge Diagnosis (1) Feeling of chest tightness: Status: Acute Code(s): R07.89 - Other chest pain (2) Left-sided chest wall pain: Status: Acute Code(s): R07.89 - Other chest pain Meds Home Medications and Allergies Home Medications ?Medication ?Instructions ?Recorded ?Confirmed ?Type acetaminophen 500 mg tablet 500 mg PO BID PRN Pain 06/04/22 11/06/23 History multivitamin (Daily Multi-Vitamin 1 tab PO DAILY 07/30/22 11/06/23 History tablet) metformin 500 mg tablet 500 mg PO BID Diabetes #180 tabs 01/29/23 11/06/23 Rx potassium chloride 20 mEq 20 meq PO DAILY Supplement #90 tabs 01/29/23 11/06/23 Rx tablet,extended release [id number] 100 mcg-lut 1.66 1 tab PO BID 06/27/23 11/06/23 History mg-zeaxanth 0.83 mg tablet,delay rel. (Icaps MV) albuterol sulfate 90 mcg/actuation 2 puff inhalation Q4-6H PRN 11/04/23 11/06/23 History aerosol inhaler Shortness Of Breath Or Wheezing apixaban 5 mg tablet (Eliquis) 5 mg PO BID 11/04/23 11/06/23 History dapagliflozin propanediol 10 mg 10 mg PO DAILY 11/04/23 11/06/23 History tablet (Farxiga) fluticasone furoate 100 1 inh inhalation DAILY 11/04/23 11/06/23 History mcg-vilanterol 25 mcg/dose inhalation powder (Breo Ellipta) irbesartan 75 mg tablet 75 mg PO DAILY 11/04/23 11/07/23 History levothyroxine 125 mcg tablet 125 mcg PO DAILY 11/04/23 11/06/23 History omeprazole 40 mg capsule,delayed 40 mg PO DAILY 11/04/23 11/06/23 History release pravastatin 10 mg tablet 10 mg PO HS 11/04/23 11/07/23 History torsemide 20 mg tablet 40 mg PO BID 11/04/23 11/06/23 History ferrous sulfate 324 mg (65 mg 324 mg PO BID #180 tabs 11/05/23 11/06/23 Rx iron) tablet,delayed release sodium chloride 1,000 mg soluble 1,000 mg PO BID #180 tabs 11/05/23 11/06/23 Rx tablet amitriptyline 50 mg tablet 50 mg PO HS 11/07/23 11/07/23 History magnesium oxide 400 mg (241.3 mg 400 mg PO DAILY 11/07/23 11/07/23 History magnesium) tablet metoprolol succinate 50 mg 50 mg PO DAILY 11/07/23 11/07/23 History tablet,extended release 24 hr clopidogrel 75 mg tablet 75 mg PO DAILY 30 days #30 tabs 11/08/23 Rx hydrocodone 5 mg-acetaminophen 325 1 tab PO Q6HP PRN Moderate To 11/08/23 Rx mg tablet Severe Pain (4-10) #9 tabs levofloxacin 750 mg tablet 750 mg PO DAILY 5 days #5 tabs 11/08/23 Rx New Prescriptions to Start Prescriptions: clopidogrel Blaine Lepe hydrocodone-acetaminophen Blaine Lepe levofloxacin Blaine Lepe Allergies Allergy/AdvReac Type Severity Reaction Status Date / Time adenosine [ADENOSINE] Allergy Unknown S-ANAPHYLAX Verified 11/04/23 11:03 IS benzonatate Allergy Unknown Verified 11/04/23 11:03 [From DAYA SMITH] morphine [MORPHINE] Allergy Unknown KNOCKS Verified 11/04/23 11:03 OUT Penicillins [PENICILLINS] Allergy Unknown I-RASH Verified 11/04/23 11:03 Sulfa (Sulfonamide Allergy Unknown I-RASH Verified 11/04/23 11:03 Antibiotics) [SULFA (SULFONAMIDE ANTIBIOTICS)] albuterol Allergy Blurry Verified 11/04/23 11:03 Vision Discharge Plan Disposition Patient Disposition: Home Health Service Condition: Fair Discharge Order Discharge Orders: Discharge Order (Routine); Ordered 11/08/23 Ordered By: Blaine Lepe Follow up Plan Follow up with: Milagro Estrella DPM [Staff Physician] - 11/26/23 1:00 pm Larisa Banuelos APRN [Primary Care Provider] - 11/14/23 10:00 am Prescriptions/Medication Reconciliation: New clopidogrel 75 mg Tablet 75 mg PO DAILY 30 Days Qty: 30 0RF hydrocodone-acetaminophen 5-325 mg Tablet 1 tab PO Q6HP PRN (Reason: Moderate To Severe Pain (4-10)) Qty: 9 0RF levofloxacin 750 mg tablet 750 mg PO DAILY 5 Days Qty: 5 0RF Continued multivitamin [Daily Multi-Vitamin] Tablet 1 tab PO DAILY Eliquis 5 mg tablet 5 mg PO BID albuterol sulfate 90 mcg/actuation HFA aerosol inhaler 2 puff inhalation Q4-6H PRN (Reason: Shortness Of Breath Or Wheezing) dapagliflozin propanediol [Farxiga] 10 mg tablet 10 mg PO DAILY fluticasone furoate-vilanterol [Breo Ellipta] 100-25 mcg/dose blister with device 1 inh inhalation DAILY irbesartan 75 mg tablet 75 mg PO DAILY levothyroxine 125 mcg tablet 125 mcg PO DAILY omeprazole 40 mg capsule,delayed release(DR/EC) 40 mg PO DAILY pravastatin 10 mg tablet 10 mg PO HS torsemide 20 mg tablet 40 mg PO BID metformin 500 mg tablet 500 mg PO BID Qty: 180 3RF potassium chloride 20 mEq tablet extended release 20 meq PO DAILY Qty: 90 3RF sodium chloride 1,000 mg tablet,soluble 1,000 mg PO BID Qty: 180 0RF ferrous sulfate 324 mg (65 mg iron) tablet,delayed release (DR/EC) 324 mg PO BID Qty: 180 3RF metoprolol succinate 50 mg tablet extended release 24 hr 50 mg PO DAILY amitriptyline 50 mg tablet 50 mg PO HS magnesium oxide 400 mg (241.3 mg magnesium) tablet 400 mg PO DAILY Rx Instructions: TAKE 1 TABLET BY MOUTH ONCE DAILY SUPPLEMENT acetaminophen 500 mg tablet 500 mg PO BID PRN (Reason: Pain) Icaps MV 100-1.66-0.83 mcg-mg-mg Tablet,Delayed Release (Dr/Ec) 1 tab PO BID Discontinued aspirin 81 mg tablet,delayed release (DR/EC) 81 mg PO DAILY Problem Reconciliation Problems Reviewed?: Yes Patient Discharge Instructions ACTIVITY: Continue current activity DIET: continue same diet Patient Instructions: DI for Atrial Fibrillation, DI for Sepsis -- Adult Print Language: Romanian Providers Primary Care Provider: Larisa Banuelos Admit Provider: Blaine Lepe Attending Provider: Blaine Lepe
[2023-11-08 11:21] LABS: POC Glucose,Bedside 170 (70-110)
[2023-11-08 15:00] LABS: POC Glucose,Bedside 145 (70-110)
[2023-11-08 15:00] LABS: POC Glucose,Bedside 121 (70-110)
--- NOTE | 2023-11-14 14:43 | CARE MANAGER ---
Unable to reach patient via phone to discuss recent discharge. VM left with call back information. Call attempted X 2.
== END 2023-11-08 13:44 | disposition home health service (06) | DRG 872 ==
LOC: ER 21:52 → 2ND 21:59
PROVIDERS: Nurse Practitioner; Nurse Practitioner Family; Admitting Provider Internal Medicine Adolescent Medicine; Emergency Provider Emergency Medicine; PCP Nurse Practitioner Family; Visit Provider Internal Medicine Adolescent Medicine
DX: A41.9 Sepsis, unspecified organism (principal); E87.1 Hypo-osmolality and hyponatremia; I48.91 Unspecified atrial fibrillation; E11.621 Type 2 diabetes mellitus with foot ulcer; L97.522 Non-pressure chronic ulcer of other part of left foot with fat layer exposed; E83.42 Hypomagnesemia; I10 Essential (primary) hypertension; E11.51 Type 2 diabetes mellitus with diabetic peripheral angiopathy without gangrene; K21.9 Gastro-esophageal reflux disease without esophagitis; M51.36 Other intervertebral disc degeneration, lumbar region
CPT/HCPCS: 36415; 73630; 73702; 80050; 80053; 81001; 82728; 82962; 83036; 83540; 83550; 83605; 83735; 83880; 84436; 84443; 84484; 85007; 85025; 85378; 85651; 86140; 87040; 87070; 87077; 87186; 87205; 93005; 93923; 97110; 97163; 97166; 99212; 99291; G0463; J1885; J3475; J7120; Q0162; Q9967

== ENCOUNTER 2023-11-19 10:32 | Day surgery (SDC) | payer MEDICARE, OTHER, SELFPAY ==
[2023-11-19 11:21] VITALS: BP 158/72; PULSE 91; RESP 16; TEMP 36.5; O2SAT 98; BMI 38.5
[2023-11-19 11:49] VITALS: BP 128/58; PULSE 93; RESP 18; O2SAT 98
--- NOTE | 2023-11-19 11:51 | P.PCN_ITS ---
Procedure Date: 11/19/23 Time: 11:45 Anesthesiologist:: Juancarlos Randolph CRNA Complications:: None Pre-procedure Diagnosis:: Chronic bilateral knee pain. Post-procedure Diagnosis:: Same. Indications for Procedure:: Patient is a pleasant 83-year-old female comes to clinic today for bilateral in frapatellar branch of the saphenous nerve block. 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 She describes the knee pain bilaterally as constant, dull, aching. She rates pain 7/10. Pain is 10/10 when ambulating. She presents today in a wheelchair. Procedure Details:: Details of procedure explained to the patient. The patient taken procedure room placed in the sitting position. The area over the bilateral knee joints was cleaned using chlorhexidine as a cleansing solution. Using a 25-gauge inch and half needle the left infrapatellar branch of the saphenous nerve was blocked at the anterior proximal tibia. The injectate was 3 cc of 1% lidocaine and 20 mg of Depo-Medrol. The same was carried out over the right infrapatellar branch of the saphenous nerve. Patient tolerated procedure without difficulty. There are no complications. Plan and Disposition:: Patient was discharged without incident.
[2023-11-19] MEDS: LIDOCAINE 1% 5ML PF VIAL 5 ML (13:25)
[2023-11-19] MEDS: BUPIVACAINE 0.25% 10ML INJ 25 MG IJ (13:25)
[2023-11-19] MEDS: methylPREDNISolone ACETATE 80MG/ML VIAL 80 MG (13:25)
== END 2023-11-19 11:49 | disposition home or self-care (01) ==
PROVIDERS: PCP Nurse Practitioner Family; Visit Provider Nurse Anesthetist, Certified Registered
DX: M25.561 Pain in right knee (principal); M25.562 Pain in left knee; G89.29 Other chronic pain
CPT/HCPCS: 64450; J1010

== ENCOUNTER 2023-12-05 14:02 | Outpatient (POV) | payer MEDICARE, OTHER, SELFPAY ==
[2023-12-05 14:19] VITALS: BP 143/62; PULSE 107; RESP 16; O2SAT 98; BMI 37.3
--- NOTE | 2023-12-05 15:15 | EXP.PAIN.SOA ---
[facility] Disclaimer: The information contained in this section may have been updated after the patient was seen, as this information can be updated by other users. Medical History CHF exacerbation Elevated troponin I level Diabetes Hypertension HLD (hyperlipidemia) Afib Atrial fibrillation with rapid ventricular response Volume overload Acute on chronic heart failure with preserved ejection fraction (HFpEF) Candidiasis of vagina Pyelonephritis Dysphonia Pt was informed to rinse and gargle salt water after using her inhalers. Candidiasis Migraine History of pacemaker Supraventricular tachycardia PVD (peripheral vascular disease) PAD (peripheral artery disease) Kidney stones Lung disease Pacemaker HTN (hypertension), benign GERD (gastroesophageal reflux disease) Type 2 diabetes mellitus without complications Coronary artery disease CHF (congestive heart failure) Dr. Martinez Chest wall contusion Hx of fall Closed rib fracture Headache Cough Bronchitis Surgical History History of cholecystectomy History of appendectomy Status post biopsy of kidney History of hysterectomy Hx of CABG History of bilateral carpal tunnel release H/O arthroscopy of shoulder Family History Other Diabetes Hyperlipidemia Hypertension Social History Smoking Status: Never smoker second hand exposure: No alcohol intake: never substance use type: denies use current occupational status: unemployed Travel in the last 8 weeks: None household members: other housing: house lives independently: Yes marital status: education level: high school current occupational exposures/hazards: No caffeine: Yes special seymour needs: No agree to transfusion: No do you feel safe at home: Yes victim of physical abuse: No victim of emotional abuse: No victim of sexual abuse: No would you like helpful sources: No PM Subjective & Objective Subjective Subjective:: Patient is a pleasant 83-year-old female who presents today for follow-up of bilateral infrapatellar nerve blocks on 11/19/2023. Today she rates her pain a 5 out of 10. She states that she did have significant relief with these injections with at least 90% improvement on the left knee and the right knee did still give significant relief of about 50% however is only rating the right knee now about 30%. Patient does state that she also has right hip issues and that that could explain why the right side is worse than the left. She does describe it as an aching, throbbing sensation that does interfere with her ability perform activities of daily living such as cooking and cleaning. Patient does state that the injections did provide significant improvement in function to where it is definitely not as severe. Patient states also that the compounded cream did seem to help additionally. Patient states that all of her pain today is more related to the right hip and the right knee. Her Tye has been reviewed and is appropriate. Review of Systems: General: No recent weight changes, no fever, no sleep disturbances Respiratory: No cough, no shortness of air, no recurring pulmonary infections Cardiovascular/peripheral vascular: No chest pain, no palpitations, no edema, no shortness of breath Gastrointestinal: No new onset incontinence, normal bowel movements reported Genitourinary: No new onset incontinence Musculoskeletal: Right knee pain Psychiatric: [Normal mood/affect] Neurological: [Denies weakness in extremities], [denies balance issues] Pain at rest (0-10 scale): 5 Objective Objective:: Physical Exam: General: Alert and oriented x3, no acute distress, pleasant and cooperative Lungs: Respirations even and unlabored, symmetrical chest expansion Eyes: PERRL Musculoskeletal: Flexion and extension of right knee somewhat guarded secondary to pain, [antalgic gait noted] Neurological: Speech clear, no gross sensory deficit Has patient had previous pain injection?: Yes Percent improvement in pain since last injection: 90 to 50% Conservative treatment options previously tried: Home exercise plan Length of treatment: Longer than 6 weeks Meds Home Medications and Allergies Home Medications ?Medication ?Instructions ?Recorded ?Confirmed ?Type acetaminophen 500 mg tablet 500 mg PO BID PRN Pain 06/04/22 12/05/23 History multivitamin (Daily Multi-Vitamin 1 tab PO DAILY 07/30/22 12/05/23 History tablet) metformin 500 mg tablet 500 mg PO BID Diabetes #180 tabs 01/29/23 12/05/23 Rx potassium chloride 20 mEq 20 meq PO DAILY Supplement #90 tabs 01/29/23 12/05/23 Rx tablet,extended release [id number] 100 mcg-lut 1.66 1 tab PO BID 06/27/23 12/05/23 History mg-zeaxanth 0.83 mg tablet,delay rel. (Icaps MV) albuterol sulfate 90 mcg/actuation 2 puff inhalation Q4-6H PRN 11/04/23 12/05/23 History aerosol inhaler Shortness Of Breath Or Wheezing apixaban 5 mg tablet (Eliquis) 5 mg PO BID 11/04/23 12/05/23 History dapagliflozin propanediol 10 mg 10 mg PO DAILY 11/04/23 12/05/23 History tablet (Farxiga) fluticasone furoate 100 1 inh inhalation DAILY 11/04/23 12/05/23 History mcg-vilanterol 25 mcg/dose inhalation powder (Breo Ellipta) irbesartan 75 mg tablet 75 mg PO DAILY 11/04/23 12/05/23 History levothyroxine 125 mcg tablet 125 mcg PO DAILY 11/04/23 12/05/23 History omeprazole 40 mg capsule,delayed 40 mg PO DAILY 11/04/23 12/05/23 History release pravastatin 10 mg tablet 10 mg PO HS 11/04/23 12/05/23 History torsemide 20 mg tablet 40 mg PO BID 11/04/23 12/05/23 History ferrous sulfate 324 mg (65 mg 324 mg PO BID #180 tabs 11/05/23 12/05/23 Rx iron) tablet,delayed release sodium chloride 1,000 mg soluble 1,000 mg PO BID #180 tabs 11/05/23 12/05/23 Rx tablet amitriptyline 50 mg tablet 50 mg PO HS 11/07/23 12/05/23 History magnesium oxide 400 mg (241.3 mg 400 mg PO DAILY 11/07/23 12/05/23 History magnesium) tablet metoprolol succinate 50 mg 50 mg PO DAILY 11/07/23 12/05/23 History tablet,extended release 24 hr clopidogrel 75 mg tablet 75 mg PO DAILY 30 days #30 tabs 11/08/23 12/05/23 Rx doxycycline hyclate 100 mg capsule 100 mg PO BID cellulitis 7 days 11/11/23 12/05/23 Rx #14 caps blood-glucose meter ([employer] Voice #1 ea 11/16/23 12/05/23 Rx Glucose Meter kit) ketoconazole 2 % shampoo 1 applic topical Q2W #120 mL 11/21/23 12/05/23 Rx ofloxacin 0.3 % eye drops 1 drp Eye-Right QID 7 days #10 mL 11/21/23 12/05/23 Rx nystatin 100,000 unit/gram topical 1 applic topical BID #60 grams 12/05/23 12/05/23 Rx powder New Prescriptions to Start Prescriptions: Allergies Allergy/AdvReac Type Severity Reaction Status Date / Time adenosine [ADENOSINE] Allergy Unknown S-ANAPHYLAX Verified 11/27/23 08:48 IS benzonatate Allergy Unknown Verified 11/27/23 08:48 [From DYAA SMITH] morphine [MORPHINE] Allergy Unknown KNOCKS Verified 11/27/23 08:48 OUT Penicillins [PENICILLINS] Allergy Unknown I-RASH Verified 11/27/23 08:48 Sulfa (Sulfonamide Allergy Unknown I-RASH Verified 11/27/23 08:48 Antibiotics) [SULFA (SULFONAMIDE ANTIBIOTICS)] albuterol Allergy Blurry Verified 11/27/23 08:48 Vision Assessment and Plan *Assessment and plan (1) Bilateral knee pain: Status: Acute Qualifiers: Chronicity: chronic Qualified Code(s): M25.561 - Pain in right knee; M25.562 - Pain in left knee; G89.29 - Other chronic pain Category: Medical Code(s): M25.561 - Pain in right knee; M25.562 - Pain in left knee Plan Patient did have significant improvement with the infrapatellar nerve blocks and is still continuing to get improved function along the left knee. Patient is however experiencing worsening pain in her right knee with limited range of motion. I did discuss with the patient that she may benefit from a repeat infrapatellar nerve block on the right side. Risk and benefits were discussed with the patient and she would like to proceed forward with this plan of care. Patient has tried and failed conservative therapy including continued at home stretching exercise for longer than 6 weeks. Patient will be scheduled for her second infrapatellar nerve block on the right side. Patient has been instructed to contact the clinic with any concerns before the next appointment. Dr. Joshi has reviewed this note and agrees with this plan of care. This note was dictated using voice recognition software and make contain errors or omissions. All injections are used with Lidocaine or Bupivacaine and Depo Medrol.
== END 2023-12-05 23:59 | disposition home or self-care (01) ==
LOC: SC.PAIN 14:03
PROVIDERS: PCP Nurse Practitioner Family; Visit Provider Nurse Practitioner Family
DX: M25.561 Pain in right knee (principal); M25.562 Pain in left knee; G89.29 Other chronic pain; Z73.89 Other problems related to life management difficulty; Z79.899 Other long term (current) drug therapy
CPT/HCPCS: 99212; G0463

== ENCOUNTER 2023-12-24 09:41 | Day surgery (SDC) | payer MEDICARE, OTHER, SELFPAY ==
[2023-12-24 09:59] VITALS: BP 144/71; PULSE 88; RESP 18; TEMP 36.6; O2SAT 96; BMI 36.9
[2023-12-24 10:11] VITALS: BP 150/77; PULSE 95; RESP 18; O2SAT 95
--- NOTE | 2023-12-24 10:16 | EXP.PAIN.PRO ---
Procedure Date: 12/24/23 Time: 09:55 Anesthesiologist:: Juancarlos Randolph CRNA Complications:: None Pre-procedure Diagnosis:: Chronic right knee pain. Status post right knee replacement. Post-procedure Diagnosis:: Same. Indications for Procedure:: Patient is a pleasant 83-year-old female who presents to our clinic today in a wheelchair with chronic right knee pain that she describes as constant, dull, aching. Patient had right knee replacement several years ago. She has difficulty with ambulation secondary to right knee pain. She rates her pain 7/10. Procedure Details:: Details of the procedure explained to the patient. The patient taken procedure and placed in the sitting position. The area over the right knee was cleansed using chlorhexidine as a cleansing solution. Using a 25-gauge inch and half needle the right infrapatellar nerve branch was blocked using 3 cc of 1% lidocaine +3 cc 0.25% Marcaine and 40 mg of Depo-Medrol. Patient tolerated procedure without difficulty. There are no complications. Plan and Disposition:: Patient was discharged without incident.
== END 2023-12-24 10:11 | disposition home or self-care (01) ==
PROVIDERS: PCP Nurse Practitioner Family; Visit Provider Nurse Anesthetist, Certified Registered
DX: M25.561 Pain in right knee (principal); G89.29 Other chronic pain; Z96.651 Presence of right artificial knee joint
CPT/HCPCS: 64450

== ENCOUNTER 2024-01-13 10:42 | Emergency (ER) | payer MEDICARE, OTHER, SELFPAY ==
[2024-01-13] VITALS (7 sets, daily range): BP systolic 129–175; BP diastolic 68–93; PULSE 95–107; RESP 17–18; TEMP 36.6; O2SAT 95–98; BMI 38.5
--- NOTE | 2024-01-13 10:47 | XR_ITS ---
FINAL REPORT CLINICAL HISTORY: R knee injury FINDINGS: RIGHT KNEE AP and lateral views of the right femur were obtained. There are postoperative changes of knee arthroplasty. There is a fracture of the distal femoral metaphysis with posterior displacement of the distal fracture fragment and remaining knee. There are vascular calcifications noted. IMPRESSION: Fracture of the distal femoral metaphysis with posterior displacement of the distal fracture fragment and remaining knee. Reviewed, Interpreted and Dictated by Yazan Ching III, MD Transcribed by Suzan Solorio Authenticated and [facility]
--- NOTE | 2024-01-13 10:47 | XR_ITS ---
FINAL REPORT CLINICAL HISTORY: knee injury FINDINGS: RIGHT FEMUR AP and lateral views of the right femur were obtained. There are postoperative changes of knee arthroplasty. There is a fracture of the distal femoral metaphysis with posterior displacement of the distal fracture fragment and remaining knee. There are vascular calcifications noted. IMPRESSION: Fracture of the distal femoral metaphysis with posterior displacement of the distal fracture fragment and remaining knee. Reviewed, Interpreted and Dictated by Yazan Ching III, MD Transcribed by Suzan Solorio Authenticated and [facility]
--- NOTE | 2024-01-13 10:47 | XR_ITS ---
FINAL REPORT CLINICAL HISTORY: R knee injury FINDINGS: RIGHT TIBIA AND FIBULA AP and lateral views of the right tibia and fibula were obtained. There are postoperative changes of knee arthroplasty. There is a fracture of the distal femoral metaphysis with posterior displacement of the distal fracture fragment and remaining knee. There are vascular calcifications noted. IMPRESSION: Fracture of the distal femoral metaphysis with posterior displacement of the distal fracture fragment and remaining knee. Reviewed, Interpreted and Dictated by Yazan Ching III, MD Transcribed by Suzan Solorio Authenticated and [facility]
--- NOTE | 2024-01-13 10:49 | ED_ITS ---
Discharge Plan Disposition Patient Disposition: Xfer Short-Term Hosp Prescriptions Prescriptions: No Action multivitamin [Daily Multi-Vitamin] Tablet 1 tab PO DAILY albuterol sulfate 90 mcg/actuation HFA aerosol inhaler 2 puff inhalation Q4-6H PRN (Reason: Shortness Of Breath Or Wheezing) fluticasone furoate-vilanterol [Breo Ellipta] 100-25 mcg/dose blister with device 1 inh inhalation DAILY torsemide 20 mg tablet 40 mg PO BID metformin 500 mg tablet 500 mg PO BID Qty: 180 3RF potassium chloride 20 mEq tablet extended release 20 meq PO DAILY Qty: 90 3RF ofloxacin 0.3 % drops 1 drp Eye-Right QID 7 Days Qty: 10 0RF ketoconazole 2 % shampoo 1 applic topical Q2W Qty: 120 0RF mupirocin 2 % ointment 1 applic topical BID 14 Days Qty: 15 0RF sodium chloride 1,000 mg tablet,soluble 1,000 mg PO BID Qty: 180 0RF ferrous sulfate 324 mg (65 mg iron) tablet,delayed release (DR/EC) 324 mg PO BID Qty: 180 3RF doxycycline hyclate 100 mg capsule 100 mg PO BID 7 Days Qty: 14 0RF (DME) blood-glucose meter [[employer] Voice Glucose Meter] Kit See Rx Instructions .Route Qty: 1 0RF Rx Instructions: As directed nystatin 100,000 unit/gram powder 1 applic topical BID Qty: 60 2RF clopidogrel 75 mg tablet See Rx Instructions .ROUTE .COMPLEX Qty: 90 1RF Dose Instruction: TAKE 1 TABLET BY MOUTH ONCE DAILY Rx Instructions: TAKE 1 TABLET BY MOUTH ONCE DAILY pravastatin 10 mg tablet See Rx Instructions .ROUTE .COMPLEX Qty: 90 1RF Dose Instruction: TAKE 1 TABLET BY MOUTH ONCE DAILY FOR CHOLESTEROL Rx Instructions: TAKE 1 TABLET BY MOUTH ONCE DAILY FOR CHOLESTEROL omeprazole 40 mg capsule,delayed release(DR/EC) See Rx Instructions .ROUTE .COMPLEX Qty: 90 0RF Dose Instruction: TAKE 1 CAPSULE BY MOUTH ONCE DAILY FOR STOMACH (GERD) Rx Instructions: TAKE 1 CAPSULE BY MOUTH ONCE DAILY FOR STOMACH (GERD) irbesartan 75 mg tablet See Rx Instructions .ROUTE .COMPLEX Qty: 90 1RF Dose Instruction: TAKE 1 TABLET BY MOUTH ONCE DAILY (FOR BLOOD PRESSURE) Rx Instructions: TAKE 1 TABLET BY MOUTH ONCE DAILY (FOR BLOOD PRESSURE) dapagliflozin propanediol [Farxiga] 10 mg tablet See Rx Instructions .ROUTE .COMPLEX Qty: 90 1RF Dose Instruction: TAKE 1 TABLET BY MOUTH ONCE DAILY (FOR DIABETES) Rx Instructions: TAKE 1 TABLET BY MOUTH ONCE DAILY (FOR DIABETES) magnesium oxide 400 mg (241.3 mg magnesium) tablet See Rx Instructions .ROUTE .COMPLEX Qty: 90 1RF Dose Instruction: TAKE 1 TABLET BY MOUTH ONCE DAILY SUPPLEMENT Rx Instructions: TAKE 1 TABLET BY MOUTH ONCE DAILY SUPPLEMENT metoprolol succinate 25 mg tablet extended release 24 hr See Rx Instructions .ROUTE .COMPLEX Qty: 90 1RF Dose Instruction: TAKE 1 TABLET BY MOUTH ONCE DAILY FOR BLOOD PRESSURE Rx Instructions: TAKE 1 TABLET BY MOUTH ONCE DAILY FOR BLOOD PRESSURE levothyroxine 125 mcg tablet See Rx Instructions .ROUTE .COMPLEX Qty: 90 1RF Dose Instruction: TAKE 1 TABLET BY MOUTH ONCE DAILY FOR THYROID Rx Instructions: TAKE 1 TABLET BY MOUTH ONCE DAILY FOR THYROID Eliquis 5 mg tablet 5 mg PO BID Qty: 180 1RF amitriptyline 50 mg tablet 50 mg PO HS acetaminophen 500 mg tablet 500 mg PO BID PRN (Reason: Pain) Icaps MV 100-1.66-0.83 mcg-mg-mg Tablet,Delayed Release (Dr/Ec) 1 tab PO BID Referrals Follow up/Referrals: Provider,Referral, MD [Referring] - See instructions Clinical Impressions Clinical Impression: Shelia-prosthetic supracondylar fracture of femur Qualifiers: Encounter type: initial encounter Qualified Code(s): M97.8XXA - Periprosthetic fracture around other internal prosthetic joint, initial encounter Print Language Print Language: Bermudian Discharge ED Provider: Wally Amezquita General Adult HPI General Chief complaint: Fall Stated complaint: Fall Time Seen by Provider: 01/13/24 10:43 Mode of Arrival: EMS Source of Information: Patient History of Present Illness HPI narrative: This is an 83-year-old female with a history of hypertension, hyperlipidemia, A- fib on Eliquis, knee replacement who presents after a fall and right knee injury. States that she fell on the sidewalk outside of her house and landed on her right knee. Denies hitting her head or loss of conscious. Denies neck pain or back pain. Reports pain and swelling to right knee. Called EMS for transport. Unable to ambulate. Related Data Home Medications ?Medication ?Instructions ?Recorded ?Confirmed acetaminophen 500 mg tablet 500 mg PO BID PRN Pain 06/04/22 01/09/24 multivitamin (Daily Multi-Vitamin 1 tab PO DAILY 07/30/22 01/09/24 tablet) [id number]-[id number]-[id number] 100 mcg-lut 1.66 1 tab PO BID 06/27/23 01/09/24 mg-zeaxanth 0.83 mg tablet,delay rel. (Icaps MV) albuterol sulfate 90 mcg/actuation 2 puff inhalation Q4-6H PRN 11/04/23 01/09/24 aerosol inhaler Shortness Of Breath Or Wheezing fluticasone furoate 100 1 inh inhalation DAILY 11/04/23 01/09/24 mcg-vilanterol 25 mcg/dose inhalation powder (Breo Ellipta) torsemide 20 mg tablet 40 mg PO BID 11/04/23 01/09/24 amitriptyline 50 mg tablet 50 mg PO HS 11/07/23 01/09/24 Previous Rx's ?Medication ?Instructions ?Recorded metformin 500 mg tablet 500 mg PO BID Diabetes #180 tabs 01/29/23 potassium chloride 20 mEq 20 meq PO DAILY Supplement #90 tabs 01/29/23 tablet,extended release ferrous sulfate 324 mg (65 mg 324 mg PO BID #180 tabs 11/05/23 iron) tablet,delayed release sodium chloride 1,000 mg soluble 1,000 mg PO BID #180 tabs 11/05/23 tablet doxycycline hyclate 100 mg capsule 100 mg PO BID cellulitis 7 days 11/11/23 #14 caps blood-glucose meter ([employer] Voice #1 ea 11/16/23 Glucose Meter kit) ketoconazole 2 % shampoo 1 applic topical Q2W #120 mL 11/21/23 ofloxacin 0.3 % eye drops 1 drp Eye-Right QID 7 days #10 mL 11/21/23 nystatin 100,000 unit/gram topical 1 applic topical BID #60 grams 12/05/23 powder clopidogrel 75 mg tablet See Rx Instructions .Route 12/11/23 .COMPLEX #90 tabs dapagliflozin propanediol 10 mg See Rx Instructions .Route 12/27/23 tablet (Farxiga) .COMPLEX #90 tabs irbesartan 75 mg tablet See Rx Instructions .Route 12/27/23 .COMPLEX #90 tabs levothyroxine 125 mcg tablet See Rx Instructions .Route 12/27/23 .COMPLEX #90 tabs magnesium oxide 400 mg (241.3 mg See Rx Instructions .Route 12/27/23 magnesium) tablet .COMPLEX #90 tabs metoprolol succinate 25 mg See Rx Instructions .Route 12/27/23 tablet,extended release 24 hr .COMPLEX #90 tabs omeprazole 40 mg capsule,delayed See Rx Instructions .Route 12/27/23 release .COMPLEX #90 caps pravastatin 10 mg tablet See Rx Instructions .Route 12/27/23 .COMPLEX #90 tabs apixaban 5 mg tablet (Eliquis) 5 mg PO BID #180 tabs 12/31/23 mupirocin 2 % topical ointment 1 applic topical BID infection 14 01/09/24 days #15 grams Allergies Allergy/AdvReac Type Severity Reaction Status Date / Time adenosine [ADENOSINE] Allergy Unknown S-ANAPHYLAX Verified 01/09/24 14:04 IS benzonatate Allergy Unknown Unknown Verified 01/09/24 14:04 [From TESSALON PERLMADHU] allergy reaction morphine [MORPHINE] Allergy Unknown KNOCKS Verified 01/09/24 14:04 OUT Penicillins [PENICILLINS] Allergy Unknown I-RASH Verified 01/09/24 14:04 Sulfa (Sulfonamide Allergy Unknown I-RASH Verified 01/09/24 14:04 Antibiotics) [SULFA (SULFONAMIDE ANTIBIOTICS)] albuterol Allergy Blurry Verified 01/09/24 14:04 Vision PFSH COUNT INCLUDES [facility] Disclaimer: The information contained in this section may have been updated after the patient was seen, as this information can be updated by other users. Medical History CHF exacerbation Elevated troponin I level Diabetes Hypertension HLD (hyperlipidemia) Afib Atrial fibrillation with rapid ventricular response Volume overload Acute on chronic heart failure with preserved ejection fraction (HFpEF) Candidiasis of vagina Pyelonephritis Dysphonia Pt was informed to rinse and gargle salt water after using her inhalers. Candidiasis Migraine History of pacemaker Supraventricular tachycardia PVD (peripheral vascular disease) PAD (peripheral artery disease) Kidney stones Lung disease Pacemaker HTN (hypertension), benign GERD (gastroesophageal reflux disease) Type 2 diabetes mellitus without complications Coronary artery disease CHF (congestive heart failure) Dr. Martinez Chest wall contusion Hx of fall Closed rib fracture Headache Cough Bronchitis Surgical History History of cholecystectomy History of appendectomy Status post biopsy of kidney History of hysterectomy Hx of CABG History of bilateral carpal tunnel release H/O arthroscopy of shoulder Family History Other Diabetes Hyperlipidemia Hypertension Social History Smoking Status: Never smoker second hand exposure: No alcohol intake: never substance use type: denies use current occupational status: unemployed Travel in the last 8 weeks: None household members: other housing: house lives independently: Yes marital status: education level: high school current occupational exposures/hazards: No caffeine: Yes special seymour needs: No agree to transfusion: No do you feel safe at home: Yes victim of physical abuse: No victim of emotional abuse: No victim of sexual abuse: No would you like helpful sources: No Other Medical History Have you received the Flu Vaccine for this season: No Have you received the Pneumonia Vaccine: Yes ROS Obtained: Yes All systems reviewed & no additional complaints except as documented Physical Exam General General appearance: alert and in no apparent distress Head Head exam: atraumatic, normocephalic and normal inspection Eye Eye exam: Present normal appearance, PERRL and EOMI Neck Neck exam: Present normal inspection and full ROM; Absent tenderness Chest Chest inspection: Absent tenderness Respiratory Respiratory exam: Present normal lung sounds bilaterally; Absent respiratory distress Cardiovascular Cardiovascular exam: Present regular rate and normal rhythm Abdominal Exam Abdominal exam: Present soft and distention; Absent tenderness, guarding or rebound Extremities Exam Extremities exam: Present other (RLE: Swelling and tenderness of right knee. Neurovascularly intact distally. Fixed in a flexed position.) Neurological Exam Neurological exam: Present alert and oriented X3 Skin Skin exam: Present warm and dry Medical Decision Making Medical Records Medical records reviewed: Yes I reviewed the patient's medical records. Screening: Per USPSTF and CDC recommendations, given the prevalence of disease in our region, it is our hospital?s policy to screen for HIV and viral Hepatitis for all patients aged 18 and over and those with ongoing risk factors. Tye Inquiry Pt receiving controlled substance: No Vital Signs: 01/13/24 10:42 Temperature 97.8 F Temperature Source Oral Pulse Rate [Left Radial] 101 H Respiratory Rate 17 Blood Pressure [Right Arm] 175/90 H Blood Pressure Mean [Right Arm] 118 Blood Pressure Source [Right Arm] Automatic Cuff Blood Pressure Position [Right Arm] Sitting 02 Sat by Pulse Oximetry 98 Oxygen Delivery Method Room Air Orders (Tests/Meds): ED MEDICATIONS Generic Name Dose Route Start Last Admin Trade Name Freq PRN Reason Stop Dose Admin Hydromorphone HCl 0.5 mg 01/13/24 10:47 Hydromorphone 2mg/Ml Syringe IV 02/12/24 10:46 Q2HP PRN Severe Pain (7-10) ORDERS Category Date Time Status Femur XR right 2 views [XR femur RT 2V] Stat Exams 01/13/24 10:47 Taken Fibula/tibia XR right 2 views [XR tibia fibula RT 2V] Exams 01/13/24 10:47 Taken Stat Knee XR right 3 views [XR knee RT 3V] Stat Exams 01/13/24 10:47 Taken HIV (1&2) Antibody Rapid Stat Lab 01/13/24 10:56 Ordered Hep C Ab with Reflex to RNA Stat Lab 01/13/24 10:56 Ordered Medical Decision Narrative: In summary, this 83-year-old female with a history of hypertension, hyperlipidemia, A-fib on Eliquis presents to the emergency department today with right knee injury. On initial evaluation patient is afebrile, hematin stable, nontoxic-appearing. Tenderness and swelling to right knee. No other areas of focal tenderness. No head injury. Differential diagnosis includes but is not limited to long bone fracture, dislocation, soft tissue injury. Based on these concerns, I ordered x-ray imaging of the right femur, knee, tib-fib. Patient received Dilaudid for treatment. XR personally interpreted demonstrates periprosthetic distal femur fracture. I had an interactive discussion with provider at who accepted the patient for transfer to the emergency department for evaluation by orthopedic surgery. Patient remained stable throughout her stay in the Emergency Department was transferred to for further evaluation and care. Critical Care Critical Care Time Critical Care Time: No
--- NOTE | 2024-01-13 10:49 | PC.NURSE ---
PILLOW PROVIDED, CALL LIGHT WITHIN REACH
--- NOTE | 2024-01-13 10:58 | PC.NURSE ---
RAD at BS
--- NOTE | 2024-01-13 12:01 | PC.NURSE ---
IMAGES POWERSHARED WITH [facility]
--- NOTE | 2024-01-13 12:02 | PC.NURSE ---
Called [facility] per Dr Amezquita to speak with Ortho about this pt. They connected us with the hospitalist and Dr Amezquita is speaking with them now
[2024-01-13] MEDS: HYDROMORPHONE 2MG/ML SYRINGE 0.5 MG IV ×2 (12:16→12:59)
[2024-01-13] MEDS: ONDANSETRON 4MG/2ML VIAL 4 MG IV (13:04)
== END 2024-01-13 13:00 | disposition short-term general hospital (02) ==
PROVIDERS: Emergency Provider Student in an Organized Health Care Education/Training Program; PCP Nurse Practitioner Family
DX: M97.8XXA Periprosthetic fracture around other internal prosthetic joint, initial encounter (principal); M25.561 Pain in right knee; W01.0XXA Fall on same level from slipping, tripping and stumbling without subsequent striking against object, initial encounter; Y93.89 Activity, other specified; Y92.008 Other place in unspecified non-institutional (private) residence as the place of occurrence of the external cause
CPT/HCPCS: 73552; 73562; 73590; 96374; 99285; J1170; J2405